=== PATIENT | female | born 1935 | race Caucasian/White ===

== ENCOUNTER → 2017-07-28 | Day surgery (SDC) | payer OTHER, MEDICARE ==
[2017-07-20 11:21] VITALS: Ht 154.9 cm; Wt 85.9 kg
[~2017-07-28] VITALS: Ht 154.9 cm; Wt 85.9 kg
[~2017-07-28] MED LIST: AMIO200T4 PO; ATOR-22 PO; CHOL20009 PO; CYAN1SUB13 SC; ENOX100I SC; FURO-85 PO; LEVO112T4 PO; LIDOCAINE HCL 2% 2 ML VIAL (20MG/ML) ONE; LISI-789 PO; PRLSR20 PO; PROPOFOL IV EMULSION 10 MG/ML 20 ML VIAL IV ONE; TAMO20TA9 PO; WARF1TAB PO
[2017-07-28 08:07] VITALS: TEMP 36.6
--- NOTE | 2017-07-28 08:52 | Endo History and Physical ---
History & Physical Date of Service: Jul 28, 2017. Chief Complaint: varices, barretts esophagus Referring Physician: Dr. Floyd Nuno History of Present Illness varices Past Surgical History Hx Cardiac Surgery: No Hx Internal Defibrillator: No Hx Pacemaker: No Hx Abdominal Surgery: Yes (TUBAL LIGATION, APPY) Hx of Implantable Prosthesis: No Hx Post-Op Nausea and Vomiting: No Hx Cancer Surgery: Yes (THROIDECTOMY) Hx Thoracic Surgery: No Hx Orthopedic: Yes (ORIF RT ANKLE) Hx Urinary Tract Surgery: No Family History Colon CA Social History Smoking Status: Never Smoker Hx Substance Use: No Hx Alcohol Use: No Allergies Coded Allergies: Penicillins (Verified Allergy, Severe, ANAPHYAXIS, 07/20/17) Magnesium (Verified Adverse Reaction, Unknown, DIARRHEA, 07/20/17) Current Medications Reported Home Medications Medications Dose Route/Sig Max Daily Dose Days Date Category Dose Instructions B-12 (Cyanocobalamin) 1,000 Mcg Sub 1 Dose SC MONTHLY 07/20/17 Reported Vitamin D (Cholecalciferol) 2,000 Unit Tab 1 Tab PO QAM 07/20/17 Reported Coumadin (Warfarin Sodium) 1 Mg Tab 1 Mg PO DAILY 07/20/17 Reported Lasix (Furosemide) 20 Mg Tab 20 Mg PO BID 07/20/17 Reported Prilosec (Omeprazole) 20 Mg Capcr 20 Mg PO QAM 07/20/17 Reported Nolvadex (Tamoxifen Citrate) 20 Mg Tab 20 Mg PO QAM 07/20/17 Reported Lipitor (Atorvastatin Calcium) 20 Mg Tab 20 Mg PO QAM 07/20/17 Reported Lovenox (Enoxaparin) 100 Mg/Ml Inj 1 Dose SC DIRECTED 07/20/17 Reported RECEIVED INSTR. TO USE WITH BRIDGING OFF COUMADIN FROM [facility]. Levothyroxine Sodium 112 Mcg Tab 1 Tab PO QAM 07/20/17 Reported Cordarone (Amiodarone Hcl) 200 Mg Tab 100 Mg PO QAM 07/20/17 Reported Zestril (Lisinopril) 2.5 Mg Tab 1 Tab PO QAM 07/20/17 Reported Vital Signs Weight (Kilograms): 85.91 Height (Feet): 5 Height (Inches): 1 Date Time Temp Pulse Resp B/P (MAP) Pulse Ox O2 Delivery O2 Flow Rate FiO2 07/28/17 08:07 36.6 92 20 138/86 (103) 94 Room Air Physical Exam General Appearance: no apparent distress Respiratory/Chest: Respiratory effort: no dyspnea Cardiovascular: Heart Auscultation: RRR Abdomen: Inspection & Palpation: soft Assessment and Plan EGD
--- NOTE | 2017-07-28 09:45 | GI REPORT ---
Procedure Date: 07/28/2017 8:53 AM Procedure: Upper GI endoscopy Indications: Follow-up of Ortiz's esophagus, Cirrhosis rule out esophageal varices Medicines: See the Anesthesia note for documentation of the administered medications Complications: No immediate complications. Estimated Blood Loss: Estimated blood loss: none. Procedure: Pre-Anesthesia Assessment: - ASA Grade Assessment: III - A patient with severe systemic disease. After obtaining informed consent, the endoscope was passed under direct vision. Throughout the procedure, the patient's blood pressure, pulse, and oxygen saturations were monitored continuously. The scope was introduced through the mouth, and advanced to the second part of duodenum. The upper GI endoscopy was accomplished without difficulty. The patient tolerated the procedure well. Findings: There was a small inlet patch in the proximal esophagus. The esophagus and gastroesophageal junction were examined with white light from a forward view and retroflexed position. There were esophageal mucosal changes classified as Ortiz's stage C1-M2 per [place] criteria. These changes involved the mucosa at the upper extent of the gastric folds (36 cm from the incisors) extending to the Z-line (34 cm from the incisors). [place]-colored mucosa was present. The maximum longitudinal extent of these esophageal mucosal changes was 2 cm in length. Mucosa was extensively biopsied in four quadrants with a cold forceps for histology. One specimen bottle was sent to pathology. There was a moderate sized hiatal hernia. There were no esophageal varices. The esophagus was otherwise normal. There were no gastric varices. There was no evidence of portal HTN gastropathy. The antrum was markedly deformed, likely from prior PUD. There was a nodule in the antrum that was biopsied. There was some deformity and narrowing of the apex of the bulb. Impression: - Esophageal mucosal changes classified as Ortiz's stage C1-M2 per [place] criteria. Biopsied. - Deformity of antrum and ring at the apex of the bulb. Recommendation: - Discharge patient to home. Given age, would consider d/c endoscopic surveillance of Ortiz's. Harshad Davenport M.D. Harshad Davenport MD 07/28/2017 9:44:58 AM This report has been signed electronically. Note Initiated On: 07/28/2017 8:53 AM I attest to the content of the Intraoperative Record and orders documented therein, exceptions below
--- NOTE | 2017-07-28 09:46 | Discharge Instructions ---
Endoscopy Patient Instructions Date / Procedure(s) Performed Jul 28, 2017. EGD Allergy Information Coded Allergies: Penicillins (Verified Allergy, Severe, ANAPHYAXIS, 07/20/17) Magnesium (Verified Adverse Reaction, Unknown, DIARRHEA, 07/20/17) Discharge Date / Findings Jul 28, 2017. Short segment Ortiz's, biopsied. No varices or portal gastropathy Deformity of antrum, likely from prior PUD Medication Instructions Stopped Medication(s): Coumadin was told to be held. Patient didnt take anything this am yet. Restart Stopped Medication(s): Resume coumadin today Provider Instructions Activity Restrictions - No exercising or heavy lifting for 24 hours. - Do not drink alcohol the day of the procedure. - Do not drive a car or operate machinery until the day after the procedure. - Do not make any important decisions or sign important papers in 24 hours after the procedure. Following Day: - Return to full activity which may include returning to work/school. Diet Start your diet with liquids and light foods (jello, soup, juice, toast). Then eat your usual diet if not nauseated. Treatment For Common After Affects For mild abdominal pain, bloating, or excessive gas: - Rest - Eat lightly - Lie on right side Follow-Up Information Follow-up with Dr. Floyd Nuno as scheduled Anesthesia Information What You Should Know You have had a procedure that required some medicine to reduce anxiety and discomfort. This treatment is called moderate sedation. After receiving the treatment, you may be sleepy, but you will be able to breathe on your own. The effects of the treatment may last for several hours. Follow these instructions along with Activity/Diet recommendations noted above: * Do NOT do anything where dizziness or clumsiness would be dangerous. * Rest quietly at home today, then you can be up and about tomorrow. * Have a responsible person stay with you the rest of today. * You may have had an I.V. today. If so, you may take the dressing off later today. Recommendations Call your doctor if: * Trouble breathing * Continuous vomiting for more than 24 hours * Temperature above 101 degrees * Severe abdominal pain or bloating * Pain not relieved by pain medicine ordered * There is increased drainage or redness from any incision * A large amount of rectal bleeding greater than 2-3 tablespoons. (If you had a polyp/s removed or have hemorrhoids, a small amount of blood - from the rectum is to be expected.) * You have any unanswered questions or concerns. IN THE EVENT OF A SERIOUS EMERGENCY, GO TO THE NEAREST EMERGENCY ROOM Your discharge instructions were prepared by provider Harshad Mcintosh. Patient Instructions Signature Page Gisselle Britt Patient (or Guardian) Signature/Date: I have read and understand the instructions given to me by my caregivers. Caregiver/RN/Doctor Signature/Date: The above-named patient and/or guardian has received patient instructions on this date. + Original Patient Signature Page (only) stays with chart. Please make copy for patient.
[2017-07-28 09:53] VITALS: BP 108/63; PULSE 74; O2SAT 100
--- NOTE | 2017-07-28 09:54 | Anesthesiology Progress Note ---
Anesthesia Post Op Note Date & Time Jul 28, 2017 at 09:53 Vital Signs Pain Intensity: 0 Vital Signs Past 12 Hours Date Time Temp Pulse Resp B/P (MAP) Pulse Ox O2 Delivery O2 Flow Rate FiO2 07/28/17 09:38 86 20 111/67 (82) 97 Room Air 07/28/17 09:23 80 20 125/64 (84) 100 Room Air 07/28/17 08:07 36.6 92 20 138/86 (103) 94 Room Air Notes Mental Status: alert / awake / arousable, participated in evaluation Pt Amnestic to Procedure: Yes Nausea / Vomiting: adequately controlled Pain: adequately controlled Airway Patency, RR, SpO2: stable & adequate BP & HR: stable & adequate Hydration State: stable & adequate Anesthetic Complications: no major complications apparent
== END | disposition home or self-care (01) ==
LOC: C.GI 07:41
PROVIDERS: ATTEND Internal Medicine Gastroenterology
DX: K22.70 Barrett's esophagus without dysplasia (principal); K20.9 Esophagitis, unspecified; K29.50 Unspecified chronic gastritis without bleeding; Z80.0 Family history of malignant neoplasm of digestive organs; Z79.899 Other long term (current) drug therapy

== ENCOUNTER 2020-02-16 11:14 | Inpatient (IN) ==
[2020-02-16] MEDS ORDERED: DAPTOmycin 250 MG in SYRINGE 0 ML IV ONE (11:49)
[2020-02-16] MEDS ORDERED: cefTRIAXone SODIUM 2,000 MG/70 ML BAG IV STA (11:49)
[2020-02-16 12:12] LABS: Basophils # (auto) 0.04 K/uL (0-0.2); Basophils % (auto) 0.7 %; Eosinophils # (auto) 0.17 K/uL (0-0.5); Eosinophils % (auto) 2.8 %; Hematocrit (blood only) 33.8 % (37-47); Hemoglobin 11.2 g/dL (12.0-16.0); Immature Granulocytes # (auto) 0.01 K/uL (0.00-0.02); Immature Granulocytes % (auto) 0.2 %; Lymphocytes # (auto) 0.97 K/uL (1.2-3.4); Lymphocytes % (auto) 16.1 %; Mean Corpuscular Hemoglobin 35.3 pg (25-34); Mean Corpuscular Hgb Conc 33.1 g/dL (32-36); Mean Corpuscular Volume 106.6 fL (80-100); Mean Platelet Volume 10.7 fL (7.4-10.4); Monocytes # (auto) 0.74 K/uL (0.11-0.59); Monocytes % (auto) 12.3 %; Neutrophils # (auto) 4.09 K/uL (1.4-6.5); Neutrophils % (auto) 67.9 %; Platelet Count 172 K/uL (130-400); RDW Coefficient of Variation 14.7 % (11.5-14.5); RDW Standard Deviation 57.9 fL (36.4-46.3); Red Blood Count 3.17 M/uL (4.2-5.4); White Blood Count 6.02 K/uL (4.8-10.8)
[2020-02-16 12:36] LABS: BUN Creatinine Ratio 9.6 (10-20); C Reactive Protein 0.58 mg/dl (0-0.29); Calcium 9.3 mg/dl (8.5-10.1); Creatinine Clr Calc Pharmacy 36.9 ml/min; Est GFR (African American) 50.2; Est GFR (Non-African American) 43.4; Potassium 4.8 mmol/L (3.5-5.1)
--- NOTE | 2020-02-16 13:00 | Emergency Department Note ---
Impression & Plan Cellulitis of foot, right, Cellulitis of right leg ED Provider Note NAME: ROBBY STANLEY AGE: 84 SEX: F ARRIVES VIA: Walk-In INFORMANT: [Patient] ED PROVIDER(S): Floyd Newsome MD CHIEF COMPLAINT: Right foot infection PLAN: Disposition: admitted. 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 On physical examination she has a significant cellulitis extending into the lower leg with skin breakdown on the foot. Blood work was performed. Culture obtained. The patient was treated with daptomycin and Rocephin. She had unremarkable CBC and chemistry panel. Given the extent of the infection and the patient's difficulty ambulating further management in the hospital is necessary. I discussed this with the patient. She was in agreement. Consultation was made with the hospitalist service. The patient was evaluated in the ER and admitted for further management. Triage Nursing notes reviewed and agree them. Vital Signs: reviewed and remarkable for [no significant abnormalities] Differential diagnosis: Etiologies such as cellulitis, abscess, MRSA infection, dermatitis, drug eruption, necrotizing fasciitis, DVT as well as others were entertained. ER treatment provided: IV gentamicin IV Rocephin Patient declined analgesia Diagnostics interpreted by me: Laboratory studies: [See below] Unremarkable CBC and chemistry panel except for mild anemia. Imaging studies: X-ray imaging of the right foot is negative for any osteomyelitis or subcutaneous air. Soft tissue edema noted. Consultation(s): [facility] service, HPI: The patient is an 84 year old female who presents to the Emergency Room with complaints of a right foot infection. This started 4 days ago and is worsening. The patient also notes the following associated symptoms, right foot pain, swelling and redness. The patient has taken no medication for relieving factors. Current pain is rated as 4/10. Patient has neuropathy and can't feel her feet well. Saw podiatry and they were concerned about infection and referred to the ER for treatment. Pt denies LOC, headache, fevers, chills, diaphoresis, visual changes, neck pain, chest pain, breathing difficulties, nausea, vomiting, abdominal pain, back pain, melena, hematochezia, urinary symptoms, weakness, lymphadenopathy, rash, or other complaints. ROS: See above HPI for pertinent positives & negatives. A total of [10] systems reviewed and were otherwise negative. PAST MEDICAL HISTORY:[See Below] Neuropathy PAST SURGICAL HISTORY:[See Below] FAMILY HISTORY:[See Below] SOCIAL HISTORY:[See Below]Lives alone HOME MEDICATIONS:[See Below] ALLERGIES:[See Below] VITALS:[See Below] PHYSICAL EXAMINATION: GENERAL: Awake, alert, well-appearing, in no distress HENT: Normocephalic, atraumatic. Oropharynx unremarkable. EYES: Normal conjunctiva. Sclera non-icteric. NECK: Inspection normal. Non-tender. Supple. No nuchal rigidity. FROM. No masses. RESPIRATORY: Clear to auscultation. No wheezes. No rales. Normal respiratory effort. CARDIAC: Normal rate. Normal rhythm. No murmurs. No rubs. Extremities warm and well perfused. Pulses equal. No JVD. GI: Soft, non-distended. No tenderness to palpation. No rebound or guarding. No masses. RECTAL: Deferred. MUSCULOSKELETAL: Atraumatic. Chest examination reveals no tenderness. The back is symmetrical on inspection without obvious abnormality. There is no CVA tenderness to palpation. No joint edema. LOWER EXTREMITIES: Calves are equal size bilaterally and non-tender. Thickened appearance of skin with chronic venous changes bilaterally. 1+ left edema. 2+ right edema. Desquamation, erythema, warmth, and TTP of the right LE, ankle and foot concerning for cellulitis. NEURO: Normal sensorium. No sensory or motor deficits noted. SKIN: See above. No other rash or jaundice noted. ED COURSE: [Critical Care:] [None] Floyd Newsome MD Past Med/Surg History Social History Preferred Language: Divehi Communication Ability: Effective Literature Professor Required: No Beliefs That Will Affect Care: None Current Living Situation: Alone Feels Safe at Home: Yes Safety Concerns: Feels Safe At This Time Smoking Status: Never smoker Hx Alcohol Use: No Hx Substance Use: No Allergies Allergies Allergy/AdvReac Type Severity Reaction Status Date / Time Penicillins Allergy Severe ANAPHYAXIS Verified 02/16/20 13:06 magnesium AdvReac Unknown DIARRHEA Verified 02/16/20 13:06 Home Meds Home Medications Medication Instructions Recorded Confirmed acetaminophen [Tylenol Extra 500 mg PO Q6H PRN 12/06/18 02/16/20 Strength] amiodarone 100 mg PO QAM 12/06/18 02/16/20 atorvastatin 20 mg PO QAM 12/06/18 02/16/20 cholecalciferol (vitamin D3) 2,000 unit PO QAM 12/06/18 02/16/20 [Vitamin D3] cyanocobalamin (vitamin B-12) 1,000 mcg IM Q3M 12/06/18 02/16/20 furosemide 40 mg PO DAILY PRN 12/06/18 02/16/20 levothyroxine 112 mcg PO QAM 12/06/18 02/16/20 omeprazole 20 mg PO QAM 12/06/18 02/16/20 tamoxifen 20 mg PO QAM 12/06/18 02/16/20 warfarin 1 mg PO SUMOWETHFR 12/06/18 02/16/20 warfarin 2 mg PO TUSA 12/06/18 02/16/20 amlodipine 5 mg PO QAM 02/16/20 02/16/20 diclofenac sodium 4 g TOPICAL QID PRN 02/16/20 02/16/20 Results & Data (ED) Vital Signs Vital Signs - 24 hr 02/16/20 11:19 02/16/20 12:20 02/16/20 12:25 Temperature 36.4 C L Temperature Source Oral Pulse Rate 105 H 82 77 Pulse Rate [Finger] Pulse Rate from SpO2 Sensor 82 77 Pulse Rhythm Regular Pulse Strength Normal Respiratory Rate 20 22 22 Respiratory Effort / Characteristics Non-Labored Spontaneous Respiratory Depth Normal Respiratory Pattern Regular Blood Pressure 144/78 H 145/78 H Blood Pressure [Left Arm] Blood Pressure Mean 100 104 Blood Pressure Mean [Left Arm] Blood Pressure Position Sitting Pulse Oximetry 94 97 96 Oxygen Delivery Method Room Air Sepsis Recent Fever Within 48 Hours No Sepsis New/Unexplained Change in Mental Status No Sepsis Action Taken by Nursing No Action Required 02/16/20 12:30 02/16/20 13:00 02/16/20 13:30 Temperature Temperature Source Pulse Rate 83 78 76 Pulse Rate [Finger] 75 Pulse Rate from SpO2 Sensor 80 78 Pulse Rhythm Pulse Strength Respiratory Rate 22 23 22 Respiratory Effort / Characteristics Respiratory Depth Respiratory Pattern Blood Pressure 135/64 135/70 138/74 Blood Pressure [Left Arm] 138/74 Blood Pressure Mean 80 81 87 Blood Pressure Mean [Left Arm] 95 Blood Pressure Position Pulse Oximetry 95 94 Oxygen Delivery Method Room Air Sepsis Recent Fever Within 48 Hours Sepsis New/Unexplained Change in Mental Status Sepsis Action Taken by Nursing 02/16/20 14:00 02/16/20 14:30 02/16/20 15:00 Temperature Temperature Source Pulse Rate 75 76 77 Pulse Rate [Finger] Pulse Rate from SpO2 Sensor 74 77 Pulse Rhythm Pulse Strength Respiratory Rate 33 H 21 16 Respiratory Effort / Characteristics Respiratory Depth Respiratory Pattern Blood Pressure 142/77 H 138/71 Blood Pressure [Left Arm] Blood Pressure Mean 88 105 Blood Pressure Mean [Left Arm] Blood Pressure Position Pulse Oximetry 95 93 Oxygen Delivery Method Sepsis Recent Fever Within 48 Hours Sepsis New/Unexplained Change in Mental Status Sepsis Action Taken by Nursing 02/16/20 15:30 02/16/20 16:00 Temperature Temperature Source Pulse Rate 80 Pulse Rate [Finger] Pulse Rate from SpO2 Sensor Pulse Rhythm Pulse Strength Respiratory Rate 22 23 Respiratory Effort / Characteristics Respiratory Depth Respiratory Pattern Blood Pressure 145/75 H 110/63 Blood Pressure [Left Arm] Blood Pressure Mean 107 77 Blood Pressure Mean [Left Arm] Blood Pressure Position Pulse Oximetry Oxygen Delivery Method Sepsis Recent Fever Within 48 Hours Sepsis New/Unexplained Change in Mental Status Sepsis Action Taken by Nursing Laboratory Data Result diagrams: 02/16/20 11:58 02/16/20 11:58 Lab Results 02/16/20 02/16/20 02/16/20 Range/Units 11:58 11:58 11:58 WBC 6.02 (4.8-10.8) K/uL RBC 3.17 L (4.2-5.4) M/uL Hgb 11.2 L (12.0-16.0) g/dL Hct 33.8 L (37-47) % MCV 106.6 H (80-100) fL MCH 35.3 H (25-34) pg MCHC 33.1 (32-36) g/dL RDW Std Deviation 57.9 H (36.4-46.3) fL RDW Coeff of Frieda 14.7 H (11.5-14.5) % Plt Count 172 (130-400) K/uL MPV 10.7 H (7.4-10.4) fL Immature Gran % (Auto) 0.2 % Neut % (Auto) 67.9 % Lymph % (Auto) 16.1 % [place] % (Auto) 12.3 % Eos % (Auto) 2.8 % Baso % (Auto) 0.7 % Immature Gran # (Auto) 0.01 (0.00-0.02) K/uL Neut # (Auto) 4.09 (1.4-6.5) K/uL Lymph # (Auto) 0.97 L (1.2-3.4) K/uL [place] # (Auto) 0.74 H (0.11-0.59) K/uL Eos # (Auto) 0.17 (0-0.5) K/uL Baso # (Auto) 0.04 (0-0.2) K/uL ESR 31 H (0-21) mm/hr PT (9.0-12.0) Seconds INR (0.9-1.1) Sodium 133 L (136-145) mmol/L Potassium 4.8 (3.5-5.1) mmol/L Chloride 100 (98-107) mmol/L Carbon Dioxide 24 (21-32) mmol/L Anion Gap 9.0 (3-11) BUN 11 (7-18) mg/dl Creatinine 1.15 (0.6-1.2) mg/dl Est Cr Clr Drug Dosing 36.9 ml/min Est GFR ( Amer) 50.2 Est GFR (Non-Af Amer) 43.4 BUN/Creatinine Ratio 9.6 L (10-20) Glucose 87 (70-99) mg/dl Lactate (0.4-2.0) mmol/L Calcium 9.3 (8.5-10.1) mg/dl C-Reactive Protein 0.58 H (0-0.29) mg/dl Procalcitonin (0-0.5) ng/ml 02/16/20 02/16/20 02/16/20 Range/Units 11:58 11:58 11:58 WBC (4.8-10.8) K/uL RBC (4.2-5.4) M/uL Hgb (12.0-16.0) g/dL Hct (37-47) % MCV (80-100) fL MCH (25-34) pg MCHC (32-36) g/dL RDW Std Deviation (36.4-46.3) fL RDW Coeff of Frieda (11.5-14.5) % Plt Count (130-400) K/uL MPV (7.4-10.4) fL Immature Gran % (Auto) % Neut % (Auto) % Lymph % (Auto) % [place] % (Auto) % Eos % (Auto) % Baso % (Auto) % Immature Gran # (Auto) (0.00-0.02) K/uL Neut # (Auto) (1.4-6.5) K/uL Lymph # (Auto) (1.2-3.4) K/uL [place] # (Auto) (0.11-0.59) K/uL Eos # (Auto) (0-0.5) K/uL Baso # (Auto) (0-0.2) K/uL ESR (0-21) mm/hr PT 23.5 H (9.0-12.0) Seconds INR 2.3 H (0.9-1.1) Sodium (136-145) mmol/L Potassium (3.5-5.1) mmol/L Chloride (98-107) mmol/L Carbon Dioxide (21-32) mmol/L Anion Gap (3-11) BUN (7-18) mg/dl Creatinine (0.6-1.2) mg/dl Est Cr Clr Drug Dosing ml/min Est GFR ( Amer) Est GFR (Non-Af Amer) BUN/Creatinine Ratio (10-20) Glucose (70-99) mg/dl Lactate 2.0 (0.4-2.0) mmol/L Calcium (8.5-10.1) mg/dl C-Reactive Protein (0-0.29) mg/dl Procalcitonin < 0.05 (0-0.5) ng/ml Administered Medications Discontinued Medications Ceftriaxone Sodium (Rocephin) 2,000 mg in 70 mls @ 140 mls/hr IV NOW STA Stop: 02/16/20 12:18 Last Infusion: 02/16/20 12:58 Dose: 0 mls/hr Documented by: [id number] Admin: 02/16/20 12:09 Dose: 140 mls/hr Documented by: [id number] Daptomycin 250 mg/ Syringe 5 mls @ 2.5 mls/min IV NOW ONE; Protocol Stop: 02/16/20 11:50 Last Admin: 02/16/20 12:08 Dose: 2.5 mls/min Documented by: [id number] Discharge Plan Visit Data *Final* Discharge Date/Time: 02/16/20 16:47 Chief Complaint: Infection, Wound Stated Complaint: RIGHT FOOT INFECTION, WOUND ON RIGHT LEG ED Provider: Floyd Newsome Discharge Problem: Cellulitis of foot, right, Cellulitis of right leg Patient Disposition: Admitted As Inpatient Discharge Instructions Interventions: ED Discharge Assessment Last Done: 02/16/20 16:47
--- NOTE | 2020-02-16 13:29 | XRay Report ---
XR foot RT min 3V routine CLINICAL HISTORY: cellulitis, pain COMPARISON: None. DISCUSSION: Generalized degenerative change and osteoporosis. Pars planus deformity. Postoperative ch anges including open reduction internal fixation of the right ankle. Bunion deformity distal first metatarsal with hallux valgus configuration. No evidence for bony destructive process. Soft tissue vascular calcifications. IMPRESSION: 1. Generalized degenerative and postoperative change.. 2. No acute bony abnormality. 3. Moderate soft tissue edematous change ACT 112: Negative or not required by law. The above report was generated using voice recognition software. It may contain grammatical, syntax or spelling errors. Electronically signed by: Jeff Almanza M.D. 02/16/2020 1:27 PM
--- NOTE | 2020-02-16 15:03 | History & Physical Report ---
Date of Service February 16, 2020 Assessment & Plan (1) Cellulitis of foot, right: Right Leg Cellulitis R Foot X ray:Generalized degenerative and postoperative change.. No acute bony abnormality. Moderate soft tissue edematous change No H/O trauma Normal lactate, procalcitonin levels Blood cultures, wound cultures obtained Started on daptomycin, Azactam Venous Dopplers pending Continue Lasix as needed for edema Wound care consulted Paroxysmal atrial fibrillation Paroxysmal SVT Continue amiodarone Continue Coumadin for anticoagulation INR therapeutic: 2.3 Monitor INR Breast cancer Continue tamoxifen Pernicious anemia Iron deficiency anemia Hb at baseline Ortiz's esophagus Continue PPI Hypothyroidism Continue levothyroxine TIA Dyslipidemia Continue Lipitor, Coumadin CKD IV Cr at baseline Monitor renal function DVT prophylaxis on Coumadin CODE STATUS Full code As per my discussion with patient Disposition PT/OT prior to discharge History of Present Illness Chief Complaint: Right foot pain Primary Care Provider: Floyd Nuno MD Patient is an 84-year-old female with history of paroxysmal atrial fibrillation on chronic anticoagulation with Coumadin, breast cancer, pernicious anemia, Ortiz's esophagus, obesity, paroxysmal SVT, left bundle branch block, iron deficiency anemia, hypothyroidism, TIA, dyslipidemia, CKD 4 and other medical problems presents with history of worsening right foot pain, swelling, erythema since 2 weeks duration. Patient was evaluated by her liability claims manager today who sent the patient to ED for further evaluation and management. Patient had difficulty ambulating secondary to foot pain. Patient has neuropathy and admits to having poor sensation to her feet at baseline. She denies any trauma. Uses wheelchair for ambulation. She noticed having " skin peeling off" especially since last 4 days. She denies being started on any new medications. Denies any history of chest pain, SOB, dizziness, cough, fever, chills, fall, head trauma, weakness, nausea, vomiting, abdominal pain, diarrhea, dysuria, hematuria. Allergies Allergy/AdvReac Type Severity Reaction Status Date / Time Penicillins Allergy Severe ANAPHYAXIS Verified 02/16/20 13:06 magnesium AdvReac Unknown DIARRHEA Verified 02/16/20 13:06 Home Medications Home Medications Medication Instructions Recorded Confirmed Type acetaminophen [Tylenol Extra 500 mg PO Q6H PRN 12/06/18 02/16/20 History Strength] amiodarone 100 mg PO QAM 12/06/18 02/16/20 History atorvastatin 20 mg PO QAM 12/06/18 02/16/20 History cholecalciferol (vitamin D3) 2,000 unit PO QAM 12/06/18 02/16/20 History [Vitamin D3] cyanocobalamin (vitamin B-12) 1,000 mcg IM Q3M 12/06/18 02/16/20 History furosemide 40 mg PO DAILY PRN 12/06/18 02/16/20 History levothyroxine 112 mcg PO QAM 12/06/18 02/16/20 History omeprazole 20 mg PO QAM 12/06/18 02/16/20 History tamoxifen 20 mg PO QAM 12/06/18 02/16/20 History warfarin 1 mg PO SUMOWETHFR 12/06/18 02/16/20 History warfarin 2 mg PO TUSA 12/06/18 02/16/20 History amlodipine 5 mg PO QAM 02/16/20 02/16/20 History diclofenac sodium 4 g TOPICAL QID PRN 02/16/20 02/16/20 History Past Med/Surg History Medical History Hypothyroid Neuropathy Osteoporosis Surgical History History of ankle surgery History of thyroid surgery S/P tonsillectomy Family History Daughter Breast cancer Social History Preferred Language: [place] Communication Ability: Effective Chief Nurse Executive Required: No Beliefs That Will Affect Care: None Current Living Situation: Alone Feels Safe at Home: Yes Safety Concerns: Feels Safe At This Time Smoking Status: Never smoker Hx Alcohol Use: No Hx Substance Use: No Review of Systems Review of Systems: All systems reviewed & are unremarkable except as noted in HPI & below Physical Exam Physical Exam: Physical Exam: Vitals signs as noted above General Appearance:Moderately built and nourished, no apparent distress Head: normocephalic, Atraumatic, hearing impairment Eyes: normal inspection, EOMI, PERRL Neck: supple, Trachea midline Respiratory/Chest: Normal breath sounds, CTA, No accessory muscle use Cardiovascular: S1, S2, + murmur Abdomen/GI:Soft, Non tender, Bowel sounds present Extremities/Musculoskelatal:normal inspection, B/L LE edema, chronic venous stasis changes, R foot:erythema, desquamation, warmth, swelling Neurologic/Psych:AAOX3, grossly no focal neurological deficits Skin: normal color, warm Results & Data Results & Data ([facility]) Vital Signs (Past 12 Hours) Vital Signs Temp Pulse Pulse Resp BP BP Pulse Ox 02/16/20 14:30 76 21 93 02/16/20 14:00 75 33 H 142/77 H 95 02/16/20 13:30 76 75 22 138/74 138/74 94 02/16/20 13:00 78 23 135/70 02/16/20 12:30 83 22 135/64 95 02/16/20 12:25 77 22 96 02/16/20 12:20 82 22 145/78 H 97 02/16/20 11:19 36.4 C L 105 H 20 144/78 H 94 Laboratory Results Short CBC 02/16/20 Range/Units 11:58 WBC 6.02 (4.8-10.8) K/uL Hgb 11.2 L (12.0-16.0) g/dL Hct 33.8 L (37-47) % Plt Count 172 (130-400) K/uL BMP 02/16/20 11:58 Sodium 133 L Potassium 4.8 Chloride 100 Carbon Dioxide 24 BUN 11 Creatinine 1.15 Glucose 87 Calcium 9.3 Diagnostic Findings Right Foot X ray: 1. Generalized degenerative and postoperative change.. 2. No acute bony abnormality. 3. Moderate soft tissue edematous change
[2020-02-16] MEDS ORDERED: POLYETHYLENE (MIRALAX) 17 GM PACK PO PRN (17:17)
[2020-02-16] MEDS ORDERED: FUROSEMIDE 40 MG TAB PO PRN (17:17)
[2020-02-16] MEDS ORDERED: ACETAMINOPHEN 500 MG TAB PO PRN (17:17)
[2020-02-16 17:35] LABS: INR 2.3 (0.9-1.1); Prothrombin Time 23.5 Seconds (9.0-12.0)
[2020-02-16] MEDS ORDERED: DAPTOMYCIN CONSULT ACTIVE PRN (19:07)
[2020-02-16] MEDS ORDERED: [UNRECOGNIZED DRUG - OTHER] PRN (19:08)
[2020-02-16] MEDS: WARFARIN SOD 1 MG TAB PO SCH (20:25)
--- NOTE | 2020-02-16 22:36 | Ultrasound Report ---
ULTRASOUND BILATERAL LOWER EXTREMITY VENOUS CLINICAL HISTORY: Lower extremity edema. COMPARISON STUDY: Bilateral lower extremity venous ultrasound dated 09/09/2009 TECHNIQUE: Real-time, grayscale, and color Doppler sonography of the deep veins of the right and left lower extremity was performed from the inguinal crease to the calf. Compression and augmentation wer e utilized. FINDINGS: There is no sonographic evidence of deep venous thrombosis identified in the right or left lower extremity. The common femoral, superficial femoral, and popliteal veins are patent and normally compressible bilaterally. The greater saphenous vein and the profunda femoris vein at the junction w ith the common femoral vein are clear in both legs. The visualized calf veins are patent bilaterally. Soft tissue edema is noted in the calves. IMPRESSION: There is no sonographic evidence of deep venous thrombosis identified in the right or lef t lower extremity. ACT 112: Negative or not required by law. Electronically signed by: Herve Kramer M.D. 02/16/2020 10:35 PM
[2020-02-16] MEDS: AZTREONAM 1,000 MG in DEXTROSE 5% 100 ML IV SCH (23:52)
[2020-02-17 06:40] LABS: Basophils # (auto) 0.04 K/uL (0-0.2); Basophils % (auto) 0.8 %; Eosinophils # (auto) 0.18 K/uL (0-0.5); Eosinophils % (auto) 3.5 %; Hemoglobin 10.4 g/dL (12.0-16.0); Immature Granulocytes # (auto) 0.01 K/uL (0.00-0.02); Immature Granulocytes % (auto) 0.2 %; Lymphocytes # (auto) 0.94 K/uL (1.2-3.4); Mean Corpuscular Hemoglobin 35.7 pg (25-34); Mean Corpuscular Hgb Conc 33.5 g/dL (32-36); Mean Corpuscular Volume 106.5 fL (80-100); Mean Platelet Volume 11.6 fL (7.4-10.4); Monocytes # (auto) 0.73 K/uL (0.11-0.59); Neutrophils # (auto) 3.31 K/uL (1.4-6.5); Neutrophils % (auto) 63.5 %; Platelet Count 132 K/uL (130-400); RDW Standard Deviation 58.6 fL (36.4-46.3); Red Blood Count 2.91 M/uL (4.2-5.4); White Blood Count 5.21 K/uL (4.8-10.8)
[2020-02-17] MEDS: LEVOTHYROXINE SODIUM 112 MCG TABLET PO SCH (06:40)
[2020-02-17 06:48] LABS: INR 2.1 (0.9-1.1); Prothrombin Time 21.4 Seconds (9.0-12.0)
[2020-02-17] MEDS: AZTREONAM 1,000 MG in DEXTROSE 5% 100 ML IV SCH ×3 (06:48→22:39)
[2020-02-17 07:20] LABS: BUN Creatinine Ratio 11.3 (10-20); Calcium 8.6 mg/dl (8.5-10.1); Creatinine Clr Calc Pharmacy 34.2 ml/min; Est GFR (African American) 45.9; Est GFR (Non-African American) 39.6
[2020-02-17 07:51] LABS: Potassium 4.8 mmol/L (3.5-5.1)
[2020-02-17 07:52] LABS: Magnesium 1.6 mg/dl (1.8-2.4)
[2020-02-17] MEDS: ATORVASTATIN 20 MG TAB PO SCH (09:29)
[2020-02-17] MEDS: PANTOprazole 40 MG TAB PO SCH (09:29)
[2020-02-17] MEDS: AMLODIPINE BESYLATE 5 MG TAB PO SCH (09:29)
[2020-02-17] MEDS: AMIODARONE 200 MG TAB PO SCH (09:30)
[2020-02-17] MEDS: TAMOXIFEN CITRATE 10 MG TABLET PO SCH (09:30)
[2020-02-17] MEDS: DAPTOmycin 250 MG in SYRINGE 0 ML IV SCH (13:33)
--- NOTE | 2020-02-17 15:33 | Hospitalist Progress Note ---
Date of Service February 17, 2020 Assessment & Plan (1) Cellulitis of right leg: Pt feels there has been improvement in her leg overnight. Cont Dapto/Aztreonam for approx 48 hours pending culture results and continued clinical improvement. Consider transition to PO Wednesday. (2) Hypothyroid: Cont Synthroid per home regimen. (3) HTN (hypertension): At goal. Cont amlodipine per home regimen. (4) H/O malignant neoplasm of breast: cont tamoxifen per home regimen. (5) PAF (paroxysmal atrial fibrillation): Valvular atrial fibrillation. cont amio per home regimen. She is anticoagulated on warfarin and INR is at goal 2-3. (6) Aortic stenosis: (7) DVT prophylaxis: warfarin Full Code Dispo-to home after the weekend with increased home care. Appreciate [employer] Controls Specialist working with her on available local resources that may help her at home. She lives independently despite being wheelchair bound. Son in the area, but is currently out of town. She notes that she has been very isolated from neighbors who can help her because of the COVID-19 pandemic and this has made it hard on her. Madeleine Onofre DO [facility] Hospitalist Admission and Anticipated Discharge Date Admission Date: February 16, 2020 Subjective Feeling well denies having pain in her legs this whole time increased redness started two weeks ago clear chronic woody changes to legs and lymphatics destruction related to swelling no clear wounds right foot has Charcot appearance to it-she denies hearing that in the past gets around in a wheelchair and independently transfers, lives independently, home health nurse comes in once weekly son lives locally but currently is out of town. denies other symptoms including no fevers, chills, SOB, CP Review of Systems Review of Systems: All systems reviewed & are unremarkable except as noted in Subjective Physical Exam Physical Exam: CONSTITUTIONAL: obese, vitals as above, generally well- appearing EYES: normal conjunctivae, no scleral icterus ENT: external ear and nose normal, MMM NECK: trachea midline RESPIRATORY: clear to auscultation bilaterally, no crackles, rales or wheezes, normal respiratory effort CARDIOVASCULAR: regular rate and rhythm, 3/6 BILL throughout precordium, no gallops or rubs, no JVD, no peripheral edema GASTROINTESTINAL: soft, obese, nontender, nondistended MUSCULOSKELETAL: strength 5/5 throughout, head is normocephalic and atraumatic SKIN: warm and dry, chronic woofy appearance to skin, trish right?left lower leg. +erythroderma bilaterally with superficial erythema spreading throughout RLE>LLE. Distal right foot is red with scaly skin and has a Charcot appearance in general different from left foot. No TTP. NEUROLOGIC: No facial palsy, no dysarthria. CN 2-12 grossly intact, +decreased sensation equally in bilateral extremities (feet and ankles) normal cognition, normal speech, no gross focal deficit. PSYCHIATRIC: alert cooperative and oriented to person, place and time. Results & Data Results & Data ([facility]) Vital Signs (Past 12 Hours) Vital Signs Temp Pulse Resp BP Pulse Ox 02/17/20 07:30 36.7 C 72 18 110/65 95 Laboratory Results Short CBC 02/17/20 Range/Units 06:19 WBC 5.21 (4.8-10.8) K/uL Hgb 10.4 L (12.0-16.0) g/dL Hct 31.0 L (37-47) % Plt Count 132 (130-400) K/uL BMP 02/17/20 02/17/20 06:19 07:24 Sodium 133 L Potassium 4.8 Chloride 103 Carbon Dioxide 24 BUN 14 Creatinine 1.24 H Glucose 82 Calcium 8.6 Medications Administered Current Inpatient Medications Acetaminophen (Tylenol) 500 mg PO Q6H PRN PRN Reason: Pain Stop: 03/17/20 17:16 Amiodarone HCl (Cordarone) 100 mg PO [facility] Stop: 03/18/20 08:59 Last Admin: 02/17/20 09:30 Dose: 100 mg Documented by: Amlodipine Besylate (Norvasc) 5 mg PO [facility] Stop: 03/18/20 08:59 Last Admin: 02/17/20 09:29 Dose: 5 mg Documented by: Atorvastatin Calcium (Lipitor) 20 mg PO [facility] Stop: 03/18/20 08:59 Last Admin: 02/17/20 09:29 Dose: 20 mg Documented by: Furosemide (Lasix) 40 mg PO DAILY PRN PRN Reason: Edema Stop: 03/17/20 17:16 Daptomycin 250 mg/ Syringe 5 mls @ 2.5 mls/min IV Q24H [facility]; Protocol Stop: 02/23/20 11:59 Last Admin: 02/17/20 13:33 Dose: 2.5 mls/min Documented by: Aztreonam 1,000 mg/ Dextrose 110 mls @ 110 mls/hr IV Q8H [facility]; Protocol Stop: 02/23/20 21:59 Last Infusion: 02/17/20 14:42 Dose: Infused Documented by: Levothyroxine Sodium (Synthroid) 112 mcg PO DAILYBB [facility] Stop: 03/18/20 06:29 Last Admin: 02/17/20 06:40 Dose: 112 mcg Documented by: Miscellaneous Information (Pharmacy Consult) 1 ea N/A UD PRN PRN Reason: Consult Stop: 03/17/20 19:07 Miscellaneous Information (Consult) 1 ea N/A UD PRN PRN Reason: Consult Stop: 03/17/20 19:06 Pantoprazole [facility] ([facility]ix) [facility] [place] Stop: 03/18/20 08:59 Last Admin: 02/17/20 09:29 Dose: 40 mg Documented by: Polyethylene Glycol (Miralax Powder Packet) 17 gm PO DAILY PRN PRN Reason: Constipation Stop: 03/17/20 17:16 Tamoxifen Citrate (Nolvadex) [facility] [facility] [place] Stop: 03/18/20 08:59 Last Admin: 02/17/20 09:30 Dose: 20 mg Documented by: Warfarin Sodium (Coumadin) 2 mg PO TuSa@1600 [facility] Stop: 03/18/20 15:59 Warfarin Sodium (Coumadin) 1 mg PO SuMoWeThFr@1600 [facility] Stop: 03/17/20 19:29 Last Admin: 02/16/20 20:25 Dose: Not Given Documented by:
[2020-02-17] MEDS ORDERED: WARFARIN SOD 2 MG TAB PO SCH (16:00)
[2020-02-17] MEDS ORDERED: AZTREONAM 1,000 MG in DEXTROSE 5% 100 ML IV SCH (22:00)
[2020-02-18] MEDS: LEVOTHYROXINE SODIUM 112 MCG TABLET PO SCH (05:43)
[2020-02-18] MEDS: AZTREONAM 1,000 MG in DEXTROSE 5% 100 ML IV SCH ×2 (05:44→13:51)
[2020-02-18 06:23] LABS: Hematocrit (blood only) 31.3 % (37-47); Hemoglobin 10.2 g/dL (12.0-16.0); Mean Corpuscular Hemoglobin 35.5 pg (25-34); Mean Corpuscular Hgb Conc 32.6 g/dL (32-36); Mean Corpuscular Volume 109.1 fL (80-100); Mean Platelet Volume 10.6 fL (7.4-10.4); Platelet Count 138 K/uL (130-400); RDW Coefficient of Variation 14.9 % (11.5-14.5); RDW Standard Deviation 59.4 fL (36.4-46.3); Red Blood Count 2.87 M/uL (4.2-5.4); White Blood Count 5.21 K/uL (4.8-10.8)
[2020-02-18 06:29] LABS: Prothrombin Time 20.6 Seconds (9.0-12.0)
[2020-02-18 06:53] LABS: BUN Creatinine Ratio 11.5 (10-20); Calcium 8.5 mg/dl (8.5-10.1); Creatinine Clr Calc Pharmacy 33.2 ml/min; Est GFR (African American) 44.1; Est GFR (Non-African American) 38.1; Potassium 4.3 mmol/L (3.5-5.1)
--- NOTE | 2020-02-18 09:06 | Hospitalist Progress Note ---
Date of Service February 18, 2020 Assessment & Plan (1) Cellulitis of right leg: Erythema continues to improve. Noted Type I allergy to PCN. Will transition dapto/aztrenoam to doxycycline 100 BID. Cultures negative to date. (2) CKD (chronic kidney disease), stage III: around her baseline of 1.1-1.3, GFR around 40 per records. Cont to encourage oral hydration. Avoid IVF in setting of aortic stenosis unless necessary. (3) Hypothyroid: Cont Synthroid per home regimen. (4) HTN (hypertension): At goal. Cont amlodipine per home regimen. (5) H/O malignant neoplasm of breast: cont tamoxifen per home regimen. (6) PAF (paroxysmal atrial fibrillation): Valvular atrial fibrillation. cont amio per home regimen. She is anticoagulated on warfarin and INR is at goal 2-3. (7) Aortic stenosis: (8) DVT prophylaxis: warfarin Full Code Dispo-to home at discharge. Madeleine Onofre DO [facility] Hospitalist Admission and Anticipated Discharge Date Admission Date: February 16, 2020 Subjective doing well no fevers or chills denies pain Review of Systems Review of Systems: All systems reviewed & are unremarkable except as noted in Subjective Physical Exam Physical Exam: CONSTITUTIONAL: obese, vitals as above, generally well- appearing EYES: normal conjunctivae, no scleral icterus ENT: external ear and nose normal, MMM NECK: trachea midline RESPIRATORY: clear to auscultation bilaterally, no crackles, rales or wheezes, normal respiratory effort CARDIOVASCULAR: regular rate and rhythm, 3/6 BILL throughout precordium, no gallops or rubs, no JVD, no peripheral edema GASTROINTESTINAL: soft, obese, nontender, nondistended MUSCULOSKELETAL: strength 5/5 throughout, head is normocephalic and atraumatic SKIN: warm and dry, chronic woody appearance to skin, trish right?left lower leg. +erythroderma bilaterally. Distal right foot is red with scaly skin and has a Charcot appearance in general different from left foot. No TTP. NEUROLOGIC: No facial palsy, no dysarthria. CN 2-12 grossly intact, +decreased sensation equally in bilateral extremities (feet and ankles) normal cognition, normal speech, no gross focal deficit. PSYCHIATRIC: alert cooperative and oriented to person, place and time. Results & Data Results & Data ([facility]) Vital Signs (Past 12 Hours) Vital Signs Temp Pulse Resp BP Pulse Ox 02/18/20 07:35 36.3 C L 80 16 118/76 95 02/17/20 23:54 36.7 C 81 16 123/74 92 Laboratory Results Short CBC 02/16/20 02/17/20 02/18/20 Range/Units 11:58 06:19 06:03 WBC 5.21 (4.8-10.8) K/uL Hgb 10.2 L (12.0-16.0) g/dL Hct 31.3 L (37-47) % Plt Count 138 (130-400) K/uL Est Cr Clr Drug Dosing 36.9 34.2 ml/min 02/18/20 Range/Units 06:03 WBC (4.8-10.8) K/uL Hgb (12.0-16.0) g/dL Hct (37-47) % Plt Count (130-400) K/uL Est Cr Clr Drug Dosing 33.2 ml/min BMP 02/18/20 06:03 Sodium 135 L Potassium 4.3 Chloride 104 Carbon Dioxide 26 BUN 15 Creatinine 1.28 H Glucose 85 Calcium 8.5 Medications Administered Current Inpatient Medications Acetaminophen (Tylenol) 500 mg PO Q6H PRN PRN Reason: Pain Stop: 03/17/20 17:16 Amiodarone HCl (Cordarone) 100 mg PO [facility] Stop: 03/18/20 08:59 Last Admin: 02/17/20 09:30 Dose: 100 mg Documented by: Amlodipine Besylate (Norvasc) 5 mg PO [facility] Stop: 03/18/20 08:59 Last Admin: 02/17/20 09:29 Dose: 5 mg Documented by: Atorvastatin Calcium (Lipitor) 20 mg PO [facility] Stop: 03/18/20 08:59 Last Admin: 02/17/20 09:29 Dose: 20 mg Documented by: Furosemide (Lasix) 40 mg PO DAILY PRN PRN Reason: Edema Stop: 03/17/20 17:16 Daptomycin 250 mg/ Syringe 5 mls @ 2.5 mls/min IV Q24H [facility]; Protocol Stop: 02/23/20 11:59 Last Admin: 02/17/20 13:33 Dose: 2.5 mls/min Documented by: Aztreonam 1,000 mg/ Dextrose 110 mls @ 110 mls/hr IV Q8H [facility]; Protocol Stop: 02/23/20 21:59 Last Infusion: 02/18/20 07:06 Dose: Infused Documented by: Levothyroxine Sodium (Synthroid) 112 mcg PO DAILYBB [facility] Stop: 03/18/20 06:29 Last Admin: 02/18/20 05:43 Dose: 112 mcg Documented by: Miscellaneous Information (Pharmacy Consult) 1 ea N/A UD PRN PRN Reason: Consult Stop: 03/17/20 19:07 Miscellaneous Information (Consult) 1 ea N/A UD PRN PRN Reason: Consult Stop: 03/17/20 19:06 Pantoprazole Sodium (Protonix) 40 mg PO [facility] Stop: 03/18/20 08:59 Last Admin: 02/17/20 09:29 Dose: 40 mg Documented by: Polyethylene Glycol (Miralax Powder Packet) 17 gm PO DAILY PRN PRN Reason: Constipation Stop: 03/17/20 17:16 Tamoxifen Citrate (Nolvadex) 20 mg PO [facility] Stop: 03/18/20 08:59 Last Admin: 02/17/20 09:30 Dose: 20 mg Documented by: Warfarin Sodium (Coumadin) 2 mg PO TuSa@1600 [facility] Stop: 03/18/20 15:59 Last Admin: 02/17/20 15:36 Dose: 2 mg Documented by: Warfarin Sodium (Coumadin) 1 mg PO SuMoWeThFr@1600 [facility] Stop: 03/17/20 19:29 Last Admin: 02/16/20 20:25 Dose: Not Given Documented by:
[2020-02-18] MEDS: AMIODARONE 200 MG TAB PO SCH (09:31)
[2020-02-18] MEDS: TAMOXIFEN CITRATE 10 MG TABLET PO SCH (09:31)
[2020-02-18] MEDS: ATORVASTATIN 20 MG TAB PO SCH (09:32)
[2020-02-18] MEDS: AMLODIPINE BESYLATE 5 MG TAB PO SCH (09:32)
[2020-02-18] MEDS: PANTOprazole 40 MG TAB PO SCH (09:32)
[2020-02-18] MEDS: DAPTOmycin 250 MG in SYRINGE 0 ML IV SCH (13:51)
[2020-02-18] MEDS: WARFARIN SOD 1 MG TAB PO SCH (16:08)
[2020-02-18] MEDS: DOXYCYCLINE HYCLATE 100 MG CAP PO SCH (20:22)
[2020-02-19] MEDS: LEVOTHYROXINE SODIUM 112 MCG TABLET PO SCH (06:19)
[2020-02-19 07:07] LABS: INR 1.9 (0.9-1.1); Prothrombin Time 19.6 Seconds (9.0-12.0)
[2020-02-19] MEDS: PANTOprazole 40 MG TAB PO SCH (07:45)
[2020-02-19] MEDS: TAMOXIFEN CITRATE 10 MG TABLET PO SCH (07:45)
[2020-02-19] MEDS: AMIODARONE 200 MG TAB PO SCH (07:45)
[2020-02-19] MEDS: AMLODIPINE BESYLATE 5 MG TAB PO SCH (07:46)
[2020-02-19] MEDS: DOXYCYCLINE HYCLATE 100 MG CAP PO SCH (07:46)
--- NOTE | 2020-02-19 14:17 | Discharge Summary ---
Date of Service February 19, 2020 Admission HPI Per Admitting Provider Patient is an 84-year-old female with history of paroxysmal atrial fibrillation on chronic anticoagulation with Coumadin, breast cancer, pernicious anemia, Ortiz's esophagus, obesity, paroxysmal SVT, left bundle branch block, iron deficiency anemia, hypothyroidism, TIA, dyslipidemia, CKD 4 and other medical problems presents with history of worsening right foot pain, swelling, erythema since 2 weeks duration. Patient was evaluated by her communications advisor today who sent the patient to ED for further evaluation and management. Patient had difficulty ambulating secondary to foot pain. Patient has neuropathy and admits to having poor sensation to her feet at baseline. She denies any trauma. Uses wheelchair for ambulation. She noticed having " skin peeling off" especially since last 4 days. She denies being started on any new medications. Denies any history of chest pain, SOB, dizziness, cough, fever, chills, fall, head trauma, weakness, nausea, vomiting, abdominal pain, diarrhea, dysuria, hematuria. Admission Exam Per Admitting Provider Physical Exam: Vitals signs as noted above General Appearance:Moderately built and nourished, no apparent distress Head: normocephalic, Atraumatic, hearing impairment Eyes: normal inspection, EOMI, PERRL Neck: supple, Trachea midline Respiratory/Chest: Normal breath sounds, CTA, No accessory muscle use Cardiovascular: S1, S2, + murmur Abdomen/GI:Soft, Non tender, Bowel sounds present Extremities/Musculoskelatal:normal inspection, B/L LE edema, chronic venous stasis changes, R foot:erythema, desquamation, warmth, swelling Neurologic/Psych:AAOX3, grossly no focal neurological deficits Skin: normal color, warm Principal Diagnosis RLE cellulitis Discharge Exam CONSTITUTIONAL: obese, vitals as above, generally well-appearing EYES: normal conjunctivae, no scleral icterus ENT: external ear and nose normal, MMM NECK: trachea midline RESPIRATORY: clear to auscultation bilaterally, no crackles, rales or wheezes, normal respiratory effort CARDIOVASCULAR: regular rate and rhythm, 3/6 BILL throughout precordium, no gallops or rubs, no JVD, no peripheral edema GASTROINTESTINAL: soft, obese, nontender, nondistended MUSCULOSKELETAL: strength 5/5 throughout, head is normocephalic and atraumatic SKIN: warm and dry, chronic woody appearance to skin, erythema has resolved to baseline. Skin recently treated by wound care provider and excess dry skin has been removed. Distal right foot is red with scaly skin and has a Charcot appearance in general different from left foot. No TTP. No drainage NEUROLOGIC: No facial palsy, no dysarthria. CN 2-12 grossly intact, +decreased sensation equally in bilateral extremities (feet and ankles) normal cognition, normal speech, no gross focal deficit. PSYCHIATRIC: alert cooperative and oriented to person, place and time. Discharge Data Allergies Allergy/AdvReac Type Severity Reaction Status Date / Time Penicillins Allergy Severe ANAPHYAXIS Verified 02/16/20 13:06 magnesium AdvReac Unknown DIARRHEA Verified 02/16/20 13:06 Consultations 02/16/20 15:15 ED Decision to Admit Stat 02/16/20 17:17 Consult Case Management - Discharge Planning Routine Ordered Studies 02/16/20 17:17 US venous doppler LE Routine Hospital Course (1) Cellulitis of right le-year-old female presented from the wound care clinic with evidence of r ight leg cellulitis. She was admitted to the hospitalist service and started on aztreonam and daptomycin. Lower extremity venous Dopplers were performed and negative for DVT. Wound care was consulted. She remains on intravenous antibiotics through weekend and was transitioned to doxycycline 100 mg p.o. twice daily. Prior to discharge she was seen by the wound care provider who removed a significant amount of excess of skin. Prior to departure her erythema had completely resolved in her right lower extremity outside of some baseline redness that is present. Regular foot care is strongly recommended and regular follow-up with podiatry is important. She also worked with case management while admitted regarding having additional help in the home. She currently works with [employer] and movement was made to contact them and assist her with additional needs. At time of discharge she was hemodynamically stable and afebrile and tolerating p.o. She was made mentating and ambulating at baseline and was sent home in stable condition with close primary care follow-up recommended. Total Time Total Time Spent Total Time Spent (In Minutes): 60 Total Time Includes: Examination of the Patient, Discharge Planning, Medication Reconciliation and Communication With Other Providers Discharge Plan Discharge Items Patient Disposition: Home - Self-Care Reason For Visit: LEG CELLULITIS Discharge Diagnosis: RLE cellulitis Condition on Discharge: Good Activity: Resume your previous activity Non-emergency contact: Primary Care Provider Call non-emergency contact if: you have any medication questions, your symptoms worsen, your pain is not controlled, your pain is worsening, your pain is unusual for you, your pain is concerning for you and you have a fever Follow-up/Referrals: Floyd Nuno MD [Primary Care Provider] - 02/22/20 2:00 pm (02/22/2020 2:00 PM Provider Floyd Nuno III, MD Department [facility] ) Diet: Heart Healthy Addtl Attending Provider Instructions: Please take all medications as instructed on discharge list below. You are being given two antibiotic pills to take tonight and tomorrow morning. Please metal pickling equipment operator your prescription in the morning and start the next dose tomorrow evening. If you have any question about what to take and when, either check with your pharmacist or please call me here at the hospital via the pulp refiner operator at the number below. Please follow-up with your primary care provider within one week at the appointment above. This visit will be to ensure your leg is looking better with the antibiotics, that you are still tolerating the antibiotics without issue, and to ensure you don't need a longer course of antibiotics given to you. Keep your feet clean and dry, and moisturize regularly. When you are walking, remember to always wear shoes to protect your skin. Please continue to follow-up with your communications advisor for regular foot care. Per case management, they have spoken with a sales representatives with [employer] about your desire to have more help in the home. Please follow-up with them in the next week. Additionally, please consider connecting with an outpatient manager of case through Dr. Nuno's office who can assist you with these types of things moving forward. It was a pleasure taking care of you! Please call if you have any questions or problems. You can reach a [facility] hospitalist on duty at [facility] 24 hours a day by calling [phone]. Take care of yourself. Madeleine Onofre, DO [facility] Hospitalist Pending Studies at Discharge: No Stand-Alone Forms: My [facility] Porphyrio, Smoking Cessation Medications and DC Order Prescriptions: New doxycycline hyclate 100 mg Capsule 100 mg PO BID Qty: 12 RF: 0 Continued amlodipine 5 mg tablet 5 mg PO QAM RF: 0 diclofenac sodium 1 % gel 4 g TOPICAL QID PRN (Reason: Pain) RF: 0 atorvastatin 20 mg tablet 20 mg PO QAM RF: 0 amiodarone 200 mg tablet 100 mg PO QAM RF: 0 acetaminophen [Tylenol Extra Strength] 500 mg Tablet 500 mg PO Q6H PRN (Reason: Pain) RF: 0 omeprazole 20 mg capsule,delayed release(DR/EC) 20 mg PO QAM RF: 0 furosemide 20 mg tablet 40 mg PO DAILY PRN (Reason: Edema) RF: 0 warfarin 1 mg tablet 2 mg PO TUSA RF: 0 warfarin 1 mg tablet 1 mg PO SUMOWETHFR RF: 0 tamoxifen 20 mg tablet 20 mg PO QAM RF: 0 levothyroxine 112 mcg tablet 112 mcg PO QAM RF: 0 cholecalciferol (vitamin D3) [Vitamin D3] 2,000 unit Tablet 2,000 unit PO QAM RF: 0 cyanocobalamin (vitamin B-12) 1,000 mcg/mL Kit 1,000 mcg IM Q3M RF: 0 Discharge Orders: Discharge Order (Routine); Ordered 02/19/20 Ordered By: Madeleine Onofre Admission Data Admit Date/Time: 02/16/20 16:01 Attending Provider: Madeleine Onofre Admit Provider: Denilson Gonzalez Primary Care Provider: Floyd Nuno Other Providers: Denilson Gonzalez
[2020-02-19] MEDS ORDERED: DOXYCYCLINE HYCLATE 100 MG CAP PO SCH (21:00)
== END 2020-02-19 16:39 | disposition home or self-care (01) | DRG 603 ==
LOC: ED 11:14 → 2N 16:01 → SUATTDRO 16:01 → 2N 16:47 → 3W 23:54

== ENCOUNTER 2020-07-21 12:58 | Inpatient (IN) ==
[2020-07-21 14:04] LABS: Basophils # (auto) 0.05 K/uL (0-0.2); Basophils % (auto) 0.9 %; Eosinophils # (auto) 0.08 K/uL (0-0.5); Eosinophils % (auto) 1.4 %; Hemoglobin 11.8 g/dL (12.0-16.0); Immature Granulocytes # (auto) 0.01 K/uL (0.00-0.02); Immature Granulocytes % (auto) 0.2 %; Lymphocytes # (auto) 0.94 K/uL (1.2-3.4); Lymphocytes % (auto) 16.7 %; Mean Corpuscular Hemoglobin 35.9 pg (25-34); Mean Corpuscular Hgb Conc 33.7 g/dL (32-36); Mean Corpuscular Volume 106.4 fL (80-100); Mean Platelet Volume 10.9 fL (7.4-10.4); Monocytes # (auto) 0.59 K/uL (0.11-0.59); Monocytes % (auto) 10.5 %; Neutrophils # (auto) 3.96 K/uL (1.4-6.5); Neutrophils % (auto) 70.3 %; Platelet Count 196 K/uL (130-400); RDW Coefficient of Variation 13.1 % (11.5-14.5); RDW Standard Deviation 51.5 fL (36.4-46.3); Red Blood Count 3.29 M/uL (4.2-5.4); White Blood Count 5.63 K/uL (4.8-10.8)
[2020-07-21 14:12] LABS: INR 1.4 (0.9-1.1); Prothrombin Time 14.9 Seconds (9.0-12.0)
[2020-07-21 14:23] LABS: Alanine Aminotransferase 29 U/L (12-78); Albumin Level 3.3 gm/dl (3.4-5.0); Aspartate Aminotransferase 64 U/L (15-37); BUN Creatinine Ratio 12.3 (10-20); Blood Urea Nitrogen 23 mg/dl (7-18); Calcium 9.2 mg/dl (8.5-10.1); Carbon Dioxide 24 mmol/L (21-32); Chloride 97 mmol/L (98-107); Creatinine Clr Calc Pharmacy 22.7 ml/min; Est GFR (African American) 28.1; Est GFR (Non-African American) 24.2; Glucose 85 mg/dl (70-99); Magnesium 1.8 mg/dl (1.8-2.4); Potassium 5.1 mmol/L (3.5-5.1); Sodium 129 mmol/L (136-145)
[2020-07-21 14:34] LABS: Albumin Globulin Ratio 0.7 (0.9-2); Alkaline Phosphatase 111 U/L (45-117); Bilirubin,Total 1.2 mg/dl (0.2-1); Globulin 4.9 gm/dl (2.5-4.0); Total Protein 8.2 gm/dl (6.4-8.2); Troponin I < 0.015 ng/ml (0-0.045)
[2020-07-21] MEDS ORDERED: SODIUM CHLORIDE 0.9% 500 ML IV ONE (14:39)
[2020-07-21 14:47] LABS: T4 Free Thyroxine 1.01 ng/dl (0.8-1.6)
--- NOTE | 2020-07-21 15:11 | XRay Report ---
XR chest 1V not portable CLINICAL HISTORY: weakness COMPARISON STUDY: 09/03/2011 FINDINGS: The study is underpenetrated. The heart is enlarged. Mild pulmonary venous hypertension is suspected. There is no lobar consolidation. There is blunting of the lateral costophrenic angle sugge sting small effusions. Right basilar opacities are likely atelectatic[ IMPRESSION: 1. Cardiomegaly and suspected pulmonary venous hypertension 2. Suspected small pleural effusions 3. Right basilar opacities, statistically atelectatic ACT 112: Negative or not required by law. Electronically signed by: Bairon Lacey M.D. 07/21/2020 3:10 PM
--- NOTE | 2020-07-21 15:15 | XRay Report ---
XR lumbar spine 2-3V CLINICAL HISTORY: Lumbar spine pain status post trauma COMPARISON STUDY: CT scan performed August 2011 FINDINGS: The bones are osteopenic. There is a grade 1 spondylolisthesis of L4 and L5. There is an ol d severe L1 compression fracture. There is an old T12 compression fracture. Since the prior study, th e patient has developed a superior endplate L3 compression fracture. This demonstrates a sclerotic dan perior margin suggesting this is subacute. There is also a severe T9 compression fracture which was n ot present on the prior study IMPRESSION: 1. Interval development of a severe T9 compression fracture 2. Old severe L1 compression fracture 3. Interval development of a superior endplate L3 compression fracture which appears subacute. 4. Osteopenia ACT 112: Negative or not required by law. Electronically signed by: Bairon Lacey M.D. 07/21/2020 3:14 PM
[2020-07-21 16:28] LABS: Appearance Urine Cloudy (Clear); Bacteria Urine Automated 3+ (Negative); Bilirubin Urine Negative (Negative); Blood Urine 2+ (Negative); Cast Urine Automated 0 /lpf (0-5); Color Urine Dark Yellow; Epithelial Cell Urine Auto >30 /lpf (0-5); Glucose Urine UA Negative (Negative); Ketones Urine Trace (Negative); Leukocyte Esterase Urine 3+ (Negative); Nitrite Urine Positive (Negative); RBC Urine Automated 0-4 /hpf (0-4); Urobilinogen Urine Negative (Negative); WBC Urine Automated >30 /hpf (0-5); pH Urine 7.5 (4.5-7.5)
[2020-07-21 16:49] LABS: Protein Urine Negative (Negative); Sulfosalicylic Acid Urine Negative (Negative)
--- NOTE | 2020-07-21 17:04 | Emergency Department Note ---
Impression & Plan Neuropathy, Fall, Acute UTI, Hyponatremia, Compression fracture ED Provider Note Provider: Kayode Floyd MD DATE OF SERVICE:07/21/2020 CHIEF COMPLAINT: Fall, worsening leg numbness HISTORY OF PRESENT ILLNESS: Patient is a 85-year-old female with a history of aortic stenosis, paroxysmal atrial fibrillation on Coumadin, breast cancer, CKD, upper thyroidism, and neuropathy presenting today via ambulance from her home. Patient states she fell to the ground today after trying to transfer from her wheelchair to her bed. Patient states he does not really walk at home. Patient states she lives by her self and her last week has had some worsening numbness of her bilateral legs. Has known neuropathy in all 4 extremities. Patient states this morning she fell landing on a soft pillow but had difficulty getting up and so called the ambulance. Patient planes of a little bit of mild back pain. Denies striking her head. Patient is compliant with home medications. Patient states she again lives very self and has minimal help only on Fridays for a few hours but otherwise is independent. She is been isolating at home. Denies chest pain shortness of breath or dizziness today. REVIEW OF SYSTEMS: A total of 10 review of systems was obtained and negative except as stated above in the HPI. PAST MEDICAL HISTORY: As noted above MEDICATIONS: Reviewed home medications including Coumadin SOCIAL HISTORY: Lives at home by herself, non-smoker PHYSICAL EXAM: GENERAL: alert and oriented in no acute distress on stretcher Head: normocephalic and atraumatic EYES: No injection, discharge or icterus. NECK: Trachea midline. LUNGS: Airway patent. No retractions. Breath sounds clear HEART: Irregular rate and rhythm. No chest wall tenderness ABDOMEN: Soft and non-tender, without guarding or rebound. SKIN: Acyanotic, warm, dry, without rashes EXTREMITIES: With 1-2+ edema of the lower extremities with some chronic stasis change. Some mild bilateral erythema but no paris discharge or crepitus appreciated lower extremities. No significant point tenderness of the joints or long bones of the lower legs appreciated. NEUROLOGICAL: No aphasia. No facial droop or slurred speech. Patient with some mild to moderate neuropathy to the bilateral knees but does feel gross touch of the feet. Patient is able to move her feet fairly well with some slight weakness due to little bit of discomfort in the right lower leg. Patient has good use of the upper extremities with some mild peripheral neuropathy in the hands. EK bpm atrial fibrillation with left bundle branch block. No PVC noted. No acute ST segment elevation p noted. Compared to previous from April 182011 now in atrial fibrillation. CONTINUOUS CARDIAC MONITORING: was ordered and showed a heart rate of 80s bpm in rate controlled atrial fibrillation Patient's laboratory studies and imaging reviewed. Differential includes Infection, dehydration, metabolic abnormality, hypo/hyperglycemia, electrolyte disturbance, anemia, hypoxia, cardiac sources, intracerebral event, toxicologic, neurologic traumatic as well as other pathologies. IMPRESSION/MEDICAL DECISION MAKING: Patient presents after some worsening numbness and now a fall while transferring today at her home where she lives by herself. Is more or less wheelchair-bound according to her. Does have life alert but minimal caregiver support only on Fridays during the week. Patient denies significant fevers, chest pain, palpitations, shortness of breath. Patient is noted to be in atrial fibrillation and actually somewhat subtherapeutic on her INR here today but states compliance with her home Coumadin. Very in fact did not strike her head did not proceed with CT imaging here as I doubt acute intracranial bleed or cervical injury. Benign abdomen I doubt acute rib fracture intra-abdominal bleeding. Given she did fall onto her buttocks, although she states it was soft, did complete a lumbar x-ray which did question a new acute compression fracture although she has minimal symptoms and states she could not have obtained a new compression fracture today as it was a minimal fall. Given the slow onset and worsening of neuropathy over the past week does not lead me to believe that any new spinal fracture would be causing her symptoms currently. Patient does complain over the past week with some worsening numbness in both her legs (1st the left than the right from mid leg to now both knees) but no falls in several months. Has known peripheral neuropathy. Lower suspicion at this time for an acute cauda equina or spinal infection. Patient does have a history of breast cancer currently on tamoxifen but unsure if this is the true etiology of her worsening neuropathy. Patient with some mild anemia but no leukocytosis and I doubt sepsis or large systemic infection. Some mild PATRICK and hyponatremia is noted. Hyponatremia somewhat worse than baseline and as well as the renal function given some IV fluid bolus here. TSH is abnormal but free T4 is normal. Urinalysis appears somewhat contaminated but nitrate positive and given this discussed with the hospitalist who will order a dose of ceftriaxone which pharmacy states she received a dose in January without issue. Troponin is negative and does not appear to be in rapid ventricular response with her A. fib. Given the fact she lives alone with the falls and worsening fall risk as well as concerns with possible UTI discussed with the hospitalist for further observa tion here. The patient was in agreement. DIAGNOSIS: Weakness fall, neuropathy, acute UTI, hyponatremia, compression fracture DISPOSITION: Hospitalist will evaluate Patient was agreeable with this plan. Past Med/Surg History Medical History (Updated 07/21/20 @ 17:45 by Kayode Floyd M.D.) H/O malignant neoplasm of breast HTN (hypertension) Hypothyroid Neuropathy Osteoporosis Surgical History History of ankle surgery History of thyroid surgery S/P tonsillectomy Family History Daughter Breast cancer Social History Smoking Status: Never smoker Hx Alcohol Use: Yes Alcohol type: wine Hx Substance Use: No Preferred Language: [place] Communication Ability: Effective School Transportation Supervisor Required: No Beliefs That Will Affect Care: None marital status: / Current Living Situation: Alone Current Living Situation Comment: HAS [employer] COME TO HOME Other Information That Helps Us Care for You: No Feels Safe at Home: Yes Safety Concerns: Feels Safe At This Time Assistive Devices: Denture - Upper, Denture - Lower, Glasses, Hearing Aid - Bilateral and Wheelchair Allergies Allergies Allergy/AdvReac Type Severity Reaction Status Date / Time Penicillins Allergy Severe ANAPHYAXIS Verified 07/21/20 14:22 magnesium AdvReac Unknown DIARRHEA Verified 07/21/20 14:22 Home Meds Home Medications Medication Instructions Recorded Confirmed acetaminophen [Tylenol Extra 500 mg PO Q6H PRN 12/06/18 07/21/20 Strength] amiodarone 100 mg PO QAM 12/06/18 07/21/20 atorvastatin 20 mg PO QAM 12/06/18 07/21/20 cholecalciferol (vitamin D3) 2,000 unit PO QAM 12/06/18 07/21/20 [Vitamin D3] cyanocobalamin (vitamin B-12) 1,000 mcg IM Q3M 12/06/18 07/21/20 furosemide 40 mg PO QAM PRN 12/06/18 07/21/20 levothyroxine 112 mcg PO QAM 12/06/18 07/21/20 omeprazole 20 mg PO QAM 12/06/18 07/21/20 tamoxifen 20 mg PO QAM 12/06/18 07/21/20 warfarin 1 mg PO QAM 12/06/18 07/21/20 amlodipine 5 mg PO QAM 02/16/20 07/21/20 diclofenac sodium 4 g TOPICAL QID PRN 02/16/20 07/21/20 Results & Data (ED) Vital Signs Vital Signs - 24 hr 07/21/20 13:04 07/21/20 16:19 Pulse Rate 82 Pulse Rate [Right Finger] 97 H Pulse Rhythm Regular Pulse Strength Normal Respiratory Rate 20 20 Respiratory Effort / Characteristics Non-Labored Spontaneous Non-Labored Spontaneous Respiratory Depth Normal Normal Respiratory Pattern Regular Blood Pressure 125/83 Blood Pressure [Right Arm] 124/75 Blood Pressure Mean 97 Blood Pressure Mean [Right Arm] 91 Pulse Oximetry 95 97 Oxygen Delivery Method Room Air Room Air Sepsis Recent Fever Within 48 Hours No Sepsis New/Unexplained Change in Mental Status N/A Sepsis Action Taken by Nursing No Action Required Laboratory Data Result diagrams: 07/21/20 13:52 07/21/20 13:52 Lab Results 07/21/20 07/21/20 07/21/20 Range/Units 13:52 13:52 13:52 WBC 5.63 (4.8-10.8) K/uL RBC 3.29 L (4.2-5.4) M/uL Hgb 11.8 L (12.0-16.0) g/dL Hct 35.0 L (37-47) % MCV 106.4 H (80-100) fL MCH 35.9 H (25-34) pg MCHC 33.7 (32-36) g/dL RDW Std Deviation 51.5 H (36.4-46.3) fL RDW Coeff of Freida 13.1 (11.5-14.5) % Plt Count 196 (130-400) K/uL MPV 10.9 H (7.4-10.4) fL Immature Gran % (Auto) 0.2 % Neut % (Auto) 70.3 % Lymph % (Auto) 16.7 % [place] % (Auto) 10.5 % Eos % (Auto) 1.4 % Baso % (Auto) 0.9 % Neut # (Auto) 3.96 (1.4-6.5) K/uL Lymph # (Auto) 0.94 L (1.2-3.4) K/uL [place] # (Auto) 0.59 (0.11-0.59) K/uL Eos # (Auto) 0.08 (0-0.5) K/uL Baso # (Auto) 0.05 (0-0.2) K/uL Immature Gran # (Auto) 0.01 (0.00-0.02) K/uL PT 14.9 H (9.0-12.0) Seconds INR 1.4 H (0.9-1.1) Sodium 129 L (136-145) mmol/L Potassium 5.1 (3.5-5.1) mmol/L Chloride 97 L (98-107) mmol/L Carbon Dioxide 24 (21-32) mmol/L Anion Gap 8.0 (3-11) BUN 23 H (7-18) mg/dl Creatinine 1.85 H (0.6-1.2) mg/dl Est Cr Clr Drug Dosing 22.7 ml/min Est GFR ( Amer) 28.1 Est GFR (Non-Af Amer) 24.2 BUN/Creatinine Ratio 12.3 (10-20) Glucose 85 (70-99) mg/dl Calcium 9.2 (8.5-10.1) mg/dl Magnesium 1.8 (1.8-2.4) mg/dl Total Bilirubin 1.2 H (0.2-1) mg/dl AST 64 H (15-37) U/L ALT 29 (12-78) U/L Alkaline Phosphatase 111 (45-117) U/L Troponin I < 0.015 (0-0.045) ng/ml Total Protein 8.2 (6.4-8.2) gm/dl Albumin 3.3 L (3.4-5.0) gm/dl Globulin 4.9 H (2.5-4.0) gm/dl Albumin/Globulin Ratio 0.7 L (0.9-2) TSH 17.400 H (0.300-4.500) uIu/ml Free T4 1.01 (0.8-1.6) ng/dl Urine Color Urine Appearance (Clear) Urine pH (4.5-7.5) Ur Specific [place] (1.000-1.030) Urine Protein (Negative) Urine Glucose (UA) (Negative) Urine Ketones (Negative) Urine Blood (Negative) Urine Nitrite (Negative) Urine Bilirubin (Negative) Urine Urobilinogen (Negative) Ur Leukocyte Esterase (Negative) Urine WBC (Auto) (0-5) /hpf Urine RBC (Auto) (0-4) /hpf U Hyaline Cast (Auto) (0-5) /lpf U Epithel Cells (Auto) (0-5) /lpf Urine Bacteria (Auto) (Negative) SARS-CoV-2 Ag (Rapid) (Negative) 07/21/20 07/21/20 Range/Units 16:15 16:49 WBC (4.8-10.8) K/uL RBC (4.2-5.4) M/uL Hgb (12.0-16.0) g/dL Hct (37-47) % MCV (80-100) fL MCH (25-34) pg MCHC (32-36) g/dL RDW Std Deviation (36.4-46.3) fL RDW Coeff of Frieda (11.5-14.5) % Plt Count (130-400) K/uL MPV (7.4-10.4) fL Immature Gran % (Auto) % Neut % (Auto) % Lymph % (Auto) % [place] % (Auto) % Eos % (Auto) % Baso % (Auto) % Neut # (Auto) (1.4-6.5) K/uL Lymph # (Auto) (1.2-3.4) K/uL [place] # (Auto) (0.11-0.59) K/uL Eos # (Auto) (0-0.5) K/uL Baso # (Auto) (0-0.2) K/uL Immature Gran # (Auto) (0.00-0.02) K/uL PT (9.0-12.0) Seconds INR (0.9-1.1) Sodium (136-145) mmol/L Potassium (3.5-5.1) mmol/L Chloride (98-107) mmol/L Carbon Dioxide (21-32) mmol/L Anion Gap (3-11) BUN (7-18) mg/dl Creatinine (0.6-1.2) mg/dl Est Cr Clr Drug Dosing ml/min Est GFR ( Amer) Est GFR (Non-Af Amer) BUN/Creatinine Ratio (10-20) Glucose (70-99) mg/dl Calcium (8.5-10.1) mg/dl Magnesium (1.8-2.4) mg/dl Total Bilirubin (0.2-1) mg/dl AST (15-37) U/L ALT (12-78) U/L Alkaline Phosphatase (45-117) U/L Troponin I (0-0.045) ng/ml Total Protein (6.4-8.2) gm/dl Albumin (3.4-5.0) gm/dl Globulin (2.5-4.0) gm/dl Albumin/Globulin Ratio (0.9-2) TSH (0.300-4.500) uIu/ml Free T4 (0.8-1.6) ng/dl Urine Color Dark Yellow Urine Appearance Cloudy A (Clear) Urine pH 7.5 (4.5-7.5) Ur Specific [place] 1.020 (1.000-1.030) Urine Protein Negative (Negative) Urine Glucose (UA) Negative (Negative) Urine Ketones Trace H (Negative) Urine Blood 2+ H (Negative) Urine Nitrite Positive A (Negative) Urine Bilirubin Negative (Negative) Urine Urobilinogen Negative (Negative) Ur Leukocyte Esterase 3+ H (Negative) Urine WBC (Auto) >30 H (0-5) /hpf Urine RBC (Auto) 0-4 (0-4) /hpf U Hyaline Cast (Auto) 0 (0-5) /lpf U Epithel Cells (Auto) >30 H (0-5) /lpf Urine Bacteria (Auto) 3+ H (Negative) SARS-CoV-2 Ag (Rapid) Negative (Negative) Administered Medications Ceftriaxone Sodium 1,000 mg/ (Dextrose) 50 mls @ 100 mls/hr IV Q24H [facility]; Protocol Stop: 07/31/20 17:44 Last Admin: 07/21/20 17:46 Dose: 100 mls/hr Documented by: [id number] Discontinued Medications Ceftriaxone Sodium (Ceftriaxone Sodium 1000mg/50ml D5w) Confirm Administered Dose 1,000 mg IV .STK-MED ONE Stop: 07/21/20 17:45 Last Admin: 07/21/20 17:47 Dose: Not Given Documented by: [id number] Sodium Chloride (Nss) 500 mls @ 999 mls/hr IV .Q31M ONE Stop: 07/21/20 15:09 Last Infusion: 07/21/20 17:47 Dose: 0 mls/hr Documented by: [id number] Admin: 07/21/20 15:29 Dose: 999 mls/hr Documented by: [id number] Discharge Plan Visit Data Chief Complaint: Leg Weakness, Bilateral ED Provider: Kayode Floyd Discharge Problem: Neuropathy, Fall, Acute UTI, Hyponatremia, Compression fracture Forms Stand Alone Forms: [facility] Prescriptions Prescriptions: No Action amlodipine 5 mg tablet 5 mg PO QAM RF: 0 diclofenac sodium 1 % gel 4 g TOPICAL QID PRN (Reason: Pain) RF: 0 atorvastatin 20 mg tablet 20 mg PO QAM RF: 0 amiodarone 200 mg tablet 100 mg PO QAM RF: 0 acetaminophen [Tylenol Extra Strength] 500 mg Tablet 500 mg PO Q6H PRN (Reason: Pain) RF: 0 omeprazole 20 mg capsule,delayed release(DR/EC) 20 mg PO QAM RF: 0 furosemide 20 mg tablet 40 mg PO QAM PRN (Reason: Edema) RF: 0 warfarin 1 mg tablet 1 mg PO QAM RF: 0 tamoxifen 20 mg tablet 20 mg PO QAM RF: 0 levothyroxine 112 mcg tablet 112 mcg PO QAM RF: 0 cholecalciferol (vitamin D3) [Vitamin D3] 2,000 unit Tablet 2,000 unit PO QAM RF: 0 cyanocobalamin (vitamin B-12) 1,000 mcg/mL Kit 1,000 mcg IM Q3M RF: 0 Discharge Problem: Fall Qualifiers: Encounter type: initial encounter Qualified Code(s): W19.XXXA - Unspecified fall, initial encounter
[2020-07-21] MEDS ORDERED: cefTRIAXone SODIUM 1000MG/50ML D5W IV ONE (17:44)
[2020-07-21] MEDS ORDERED: cefTRIAXone SODIUM 1,000 MG in DEXTROSE 5% 50 ML IV SCH (17:45)
--- NOTE | 2020-07-21 18:19 | History & Physical Report ---
Date of Service July 21, 2020 Assessment & Plan (1) Fall: (2) Compression fracture: 85 years old female with past medical history of A. fib on chronic Coumadin, severe aortic stenosis, hypertension, grade 2 diastolic dysfunction, stage III CKD, dyslipidemia, hypothyroidism, bilateral neuropathy of lower extremity, history of breast cancer, wheelchair-bound presented to the ER after a fall Lumbar Xray showed interval development of a severe T9 compression fracture. Old severe L1 compression fracture. Interval development of a superior endplate L3 compression fracture which appears subacute. Denies any injury to her head Denies any back pain or shoulder pain If develop any headache or tenderness in her head, will get a CT head Continue pain management with tylenol PT/OT eval Fall precaution Hyponatremia Possible related to poor intake Denies any diarrhea and vomiting Pt said that she only took the lasix once last week Na on admission 129 received IVF in the ER Continue gentle hydration due to severe aortic stenosis Will monitor BMP UTI Urine on admission positive for nitrite, leukocytes and bacteria Complaint of urinary frequency Will start on Rocephin IV ( Penicillin allergies, but confirmed with pharmacy that pt received Rocephin last January with no reaction) Follow up urine cx Hypothyroidism TSH 17.4 Will increase Levothyroxine to 125mg Check TSH in 4 to 6 weeks Atrial fibrillation Rate control with amiodarone Continue Coumadin for anticoagulation INR therapeutic 1.4 today Continue Monitor INR Severe Aortic stenosis Declining surgical intervention for her aortic stenosis as per recent cardiology note on 05/2020 Will monitor closely while on IVF Breast cancer Continue tamoxifen Pernicious anemia Iron deficiency anemia Hbg at baseline Ortiz's esophagus Continue PPI TIA Dyslipidemia Continue Lipitor, Coumadin Acute on CKD 3 Creatinine on admission 1.8 Continue gentle IVF hydration Will avoid nephrotoxic agents Continue monitor BMP DVT prophylaxis on Coumadin but INR 1.4 Will add heparin subq q12h until INR therapeutic CODE STATUS Full code as per my discussion with the siddhartha History of Present Illness Chief Complaint: S/P fall Primary Care Provider: Floyd Nuno MD 85 years old female with past medical history of A. fib on chronic Coumadin, severe aortic stenosis, hypertension, grade 2 diastolic dysfunction, stage III CKD, dyslipidemia, hypothyroidism, bilateral neuropathy of lower extremity, history of breast cancer, wheelchair-bound presented to the ER after a fall today. Patient said for the past week she has been having pain in her lower extremities due to her neuropathy. She said today while trying to transfer herself from the wheelchair to the sofa, she felt between the sofa and the coffee table. She said she fell on her bottom and did not have any injury since she had pillows that were already on the floor. Patient denies any trauma or injury to the head or loss any consciousness. Patient states she lives alone and she used a wheelchair to move around. She said she has a aide that come to her house. She said that in the past she fell the similar way when she tried to transfer herself to the sofa. Patient said she is on diuresis but she does not like to take it. She said on the day she takes the Lasix she has to urinate every 3 hours. She said she took the Lasix 1 last week. She has been having urinary frequency. Currently she denies any pain in her back or shoulder. She said the only pain that she has is her usual pain in her knees. Denies any chest pain, palpitation, dizziness, nausea, diarrhea, dysuria, fever, chills or SOB. She denies any recent exposure to anyone tested positive with Covid 19. Allergies Allergy/AdvReac Type Severity Reaction Status Date / Time Penicillins Allergy Severe ANAPHYAXIS Verified 07/21/20 14:22 magnesium AdvReac Unknown DIARRHEA Verified 07/21/20 14:22 Home Medications Medication Instructions Recorded Confirmed Type acetaminophen [Tylenol Extra 500 mg PO Q6H PRN 12/06/18 07/21/20 History Strength] amiodarone 100 mg PO QAM 12/06/18 07/21/20 History atorvastatin 20 mg PO QAM 12/06/18 07/21/20 History cholecalciferol (vitamin D3) 2,000 unit PO QAM 12/06/18 07/21/20 History [Vitamin D3] cyanocobalamin (vitamin B-12) 1,000 mcg IM Q3M 12/06/18 07/21/20 History furosemide 40 mg PO QAM PRN 12/06/18 07/21/20 History levothyroxine 112 mcg PO QAM 12/06/18 07/21/20 History omeprazole 20 mg PO QAM 12/06/18 07/21/20 History tamoxifen 20 mg PO QAM 12/06/18 07/21/20 History warfarin 1 mg PO QAM 12/06/18 07/21/20 History amlodipine 5 mg PO QAM 02/16/20 07/21/20 History diclofenac sodium 4 g TOPICAL QID PRN 02/16/20 07/21/20 History Past Med/Surg History Medical History (Updated 07/21/20 @ 17:45 by Kayode Floyd M.D.) H/O malignant neoplasm of breast HTN (hypertension) Hypothyroid Neuropathy Osteoporosis Surgical History History of ankle surgery History of thyroid surgery S/P tonsillectomy Family History Daughter Breast cancer Social History Smoking Status: Never smoker Hx Alcohol Use: Yes Alcohol type: wine Hx Substance Use: No Preferred Language: [place] Islander Communication Ability: Effective Germination Testing Manager Required: No Beliefs That Will Affect Care: None marital status: / Current Living Situation: Alone Current Living Situation Comment: HAS COMFORT KEEPERS COME TO HOME Other Information That Helps Us Care for You: No Feels Safe at Home: Yes Safety Concerns: Feels Safe At This Time Assistive Devices: Denture - Upper, Denture - Lower, Glasses, Hearing Aid - Bilateral and Wheelchair Review of Systems Review of Systems: All systems reviewed & are unremarkable except as noted in HPI & below Physical Exam Physical Exam: General- No acute distress Head- atraumatic Eyes- PERRL, EOMI, ENT- decrease hearing function Neck- supple, no JVD Lungs- clear to auscultation Heart- irregular rhythm; +Systolic murmur Abdomen- normal bowel sounds, soft, nontender Extremities- +knees pain, +2 edema Neuro- alert, oriented x 3; PERRL, EOMI; no facial palsy; no dysarthria Skin- warm & dry Results & Data Results & Data ([facility]) Vital Signs (Past 12 Hours) Vital Signs Pulse Pulse Resp BP BP Pulse Ox 07/21/20 16:19 97 H 20 124/75 97 07/21/20 13:04 82 20 125/83 95 Diagnostic Findings XR lumbar spine 2-3V CLINICAL HISTORY: Lumbar spine pain status post trauma COMPARISON STUDY: CT scan performed August 2011 FINDINGS: The bones are osteopenic. There is a grade 1 spondylolisthesis of L4 and L5. There is an old severe L1 compression fracture. There is an old T12 compression fracture. Since the prior study, the patient has developed a superior endplate L3 compression fracture. This demonstrates a sclerotic superior margin suggesting this is subacute. There is also a severe T9 compression fracture which was not present on the prior study IMPRESSION: 1. Interval development of a severe T9 compression fracture 2. Old severe L1 compression fracture 3. Interval development of a superior endplate L3 compression fracture which appears subacute. 4. Osteopenia ACT 112: Negative or not required by law. Electronically signed by: Bairon Lacey M.D. 07/21/2020 3:14 PM Dictated: 07/21/201510Transcribed: 07/21/201510 XR chest 1V not portable CLINICAL HISTORY: weakness COMPARISON STUDY: 09/03/2011 FINDINGS: The study is underpenetrated. The heart is enlarged. Mild pulmonary venous hypertension is suspected. There is no lobar consolidation. There is blunting of the lateral costophrenic angle suggesting small effusions. Right basilar opacities are likely atelectatic[ IMPRESSION: 1. Cardiomegaly and suspected pulmonary venous hypertension 2. Suspected small pleural effusions 3. Right basilar opacities, statistically atelectatic ACT 112: Negative or not required by law. Electronically signed by: Bairon Lacey M.D. 07/21/2020 3:10 PM Code Status & VTE Plan VTE Prophylaxis Plan VTE Prophylaxis will be ordered: Yes (1) Fall Encounter type: initial encounter Qualified Code(s): W19.XXXA - Unspecified fall, initial encounter
[2020-07-21] MEDS ORDERED: WARFARIN SOD 2 MG TAB PO ONE (19:18)
[2020-07-21] MEDS ORDERED: SODIUM CHLORIDE 0.9% 1000ML 1,000 ML IV SCH (19:18)
[2020-07-21] MEDS: HEPARIN SOD 5,000 UNIT/0.5 ML VIAL SQ SCH (20:16)
[2020-07-21] MEDS: ACETAMINOPHEN 500 MG TAB PO PRN (22:10)
--- NOTE | 2020-07-21 22:36 | Electrocardiogram Report ---
Test Reason : Blood Pressure : / mmHG Vent. Rate : 081 BPM Atrial Rate : 040 BPM P-R Int : 000 ms QRS Dur : 168 ms QT Int : 454 ms P-R-T Axes : 000 048 170 degrees QTc Int : 527 ms Atrial fibrillation Left bundle branch block Abnormal ECG When compared with ECG of 18-APR-2012 10:33, Atrial fibrillation has replaced Sinus rhythm Left bundle branch block is now Present Confirmed by Jovanni Ayala ([id number]) on 07/21/2020 10:35:44 PM Referred By: REFERRED SELF Confirmed By:Jovanni Ayala
[2020-07-22] MEDS: cefTRIAXone SODIUM 2,000 MG in DEXTROSE 5% 50 ML IV SCH (06:14)
[2020-07-22 06:26] LABS: INR 1.5 (0.9-1.1); Prothrombin Time 15.5 Seconds (9.0-12.0)
[2020-07-22] MEDS ORDERED: LEVOTHYROXINE SODIUM 112 MCG TABLET PO SCH (06:30)
[2020-07-22] MEDS: CHOLECALCIFEROL 1,000 UNITS 25 MCG TAB PO SCH (07:43)
[2020-07-22] MEDS: AMIODARONE 200 MG TAB PO SCH (07:43)
[2020-07-22] MEDS: ATORVASTATIN 20 MG TAB PO SCH (07:43)
[2020-07-22] MEDS: amLODIPine BESYLATE 5 MG TAB PO SCH (07:43)
[2020-07-22] MEDS: PANTOprazole 40 MG TAB PO SCH (07:44)
[2020-07-22] MEDS: HEPARIN SOD 5,000 UNIT/0.5 ML VIAL SQ SCH ×2 (07:44→20:57)
[2020-07-22] MEDS: TAMOXIFEN CITRATE 10 MG TABLET PO SCH (07:44)
[2020-07-22 08:36] LABS: Hematocrit (blood only) 27.5 % (37-47); Hemoglobin 9.2 g/dL (12.0-16.0); Mean Corpuscular Hemoglobin 35.5 pg (25-34); Mean Corpuscular Hgb Conc 33.5 g/dL (32-36); Mean Corpuscular Volume 106.2 fL (80-100); Platelet Count 153 K/uL (130-400); RDW Coefficient of Variation 13.3 % (11.5-14.5); RDW Standard Deviation 51.2 fL (36.4-46.3); Red Blood Count 2.59 M/uL (4.2-5.4); White Blood Count 5.07 K/uL (4.8-10.8)
[2020-07-22 08:41] LABS: BUN Creatinine Ratio 14.5 (10-20); Calcium 8.4 mg/dl (8.5-10.1); Creatinine Clr Calc Pharmacy 24.7 ml/min; Est GFR (African American) 31.1; Est GFR (Non-African American) 26.8; Potassium 5.4 mmol/L (3.5-5.1)
[2020-07-22] MEDS: WARFARIN SOD 2 MG TAB PO SCH (15:32)
[2020-07-22] MEDS ORDERED: WARFARIN SOD 1 MG TAB PO SCH (16:00)
--- NOTE | 2020-07-22 16:59 | Hospitalist Progress Note ---
Date of Service July 22, 2020 Assessment & Plan (1) Fall: (2) Compression fracture: 85 years old female with past medical history of A. fib on chronic Coumadin, severe aortic stenosis, hypertension, grade 2 diastolic dysfunction, stage III CKD, dyslipidemia, hypothyroidism, bilateral neuropathy of lower extremity, history of breast cancer, wheelchair-bound presented to the ER after a fall Lumbar Xray showed interval development of a severe T9 compression fracture. Old severe L1 compression fracture. Interval development of a superior endplate L3 compression fracture which appears subacute. Denies any injury to her head Denies any back pain or shoulder pain If develop any headache or tenderness in her head, will get a CT head Continue pain management with tylenol Continue PT/OT eval Fall precaution Hyponatremia Possible related to poor intake Denies any diarrhea and vomiting Pt said that she only took the lasix once last week Na on admission 129 received IVF, Na improved to 133 today Will monitor BMP UTI Urine on admission positive for nitrite, leukocytes and bacteria Complaint of urinary frequency Urine cx positive for gram negative bacilli Continue Rocephin IV martinez now Will follow urine sensitivity Hypothyroidism TSH 17.4 Levothyroxine increased to 125mg daily Check TSH in 4 to 6 weeks Atrial fibrillation Rate control with amiodarone Continue Coumadin for anticoagulation INR 1.5 today Continue Monitor INR Severe Aortic stenosis Declining surgical intervention for her aortic stenosis as per recent cardiology note on 05/2020 Continue monitor closely Breast cancer Continue tamoxifen Pernicious anemia Iron deficiency anemia Hgb dropped from 11 to 9.2 today Continue monitor cbc Ortiz's esophagus Continue PPI TIA Dyslipidemia Continue Lipitor, Coumadin Acute on CKD 3 Creatinine on admission 1.8 received IVF, Creatinine 1.7 today Will avoid nephrotoxic agents Continue monitor BMP DVT prophylaxis on Coumadin but INR 1.5 On heparin subq q12h until INR therapeutic CODE STATUS Full code Admission and Anticipated Discharge Date Admission Date: July 21, 2020 Subjective Pt was seen and examined Lying in bed with no distress Pt said that she feels ok She said that she had therapy done today Denies any chest pain, palpitation, dizziness and SOB Physical Exam Physical Exam: General- No acute distress Head- atraumatic Eyes- PERRL, EOMI, ENT- decrease hearing function Neck- supple, no JVD Lungs- clear to auscultation Heart- irregular rhythm; +Systolic murmur Abdomen- normal bowel sounds, soft, nontender Extremities- +knees pain, +2 edema Neuro- alert, oriented x 3; PERRL, EOMI; no facial palsy; no dysarthria Skin- warm & dry Results & Data Results & [facility] ([facility]) Vital Signs (Past 12 Hours) Vital Signs Temp Pulse Pulse Resp BP Pulse Ox 07/22/20 16:00 110 H 07/22/20 15:57 36.9 C 95 H 16 102/64 91 07/22/20 11:35 37.2 C 91 H 16 107/66 95 07/22/20 08:00 88 07/22/20 06:58 36.8 C 90 20 111/70 92 (1) Fall Encounter type: initial encounter Qualified Code(s): W19.XXXA - Unspecified fall, initial encounter
[2020-07-22 19:32] LABS: BUN Creatinine Ratio 13.9 (10-20); Calcium 8.3 mg/dl (8.5-10.1); Creatinine Clr Calc Pharmacy 24.5 ml/min; Est GFR (African American) 30.9; Est GFR (Non-African American) 26.6; Potassium 4.6 mmol/L (3.5-5.1)
[2020-07-22] MEDS: ACETAMINOPHEN 500 MG TAB PO PRN (20:49)
[2020-07-23] MEDS: LEVOTHYROXINE SODIUM 125 MCG TABLET PO SCH (06:09)
[2020-07-23] MEDS: cefTRIAXone SODIUM 2,000 MG in DEXTROSE 5% 50 ML IV SCH (06:09)
[2020-07-23 06:14] LABS: INR 1.4 (0.9-1.1); Prothrombin Time 14.9 Seconds (9.0-12.0)
[2020-07-23 06:34] LABS: BUN Creatinine Ratio 14.3 (10-20); Calcium 8.4 mg/dl (8.5-10.1); Creatinine Clr Calc Pharmacy 16.5 ml/min; Est GFR (African American) 34.5; Est GFR (Non-African American) 29.8; Potassium 4.5 mmol/L (3.5-5.1)
[2020-07-23] MEDS: AMIODARONE 200 MG TAB PO SCH (09:07)
[2020-07-23] MEDS: HEPARIN SOD 5,000 UNIT/0.5 ML VIAL SQ SCH (09:09)
[2020-07-23] MEDS: TAMOXIFEN CITRATE 10 MG TABLET PO SCH (09:10)
[2020-07-23] MEDS: CHOLECALCIFEROL 1,000 UNITS 25 MCG TAB PO SCH (09:10)
[2020-07-23] MEDS: PANTOprazole 40 MG TAB PO SCH (09:10)
[2020-07-23] MEDS: amLODIPine BESYLATE 5 MG TAB PO SCH (09:10)
[2020-07-23] MEDS: ATORVASTATIN 20 MG TAB PO SCH (09:10)
[2020-07-23] MEDS ORDERED: MICONAZOLE NITRATE POWDER 43 GM EXT PRN (15:10)
[2020-07-23] MEDS: WARFARIN SOD 2 MG TAB PO SCH (16:39)
--- NOTE | 2020-07-23 19:40 | Hospitalist Progress Note ---
Date of Service July 23, 2020 Assessment & Plan (1) Fall: (2) Compression fracture: 85 years old female with past medical history of A. fib on chronic Coumadin, severe aortic stenosis, hypertension, grade 2 diastolic dysfunction, stage III CKD, dyslipidemia, hypothyroidism, bilateral neuropathy of lower extremity, history of breast cancer, wheelchair-bound presented to the ER after a fall Lumbar Xray showed interval development of a severe T9 compression fracture. Old severe L1 compression fracture. Interval development of a superior endplate L3 compression fracture which appears subacute. Denies any injury to her head Denies any back pain or shoulder pain If develop any headache or tenderness in her head, will get a CT head Continue pain management with tylenol Continue PT/OT eval Fall precaution Will discharge to [facility] tomorrow Hyponatremia Possible related to poor intake Denies any diarrhea and vomiting Pt said that she only took the lasix once last week Na on admission 129 received IVF, Na improved to 133 today Will monitor BMP UTI Urine on admission positive for nitrite, leukocytes and bacteria Complaint of urinary frequency Urine cx positive for gram negative bacilli Continue Rocephin IV martinez now Will transition to PO Keflex on discharge Hypothyroidism TSH 17.4 Levothyroxine increased to 125mg daily Check TSH in 4 to 6 weeks Chronic Atrial fibrillation Rate control with amiodarone Continue Coumadin for anticoagulation INR 1.4 today Continue Monitor INR Follow up with [facility] Severe Aortic stenosis Declining surgical intervention for her aortic stenosis as per recent cardiology note on 05/2020 Continue monitor closely Breast cancer Continue tamoxifen Pernicious anemia Iron deficiency anemia Hgb dropped from 11 to 9.2 Continue monitor cbc Ortiz's esophagus Continue PPI TIA Dyslipidemia Continue Lipitor, Coumadin PATRICK on CKD 3 Creatinine on admission 1.8 received IVF, Creatinine 1.5 today Will avoid nephrotoxic agents Continue monitor BMP Stable DVT prophylaxis on Coumadin but INR 1.5 On heparin subq q12h, will d/c due to episode of epistaxis CODE STATUS Full code Disposition Possible discharge to rehab tomorrow Admission and Anticipated Discharge Date Admission Date: July 21, 2020 Subjective Pt was seen and examined Lying in bed with no distress Pt said that she feels much better She had an episode of nose bleeding today Pt said that she does not feels comfortable to discharge today She would like to discharge tomorrow Denies any chest pain, palpitation, dizziness and SOB Physical Exam Physical Exam: General- No acute distress Head- atraumatic Eyes- PERRL, EOMI, ENT- decrease hearing function Neck- supple, no JVD Lungs- clear to auscultation Heart- irregular rhythm; +Systolic murmur Abdomen- normal bowel sounds, soft, nontender Extremities- +knees pain, +2 edema Neuro- alert, oriented x 3; PERRL, EOMI; no facial palsy; no dysarthria Skin- warm & dry Results & Data Results & Data ([facility]) Vital Signs (Past 12 Hours) Vital Signs Temp Pulse Pulse Resp BP Pulse Ox 07/23/20 16:00 92 H 07/23/20 15:50 36.6 C 91 H 20 106/62 95 07/23/20 11:34 36.4 C L 68 20 156/60 H 100 07/23/20 07:38 36.5 C 82 18 121/73 92 (1) Fall Encounter type: initial encounter Qualified Code(s): W19.XXXA - Unspecified fall, initial encounter
[2020-07-23] MEDS: ACETAMINOPHEN 500 MG TAB PO PRN (22:31)
[2020-07-24] MEDS: cefTRIAXone SODIUM 2,000 MG in DEXTROSE 5% 50 ML IV SCH (05:36)
[2020-07-24] MEDS: ACETAMINOPHEN 500 MG TAB PO PRN (06:05)
[2020-07-24] MEDS: LEVOTHYROXINE SODIUM 125 MCG TABLET PO SCH (06:05)
[2020-07-24 07:12] LABS: Hematocrit (blood only) 29.5 % (37-47); Hemoglobin 9.8 g/dL (12.0-16.0); Mean Corpuscular Hemoglobin 35.8 pg (25-34); Mean Corpuscular Hgb Conc 33.2 g/dL (32-36); Mean Corpuscular Volume 107.7 fL (80-100); Mean Platelet Volume 10.7 fL (7.4-10.4); Platelet Count 152 K/uL (130-400); RDW Coefficient of Variation 13.5 % (11.5-14.5); RDW Standard Deviation 52.8 fL (36.4-46.3); Red Blood Count 2.74 M/uL (4.2-5.4); White Blood Count 4.57 K/uL (4.8-10.8)
[2020-07-24 07:22] LABS: INR 1.4 (0.9-1.1); Prothrombin Time 14.2 Seconds (9.0-12.0)
[2020-07-24 07:42] LABS: Calcium 8.6 mg/dl (8.5-10.1); Creatinine Clr Calc Pharmacy 31.7 ml/min; Est GFR (African American) 42.6; Est GFR (Non-African American) 36.8; Potassium 4.1 mmol/L (3.5-5.1)
[2020-07-24] MEDS: AMIODARONE 200 MG TAB PO SCH (09:21)
[2020-07-24] MEDS: amLODIPine BESYLATE 5 MG TAB PO SCH (09:22)
[2020-07-24] MEDS: CHOLECALCIFEROL 1,000 UNITS 25 MCG TAB PO SCH (09:22)
[2020-07-24] MEDS: PANTOprazole 40 MG TAB PO SCH (09:22)
[2020-07-24] MEDS: ATORVASTATIN 20 MG TAB PO SCH (09:22)
[2020-07-24] MEDS: TAMOXIFEN CITRATE 10 MG TABLET PO SCH (10:29)
[2020-07-24] MEDS ORDERED: WARFARIN SOD 5 MG TAB PO ONE (10:30)
--- NOTE | 2020-07-24 13:55 | Discharge Summary ---
Date of Service July 24, 2020 Admission HPI Per Admitting Provider 85 years old female with past medical history of AMallory hernandes on chronic Coumadin, severe aortic stenosis, hypertension, grade 2 diastolic dysfunction, stage III CKD, dyslipidemia, hypothyroidism, bilateral neuropathy of lower extremity, history of breast cancer, wheelchair-bound presented to the ER after a fall today. Patient said for the past week she has been having pain in her lower extremities due to her neuropathy. She said today while trying to transfer herself from the wheelchair to the sofa, she felt between the sofa and the coffee table. She said she fell on her bottom and did not have any injury since she had pillows that were already on the floor. Patient denies any trauma or injury to the head or loss any consciousness. Patient states she lives alone and she used a wheelchair to move around. She said she has a aide that come to her house. She said that in the past she fell the similar way when she tried to transfer herself to the sofa. Patient said she is on diuresis but she does not like to take it. She said on the day she takes the Lasix she has to urinate every 3 hours. She said she took the Lasix 1 last week. She has been having urinary frequency. Currently she denies any pain in her back or shoulder. She said the only pain that she has is her usual pain in her knees. Denies any chest pain, palpitation, dizziness, nausea, diarrhea, dysuria, fever, chills or SOB. She denies any recent exposure to anyone tested positive with Covid 19. Principal Diagnosis Fall /Ambulatory Dysfunction T9 compression Fracture L3 compression fracture UTI CKD stage 3 Hypothyroidism Hyponatremia Aortic Stenosis Afib on Coumadin Discharge Exam Gen : no apparent distress, comfortable HEENT : ani icteric sclera , Lungs : clear to auscultate Heart : regular S1/s2 abdomen : soft , non tender ext : back pain with activity /movement pain well controlled with current pain meds regimen Neuro: no focal deficit Physch : AAO x3 Discharge Data Allergies Allergy/AdvReac Type Severity Reaction Status Date / Time Penicillins Allergy Severe ANAPHYAXIS Verified 07/21/20 14:22 magnesium AdvReac Unknown DIARRHEA Verified 07/21/20 14:22 Consultations 07/21/20 16:17 ED Decision to Admit Stat Hospital Course (1) Fall: (2) Compression fracture: 85 years old female with past medical history of AMallory fib on chronic Coumadin, severe aortic stenosis, hypertension, grade 2 diastolic dysfunction, stage III CKD, dyslipidemia, hypothyroidism, bilateral neuropathy of lower extremity, history of breast cancer, wheelchair-bound presented to the ER after a fall Lumbar Xray showed interval development of a severe T9 compression fracture. Old severe L1 compression fracture. Interval development of a superior endplate L3 compression fracture which appears subacute. Denies any injury to her head Denies any back pain or shoulder pain Continue pain management with tylenol Continue PT/OT eval Fall precaution discharge to [facility] today Hyponatremia corrected Possible related to poor intake Denies any diarrhea and vomiting Lasix dose reduced to 20 mg PO PRn for edema UTI Urine cx positive for gram negative bacilli/proteus treated with IV Rocephin -completed tx Hypothyroidism TSH 17.4 Levothyroxine increased to 125mg daily Check TSH in 4 to 6 weeks Chronic Atrial fibrillation Rate control with amiodarone Continue Coumadin for anticoagulation INR 1.4 given extra dose of 5 mg Couamdin today increased Coumadin dose to 2 mg daily repeat PT/INR in 2 days Severe Aortic stenosis Declining surgical intervention for her aortic stenosis as per recent cardiology note on 05/2020 stable Breast cancer Continue tamoxifen Pernicious anemia Iron deficiency anemia Ortiz's esophagus Continue PPI TIA Dyslipidemia Continue Lipitor, Coumadin PATRICK on CKD 3 resolved cr at baseline CODE STATUS Full code Disposition discharge to rehab/[facility] today Total Time Total Time Spent Total Time Spent (In Minutes): 30 mins Total Time Includes: Discharge Planning and Medication Reconciliation Discharge Plan Discharge Items Patient Disposition: Transfer Inpatient Rehab Fac Reason For Visit: S/P FALL Discharge Diagnosis: Fall /Ambulatory Dysfunction T9 compression Fracture L3 compression fracture UTI CKD stage 3 Hypothyroidism Hyponatremia Aortic Stenosis Afib on Coumadin Activity: As commented below Lifting: No more than 10 pounds Lifting Comment: for next 3 months Non-emergency contact: Primary Care Provider Call non-emergency contact if: you have any medication questions Follow-up/Referrals: Floyd Nuno MD [Primary Care Provider] - Diet: Heart Healthy Addtl Attending Provider Instructions: your Coumadin dose increased to 2 mg daily lab PT/INR on Wednesday07/26/20 Levothyroxine dose increased to 125 mcg daily repeat TSH in 6 weeks Follow up with family Physician after discharge from rehab Pending Studies at Discharge: Yes Studies:: Repeat TSH in 6 weeks Basic Metabolic Panel in 1 week PT/INR on Wednesday07/26/20 Stand-Alone Forms: My [facility] Skilled Items Patient informed of condition?: Yes DNR: No Discharge Level of Care: Acute rehab Communicable Disease: No Discharge Prognosis: Stable Lines: None Urinary Catheter: No Medications and DC Order Prescriptions: Continued amlodipine 5 mg tablet 5 mg PO QAM RF: 0 diclofenac sodium 1 % gel 4 g TOPICAL QID PRN (Reason: Pain) RF: 0 atorvastatin 20 mg tablet 20 mg PO QAM RF: 0 amiodarone 200 mg tablet 100 mg PO QAM RF: 0 acetaminophen [Tylenol Extra Strength] 500 mg Tablet 500 mg PO Q6H PRN (Reason: Pain) RF: 0 omeprazole 20 mg capsule,delayed release(DR/EC) 20 mg PO QAM RF: 0 tamoxifen 20 mg tablet 20 mg PO QAM RF: 0 cholecalciferol (vitamin D3) [Vitamin D3] 2,000 unit Tablet 2,000 unit PO QAM RF: 0 cyanocobalamin (vitamin B-12) 1,000 mcg/mL Kit 1,000 mcg IM Q3M RF: 0 Changed levothyroxine 112 mcg tablet 125 mcg PO QAM Qty: 0 RF: 0 warfarin 1 mg tablet 2 mg PO QAM Qty: 0 RF: 0 furosemide 20 mg tablet 20 mg PO QAM PRN (Reason: Edema) Qty: 0 RF: 0 Discharge Orders: Discharge Order (Routine); Ordered 07/24/20 Ordered By: Ila Sexton Admission Data Admit Date/Time: 07/21/20 17:45 Attending Provider: Ila Sexton Admit Provider: Piter Merino Primary Care Provider: Floyd Nuno Other Providers: Denilson Gonzalez ; [facility] ; Piter Merino Other Interventions: Discharge Summary Assessment (RN) Last Done: 07/24/20 13:00
[2020-07-24] MEDS ORDERED: DICLOFENAC SOD 1% GEL 100 GM TUBE EXT SCH (14:00)
== END 2020-07-24 13:55 | DRG 543 ==
LOC: ED 12:58 → SUATTDRO 17:45 → 2N 17:45

== ENCOUNTER 2020-08-06 07:30 | Inpatient (IN) ==
[2020-08-06] MEDS ORDERED: ALBUTEROL HFA 8 GM INHALER INH ONE (07:57)
[2020-08-06] MEDS ORDERED: ACETAMINOPHEN 1,000 MG/100 ML VIAL IV STA (07:57)
[2020-08-06] MEDS ORDERED: DEXAMETHASONE SOD INJ 4 MG/ML VIAL IV STA (07:57)
[2020-08-06 08:26] LABS: Appearance Urine Cloudy (Clear); Bacteria Urine Automated Negative (Negative); Bilirubin Urine Negative (Negative); Blood Urine Negative (Negative); Color Urine Dark Yellow; Epithelial Cell Urine Auto >30 /lpf (0-5); Glucose Urine UA Negative (Negative); Ketones Urine Negative (Negative); Leukocyte Esterase Urine Negative (Negative); Nitrite Urine Negative (Negative); Protein Urine 1+ (Negative); RBC Urine Automated 0-4 /hpf (0-4); Specific Gravity Urine 1.015 (1.000-1.030); Urobilinogen Urine Negative (Negative)
[2020-08-06 09:09] LABS: Basophils # (auto) 0.01 K/uL (0-0.2); Basophils % (auto) 0.2 %; Hematocrit (blood only) 28.9 % (37-47); Hemoglobin 9.2 g/dL (12.0-16.0); Immature Granulocytes # (auto) 0.01 K/uL (0.00-0.02); Immature Granulocytes % (auto) 0.2 %; Lymphocytes # (auto) 0.64 K/uL (1.2-3.4); Lymphocytes % (auto) 10.5 %; Mean Corpuscular Hemoglobin 34.8 pg (25-34); Mean Corpuscular Hgb Conc 31.8 g/dL (32-36); Mean Corpuscular Volume 109.5 fL (80-100); Mean Platelet Volume 10.1 fL (7.4-10.4); Monocytes # (auto) 0.83 K/uL (0.11-0.59); Monocytes % (auto) 13.7 %; Neutrophils # (auto) 4.58 K/uL (1.4-6.5); Neutrophils % (auto) 75.4 %; Platelet Count 168 K/uL (130-400); RDW Coefficient of Variation 13.9 % (11.5-14.5); Red Blood Count 2.64 M/uL (4.2-5.4); White Blood Count 6.07 K/uL (4.8-10.8)
[2020-08-06 09:11] LABS: Mucus Urine Present (None Prsent)
[2020-08-06 09:20] LABS: INR 2.2 (0.9-1.1); Partial Thromboplastin Ratio 1.4; Partial Thromboplastin Time 38.3 Seconds (21.0-31.0); Prothrombin Time 22.3 Seconds (9.0-12.0)
[2020-08-06 09:27] LABS: Albumin Level 2.8 gm/dl (3.4-5.0); BUN Creatinine Ratio 11.5 (10-20); C Reactive Protein 3.94 mg/dl (0-0.29); Calcium 8.9 mg/dl (8.5-10.1); Creatinine Clr Calc Pharmacy 32.3 ml/min; Est GFR (African American) 41.1; Est GFR (Non-African American) 35.5; Magnesium 1.6 mg/dl (1.8-2.4); Potassium 4.4 mmol/L (3.5-5.1)
[2020-08-06 09:50] LABS: Albumin Globulin Ratio 0.7 (0.9-2); Bilirubin,Total 1.1 mg/dl (0.2-1); Ferritin 217.4 ng/ml (8-388); Globulin 4.3 gm/dl (2.5-4.0); Total Protein 7.1 gm/dl (6.4-8.2); Troponin I 0.069 ng/ml (0-0.045)
--- NOTE | 2020-08-06 09:57 | XRay Report ---
XR chest 1V portable CLINICAL HISTORY: SEPSIS COMPARISON STUDY: Chest radiograph July 21, 2020. FINDINGS: There is no pneumothorax. There has been interval development of bilateral pleural effusion s with associated bibasilar opacities. Interstitial thickening has developed. Cardiomediastinal is no arabella. Patient is rotated. IMPRESSION: Interval development of pulmonary edema, bilateral pleural effusions and associated biba silar opacities. ACT 112: Negative or not required by law. Electronically signed by: Champ Baig M.D. 08/06/2020 9:56 AM
--- NOTE | 2020-08-06 11:06 | History & Physical Report ---
Date of Service August 06, 2020 Assessment & Plan (1) Acute metabolic encephalopathy: (2) COVID-19: (3) Hypoxia: (4) Elevated troponin: This is an 85-year-old female who has significant past medical history of PAF anticoagulated on warfarin, HTN, HLD, severe aortic stenosis, grade 2 diastolic dysfunction, CKD stage III, LBBB, hypothyroidism, history of breast cancer, pernicious and iron deficient anemia who presents to ED from [facility] secondary to hypoxia and confusion x2 days. Pt does not meet SIRS/SEPSIS criteria per current CMS guidelines, afebrile, wbc wnl. She did have transient drop in BP but currently 101/61 w/o fluid support. Also transient tachypnea and tachycardia which have resolved. Given altered mental status Sepsis not ruled out. admit to PCU IV remdesivir 200mg x 1 then 100mg daily x 4 days Dexamethasone 6mg IV daily continue O2 support incentive spirometry, albuterol ABG pending IV aztreonam, MRSA swab pending - continue until infectious ruled out cycle troponin, likely elevated in setting of demand ischemia/CHF (5) Acute CHF: pt with signs of acute volume overload elevated pro bnp, CXR concerning for pulm edema received lasix 20mg oral @ 0600 order Lasix 20mg IV x 1 now, given cautiously given lower BP monitor response strict I and O, daily weights repeat echo (6) Hypomagnesemia: mag 1.6 replete with 1 g, monitor (7) Aortic stenosis: severe per cardiology note pt declined further work up follows [facility] cardiology (8) PAF (paroxysmal atrial fibrillation): continue amiodarone INR therapeutic, 2.2 continue warfarin 2mg daily (9) HTN (hypertension): Pt hypotensive in ED hold amlodipine and monitor (10) CKD (chronic kidney disease), stage III: baseline cr 1.0-1.3 monitor renal fxn, avoid nephrotoxic agents Cr Clr 32.3 (11) Anemia: H&H 9.2 and 28.9 On B12 injections every 3 months Monitor, no signs of blood loss (12) HLD (hyperlipidemia): continue statin monitor LFTS (13) Neuropathy: continue gabapentin at HS, hold for sedation (14) Compression fracture: s/p Fall 07/21 admitted 07/21-10/01 to acute compression fx, UTI Was at [facility] for rehab when more medically stable consult PT/OT continue lidocaine patch, APAP (15) H/O malignant neoplasm of breast: continue tamoxifen (16) Hypothyroid: continue levothyroxine recently increased during recent admission to 125mcg and increased further at [facility] to 137mcg recommend repeat TSH in 4-6 weeks (17) DVT prophylaxis: continue warfarin, 2mg daily monitor PT/INR Disposition: admit to PCU Follow up: PCP Dr. Nuno upon discharge Pt was collaborated with Dr. Merino, please see addendum for further details regarding plan Admission and Anticipated Discharge Date Admission Date: August 06, 2020 History of Present Illness Chief Complaint: Hypoxic and confusion x 2 days. Primary Care Provider: Floyd Nuno MD This is an 85-year-old female who has significant past medical history of PAF anticoagulated on warfarin, HTN, HLD, severe aortic stenosis, grade 2 diastolic dysfunction, CKD stage III, LBBB, hypothyroidism, history of breast cancer, pernicious and iron deficient anemia who presents to ED from [facility] secondary to hypoxia and confusion x2 days. Unable to obtain history from patient secondary to mental status. History obtained from [facility]. Of significance patient recently hospitalized 07/21-07/23 secondary to fall with acute compression fracture of T9 and L3. She was also treated for UTI and had elevated TSH therefore her levothyroxine was increased to 125 mcg. She was discharged to [facility] for acute rehab. She had been doing well there and to 2 days ago when she started to become hypoxic. She required 4 L of O2 supplementation. She was started on albuterol inhaler. She was not Covid tested. Symptoms progressed to worsening confusion and at approximately 6 AM this morning she was found by nursing staff with oxygen off, lethargic, hypoxic and cyanotic. She would respond to verbal stimuli and when O2 was replaced at 5 L her O2 saturations improved. Given continued worsened status she was sent to ED for further evaluation. In ER she did test positive for COVID-19. Chest x- ray consistent with bibasilar opacities as well as concerning for pulmonary edema. Initial troponin elevated 0.069, CRP 3.94, ESR 22, INR 2.2, creatinine 1.35, AST 68. She received 6 mg IV dexamethasone, Ofirmev and 2 inh of albuterol. She remains on 4L of O2 adn blood pressures soft in 80s-90s systolic. Allergies Allergy/AdvReac Type Severity Reaction Status Date / Time Penicillins Allergy Severe ANAPHYAXIS Verified 08/06/20 07:51 magnesium AdvReac Unknown DIARRHEA Verified 08/06/20 07:51 Home Medications Medication Instructions Recorded Confirmed Type acetaminophen [Tylenol Extra 500 mg PO Q6H PRN 12/06/18 08/06/20 History Strength] amiodarone 100 mg PO QAM 12/06/18 08/06/20 History atorvastatin 20 mg PO QAM 12/06/18 08/06/20 History cholecalciferol (vitamin D3) 2,000 unit PO QAM 12/06/18 08/06/20 History [Vitamin D3] cyanocobalamin (vitamin B-12) 1,000 mcg IM Q3M 12/06/18 08/06/20 History tamoxifen 20 mg PO QAM 12/06/18 08/06/20 History amlodipine 5 mg PO QAM 02/16/20 08/06/20 History diclofenac sodium 4 g TOPICAL QID PRN 02/16/20 08/06/20 History furosemide 20 mg PO QAM PRN #0 tab 07/24/20 08/06/20 Rx albuterol sulfate [Ventolin HFA] 2 puff INHALATION QID PRN 08/06/20 08/06/20 History ascorbic acid (vitamin C) 500 mg PO BIDM 08/06/20 08/06/20 History bisacodyl 10 mg MS DAILY PRN 08/06/20 08/06/20 History docusate sodium 100 mg PO BID 08/06/20 08/06/20 History famotidine [Pepcid] 20 mg PO DAILY 08/06/20 08/06/20 History gabapentin 100 mg PO HS 08/06/20 08/06/20 History guaifenesin [Mucinex] 600 mg PO BID 08/06/20 08/06/20 History levothyroxine 137 mcg PO QAM 08/06/20 08/06/20 History lidocaine [Lidoderm] 1 patch TOPICAL QAM 08/06/20 08/06/20 History magnesium hydroxide [Milk of 30 ml PO DAILY PRN 08/06/20 08/06/20 History Magnesia] melatonin 3 mg PO HS PRN 08/06/20 08/06/20 History nystatin 1 applic TOPICAL BID 08/06/20 08/06/20 History pantoprazole 40 mg PO DAILYBB 08/06/20 08/06/20 History polyethylene glycol 3350 [Miralax] 17 g PO DAILYBL 08/06/20 08/06/20 History sennosides-docusate sodium 1 tab PO DAILYBL PRN 08/06/20 08/06/20 History [Senna-S] sodium phosphates [Fleet Enema] 118 ml MS DAILY PRN 08/06/20 08/06/20 History warfarin 0 mg PO QAM 08/06/20 08/06/20 History zinc sulfate 220 mg PO QAM 08/06/20 08/06/20 History Past Med/Surg History Medical History (Updated 08/06/20 @ 13:14 by Ailyn Cho PA-C) Aortic stenosis CKD (chronic kidney disease), stage III H/O malignant neoplasm of breast History of thyroid cancer 1970s s/p thyroidectomy HLD (hyperlipidemia) HTN (hypertension) Hypothyroid Neuropathy Osteoporosis PAF (paroxysmal atrial fibrillation) Surgical History History of ankle surgery History of appendectomy History of thyroid surgery History of thyroidectomy History of tubal ligation S/P tonsillectomy Family History Daughter Breast cancer Brother Cancer stomach and liver Father Myocardial infarction, Onset Age: 53 Social History (Updated 08/06/20 @ 11:05 by Ailyn Cho PA-C) Smoking Status: Never smoker Hx Alcohol Use: No Hx Substance Use: No Preferred Language: Irish Communication Ability: Effective Train Operator Required: No Beliefs That Will Affect Care: None marital status: / Current Living Situation: Rehab Current Living Situation Comment: [facility] Other Information That Helps Us Care for You: No Feels Safe at Home: Yes Safety Concerns: Feels Safe At This Time Assistive Devices: Hearing Aid - Bilateral, Oxygen - Continuous and Wheelchair Review of Systems Review of Systems: Unobtainable due to cognitive status Physical Exam Physical Exam: please refer to Dr. Merino addendum for assessment and plan Results & Data Results & Data ([facility]) Vital Signs (Past 12 Hours) Vital Signs Temp Pulse Pulse Resp BP BP Pulse Ox 08/06/20 10:34 88 26 H 88/53 L 96 08/06/20 10:30 77 23 96 08/06/20 10:00 84 16 86/56 L 97 08/06/20 09:30 87 17 96/57 L 99 08/06/20 09:00 109 H 29 H 114/73 98 08/06/20 08:55 103 H 31 H 101/73 97 08/06/20 08:09 95 08/06/20 08:00 105 H 20 117/83 98 08/06/20 07:40 37.3 C 110 H 26 H 105/69 77 L Laboratory Results Short CBC 08/06/20 Range/Units 08:50 WBC 6.07 (4.8-10.8) K/uL Hgb 9.2 L (12.0-16.0) g/dL Hct 28.9 L (37-47) % Plt Count 168 (130-400) K/uL BMP 08/06/20 08:50 Sodium 134 L Potassium 4.4 Chloride 98 Carbon Dioxide 30 BUN 16 Creatinine 1.35 H Glucose 101 H Calcium 8.9 Cardiac Enzymes 08/06/20 Range/Units 08:50 Troponin I 0.069 H* (0-0.045) ng/ml Liver Function 08/06/20 Range/Units 08:50 Total Bilirubin 1.1 H (0.2-1) mg/dl AST 68 H (15-37) U/L ALT 33 (12-78) U/L Alkaline Phosphatase 110 (45-117) U/L Albumin 2.8 L (3.4-5.0) gm/dl Urine 08/06/20 Range/Units 08:00 Urine Color Dark Yellow Urine Appearance Cloudy A (Clear) Urine pH 5.0 (4.5-7.5) Ur Specific [place] 1.015 (1.000-1.030) Urine Protein 1+ H (Negative) Urine Glucose (UA) Negative (Negative) Diagnostic Findings CXR: IMPRESSION: Interval development of pulmonary edema, bilateral pleural effusions and associated bibasilar opacities. Medications Administered Discontinued Medications Albuterol (Albuterol Hfa 8 Gm Inhaler) 2 puffs INH NOW ONE Stop: 08/06/20 07:58 Last Admin: 08/06/20 09:11 Dose: 2 puffs Documented by: [id number] Dexamethasone (Dexamethasone Sod Inj 4 Mg/Ml Vial) 6 mg IV NOW STA Stop: 08/06/20 07:58 Last Admin: 08/06/20 09:11 Dose: 6 mg Documented by: [id number] Acetaminophen (Ofirmev) 1,000 mg in 100 mls @ 400 mls/hr IV NOW STA Stop: 08/06/20 08:11 Last Infusion: 08/06/20 09:29 Dose: 0 mls/hr Documented by: [id number] Admin: 08/06/20 09:12 Dose: 400 mls/hr Documented by: [id number] ECG Rate (beats per minute): 112 Findings: + prolonged QT Additional Comments: poor quality EKG getting repeat Code Status & VTE Plan Code Status Full Code VTE Prophylaxis Plan VTE Prophylaxis will be ordered: No Supervising Physician Co-Signing Physician Notes Pt was seen and examined. Agreed with Ailyn BLEDSOE assessment and plan. 85-year-old female with past medical history of PAF anticoagulated on warfarin, HTN, HLD, severe aortic stenosis, grade 2 diastolic dysfunction, CKD stage III, LBBB, hypothyroidism, history of breast cancer, pernicious and iron deficient anemia was sent from [facility] rehab for acute respiratory failure with hypoxia and confusion. History obtained from family member, [facility] and ER chart due to patient changed in mental status. Pt was doing well until over the weekend that she became hypoxia and was placed on 4L NC oxygen. This morning she was found by nursing staff with her oxygen off, lethargy, cyanotic and hypoxia. She was placed on 5L NC and brought to the ER by EMS. Spoke to son and that said that is not her baseline. In the ER, COVID 19 was tested positive. CXR showed Interval development of pulmonary edema, bilateral pleural effusions and associated bibasilar opacities. Elevated CRP, LDH, ESR and proBNP on admission Exam General- confused Head- atraumatic Eyes- PERRL, EOMI, ENT- oropharynx clear Neck- supple, no JVD Lungs- diminished breath sound Heart- +systolic murmur Abdomen- normal bowel sounds, nontender Neuro- moves extremities, confused, unable to follow command Skin- warm & dry A/P Acute Hypoxia hypercapnic respiratory falilure COVID 19 pneumonia CXR showed Interval development of pulmonary edema, bilateral pleural effusions and associated bibasilar opacities. Procalcitonin elevated Stat ABG showed respiratory acidosis with pH 7.2 and PCO2 62 Received dexamethasone 6mg IV in the ER Spoke to family about Remdesivir and discussed about the potential side effects such as liver failure Family agreed to administer Remdesivir Also discussed about Plasma convalescent, but unable to give it since developed acute CHF and volume overload Informed family will try to diuresis, but blood pressure in the lower end, but if she tolerated diuresis and continue to decompensed, we will reassess again about the plasma convalescent Spoke to pharmacy about the renal function for the remdesivir, and was ok with the pharmacy to give since GFR above 30. Will monitor liver enzymes while on Remdesivir Case discussed with Pulmonology Dr. Westbrook about to start on BIPAP, and agreed with BIpap 08/06 Pulmonology consult placed Will monitor inflammatory marker Continue Dexamethasone 6 mg daily Will add Azactam for possible aspiration pneumonia Will repeat CXR in am Acute CHF exarcebation Pulmonary edema CXR showed Interval development of pulmonary edema, bilateral pleural effusions and associated bibasilar opacities. Will give Lasix 20mg IV x1 for now since BP in the 90's systolic, will assess for additional dose lasix later if BP improved Will not administer plasma convalenscent since pt is volume overload Will consider to get an ECHO Elevated troponin Mostly due to demand ischemia due to acute hypoxia respiratory failure and CHF exacerbation EKG showed no acute ischemic changes Continue monitor troponin Continue statin and coumadin Will monitor in tele Afib Rate control with Amiodarone Continue coumadin with therapeutic INR Continue monitor Hypotension Will hold home BP med Lasix 20mg x 1 given once BP improves in the high 90's Continue monitor closely and if BP continues to drop, will consider to start on pressor DVT px on Coumadin with INR 2.2 Code Status Full code as per discussion with son Disposition Continue monitor closely in telemetry Please call son or sister for updates
[2020-08-06] MEDS ORDERED: FUROSEMIDE 20 MG in SYRINGE 0 ML IV STA (12:58)
[2020-08-06 12:59] LABS: Base Excess ABG 1.4 mEq/L (-9-1.8); HCO3 ABG 29 mmol/L (19-24); Oxygen Saturation ABG 94.3 % (90-95); PCO2 ABG 62 mmHg (35-46); PO2 ABG 80 mmHg (80-95); pH ABG 7.29 (7.35-7.45)
[2020-08-06] MEDS ORDERED: FUROSEMIDE 40 MG/4 ML VIAL IV STA (13:01)
[2020-08-06 13:13] LABS: Allen Test Pos (Pos)
[2020-08-06] MEDS ORDERED: ACETAMINOPHEN 325 MG TAB PO PRN (13:13)
[2020-08-06] MEDS ORDERED: POLYETHYLENE (MIRALAX) 17 GM PACK PO PRN (13:13)
[2020-08-06] MEDS ORDERED: MAGNESIUM HYDROXIDE SUSP 30 ML UDC PO PRN (13:13)
[2020-08-06] MEDS ORDERED: ALUMINUM/MAGNESIUM SUSP 30 ML UDC PO PRN (13:13)
[2020-08-06] MEDS ORDERED: REMDESIVIR 200 MG in SODIUM CHLORIDE 0.9% 210 ML IV ONE (13:45)
[2020-08-06] MEDS: NYSTATIN POWDER 15GM BTL EXT SCH (13:46)
--- NOTE | 2020-08-06 15:00 | Electrocardiogram Report ---
Test Reason : Blood Pressure : / mmHG Vent. Rate : 112 BPM Atrial Rate : 115 BPM P-R Int : 000 ms QRS Dur : 160 ms QT Int : 408 ms P-R-T Axes : 000 018 134 degrees QTc Int : 556 ms Atrial fibrillation with rapid ventricular response Left bundle branch block Abnormal ECG When compared with ECG of 21-JUL-2020 13:33, No significant change Confirmed by Ranjeet Viramontes ([id number]) on 08/06/2020 2:59:47 PM Referred By: REFERRED SELF Confirmed By:Ranjeet Viramontes
[2020-08-06] MEDS ORDERED: MAGNESIUM SULFATE / D5W 1 GM/100 ML BAG IV ONE (16:00)
[2020-08-06] MEDS: WARFARIN SOD 2 MG TAB PO SCH (16:13)
[2020-08-06] MEDS: ALBUTEROL HFA 8 GM INHALER INH SCH ×2 (16:14→19:14)
[2020-08-06] MEDS: SODIUM CHLORIDE 0.9% 10ML FLUSH IV SCH (17:33)
[2020-08-06] MEDS: ASCORBIC ACID 500 MG TAB PO SCH (17:46)
[2020-08-06] MEDS: DOCUSATE SODIUM 100 MG CAP PO SCH (19:09)
[2020-08-06] MEDS: AZTREONAM 1,000 MG in DEXTROSE 5% 100 ML IV SCH (19:14)
[2020-08-06] MEDS: GABAPENTIN 100 MG CAP PO SCH (19:15)
[2020-08-07] MEDS: AZTREONAM 1,000 MG in DEXTROSE 5% 100 ML IV SCH ×4 (00:10→23:16)
[2020-08-07 06:14] LABS: Allen Test Pos (Pos); Base Excess ABG 2.8 mEq/L (-9-1.8); HCO3 ABG 29 mmol/L (19-24); Oxygen Saturation ABG 96.1 % (90-95); PCO2 ABG 55 mmHg (35-46); PO2 ABG 87 mmHg (80-95); pH ABG 7.35 (7.35-7.45)
[2020-08-07 06:18] LABS: Hematocrit (blood only) 28.8 % (37-47); Hemoglobin 9.2 g/dL (12.0-16.0); Immature Granulocytes # (auto) 0.01 K/uL (0.00-0.02); Immature Granulocytes % (auto) 0.2 %; Lymphocytes # (auto) 0.39 K/uL (1.2-3.4); Lymphocytes % (auto) 9.6 %; Mean Corpuscular Hemoglobin 35.2 pg (25-34); Mean Corpuscular Hgb Conc 31.9 g/dL (32-36); Mean Corpuscular Volume 110.3 fL (80-100); Mean Platelet Volume 10.4 fL (7.4-10.4); Monocytes # (auto) 0.54 K/uL (0.11-0.59); Monocytes % (auto) 13.3 %; Neutrophils # (auto) 3.12 K/uL (1.4-6.5); Neutrophils % (auto) 76.9 %; Platelet Count 144 K/uL (130-400); RDW Coefficient of Variation 13.7 % (11.5-14.5); RDW Standard Deviation 54.6 fL (36.4-46.3); Red Blood Count 2.61 M/uL (4.2-5.4); White Blood Count 4.06 K/uL (4.8-10.8)
[2020-08-07] MEDS: PANTOprazole 40 MG TAB PO SCH (06:21)
[2020-08-07] MEDS: LEVOTHYROXINE SODIUM 137 MCG TABLET PO SCH (06:21)
[2020-08-07 06:27] LABS: INR 2.3 (0.9-1.1); Prothrombin Time 23.2 Seconds (9.0-12.0)
[2020-08-07 06:40] LABS: Macrocytosis Present
[2020-08-07 06:55] LABS: Albumin Globulin Ratio 0.6 (0.9-2); Albumin Level 2.4 gm/dl (3.4-5.0); BUN Creatinine Ratio 15.2 (10-20); Bilirubin,Total 0.8 mg/dl (0.2-1); Calcium 8.2 mg/dl (8.5-10.1); Creatinine Clr Calc Pharmacy 35.9 ml/min; Est GFR (African American) 46.9; Est GFR (Non-African American) 40.5; Globulin 4.1 gm/dl (2.5-4.0); Magnesium 2.1 mg/dl (1.8-2.4); Potassium 4.4 mmol/L (3.5-5.1); Total Protein 6.5 gm/dl (6.4-8.2)
[2020-08-07 06:56] LABS: C Reactive Protein 4.85 mg/dl (0-0.29)
[2020-08-07] MEDS: CHOLECALCIFEROL 1,000 UNITS 25 MCG TAB PO SCH (08:01)
[2020-08-07] MEDS: AMIODARONE 200 MG TAB PO SCH (08:02)
[2020-08-07] MEDS: ZINC SULFATE 220 MG CAPSULE PO SCH (08:02)
[2020-08-07] MEDS: ASCORBIC ACID 500 MG TAB PO SCH ×2 (08:02→17:30)
[2020-08-07] MEDS: DOCUSATE SODIUM 100 MG CAP PO SCH ×2 (08:02→20:36)
[2020-08-07] MEDS: TAMOXIFEN CITRATE 10 MG TABLET PO SCH (08:02)
[2020-08-07] MEDS: ATORVASTATIN 20 MG TAB PO SCH (08:02)
[2020-08-07] MEDS: NYSTATIN POWDER 15GM BTL EXT SCH ×2 (08:03→20:36)
[2020-08-07] MEDS: FAMOTIDINE 20 MG TAB PO SCH (08:03)
[2020-08-07] MEDS: LIDOCAINE 5% 1 PATCH TD SCH (08:04)
[2020-08-07] MEDS: dexAMETHasone 6 MG in SYRINGE 0 ML IV SCH (08:05)
--- NOTE | 2020-08-07 09:20 | XRay Report ---
XR chest 1V portable HISTORY: 85 years-old Female follow up lung infiltrates follow-up study in a patient with pulmonary opacities COMPARISON: Chest radiograph 08/06/2020 TECHNIQUE: Portable AP view of the chest FINDINGS: Cardiac silhouette is enlarged. Mildly worsened pulmonary edema. Unchanged pleural effusions with sta ble to mildly progressed bibasilar consolidation. No pneumothorax. Degenerative changes of the should ers and spine. IMPRESSION: 1. Cardiomegaly with mildly worsened pulmonary edema. 2. pleural effusions and bibasilar consolidation ACT 112: Negative or not required by law. The above report was generated using voice recognition software. It may contain grammatical, syntax o r spelling errors. Electronically signed by: Jeff Villa M.D. 08/07/2020 9:18 AM
[2020-08-07] MEDS: ALBUTEROL HFA 8 GM INHALER INH SCH ×3 (16:56→19:44)
[2020-08-07] MEDS: WARFARIN SOD 2 MG TAB PO SCH (16:57)
--- NOTE | 2020-08-07 17:44 | Hospitalist Progress Note ---
Date of Service August 07, 2020 Assessment & Plan (1) Acute metabolic encephalopathy: - as per admission history and physical on 08/06/2020 " This is an 85-year-old female who has significant past medical history of PAF anticoagulated on warfarin, HTN, HLD, severe aortic stenosis, grade 2 diastolic dysfunction, CKD stage III, LBBB, hypothyroidism, history of breast cancer, pernicious and iron deficient anemia who presents to ED from [facility] secondary to hypoxia and confusion x2 days. Unable to obtain history from patient secondary to mental status. History obtained from [facility]. Of significance patient recently hospitalized 07/21-07/23 secondary to fall with acute compression fracture of T9 and L3. She was also treated for UTI and had elevated TSH therefore her levothyroxine was increased to 125 mcg. She was discharged to [facility] for acute rehab. She had been doing well there and to 2 days ago when she started to become hypoxic. She required 4 L of O2 supplementation. She was started on albuterol inhaler. She was not Covid tested. Symptoms progressed to worsening confusion and at approximately 6 AM this morning she was found by nursing staff with oxygen off, lethargic, hypoxic and cyanotic. She would respond to verbal stimuli and when O2 was replaced at 5 L her O2 saturations improved. Given continued worsened status she was sent to ED for further evaluation. In ER she did test positive for COVID-19. Chest x- ray consistent with bibasilar opacities as well as concerning for pulmonary edema. Initial troponin elevated 0.069, CRP 3.94, ESR 22, INR 2.2, creatinine 1.35, AST 68. She received 6 mg IV dexamethasone, Ofirmev and 2 inh of albuterol. She remains on 4L of O2 adn blood pressures soft in 80s-90s systolic" -admission CXR: There is no pneumothorax. There has been interval development of bilateral pleural effusions with associated bibasilar opacities. Interstitial thickening has developed. Cardiomediastinal is noted. Patient was started on Dexamethasone 6mg IV daily, and remdesivir daily, empiric IV aztreonam, and IV lasix -as of the 08/07/2020, the patient requires less supplementary oxygen and appears to be mentating better than what was initially reported (2) COVID-19: possible COVID-19 pneumonia -positive COVID-19 test on admission on 08/06/2020 -patient initially started on admission Dexamethasone 6mg IV daily, and remdesivir daily (3) Acute CHF: -elevated BNP and admission CXR does concern for pulmonary edema -initially given IV Lasix -continue IV Lasix as 20 mg IV q12 hours for now and monitor the blood pressures -cohen as needed for monitoring the urine out out for now -an echocardiogram can be performed in near future versus outpatient basis (4) Hypoxia: Acute Respiratory Failure with hypoxia -multifactorial - contribution of acute congestive heart failure and COVID-19 pneumonia -management of COVID as above -unclear whether any bacterial pneumonia or other sources of infection on admission and patient was started on empiric IV aztreonam on admission, procalcitonin on admission was normal, follow the 08/06/2020 blood cultures and can continue antibiotics for now (5) Elevated troponin: -admission troponins on 08/06/2020 ranged 0.069, 0.124, 0.114 -an echocardiogram can be performed in near future versus outpatient basis (6) Aortic stenosis: -history of severe aortic stenosis -per past [facility] cardiology notes that patient declined further work up (7) PAF (paroxysmal atrial fibrillation): Chronic anticoagulation -continue amiodarone -continue warfarin 2mg daily (8) Hypomagnesemia: -received magnesium supplements on admission when serum magnesium 1.6 -monitor electrolytes while on diuretics (9) CKD (chronic kidney disease), stage III: -follow the renal function while on diuretics (10) HTN (hypertension): -holding home dose amlodipine for now as blood pressures are not high (11) HLD (hyperlipidemia): -continue home dose statin (12) Anemia: chronic anemia -patient receives B12 injections every 3 months (13) Hypothyroid: -her levothyroxine was recently increased from last hospital admission to 125mcg and then increased further at [facility] to 137mcg -continue current outpatient dosing (14) H/O malignant neoplasm of breast: -continue tamoxifen (15) Compression fracture: -s/p Fall 07/21/2020 and admitted on 07/21/20 to 07/23/2020, she was at [facility] for rehab -continue lidocaine patch, prn acetaminophen -PT/OT evaluations (16) Neuropathy: -continue gabapentin at (17) DVT prophylaxis: -continue warfarin, 2mg daily -monitor INR Admission and Anticipated Discharge Date Admission Date: August 06, 2020 Subjective Patient seen and examined today while sitting up on the chair while on supplementary nasal cannula oxygen. Patient denies other symptoms. She does not have acute distress. No chest pain. No abdomen pain. No dizziness. No headache. No nausea. no vomiting. legs with some edema. she is cooperative on exam and verbal Review of Systems Review of Systems: All systems reviewed & are unremarkable except as noted in Subjective Physical Exam Constitutional: cooperative and comfortable Eyes: PERRL, conjunctivae normal, anicteric sclerae EOM intact bilaterally ENMT: external ear and nose normal, oropharynx normal Neck: normal visual inspection Respiratory: normal respiratory effort (on nasal cannula oxygen) Cardiovascular: Rate/Rhythm: regular rate Gastrointestinal (Abdomen): normal bowel sounds, soft, nontender, no hepatosplenomegaly Musculoskeletal: Head/Neck/Chest: normocephalic and head atraumatic legs with some edema Neurologic: PERRL, EOMI, accommodation nl, no face palsy, no dysarthria moves all extremities Psychiatric: Orientation: alert and cooperative Genitourinary: cohen Results & Data Results & Data ([facility]) Vital Signs (Past 12 Hours) Vital Signs Temp Pulse Pulse Resp BP Pulse Ox 08/07/20 15:46 36.5 C 79 18 104/61 93 08/07/20 15:25 82 08/07/20 11:43 36.3 C L 79 18 101/59 L 94 08/07/20 07:37 36.4 C L 69 18 92/49 L 97
--- NOTE | 2020-08-07 18:00 | Pulmonary Consultation ---
Date of Consultation August 07, 2020 Assessment & Plan (1) COVID-19: This is an 85-year-old female that was recently admitted for compression fracture secondary to fall. She was transferred to [facility] for acute rehab. She experienced shortness of breath and hypoxia and was placed on supplemental oxygen. On the day of admission she had worsening hypoxia without supplemental oxygen and was found to be lethargic, wandering, cyanotic. Chest x-ray shows some bibasilar opacities as well as bilateral pleural effusions and pulmonary edema. Patient was started on remdesivir and dexamethasone and is currently being diuresed. Recommendations: 1. COVID-19: * Patient started on remdesivir 08/06/2020. Continue for total of 5 doses. If patient is discharged prior to the 5 doses, discontinue on discharge * Patient received first dose of dexamethasone 08/07/2020. Continue 6 mg IV while inpatient. At discharge can convert to 6 mg p.o. for total of 10 days of treatment * Patient is not a candidate for convalescent plasma * Patient is currently titrated down to 2 L/min via nasal cannula. Continue to titrate supplemental oxygen to maintain SaO2 greater than 90% * If patient is discharged, encourage isolation for total of 14 days from onset of symptoms * Follow-up chest x-ray tomorrow * Continue anticoagulation with warfarin. Follow INR 2. Hypoxia: No prior history of supplemental oxygen use per patient. Continue to titrate as tolerated 3. Pleural effusions: There is most likely secondary to congestive heart failure. Continue to diurese. No indication for thoracentesis at this time 4. Breast cancer: Patient currently on tamoxifen 5. Atrial fibrillation: Patient currently anticoagulated with warfarin. INR is currently therapeutic at 2.3 6. Aortic stenosis: Continue with diuresis. Would not consider convalescent plasma for this patient. Follow strict I's and O's 7. CODE STATUS: I did discuss resuscitation with the patient and she is agreea ble to a level V DNR/DNI. I discussed this with son Miguel Britt and he agrees with DNR/DNI. Thank you for including us in the care of this patient. We will follow along with you tomorrow. Please refer to Dr. Westbrook's addendum for further recommendations. (2) Acute CHF: (3) Hypoxia: (4) PAF (paroxysmal atrial fibrillation): (5) CKD (chronic kidney disease), stage III: (6) Aortic stenosis: (7) Compression fracture: (8) Hypothyroid: (9) DVT prophylaxis: (10) Breast cancer: (11) Bilateral pleural effusion: History of Present Illness Attending Physician: Josue Sharma MD History of Present Illness Attending: Dr. Jl Westbrook This is an 85-year-old female with a past medical history of PAF anticoagulated on warfarin, HTN, HLD, severe aortic stenosis, grade 2 diastolic dysfunction, CKD stage III, LBBB, hypothyroidism, breast cancer, pernicious and iron deficient anemia. She was recently admitted from 07 21-07 23 secondary to fall with acute compression fracture of T9 and L3. This was treated conservatively and the patient was transferred to [facility] for rehab. She was doing well there until 2 days ago when she began to experience some hypoxia. She required 4 L of oxygen supplementation at that time. She continued to have some changes and developed confusion. On the day of admission she was found at around 6 AM wandering with her oxygen off and found to be lethargic hypoxic and cyanotic. She was transferred to the emergency room for further evaluation and found to be COVID-19 positive. Chest x-ray at that time showed opacification bilaterally as well as pulmonary edema. She was started on remdesivir and dexamethasone and is slowly improving. She still requires supplemental oxygen to maintain adequate SaO2. She denies any cough or sputum production. She currently has been weaned down to nasal cannula 2 L/min and has no acute distress. Allergies Allergy/AdvReac Type Severity Reaction Status Date / Time Penicillins Allergy Severe ANAPHYAXIS Verified 08/06/20 07:51 magnesium AdvReac Unknown DIARRHEA Verified 08/06/20 07:51 Home Medications Medication Instructions Recorded Confirmed Type acetaminophen [Tylenol Extra 500 mg PO Q6H PRN 12/06/18 08/06/20 History Strength] amiodarone 100 mg PO QAM 12/06/18 08/06/20 History atorvastatin 20 mg PO QAM 12/06/18 08/06/20 History cholecalciferol (vitamin D3) 2,000 unit PO QAM 12/06/18 08/06/20 History [Vitamin D3] cyanocobalamin (vitamin B-12) 1,000 mcg IM Q3M 12/06/18 08/06/20 History tamoxifen 20 mg PO QAM 12/06/18 08/06/20 History amlodipine 5 mg PO QAM 02/16/20 08/06/20 History diclofenac sodium 4 g TOPICAL QID PRN 02/16/20 08/06/20 History furosemide 20 mg PO QAM PRN #0 tab 07/24/20 08/06/20 Rx albuterol sulfate [Ventolin HFA] 2 puff INHALATION QID PRN 08/06/20 08/06/20 History ascorbic acid (vitamin C) 500 mg PO BIDM 08/06/20 08/06/20 History bisacodyl 10 mg MA DAILY PRN 08/06/20 08/06/20 History docusate sodium 100 mg PO BID 08/06/20 08/06/20 History famotidine [Pepcid] 20 mg PO DAILY 08/06/20 08/06/20 History gabapentin 100 mg PO HS 08/06/20 08/06/20 History guaifenesin [Mucinex] 600 mg PO BID 08/06/20 08/06/20 History levothyroxine 137 mcg PO QAM 08/06/20 08/06/20 History lidocaine [Lidoderm] 1 patch TOPICAL QAM 08/06/20 08/06/20 History magnesium hydroxide [Milk of 30 ml PO DAILY PRN 08/06/20 08/06/20 History Magnesia] melatonin 3 mg PO HS PRN 08/06/20 08/06/20 History nystatin 1 applic TOPICAL BID 08/06/20 08/06/20 History pantoprazole 40 mg PO DAILYBB 08/06/20 08/06/20 History polyethylene glycol 3350 [Miralax] 17 g PO DAILYBL 08/06/20 08/06/20 History sennosides-docusate sodium 1 tab PO DAILYBL PRN 08/06/20 08/06/20 History [Senna-S] sodium phosphates [Fleet Enema] 118 ml MA DAILY PRN 08/06/20 08/06/20 History warfarin 0 mg PO QAM 08/06/20 08/06/20 History zinc sulfate 220 mg PO QAM 08/06/20 08/06/20 History Patient History Medical History Aortic stenosis CKD (chronic kidney disease), stage III H/O malignant neoplasm of breast History of thyroid cancer 1970s s/p thyroidectomy HLD (hyperlipidemia) HTN (hypertension) Hypothyroid Neuropathy Osteoporosis PAF (paroxysmal atrial fibrillation) Surgical History History of ankle surgery History of appendectomy History of thyroid surgery History of thyroidectomy History of tubal ligation S/P tonsillectomy Family History Daughter Breast cancer Brother Cancer stomach and liver Father Myocardial infarction, Onset Age: 53 Social History Smoking Status: Never smoker Hx Alcohol Use: No Hx Substance Use: No Preferred Language: Bhutanese Communication Ability: Effective Java Front End Web Developer Required: No Beliefs That Will Affect Care: None marital status: / Current Living Situation: Rehab Current Living Situation Comment: [facility] Other Information That Helps Us Care for You: No Feels Safe at Home: Yes Safety Concerns: Feels Safe At This Time Assistive Devices: Oxygen - Continuous Review of Systems Review of Systems: All systems reviewed & are unremarkable except as noted in HPI & below Physical Exam Physical Exam: GENERAL : No acute distress EYES: No icterus, gaze conjugate NOSE: No evidence of epistaxis MOUTH: No lesions or candidiasis NECK: Supple LUNGS: Bibasilar Rales with decreased breath sounds at the bilateral bases. Upper louise are clear to auscultation. No appreciation of bronchospasm HEART: Regular, rate controlled. Aortic murmur appreciated ABDOMEN: Soft, NT, ND, BS Present EXTREMITIES: No LE edema, pedal pulses intact NEURO: A&OX3. Very hard of hearing Results & Data Results & Data ([facility]) Vital Signs (Past 12 Hours) Vital Signs Temp Pulse Pulse Resp BP Pulse Ox 08/07/20 15:46 36.5 C 79 18 104/61 93 08/07/20 15:25 82 08/07/20 11:43 36.3 C L 79 18 101/59 L 94 08/07/20 07:37 36.4 C L 69 18 92/49 L 97 Laboratory Results 08/07/20 05:59 08/07/20 05:59 Diagnostic Findings XR chest 1V portable HISTORY: 85 years-old Female follow up lung infiltrates follow-up study in a patient with pulmonary opacities COMPARISON: Chest radiograph 08/06/2020 TECHNIQUE: Portable AP view of the chest FINDINGS: Cardiac silhouette is enlarged. Mildly worsened pulmonary edema. Unchanged pleural effusions with stable to mildly progressed bibasilar consolidation. No pneumothorax. Degenerative changes of the shoulders and spine. IMPRESSION: 1. Cardiomegaly with mildly worsened pulmonary edema. 2. pleural effusions and bibasilar consolidation Electronically signed by: Jeff Villa M.D. 08/07/2020 9:18 AM PG Care Time/CCT Total # of Minutes Spent Total Time Spent with Patient: Total time spent is greater than 50% in coordination of care (as documented) at patient's floor/unit and/or counseling patient: I spent a total of 65 minutes with this patient today which included discussion with the primary team as well as 2 phone calls to the family for updates. Coding Level of Care Code 74197 Initial Inpt Care Lvl 3 Diagnoses COVID-19 U07.1 Acute CHF I50.9 Hypoxia R09.02 PAF (paroxysmal atrial fibrillation) I48.0 CKD (chronic kidney disease), stage III N18.3 Aortic stenosis I35.0 Compression fracture Hypothyroid E03.9 DVT prophylaxis Z29.9 Breast cancer C50.919 Bilateral pleural effusion J90 Time Spent (min) 65
[2020-08-07] MEDS: FUROSEMIDE 20 MG in SYRINGE 0 ML IV SCH (19:44)
[2020-08-07] MEDS: GABAPENTIN 100 MG CAP PO SCH (20:36)
[2020-08-07] MEDS: REMDESIVIR 100 MG in SODIUM CHLORIDE 0.9% 230 ML IV SCH (20:36)
[2020-08-07] MEDS: SODIUM CHLORIDE 0.9% 10ML FLUSH IV SCH (21:56)
[2020-08-08] MEDS: PANTOprazole 40 MG TAB PO SCH (05:14)
[2020-08-08] MEDS: LEVOTHYROXINE SODIUM 137 MCG TABLET PO SCH (05:14)
[2020-08-08] MEDS: ALBUTEROL HFA 8 GM INHALER INH SCH ×4 (05:15→18:54)
[2020-08-08 06:42] LABS: Hematocrit (blood only) 29.5 % (37-47); Hemoglobin 9.5 g/dL (12.0-16.0); Lymphocytes # (auto) 0.38 K/uL (1.2-3.4); Lymphocytes % (auto) 7.6 %; Mean Corpuscular Hemoglobin 35.1 pg (25-34); Mean Corpuscular Hgb Conc 32.2 g/dL (32-36); Mean Corpuscular Volume 108.9 fL (80-100); Mean Platelet Volume 10.5 fL (7.4-10.4); Monocytes # (auto) 0.76 K/uL (0.11-0.59); Monocytes % (auto) 15.3 %; Neutrophils # (auto) 3.83 K/uL (1.4-6.5); Neutrophils % (auto) 77.1 %; Platelet Count 164 K/uL (130-400); RDW Coefficient of Variation 13.8 % (11.5-14.5); RDW Standard Deviation 54.9 fL (36.4-46.3); Red Blood Count 2.71 M/uL (4.2-5.4); White Blood Count 4.97 K/uL (4.8-10.8)
[2020-08-08 06:49] LABS: INR 2.5 (0.9-1.1); Prothrombin Time 25.4 Seconds (9.0-12.0)
[2020-08-08 07:15] LABS: Albumin Level 2.6 gm/dl (3.4-5.0); BUN Creatinine Ratio 16.7 (10-20); Calcium 9.1 mg/dl (8.5-10.1); Creatinine Clr Calc Pharmacy 37.7 ml/min; Est GFR (African American) 48.9; Est GFR (Non-African American) 42.2; Potassium 4.3 mmol/L (3.5-5.1)
[2020-08-08 07:18] LABS: Albumin Globulin Ratio 0.6 (0.9-2); Bilirubin,Total 0.9 mg/dl (0.2-1); Globulin 4.2 gm/dl (2.5-4.0); Total Protein 6.8 gm/dl (6.4-8.2)
--- NOTE | 2020-08-08 09:14 | Emergency Department Note ---
History of Present Illness General Chief complaint: Shortness of Breath/Dyspnea Stated complaint: Breathing difficulty Time Seen by Provider: 08/06/20 07:32 Source: patient, EMS, RN notes reviewed and old records reviewed Mode of arrival: EMS Limitations: no limitations History of Present Illness Provider complaint: Shortness of breath Onset (ago): day(s) 1 Location: chest Radiation: non-radiation Severity: mild Pain Consistency: + intermittent Maximum Pain Intensity: 0 Current Pain Intensity: 0 Relieved By: + immobilization and + rest Exacerbated By: + movement Associated symptoms: + fever/chills, + loss of appetite, + nausea/vomiting, + shortness of breath and + weakness Treatments prior to arrival: other (Oxygen) This is an 85-year-old female who presents emergency department over concerns of the patient is short of breath. The patient reports she was sent to [facility] for rehab. 1 day ago she started requiring oxygen and noted congestion. Her oxygen consumption has generally increased over the past day. She began running fevers last evening for which nothing was given. She reports rest makes the shortness of breath better however exertion makes it worse. She denies any chest pain or abdominal pain. Home Medications Medication Instructions Recorded Confirmed Type acetaminophen [Tylenol Extra 500 mg PO Q6H PRN 12/06/18 08/06/20 History Strength] amiodarone 100 mg PO QAM 12/06/18 08/06/20 History atorvastatin 20 mg PO QAM 12/06/18 08/06/20 History cholecalciferol (vitamin D3) 2,000 unit PO QAM 12/06/18 08/06/20 History [Vitamin D3] cyanocobalamin (vitamin B-12) 1,000 mcg IM Q3M 12/06/18 08/06/20 History tamoxifen 20 mg PO QAM 12/06/18 08/06/20 History amlodipine 5 mg PO QAM 02/16/20 08/06/20 History diclofenac sodium 4 g TOPICAL QID PRN 02/16/20 08/06/20 History furosemide 20 mg PO QAM PRN #0 tab 07/24/20 08/06/20 Rx albuterol sulfate [Ventolin HFA] 2 puff INHALATION QID PRN 08/06/20 08/06/20 Hi story ascorbic acid (vitamin C) 500 mg PO BIDM 08/06/20 08/06/20 History bisacodyl 10 mg NV DAILY PRN 08/06/20 08/06/20 History docusate sodium 100 mg PO BID 08/06/20 08/06/20 History famotidine [Pepcid] 20 mg PO DAILY 08/06/20 08/06/20 History gabapentin 100 mg PO HS 08/06/20 08/06/20 History guaifenesin [Mucinex] 600 mg PO BID 08/06/20 08/06/20 History levothyroxine 137 mcg PO QAM 08/06/20 08/06/20 History lidocaine [Lidoderm] 1 patch TOPICAL QAM 08/06/20 08/06/20 History magnesium hydroxide [Milk of 30 ml PO DAILY PRN 08/06/20 08/06/20 History Magnesia] melatonin 3 mg PO HS PRN 08/06/20 08/06/20 History nystatin 1 applic TOPICAL BID 08/06/20 08/06/20 History pantoprazole 40 mg PO DAILYBB 08/06/20 08/06/20 History polyethylene glycol 3350 [Miralax] 17 g PO DAILYBL 08/06/20 08/06/20 History sennosides-docusate sodium 1 tab PO DAILYBL PRN 08/06/20 08/06/20 History [Senna-S] sodium phosphates [Fleet Enema] 118 ml NV DAILY PRN 08/06/20 08/06/20 History warfarin 0 mg PO QAM 08/06/20 08/06/20 History zinc sulfate 220 mg PO QAM 08/06/20 08/06/20 History Allergies Allergy/AdvReac Type Severity Reaction Status Date / Time Penicillins Allergy Severe ANAPHYAXIS Verified 08/06/20 07:51 magnesium AdvReac Unknown DIARRHEA Verified 08/06/20 07:51 Past Med/Surg History Medical History Aortic stenosis Breast cancer CKD (chronic kidney disease), stage III H/O malignant neoplasm of breast History of thyroid cancer 1970s s/p thyroidectomy HLD (hyperlipidemia) HTN (hypertension) Hypothyroid Neuropathy Osteoporosis PAF (paroxysmal atrial fibrillation) Surgical History History of ankle surgery History of appendectomy History of thyroid surgery History of thyroidectomy History of tubal ligation S/P tonsillectomy Family History Daughter Breast cancer Brother Cancer stomach and liver Father Myocardial infarction, Onset Age: 53 Social History Smoking Status: Never smoker Hx Alcohol Use: No Hx Substance Use: No Preferred Language: Vietnamese Communication Ability: 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 GENERAL - 85-year-old female appearing stated age who is in no acute distress. Communicates well with provider and answers questions appropriately. SKIN - Without rashes. HEAD - NC/AT. EYES - PERRL with EOMI bilaterally. Sclera anicteric. Palpebral conjunctiva pink and moist with no injection noted. EARS - No deformities of external structures noted on gross examination bilaterally. No pain elicited with palpation of the tragus bilaterally. External auditory canals without discharge or otorrhea. Tympanic membranes pearly gonzalez without retraction or bulging. No fluid or purulent material visualized behind the TM. Handle of malleus, umbo, cone of light, pars tensa/flaccid all easily visualized. NOSE - Midline and without cyanosis. No epistaxis or purulent drainage noted. Septum midline without deviation or septal hematoma noted. MOUTH/OROPHARYNX - Without perioral cyanosis. Buccal mucosa pink and moist and without leukoplakia. Tongue midline with equal elevation of palate bilaterally. No tonsillar hypertrophy, erythema, or exudates noted. dentition noted. NECK - Neck with FROM. Supple to palpation. lymphadenopathy noted. No nuchal rigidity. LUNGS - Chest wall symmetric without accessory muscle use, intercostals retractions, or central cyanosis. Normal vesicular breath sounds CTA B/L. No wheezes, rales, or rhonchi appreciated. CARDIAC - RRR with S1/S2. No murmur, rubs, or gallops appreciated. ABDOMEN - Abdominal contour without pulsations or visible masses. BS n ormoactive all four quadrants. No tenderness, palpable masses, hepatosplenomegaly, or ascites noted. EXTREMITIES - No clubbing or peripheral cyanosis. No pretibial edema present. +3/5 radial, posterior tibial, and dorsalis pedis pulses palpated throughout. +5/5 strength noted in UE/LE bilaterally. NEUROLOGIC - Cranial nerves II through XII grossly intact. Sensory intact to light touch throughout. Patellar reflexes +2/4. PSYCH - A&Ox3 and cooperates fully with examiner. Pt is very pleasant and interacts well with examiner. Course Administered Medications Albuterol (Albuterol Hfa 8 Gm Inhaler) 2 puffs INH [id number] [facility] Stop: 09/05/20 14:59 Last Admin: 08/08/20 05:15 Dose: 2 puffs Documented by: [id number] Admin: 08/07/20 19:44 Dose: 2 puffs Documented by: [id number] Admin: 08/07/20 16:56 Dose: 2 puffs Documented by: [id number] Admin: 08/07/20 16:56 Dose: Not Given Documented by: [id number] Admin: 08/07/20 16:56 Dose: Not Given Documented by: [id number] Admin: 08/06/20 19:14 Dose: 2 puffs Documented by: [id number] Admin: 08/06/20 16:14 Dose: 2 puffs Documented by: [id number] Amiodarone HCl (Amiodarone 200 Mg Tab) [facility] [place] Stop: 09/06/20 08:59 Last Admin: 08/07/20 08:02 Dose: Not Given Documented by: [id number] Ascorbic Acid (Ascorbic Acid 500 Mg Tab) 500 mg PO BIDM [facility] Stop: 09/05/20 16:59 Last Admin: 08/07/20 17:30 Dose: 500 mg Documented by: [id number] Admin: 08/07/20 08:02 Dose: 500 mg Documented by: [id number] Admin: 08/06/20 17:46 Dose: 500 mg Documented by: [id number] Atorvastatin Calcium (Atorvastatin 20 Mg Tab) 20 mg PO QAM [facility] Stop: 09/06/20 08:59 Last Admin: 08/07/20 08:02 Dose: 20 mg Documented by: [id number] Docusate Sodium (Docusate Sodium 100 Mg Cap) 100 mg PO BID [facility] Stop: 09/05/20 20:59 Last Admin: 08/07/20 20:36 Dose: Not Given Documented by: [id number] Admin: 08/07/20 08:02 Dose: 100 mg Documented by: [id number] Admin: 08/06/20 19:09 Dose: Not Given Documented by: [id number] Famotidine (Famotidine 20 Mg Tab) 20 mg PO DAILY [facility] Stop: 09/06/20 08:59 Last Admin: 08/07/20 08:03 Dose: 20 mg Documented by: [id number] Gabapentin (Gabapentin 100 Mg Cap) 100 mg PO HS [facility] Stop: 09/05/20 20:59 Last Admin: 08/07/20 20:36 Dose: 100 mg Documented by: [id number] Admin: 08/06/20 19:15 Dose: 100 mg Documented by: [id number] Dexamethasone 6 mg/ Syringe 1.5 mls @ 1 mls/min IV DAILY [facility] Stop: 08/17/20 08:59 Last Admin: 08/07/20 08:05 Dose: 1 mls/min Documented by: [id number] Remdesivir 100 mg/ Sodium (Chloride) 250 mls @ 250 mls/hr IV Q24H [facility]; Protocol Stop: 08/10/20 20:59 Last Infusion: 08/07/20 21:56 Dose: 0 mls/hr Documented by: [id number] Admin: 08/07/20 20:36 Dose: 250 mls/hr Documented by: [id number] Aztreonam 1,000 mg/ Dextrose 110 mls @ 100 mls/hr IV Q8H [facility]; Protocol Stop: 08/13/20 15:59 Last Infusion: 08/08/20 00:22 Dose: 0 mls/hr Documented by: [id number] Admin: 08/07/20 23:16 Dose: 100 mls/hr Documented by: [id number] Infusion: 08/07/20 18:11 Dose: 0 mls/hr Documented by: [id number] Admin: 08/07/20 16:56 Dose: 100 mls/hr Documented by: [id number] Infusion: 08/07/20 09:58 Dose: 0 mls/hr Documented by: [id number] Admin: 08/07/20 08:09 Dose: 100 mls/hr Documented by: [id number] Infusion: 08/07/20 04:33 Dose: 0 mls/hr Documented by: [id number] Admin: 08/07/20 00:10 Dose: 100 mls/hr Documented by: [id number] Infusion: 08/06/20 21:12 Dose: 0 mls/hr Documented by: [id number] Infusion: 08/06/20 20:05 Dose: 100 mls/hr Documented by: [id number] Infusion: 08/06/20 19:16 Dose: 0 mls/hr Documented by: [id number] Admin: 08/06/20 19:14 Dose: 100 mls/hr Documented by: [id number] Furosemide 20 mg/ Syringe 2 mls @ 4 mls/min IV Q12 [facility] Stop: 09/06/20 17:59 Last Admin: 08/07/20 19:44 Dose: 4 mls/min Documented by: [id number] Levothyroxine Sodium (Levothyroxine Sodium 137 Mcg Tablet) 137 mcg PO DAILYBB [facility] Stop: 09/06/20 06:29 Last Admin: 08/08/20 05:14 Dose: 137 mcg Documented by: [id number] Admin: 08/07/20 06:21 Dose: 137 mcg Documented by: [id number] Lidocaine (Lidocaine 5% 1 Patch) 1 patch TD QAM [facility] Stop: 09/06/20 08:59 Last Admin: 08/07/20 08:04 Dose: Not Given Documented by: [id number] Miscellaneous (Remove Lidoderm Patch) 1 ea N/A DAILY@2100 [facility] Stop: 09/05/20 20:59 Last Admin: 08/07/20 20:37 Dose: Not Given Documented by: [id number] Admin: 08/06/20 19:09 Dose: Not Given Documented by: [id number] Nystatin (Nystatin Powder 15gm Btl) 1 appln EXT BID [facility] Stop: 09/05/20 20:59 Last Admin: 08/07/20 20:36 Dose: 1 appln Documented by: [id number] Admin: 08/07/20 08:03 Dose: 1 appln Documented by: [id number] Admin: 08/06/20 13:46 Dose: 1 appln Documented by: [id number] Pantoprazole Sodium (Pantoprazole 40 Mg Tab) 40 mg PO DAILYBB [facility] Stop: 09/06/20 06:29 Last Admin: 08/08/20 05:14 Dose: 40 mg Documented by: [id number] Admin: 08/07/20 06:21 Dose: 40 mg Documented by: [id number] Sodium Chloride (Sodium Chloride 0.9% 10ml Flush) 30 ml IV Q24H [facility] Stop: 08/10/20 20:01 Last Admin: 08/07/20 21:56 Dose: 30 ml Documented by: [id number] Admin: 08/06/20 17:33 Dose: 30 ml Documented by: [id number] Tamoxifen Citrate (Tamoxifen Citrate 10 Mg Tablet) 20 mg PO [facility] Stop: 09/06/20 08:59 Last Admin: 08/07/20 08:02 Dose: 20 mg Documented by: [id number] Cosigned by: [id number] Vitamin D (Cholecalciferol 1,000 Units 25 Mcg Tab) 2,000 units PO [facility] Stop: 09/06/20 08:59 Last Admin: 08/07/20 08:01 Dose: 2,000 units Documented by: [id number] Warfarin Sodium (Warfarin Sod 2 Mg Tab) 2 mg PO DAILY@1600 [facility] Stop: 09/05/20 15:59 Last Admin: 08/07/20 16:57 Dose: 2 mg Documented by: [id number] Admin: 08/06/20 16:13 Dose: 2 mg Documented by: [id number] Zinc Sulfate (Zinc Sulfate 220 Mg Capsule) 220 mg PO [facility] Stop: 09/06/20 08:59 Last Admin: 08/07/20 08:02 Dose: 220 mg Documented by: [id number] Discontinued Medications Albuterol (Albuterol Hfa 8 Gm Inhaler) 2 puffs INH NOW ONE Stop: 08/06/20 07:58 Last Admin: 08/06/20 09:11 Dose: 2 puffs Documented by: [id number] Dexamethasone (Dexamethasone Sod Inj 4 Mg/Ml Vial) 6 mg IV NOW STA Stop: 08/06/20 07:58 Last Admin: 08/06/20 09:11 Dose: 6 mg Documented by: [id number] Furosemide (Furosemide 40 Mg/4 Ml Vial) 20 mg IV ONE STA Stop: 08/06/20 13:02 Last Admin: 08/06/20 13:46 Dose: 20 mg Documented by: [id number] Acetaminophen (Ofirmev) 1,000 mg in 100 mls @ 400 mls/hr IV NOW STA Stop: 08/06/20 08:11 Last Infusion: 08/06/20 09:29 Dose: 0 mls/hr Documented by: [id number] Admin: 08/06/20 09:12 Dose: 400 mls/hr Documented by: [id number] Magnesium Sulfate/Dextrose (Magnesium Sulfate / D5w) 1 gm in 100 mls @ 50 mls/hr IV ONE ONE Stop: 08/06/20 17:59 Last Infusion: 08/06/20 20:13 Dose: 0 mls/hr Documented by: [id number] Admin: 08/06/20 17:45 Dose: 50 mls/hr Documented by: [id number] Remdesivir 200 mg/ Sodium (Chloride) 250 mls @ 125 mls/hr IV ONE ONE; Protocol Stop: 08/06/20 15:44 Last Infusion: 08/06/20 17:31 Dose: 0 mls/hr Documented by: [id number] Admin: 08/06/20 13:51 Dose: 125 mls/hr Documented by: [id number] Critical Care Time I have personally spent greater than 30 minutes of critical care time in the dir ect management of this patient. This includes bedside care, interpretation of diagnostic studies, and testing, discussion with consultants, patient, and family members, and other required patient management activities. This 30 minutes is in excess of all separately billable procedures. Medical Decision Making Differential Diagnosis Reactive airway disease, pneumonia, pneumothorax, COPD, CHF, infections, cardiac ischemia, pulmonary embolism, musculoskeletal, gastrointestinal, as well as other pathologies. Medical Records Attestation: I reviewed the patient's medical records. Home Medications Current Medication List: was personally reviewed by me Laboratory Data Attestation: I reviewed the patient's lab results. Result diagrams: 08/08/20 05:44 08/08/20 05:44 Lab Results 08/06/20 08/06/20 08/06/20 Range/Units 07:40 07:40 08:00 WBC (4.8-10.8) K/uL RBC (4.2-5.4) M/uL Hgb (12.0-16.0) g/dL Hct (37-47) % MCV (80-100) fL MCH (25-34) pg MCHC (32-36) g/dL RDW Std Deviation (36.4-46.3) fL RDW Coeff of Frieda (11.5-14.5) % Plt Count (130-400) K/uL MPV (7.4-10.4) fL Immature Gran % (Auto) % Neut % (Auto) % Lymph % (Auto) % Cook % (Auto) % Eos % (Auto) % Baso % (Auto) % Neut # (Auto) (1.4-6.5) K/uL Lymph # (Auto) (1.2-3.4) K/uL Cook # (Auto) (0.11-0.59) K/uL Eos # (Auto) (0-0.5) K/uL Baso # (Auto) (0-0.2) K/uL Immature Gran # (Auto) (0.00-0.02) K/uL ESR (0-21) mm/hr PT (9.0-12.0) Seconds INR (0.9-1.1) APTT (21.0-31.0) Seconds PTT Ratio Sodium (136-145) mmol/L Potassium (3.5-5.1) mmol/L Chloride (98-107) mmol/L Carbon Dioxide (21-32) mmol/L Anion Gap (3-11) BUN (7-18) mg/dl Creatinine (0.6-1.2) mg/dl Est Cr Clr Drug Dosing ml/min Est GFR ( Amer) Est GFR (Non-Af Amer) BUN/Creatinine Ratio (10-20) Glucose (70-99) mg/dl Lactate (0.4-2.0) mmol/L Calcium (8.5-10.1) mg/dl Magnesium (1.8-2.4) mg/dl Ferritin (8-388) ng/ml Total Bilirubin (0.2-1) mg/dl AST (15-37) U/L ALT (12-78) U/L Alkaline Phosphatase (45-117) U/L Lactate Dehydrogenase (84-246) U/L Troponin I (0-0.045) ng/ml C-Reactive Protein (0-0.29) mg/dl Total Protein (6.4-8.2) gm/dl Albumin (3.4-5.0) gm/dl Globulin (2.5-4.0) gm/dl Albumin/Globulin Ratio (0.9-2) Procalcitonin (0-0.5) ng/ml Urine Color Dark Yellow Urine Appearance Cloudy A (Clear) Urine pH 5.0 (4.5-7.5) Ur Specific [place] 1.015 (1.000-1.030) Urine Protein 1+ H (Negative) Urine Glucose (UA) Negative (Negative) Urine Ketones Negative (Negative) Urine Blood Negative (Negative) Urine Nitrite Negative (Negative) Urine Bilirubin Negative (Negative) Urine Urobilinogen Negative (Negative) Ur Leukocyte Esterase Negative (Negative) Urine WBC (Auto) 1-5 (0-5) /hpf Urine RBC (Auto) 0-4 (0-4) /hpf U Hyaline Cast (Auto) 10-30 H (0-5) /lpf U Epithel Cells (Auto) >30 H (0-5) /lpf Urine Bacteria (Auto) Negative (Negative) Urine Mucus Present A (None Prsent) COVID-19 Eval Order Covid19 IDNow [facility] SARS-CoV-2, RNA, NAAT POSITIVE A* (NEGATIVE) Blood Type Antibody Screen 08/06/20 08/06/20 08/06/20 Range/Units 08:50 08:50 08:50 WBC 6.07 (4.8-10.8) K/uL RBC 2.64 L (4.2-5.4) M/uL Hgb 9.2 L (12.0-16.0) g/dL Hct 28.9 L (37-47) % MCV 109.5 H (80-100) fL MCH 34.8 H (25-34) pg MCHC 31.8 L (32-36) g/dL RDW Std Deviation 55.0 H (36.4-46.3) fL RDW Coeff of Frieda 13.9 (11.5-14.5) % Plt Count 168 (130-400) K/uL MPV 10.1 (7.4-10.4) fL Immature Gran % (Auto) 0.2 % Neut % (Auto) 75.4 % Lymph % (Auto) 10.5 % Cook % (Auto) 13.7 % Eos % (Auto) 0.0 % Baso % (Auto) 0.2 % Neut # (Auto) 4.58 (1.4-6.5) K/uL Lymph # (Auto) 0.64 L (1.2-3.4) K/uL Cook # (Auto) 0.83 H (0.11-0.59) K/uL Eos # (Auto) 0.00 (0-0.5) K/uL Baso # (Auto) 0.01 (0-0.2) K/uL Immature Gran # (Auto) 0.01 (0.00-0.02) K/uL ESR 22 H (0-21) mm/hr PT (9.0-12.0) Seconds INR (0.9-1.1) APTT (21.0-31.0) Seconds PTT Ratio Sodium (136-145) mmol/L Potassium (3.5-5.1) mmol/L Chloride (98-107) mmol/L Carbon Dioxide (21-32) mmol/L Anion Gap (3-11) BUN (7-18) mg/dl Creatinine (0.6-1.2) mg/dl Est Cr Clr Drug Dosing ml/min Est GFR ( Amer) Est GFR (Non-Af Amer) BUN/Creatinine Ratio (10-20) Glucose (70-99) mg/dl Lactate (0.4-2.0) mmol/L Calcium (8.5-10.1) mg/dl Magnesium (1.8-2.4) mg/dl Ferritin (8-388) ng/ml Total Bilirubin (0.2-1) mg/dl AST (15-37) U/L ALT (12-78) U/L Alkaline Phosphatase (45-117) U/L Lactate Dehydrogenase (84-246) U/L Troponin I (0-0.045) ng/ml C-Reactive Protein (0-0.29) mg/dl Total Protein (6.4-8.2) gm/dl Albumin (3.4-5.0) gm/dl Globulin (2.5-4.0) gm/dl Albumin/Globulin Ratio (0.9-2) Procalcitonin (0-0.5) ng/ml Urine Color Urine Appearance (Clear) Urine pH (4.5-7.5) Ur Specific [place] (1.000-1.030) Urine Protein (Negative) Urine Glucose (UA) (Negative) Urine Ketones (Negative) Urine Blood (Negative) Urine Nitrite (Negative) Urine Bilirubin (Negative) Urine Urobilinogen (Negative) Ur Leukocyte Esterase (Negative) Urine WBC (Auto) (0-5) /hpf Urine RBC (Auto) (0-4) /hpf U Hyaline Cast (Auto) (0-5) /lpf U Epithel Cells (Auto) (0-5) /lpf Urine Bacteria (Auto) (Negative) Urine Mucus (None Prsent) COVID-19 Eval Order SARS-CoV-2, RNA, NAAT (NEGATIVE) Blood Type A Positive Antibody Screen NEGATIVE 08/06/20 08/06/20 08/06/20 Range/Units 08:50 08:50 08:50 WBC (4.8-10.8) K/uL RBC (4.2-5.4) M/uL Hgb (12.0-16.0) g/dL Hct (37-47) % MCV (80-100) fL MCH (25-34) pg MCHC (32-36) g/dL RDW Std Deviation (36.4-46.3) fL RDW Coeff of Frieda (11.5-14.5) % Plt Count (130-400) K/uL MPV (7.4-10.4) fL Immature Gran % (Auto) % Neut % (Auto) % Lymph % (Auto) % Cook % (Auto) % Eos % (Auto) % Baso % (Auto) % Neut # (Auto) (1.4-6.5) K/uL Lymph # (Auto) (1.2-3.4) K/uL Cook # (Auto) (0.11-0.59) K/uL Eos # (Auto) (0-0.5) K/uL Baso # (Auto) (0-0.2) K/uL Immature Gran # (Auto) (0.00-0.02) K/uL ESR (0-21) mm/hr PT 22.3 H (9.0-12.0) Seconds INR 2.2 H (0.9-1.1) APTT 38.3 H (21.0-31.0) Seconds PTT Ratio 1.4 Sodium 134 L (136-145) mmol/L Potassium 4.4 (3.5-5.1) mmol/L Chloride 98 (98-107) mmol/L Carbon Dioxide 30 (21-32) mmol/L Anion Gap 6.0 (3-11) BUN 16 (7-18) mg/dl Creatinine 1.35 H (0.6-1.2) mg/dl Est Cr Clr Drug Dosing 32.3 ml/min Est GFR ( Amer) 41.1 Est GFR (Non-Af Amer) 35.5 BUN/Creatinine Ratio 11.5 (10-20) Glucose 101 H (70-99) mg/dl Lactate 1.7 (0.4-2.0) mmol/L Calcium 8.9 (8.5-10.1) mg/dl Magnesium 1.6 L (1.8-2.4) mg/dl Ferritin 217.4 (8-388) ng/ml Total Bilirubin 1.1 H (0.2-1) mg/dl AST 68 H (15-37) U/L ALT 33 (12-78) U/L Alkaline Phosphatase 110 (45-117) U/L Lactate Dehydrogenase (84-246) U/L Troponin I 0.069 H* (0-0.045) ng/ml C-Reactive Protein 3.94 H (0-0.29) mg/dl Total Protein 7.1 (6.4-8.2) gm/dl Albumin 2.8 L (3.4-5.0) gm/dl Globulin 4.3 H (2.5-4.0) gm/dl Albumin/Globulin Ratio 0.7 L (0.9-2) Procalcitonin (0-0.5) ng/ml Urine Color Urine Appearance (Clear) Urine pH (4.5-7.5) Ur Specific [place] (1.000-1.030) Urine Protein (Negative) Urine Glucose (UA) (Negative) Urine Ketones (Negative) Urine Blood (Negative) Urine Nitrite (Negative) Urine Bilirubin (Negative) Urine Urobilinogen (Negative) Ur Leukocyte Esterase (Negative) Urine WBC (Auto) (0-5) /hpf Urine RBC (Auto) (0-4) /hpf U Hyaline Cast (Auto) (0-5) /lpf U Epithel Cells (Auto) (0-5) /lpf Urine Bacteria (Auto) (Negative) Urine Mucus (None Prsent) COVID-19 Eval Order SARS-CoV-2, RNA, NAAT (NEGATIVE) Blood Type Antibody Screen 08/06/20 08/06/20 Range/Units 08:50 08:50 WBC (4.8-10.8) K/uL RBC (4.2-5.4) M/uL Hgb (12.0-16.0) g/dL Hct (37-47) % MCV (80-100) fL MCH (25-34) pg MCHC (32-36) g/dL RDW Std Deviation (36.4-46.3) fL RDW Coeff of Frieda (11.5-14.5) % Plt Count (130-400) K/uL MPV (7.4-10.4) fL Immature Gran % (Auto) % Neut % (Auto) % Lymph % (Auto) % Cook % (Auto) % Eos % (Auto) % Baso % (Auto) % Neut # (Auto) (1.4-6.5) K/uL Lymph # (Auto) (1.2-3.4) K/uL Cook # (Auto) (0.11-0.59) K/uL Eos # (Auto) (0-0.5) K/uL Baso # (Auto) (0-0.2) K/uL Immature Gran # (Auto) (0.00-0.02) K/uL ESR (0-21) mm/hr PT (9.0-12.0) Seconds INR (0.9-1.1) APTT (21.0-31.0) Seconds PTT Ratio Sodium (136-145) mmol/L Potassium (3.5-5.1) mmol/L Chloride (98-107) mmol/L Carbon Dioxide (21-32) mmol/L Anion Gap (3-11) BUN (7-18) mg/dl Creatinine (0.6-1.2) mg/dl Est Cr Clr Drug Dosing ml/min Est GFR ( Amer) Est GFR (Non-Af Amer) BUN/Creatinine Ratio (10-20) Glucose (70-99) mg/dl Lactate (0.4-2.0) mmol/L Calcium (8.5-10.1) mg/dl Magnesium (1.8-2.4) mg/dl Ferritin (8-388) ng/ml Total Bilirubin (0.2-1) mg/dl AST (15-37) U/L ALT (12-78) U/L Alkaline Phosphatase (45-117) U/L Lactate Dehydrogenase 312 H (84-246) U/L Troponin I (0-0.045) ng/ml C-Reactive Protein (0-0.29) mg/dl Total Protein (6.4-8.2) gm/dl Albumin (3.4-5.0) gm/dl Globulin (2.5-4.0) gm/dl Albumin/Globulin Ratio (0.9-2) Procalcitonin 0.06 (0-0.5) ng/ml Urine Color Urine Appearance (Clear) Urine pH (4.5-7.5) Ur Specific [place] (1.000-1.030) Urine Protein (Negative) Urine Glucose (UA) (Negative) Urine Ketones (Negative) Urine Blood (Negative) Urine Nitrite (Negative) Urine Bilirubin (Negative) Urine Urobilinogen (Negative) Ur Leukocyte Esterase (Negative) Urine WBC (Auto) (0-5) /hpf Urine RBC (Auto) (0-4) /hpf U Hyaline Cast (Auto) (0-5) /lpf U Epithel Cells (Auto) (0-5) /lpf Urine Bacteria (Auto) (Negative) Urine Mucus (None Prsent) COVID-19 Eval Order SARS-CoV-2, RNA, NAAT (NEGATIVE) Blood Type Antibody Screen Imaging Data Radiologist's Impression: [place] [phone] XRay Report Patient: ROBBY STANLEYAdmit Date: 08/06/20#: [id number]: [id number] [facility] ID:[id number]: [facility] Zip[facility] [place], [place] [address]Okv: [id number]: EDSex: FRoom/Bed:Att Phy:Diagnosis: Breathing difficultyPri Phy: Floyd Nuno III, MDService Date: 08/06/20Fam Phy:Interpreting Phy: Champ Baig MDAdmit Phy: Ordering Phy: Ronni Shaver MD cc: ~ XR chest 1V portable CLINICAL HISTORY: SEPSIS COMPARISON STUDY: Chest radiograph July 21, 2020. FINDINGS: There is no pneumothorax. There has been interval development of bilateral pleural effusions with associated bibasilar opacities. Interstitial thickening has developed. Cardiomediastinal is noted. Patient is rotated. IMPRESSION: Interval development of pulmonary edema, bilateral pleural effusions and associated bibasilar opacities. ACT 112: Negative or not required by law. Electronically signed by: Champ Baig M.D. 08/06/2020 9:56 AM Dictated: 08/06/20 0953Transcribed: 08/06/20 0954 ECG Data Attestation: I personally reviewed and interpreted this ECG as follows: Indication: + SOB/dyspnea Rate (beats per minute): 112 Rhythm: + atrial fibrillation (with RVR) ECG Intervals/blocks: + Normal QT-c (556) ECG Harvey: + Normal ECG ST segments: no ST depression and no ST elevation Comparison ECG Date: from (07/21/2020) Change: no significant change MDM Narrative Patient was seen and evaluated as above in room A9. Review was performed of nursing notes and vital signs. I did review pertinent previous visits and patient history. After obtaining a thorough history and physical examination the above work up was performed. This is an 85-year-old female who presents emergency department complaining of shortness of breath. Patient is positive for Covid and appears to have Covid pneumonia on chest x-ray. Based on this she was given Decadron as well as an albuterol inhaler and magnesium. She was found to have an elevation in her troponin. She was also given Tylenol. Patient was pancultured and discussed with the hospitalist service. She was typed and screened. An order was placed for continuous cardiac monitoring. The monitor shows a rate of 74 with Afib rhythm. The patient was evaluated during a period of high volume and high acuity while the hospital was at overcapacity during the global COVID-19 pandemic, and that diagnosis was suspected/considered upon their initial presentation. Their evaluation, treatment and testing was consistent with current guidelines for patients who present with complaints or symptoms that may be related to COVID- 19. Impression & Plan COVID-19, Elevated troponin, Hypoxia, Anemia Discharge Plan Visit Data Chief Complaint: Shortness of Breath/Dyspnea Stated Complaint: Breathing difficulty ED Provider: Ronni Shaver ED Midlevel Provider: Albino Laguerre Discharge Problem: COVID-19, Elevated troponin, Hypoxia, Anemia Patient Disposition: Admitted As Inpatient Discharge Instructions Interventions: ED Discharge Assessment Last Done: 08/06/20 14:11 Discharge Problem: Anemia Qualifiers: Anemia type: unspecified type Qualified Code(s): D64.9 - Anemia, unspecified
--- NOTE | 2020-08-08 09:33 | Pulmonology Progress Note ---
Date of Service August 08, 2020 Assessment & Plan (1) COVID-19: This is an 85-year-old female that was recently admitted for compression fracture secondary to fall. She was transferred to [facility] for acute rehab. She experienced shortness of breath and hypoxia and was placed on supplemental oxygen. On the day of admission she had worsening hypoxia without supplemental oxygen and was found to be lethargic, wandering, cyanotic. Chest x-ray shows some bibasilar opacities as well as bilateral pleural effusions and pulmonary edema. Patient was started on remdesivir and dexamethasone and is currently being diuresed. Case was reviewed and discussed extensively with the critical care/pulmonary GLADYS. Agree with his documentation as noted previously Recommendations: 1. COVID-19: * Patient started on remdesivir 08/06/2020. Continue for total of 5 doses. If patient is discharged prior to the 5 doses, discontinue on discharge * Patient received first dose of dexamethasone 08/07/2020. Continue 6 mg IV while inpatient. If patient is clinically improved, the dexamethasone can be discontinued when she leaves the hospital. * Patient is not a candidate for convalescent plasma * Patient is currently titrated down to 2 L/min via nasal cannula. Continue to titrate supplemental oxygen to maintain SaO2 greater than 90% * If patient is discharged, encourage isolation for total of 14 days from onset of symptoms * Continue anticoagulation with warfarin. Follow INR 2. Hypoxia: No prior history of supplemental oxygen use per patient. Continue to titrate as tolerated May need oxygen at discharge. 3. Pleural effusions: There is most likely secondary to congestive heart failure. Continue to diurese. No indication for thoracentesis at this time 4. Hypercarbia: Unclear etiology. The patient does not appear to have had airflow obstruction on presentation. It may have been due to respiratory muscle fatigue associated with hypoxemic respiratory failure and Covid. Could consider additional outpatient evaluation including polysomnography and/or pulmonary function testing based on the patient's clinical response. Given the fact that the patient has declined work-up for her severe in the past, I do not think she would be amenable to additional work-up for hypercarbia. Supportive care directed at symptom management may be more appropriate. 5. Patient now DNR per discussion with critical care GLADYS and family members. 6. Her white count is normal and she has not been febrile. I do not believe she requires broad-spectrum antibiotics for pneumonia and recommend discontinuation of aztreonam. Pulmonary will sign off at this point time. Feel free to contact us if we can be of additional assistance (2) Acute CHF: (3) Hypoxia: (4) PAF (paroxysmal atrial fibrillation): (5) CKD (chronic kidney disease), stage III: (6) Aortic stenosis: (7) Compression fracture: (8) Hypothyroid: (9) DVT prophylaxis: (10) Breast cancer: (11) Bilateral pleural effusion: Admission and Anticipated Discharge Date Admission Date: August 06, 2020 Subjective Patient seen and examined. She is doing well clinically. She is down to nasal cannula. She did not require BiPAP last night. She is not coughing or expectorating phlegm. She is tolerating a diet. She is down to 2 L nasal cannula. Review of Systems Review of Systems: All systems reviewed & are unremarkable except as noted in HPI & below Physical Exam Constitutional: WD/WN, vitals as above Neck: trachea midline, no thyromegaly Respiratory: normal respiratory effort Auscultation: + rales Cardiovascular: RRR, no murmur, no edema Gastrointestinal (Abdomen): normal bowel sounds, soft, nontender, no hepatosplenomegaly Musculoskeletal: Extremities: extremities normal to inspection Skin: no rashes, warm and dry Neurologic: Nonfocal exam Lymphatic: no cervical lymphadenopathy Results & Data Results & Data ([facility]) Vital Signs (Past 12 Hours) Vital Signs Temp Pulse Resp BP Pulse Ox 08/08/20 08:04 36.5 C 74 19 110/59 L 93 08/08/20 03:54 36.4 C L 68 16 104/66 96 08/08/20 00:17 36.4 C L 67 23 111/55 L 96 Laboratory Results 08/08/20 05:44 08/08/20 05:44 Diagnostic Findings No new imaging PG Care Time/CCT Total # of Minutes Spent Total Time Spent with Patient: Total time spent is greater than 50% in coordination of care (as documented) at patient's floor/unit and/or counseling patient: Coding Level of Care Code 98904 Subseq Hosp Care Lvl 3 Diagnoses COVID-19 U07.1 Acute CHF I50.9 Hypoxia R09.02 PAF (paroxysmal atrial fibrillation) I48.0 CKD (chronic kidney disease), stage III N18.3 Aortic stenosis I35.0 Compression fracture Hypothyroid E03.9 DVT prophylaxis Z29.9 Breast cancer C50.919 Bilateral pleural effusion J90
[2020-08-08] MEDS: DOCUSATE SODIUM 100 MG CAP PO SCH ×2 (10:19→20:39)
[2020-08-08] MEDS: ASCORBIC ACID 500 MG TAB PO SCH ×2 (10:19→16:52)
[2020-08-08] MEDS: dexAMETHasone 6 MG in SYRINGE 0 ML IV SCH (10:20)
[2020-08-08] MEDS: AMIODARONE 200 MG TAB PO SCH (10:20)
[2020-08-08] MEDS: FUROSEMIDE 20 MG in SYRINGE 0 ML IV SCH ×2 (10:21→20:39)
[2020-08-08] MEDS: LIDOCAINE 5% 1 PATCH TD SCH (10:22)
[2020-08-08] MEDS: NYSTATIN POWDER 15GM BTL EXT SCH ×2 (10:23→20:39)
[2020-08-08] MEDS: TAMOXIFEN CITRATE 10 MG TABLET PO SCH (10:23)
[2020-08-08] MEDS: ATORVASTATIN 20 MG TAB PO SCH (10:23)
[2020-08-08] MEDS: FAMOTIDINE 20 MG TAB PO SCH (10:24)
[2020-08-08] MEDS: CHOLECALCIFEROL 1,000 UNITS 25 MCG TAB PO SCH (10:24)
[2020-08-08] MEDS: ZINC SULFATE 220 MG CAPSULE PO SCH (10:25)
--- NOTE | 2020-08-08 12:40 | Hospitalist Progress Note ---
Date of Service August 08, 2020 Assessment & Plan (1) Acute metabolic encephalopathy: - as per admission history and physical on 08/06/2020 " This is an 85-year-old female who has significant past medical history of PAF anticoagulated on warfarin, HTN, HLD, severe aortic stenosis, grade 2 diastolic dysfunction, CKD stage III, LBBB, hypothyroidism, history of breast cancer, pernicious and iron deficient anemia who presents to ED from [facility] secondary to hypoxia and confusion x2 days. Unable to obtain history from patient secondary to mental status. History obtained from [facility]. Of significance patient recently hospitalized 07/21-07/23 secondary to fall with acute compression fracture of T9 and L3. She was also treated for UTI and had elevated TSH therefore her levothyroxine was increased to 125 mcg. She was discharged to [facility] for acute rehab. She had been doing well there and to 2 days ago when she started to become hypoxic. She required 4 L of O2 supplementation. She was started on albuterol inhaler. She was not Covid tested. Symptoms progressed to worsening confusion and at approximately 6 AM this morning she was found by nursing staff with oxygen off, lethargic, hypoxic and cyanotic. She would respond to verbal stimuli and when O2 was replaced at 5 L her O2 saturations improved. Given continued worsened status she was sent to ED for further evaluation. In ER she did test positive for COVID-19. Chest x- ray consistent with bibasilar opacities as well as concerning for pulmonary edema. Initial troponin elevated 0.069, CRP 3.94, ESR 22, INR 2.2, creatinine 1.35, AST 68. She received 6 mg IV dexamethasone, Ofirmev and 2 inh of albuterol. She remains on 4L of O2 adn blood pressures soft in 80s-90s systolic" -admission CXR: There is no pneumothorax. There has been interval development of bilateral pleural effusions with associated bibasilar opacities. Interstitial thickening has developed. Cardiomediastinal is noted. Patient was started on Dexamethasone 6mg IV daily, and remdesivir daily, empiric IV aztreonam, and IV lasix -as of 08/07/2020, the patient requires less supplementary oxygen and appears to be mentating better than what was initially reported (2) COVID-19: possible COVID-19 pneumonia -positive COVID-19 test on admission on 08/06/2020 -patient initially started on admission Dexamethasone 6mg IV daily, and remdesivir daily (3) Acute CHF: -elevated BNP and admission CXR does concern for pulmonary edema -initially given IV Lasix -continue IV Lasix as 20 mg IV q12 hours for now and monitor the blood pressures -cohen as needed for monitoring the urine out out for now -an echocardiogram can be performed in near future versus outpatient basis -as of 08/08/2020 the oxygen requirements at rest around 2 liters/min, continue the Lasix (4) Hypoxia: Acute Respiratory Failure with hypoxia -multifactorial - contribution of acute congestive heart failure and COVID-19 pneumonia -management of COVID as above -unclear whether any bacterial pneumonia or other sources of infection on admission and patient was started on empiric IV aztreonam on admission, procalcitonin on admission was normal, no growth on admission blood cultures. The aztreonam discontinued on 08/08/2020 and transition to trial of oral Doxycycline 100 mg BID for any atypical bacterial coverage for lungs but her results to date do not suggest bacterial pneumonia (5) Elevated troponin: -admission troponins on 08/06/2020 ranged 0.069, 0.124, 0.114 -an echocardiogram can be performed in near future versus outpatient basis (6) Aortic stenosis: -history of severe aortic stenosis -per past [facility] cardiology notes that patient declined further work up (7) PAF (paroxysmal atrial fibrillation): on Chronic anticoagulation with coumadin -continue amiodarone -continue warfarin 2mg daily (8) Hypomagnesemia: -received magnesium supplements on admission when serum magnesium 1.6 -monitor electrolytes while on diuretics (9) CKD (chronic kidney disease), stage III: -follow the renal function while on diuretics (10) HTN (hypertension): -holding home dose amlodipine for now as blood pressures are not high (11) HLD (hyperlipidemia): -continue home dose statin (12) Anemia: chronic anemia -patient receives B12 injections every 3 months (13) Hypothyroid: -her levothyroxine was recently increased from last hospital admission to 125mcg and then increased further [facility] to 137mcg -continue current outpatient dosing (14) H/O malignant neoplasm of breast: -continue tamoxifen (15) Compression fracture: -s/p Fall 07/21/2020 and admitted on 07/21/20 to 07/23/2020, she was at [facility] for rehab -continue lidocaine patch, prn acetaminophen -PT/OT evaluations (16) Neuropathy: -continue gabapentin at (17) DVT prophylaxis: -continue warfarin, 2mg daily -monitor INR Admission and Anticipated Discharge Date Admission Date: August 06, 2020 Subjective Patient seen and examined sitting up comfortably in chair. On 2 liter/min nasal cannula. patient does not complain of subjective shortness of breath. Her leg edema still present. Patient denies acute pain. no distress. no other symptoms on review of systems Review of Systems Review of Systems: All systems reviewed & are unremarkable except as noted in Subjective Physical Exam Constitutional: cooperative and comfortable Eyes: PERRL, conjunctivae normal, anicteric sclerae EOM intact bilaterally ENMT: external ear and nose normal, oropharynx normal Neck: normal visual inspection Respiratory: normal respiratory effort (on nasal cannula oxygen) Cardiovascular: Rate/Rhythm: regular rate Gastrointestinal (Abdomen): normal bowel sounds, soft, nontender, no hepatosplenomegaly Musculoskeletal: Head/Neck/Chest: normocephalic and head atraumatic Extremities: + lower leg abnormality (bilateral lower extremity edema) Neurologic: PERRL, EOMI, accommodation nl, no face palsy, no dysarthria moves all extremities Psychiatric: Orientation: alert and cooperative Results & Data Results & Data ([facility]) Vital Signs (Past 12 Hours) Vital Signs Temp Pulse Resp BP Pulse Ox 08/08/20 10:58 36.4 C L 88 18 110/67 94 08/08/20 08:04 36.5 C 74 19 110/59 L 93 08/08/20 03:54 36.4 C L 68 16 104/66 96 (1) Anemia Anemia type: unspecified type Qualified Code(s): D64.9 - Anemia, unspecified
[2020-08-08] MEDS: DOXYCYCLINE HYCLATE 100 MG CAP PO SCH ×2 (14:45→20:39)
[2020-08-08] MEDS: WARFARIN SOD 2 MG TAB PO SCH (16:51)
[2020-08-08] MEDS: GABAPENTIN 100 MG CAP PO SCH (20:39)
[2020-08-08] MEDS: SODIUM CHLORIDE 0.9% 10ML FLUSH IV SCH (20:40)
[2020-08-08] MEDS: REMDESIVIR 100 MG in SODIUM CHLORIDE 0.9% 230 ML IV SCH (20:41)
[2020-08-09] MEDS: LEVOTHYROXINE SODIUM 137 MCG TABLET PO SCH (05:54)
[2020-08-09] MEDS: PANTOprazole 40 MG TAB PO SCH (05:54)
--- NOTE | 2020-08-09 06:34 | Emergency Department Note ---
ED Visit Note I saw this patient on 08/07/20 and discussed my findings w/ Dr. Shaver who has examined the patient independently. Please see his documentation for assessment and plan. . : Anemia Qualifiers: Anemia type: unspecified type Qualified Code(s): D64.9 - Anemia, unspecified
[2020-08-09] MEDS: AZTREONAM 1,000 MG in DEXTROSE 5% 100 ML IV SCH (07:16)
[2020-08-09 07:39] LABS: INR 2.6 (0.9-1.1); Prothrombin Time 26.3 Seconds (9.0-12.0)
[2020-08-09 07:54] LABS: Albumin Level 2.5 gm/dl (3.4-5.0); BUN Creatinine Ratio 20.6 (10-20); Calcium 8.2 mg/dl (8.5-10.1); Creatinine Clr Calc Pharmacy 37.7 ml/min; Est GFR (African American) 48.9; Est GFR (Non-African American) 42.2
[2020-08-09 07:56] LABS: Albumin Globulin Ratio 0.6 (0.9-2); Bilirubin,Total 0.8 mg/dl (0.2-1); Globulin 4.3 gm/dl (2.5-4.0); Total Protein 6.8 gm/dl (6.4-8.2)
[2020-08-09] MEDS: DOXYCYCLINE HYCLATE 100 MG CAP PO SCH ×2 (08:57→20:41)
[2020-08-09] MEDS: dexAMETHasone 6 MG in SYRINGE 0 ML IV SCH (08:57)
[2020-08-09] MEDS: CHOLECALCIFEROL 1,000 UNITS 25 MCG TAB PO SCH (08:57)
[2020-08-09] MEDS: NYSTATIN POWDER 15GM BTL EXT SCH ×2 (08:57→20:42)
[2020-08-09] MEDS: AMIODARONE 200 MG TAB PO SCH (08:57)
[2020-08-09] MEDS: ATORVASTATIN 20 MG TAB PO SCH (08:57)
[2020-08-09] MEDS: TAMOXIFEN CITRATE 10 MG TABLET PO SCH (08:58)
[2020-08-09] MEDS: ASCORBIC ACID 500 MG TAB PO SCH ×2 (08:58→17:27)
[2020-08-09] MEDS: FAMOTIDINE 20 MG TAB PO SCH (08:58)
[2020-08-09] MEDS: FUROSEMIDE 20 MG in SYRINGE 0 ML IV SCH (08:59)
[2020-08-09] MEDS: LIDOCAINE 5% 1 PATCH TD SCH (08:59)
[2020-08-09] MEDS: DOCUSATE SODIUM 100 MG CAP PO SCH ×2 (09:00→20:42)
[2020-08-09] MEDS: ALBUTEROL HFA 8 GM INHALER INH SCH ×4 (09:42→19:47)
[2020-08-09] MEDS: ZINC SULFATE 220 MG CAPSULE PO SCH (12:40)
--- NOTE | 2020-08-09 13:27 | Hospitalist Progress Note ---
Date of Service August 09, 2020 Assessment & Plan (1) Acute metabolic encephalopathy: - as per admission history and physical on 08/06/2020 " This is an 85-year-old female who has significant past medical history of PAF anticoagulated on warfarin, HTN, HLD, severe aortic stenosis, grade 2 diastolic dysfunction, CKD stage III, LBBB, hypothyroidism, history of breast cancer, pernicious and iron deficient anemia who presents to ED from [facility] secondary to hypoxia and confusion x2 days. Unable to obtain history from patient secondary to mental status. History obtained from [facility]. Of significance patient recently hospitalized 07/21-07/23 secondary to fall with acute compression fracture of T9 and L3. She was also treated for UTI and had elevated TSH therefore her levothyroxine was increased to 125 mcg. She was discharged to [facility] for acute rehab. She had been doing well there and to 2 days ago when she started to become hypoxic. She required 4 L of O2 supplementation. She was started on albuterol inhaler. She was not Covid tested. Symptoms progressed to worsening confusion and at approximately 6 AM this morning she was found by nursing staff with oxygen off, lethargic, hypoxic and cyanotic. She would respond to verbal stimuli and when O2 was replaced at 5 L her O2 saturations improved. Given continued worsened status she was sent to ED for further evaluation. In ER she did test positive for COVID-19. Chest x- ray consistent with bibasilar opacities as well as concerning for pulmonary edema. Initial troponin elevated 0.069, CRP 3.94, ESR 22, INR 2.2, creatinine 1.35, AST 68. She received 6 mg IV dexamethasone, Ofirmev and 2 inh of albuterol. She remains on 4L of O2 adn blood pressures soft in 80s-90s systolic" -admission CXR: There is no pneumothorax. There has been interval development of bilateral pleural effusions with associated bibasilar opacities. Interstitial thickening has developed. Cardiomediastinal is noted. Patient was started on Dexamethasone 6mg IV daily, and remdesivir daily, empiric IV aztreonam, and IV lasix -as of 08/07/2020, the patient requires less supplementary oxygen and appears to be mentating better than what was initially reported (2) COVID-19: possible COVID-19 pneumonia -positive COVID-19 test on admission on 08/06/2020 -patient initially started on admission Dexamethasone 6mg IV daily, and remdesivir daily (3) Acute CHF: -elevated BNP and admission CXR does concern for pulmonary edema -initially given IV Lasix -continue IV Lasix as 20 mg IV q12 hours for now and monitor the blood pressures -cohen as needed for monitoring the urine out out for now -an echocardiogram can be performed in near future versus outpatient basis -as of 08/08/2020 the oxygen requirements at rest around 2 liters/min -as of 08/09/2020 the oxygen requirements at rest still around 2 liters/min, will plan to titrate up the Lasix 20 mg from q12 hours to 40 mg q12 hours (4) Hypoxia: Acute Respiratory Failure with hypoxia -multifactorial - contribution of acute congestive heart failure and COVID-19 pneumonia -management of COVID as above -unclear whether any bacterial pneumonia or other sources of infection on admission and patient was started on empiric IV aztreonam on admission, procalcitonin on admission was normal, no growth on admission blood cultures. The aztreonam discontinued on 08/08/2020 and transition to trial of oral Doxycycline 100 mg BID for any atypical bacterial coverage for lungs but her results to date do not suggest bacterial pneumonia (5) Elevated troponin: -admission troponins on 08/06/2020 ranged 0.069, 0.124, 0.114 -an echocardiogram can be performed in near future versus outpatient basis (6) Aortic stenosis: -history of severe aortic stenosis -per past [facility] cardiology notes that patient declined further work up (7) PAF (paroxysmal atrial fibrillation): on Chronic anticoagulation with coumadin -continue amiodarone -continue warfarin 2mg daily (8) Hypomagnesemia: -received magnesium supplements on admission when serum magnesium 1.6 -monitor electrolytes while on diuretics (9) CKD (chronic kidney disease), stage III: -follow the renal function while on diuretics (10) HTN (hypertension): -holding home dose amlodipine for now as blood pressures are not high (11) HLD (hyperlipidemia): -continue home dose statin (12) Anemia: chronic anemia -patient receives B12 injections every 3 months (13) Hypothyroid: -her levothyroxine was recently increased from last hospital admission to 125mcg and then increased further [facility] to 137mcg -continue current outpatient dosing (14) H/O malignant neoplasm of breast: -continue tamoxifen (15) Compression fracture: -s/p Fall 07/21/2020 and admitted on 07/21/20 to 07/23/2020, she was at [facility] for rehab -continue lidocaine patch, prn acetaminophen -PT/OT evaluations (16) Neuropathy: -continue gabapentin at HS (17) DVT prophylaxis: -continue warfarin, 2mg daily -monitor INR Admission and Anticipated Discharge Date Admission Date: August 06, 2020 Subjective -as of 08/09/2020 the oxygen requirements at rest still around 2 liters/min, will plan to titrate up the Lasix 20 mg from q12 hours to 40 mg q12 hours patient seen and examined at rest on the bed. she denies new symptoms on review of systems. no acute shortness off breath while on supplemetary oxygen. no acute pain. she was cooperative on exam and was inquiring about hospital course. hospitalist answered her questions. Review of Systems Review of Systems: All systems reviewed & are unremarkable except as noted in Subjective Physical Exam Constitutional: cooperative and comfortable Eyes: PERRL, conjunctivae normal, anicteric sclerae EOM intact bilaterally ENMT: external ear and nose normal, oropharynx normal Neck: normal visual inspection Respiratory: normal respiratory effort (on nasal cannula oxygen) Cardiovascular: Rate/Rhythm: regular rate Gastrointestinal (Abdomen): normal bowel sounds, soft, nontender, no hepatosplenomegaly Musculoskeletal: Head/Neck/Chest: normocephalic and head atraumatic Extremities: + lower leg abnormality (bilateral lower extremity edema) Neurologic: PERRL, EOMI, accommodation nl, no face palsy, no dysarthria moves all extremities Psychiatric: Orientation: alert and cooperative Results & Data Results & Data ([facility]) Vital Signs (Past 12 Hours) Vital Signs Temp Pulse Resp BP Pulse Ox 08/09/20 11:37 37.2 C 90 20 113/51 L 92 08/09/20 10:49 91 H 22 92 08/09/20 08:12 37.2 C 67 20 124/70 96 08/09/20 04:33 36.9 C 78 20 110/63 92 (1) Anemia Anemia type: unspecified type Qualified Code(s): D64.9 - Anemia, unspecified
[2020-08-09] MEDS: WARFARIN SOD 2 MG TAB PO SCH (17:26)
[2020-08-09] MEDS ORDERED: FUROSEMIDE 40 MG/4 ML VIAL IV ONE (17:38)
[2020-08-09] MEDS: FUROSEMIDE 40 MG in SYRINGE 0 ML IV SCH (17:50)
[2020-08-09] MEDS: GABAPENTIN 100 MG CAP PO SCH (20:41)
[2020-08-09] MEDS: SODIUM CHLORIDE 0.9% 10ML FLUSH IV SCH (20:41)
[2020-08-09] MEDS: REMDESIVIR 100 MG in SODIUM CHLORIDE 0.9% 230 ML IV SCH (21:22)
[2020-08-10] MEDS: FUROSEMIDE 40 MG in SYRINGE 0 ML IV SCH ×2 (05:12→17:15)
[2020-08-10] MEDS: LEVOTHYROXINE SODIUM 137 MCG TABLET PO SCH (05:12)
[2020-08-10] MEDS: PANTOprazole 40 MG TAB PO SCH (05:12)
[2020-08-10 07:16] LABS: Albumin Level 2.4 gm/dl (3.4-5.0); BUN Creatinine Ratio 23.3 (10-20); Calcium 8.3 mg/dl (8.5-10.1); Creatinine Clr Calc Pharmacy 38.5 ml/min; Est GFR (African American) 50.4; Est GFR (Non-African American) 43.5; Magnesium 1.7 mg/dl (1.8-2.4); Potassium 3.6 mmol/L (3.5-5.1)
[2020-08-10 07:19] LABS: Albumin Globulin Ratio 0.6 (0.9-2); Bilirubin,Total 0.9 mg/dl (0.2-1); Globulin 4.3 gm/dl (2.5-4.0); Total Protein 6.7 gm/dl (6.4-8.2)
[2020-08-10] MEDS: ALBUTEROL HFA 8 GM INHALER INH SCH ×4 (07:19→19:17)
[2020-08-10] MEDS: dexAMETHasone 6 MG in SYRINGE 0 ML IV SCH (09:28)
[2020-08-10] MEDS: AMIODARONE 200 MG TAB PO SCH (09:29)
[2020-08-10] MEDS: ASCORBIC ACID 500 MG TAB PO SCH ×2 (09:29→17:15)
[2020-08-10] MEDS: FAMOTIDINE 20 MG TAB PO SCH (09:29)
[2020-08-10] MEDS: LIDOCAINE 5% 1 PATCH TD SCH (09:30)
[2020-08-10] MEDS: DOXYCYCLINE HYCLATE 100 MG CAP PO SCH ×2 (09:30→20:37)
[2020-08-10] MEDS: CHOLECALCIFEROL 1,000 UNITS 25 MCG TAB PO SCH (09:30)
[2020-08-10] MEDS: ATORVASTATIN 20 MG TAB PO SCH (09:30)
[2020-08-10] MEDS: DOCUSATE SODIUM 100 MG CAP PO SCH ×2 (09:31→20:37)
[2020-08-10] MEDS: NYSTATIN POWDER 15GM BTL EXT SCH ×2 (09:31→20:37)
[2020-08-10] MEDS: TAMOXIFEN CITRATE 10 MG TABLET PO SCH (09:47)
[2020-08-10] MEDS: ZINC SULFATE 220 MG CAPSULE PO SCH (11:32)
[2020-08-10] MEDS ORDERED: MAGNESIUM SULFATE / D5W 1 GM/100 ML BAG IV ONE (12:30)
[2020-08-10] MEDS: MAGNESIUM OXIDE 400 MG TAB PO SCH (13:29)
--- NOTE | 2020-08-10 13:48 | Hospitalist Progress Note ---
Date of Service August 10, 2020 Assessment & Plan (1) Acute metabolic encephalopathy: - as per admission history and physical on 08/06/2020 " This is an 85-year-old female who has significant past medical history of PAF anticoagulated on warfarin, HTN, HLD, severe aortic stenosis, grade 2 diastolic dysfunction, CKD stage III, LBBB, hypothyroidism, history of breast cancer, pernicious and iron deficient anemia who presents to ED from [facility] secondary to hypoxia and confusion x2 days. Unable to obtain history from patient secondary to mental status. History obtained from [facility]. Of significance patient recently hospitalized 07/21-07/23 secondary to fall with acute compression fracture of T9 and L3. She was also treated for UTI and had elevated TSH therefore her levothyroxine was increased to 125 mcg. She was discharged to [facility] for acute rehab. She had been doing well there and to 2 days ago when she started to become hypoxic. She required 4 L of O2 supplementation. She was started on albuterol inhaler. She was not Covid tested. Symptoms progressed to worsening confusion and at approximately 6 AM this morning she was found by nursing staff with oxygen off, lethargic, hypoxic and cyanotic. She would respond to verbal stimuli and when O2 was replaced at 5 L her O2 saturations improved. Given continued worsened status she was sent to ED for further evaluation. In ER she did test positive for COVID-19. Chest x- ray consistent with bibasilar opacities as well as concerning for pulmonary edema. Initial troponin elevated 0.069, CRP 3.94, ESR 22, INR 2.2, creatinine 1.35, AST 68. She received 6 mg IV dexamethasone, Ofirmev and 2 inh of albuterol. She remains on 4L of O2 adn blood pressures soft in 80s-90s systolic" -admission CXR: There is no pneumothorax. There has been interval development of bilateral pleural effusions with associated bibasilar opacities. Interstitial thickening has developed. Cardiomediastinal is noted. Patient was started on Dexamethasone 6mg IV daily, and remdesivir daily, empiric IV aztreonam, and IV lasix -as of 08/07/2020, the patient requires less supplementary oxygen and appears to be mentating better than what was initially reported (2) COVID-19: possible COVID-19 pneumonia -positive COVID-19 test on admission on 08/06/2020 -patient initially started on admission Dexamethasone 6mg IV daily, and remdesivir daily -last dose of remdesivir should be completed by 08/10/2020 (3) Acute CHF: -elevated BNP and admission CXR does concern for pulmonary edema -initially given IV Lasix -continue IV Lasix as 20 mg IV q12 hours for now and monitor the blood pressures -cohen as needed for monitoring the urine out out for now -an echocardiogram can be performed in near future versus outpatient basis -as of 08/08/2020 the oxygen requirements at rest around 2 liters/min -as of 08/09/2020 the oxygen requirements at rest still around 2 liters/min, will plan to titrate up the Lasix 20 mg from q12 hours IV to 40 mg q12 hours IV -08/10/2020 patient continues to be oxygen requirements at rest of 2 liters/min, continue current Lasix of 40 mg q12 hours IV, additional magnesium given because serum magnesium 1.7. patient has been stable on telemetry to date and can be transferred off telemetry (4) Hypoxia: Acute Respiratory Failure with hypoxia -multifactorial - contribution of acute congestive heart failure and COVID-19 pneumonia -management of COVID as above -unclear whether any bacterial pneumonia or other sources of infection on admission and patient was started on empiric IV aztreonam on admission, procalcitonin on admission was normal, no growth on admission blood cultures. The aztreonam discontinued on 08/08/2020 and transition to trial of oral Doxycycline 100 mg BID for any atypical bacterial coverage for lungs but her results to date do not suggest bacterial pneumonia (5) Elevated troponin: -admission troponins on 08/06/2020 ranged 0.069, 0.124, 0.114 -echocardiogram will be updated in near future (6) Aortic stenosis: -history of severe aortic stenosis -per past [facility] cardiology notes that patient declined further work up (7) PAF (paroxysmal atrial fibrillation): on Chronic anticoagulation with coumadin -continue amiodarone -continue warfarin 2mg daily (8) Hypomagnesemia: -received magnesium supplements on admission when serum magnesium 1.6 -monitor electrolytes while on diuretics. serum magnesium 1.7 on 08/10/2020 and patient given additional magnesium supplements (9) CKD (chronic kidney disease), stage III: -follow the renal function while on diuretics (10) HTN (hypertension): -holding home dose amlodipine for now as blood pressures are not high (11) HLD (hyperlipidemia): -continue home dose statin (12) Anemia: chronic anemia -patient receives B12 injections every 3 months (13) Hypothyroid: -her levothyroxine was recently increased from last hospital admission to 125mcg and then increased further at [facility] to 137mcg -continue current outpatient dosing (14) H/O malignant neoplasm of breast: -continue tamoxifen (15) Compression fracture: -s/p Fall 07/21/2020 and admitted on 07/21/20 to 07/23/2020, she was at [facility] for rehab -continue lidocaine patch, prn acetaminophen -PT/OT evaluations (16) Neuropathy: -continue gabapentin at (17) DVT prophylaxis: -continue warfarin, 2mg daily -monitor INR Admission and Anticipated Discharge Date Admission Date: August 06, 2020 Subjective -08/10/2020 patient continues to be oxygen requirements at rest of 2 liters/min, continue current Lasix of 40 mg q12 hours IV, additional magnesium given because serum magnesium 1.7. patient has been stable on telemetry to date and can be transferred off telemetry. patient remains stable but she is not able to be on room air at rest based on nursing report and oxygen titrations. on exam patient denies acute complaints - no acute shortness of breath, no acute pain of chest or abdomen, no other new symptoms on review of systems. Review of Systems Review of Systems: All systems reviewed & are unremarkable except as noted in Subjective Physical Exam Constitutional: cooperative and comfortable Eyes: PERRL, conjunctivae normal, anicteric sclerae EOM intact bilaterally ENMT: external ear and nose normal, oropharynx normal Neck: normal visual inspection Respiratory: normal respiratory effort (on nasal cannula oxygen) Cardiovascular: Rate/Rhythm: regular rate Gastrointestinal (Abdomen): normal bowel sounds, soft, nontender, no hepatosplenomegaly Musculoskeletal: Head/Neck/Chest: normocephalic and head atraumatic Extremities: + lower leg abnormality (bilateral lower extremity edema) Neurologic: PERRL, EOMI, accommodation nl, no face palsy, no dysarthria moves all extremities Psychiatric: Orientation: alert and cooperative Results & Data Results & Data ([facility]) Vital Signs (Past 12 Hours) Vital Signs Temp Pulse Pulse Resp BP Pulse Ox 08/10/20 11:39 85 18 93 08/10/20 11:18 36.9 C 88 22 110/58 L 94 08/10/20 08:00 36.6 C 74 86 18 120/60 91 08/10/20 07:47 74 08/10/20 07:20 79 18 93 08/10/20 04:11 36.8 C 73 18 114/61 94 (1) Anemia Anemia type: unspecified type Qualified Code(s): D64.9 - Anemia, unspecified
[2020-08-10] MEDS: WARFARIN SOD 2 MG TAB PO SCH (17:15)
[2020-08-10] MEDS: GABAPENTIN 100 MG CAP PO SCH (20:37)
[2020-08-10] MEDS: REMDESIVIR 100 MG in SODIUM CHLORIDE 0.9% 230 ML IV SCH (20:37)
[2020-08-10] MEDS: SODIUM CHLORIDE 0.9% 10ML FLUSH IV SCH (20:38)
[2020-08-11] MEDS: PANTOprazole 40 MG TAB PO SCH (05:36)
[2020-08-11] MEDS: LEVOTHYROXINE SODIUM 137 MCG TABLET PO SCH (05:36)
[2020-08-11] MEDS: FUROSEMIDE 40 MG in SYRINGE 0 ML IV SCH (05:36)
[2020-08-11] MEDS: TAMOXIFEN CITRATE 10 MG TABLET PO SCH (08:08)
[2020-08-11] MEDS: dexAMETHasone 6 MG in SYRINGE 0 ML IV SCH (08:08)
[2020-08-11] MEDS: ALBUTEROL HFA 8 GM INHALER INH SCH ×4 (08:08→19:43)
[2020-08-11] MEDS: NYSTATIN POWDER 15GM BTL EXT SCH ×2 (08:09→22:21)
[2020-08-11] MEDS: ATORVASTATIN 20 MG TAB PO SCH (08:09)
[2020-08-11] MEDS: AMIODARONE 200 MG TAB PO SCH (08:09)
[2020-08-11] MEDS: FAMOTIDINE 20 MG TAB PO SCH (08:09)
[2020-08-11] MEDS: MAGNESIUM OXIDE 400 MG TAB PO SCH ×2 (08:11→22:16)
[2020-08-11] MEDS: ASCORBIC ACID 500 MG TAB PO SCH ×2 (08:11→17:39)
[2020-08-11] MEDS: DOCUSATE SODIUM 100 MG CAP PO SCH ×2 (08:11→22:21)
[2020-08-11] MEDS: DOXYCYCLINE HYCLATE 100 MG CAP PO SCH ×2 (08:11→22:19)
[2020-08-11] MEDS: CHOLECALCIFEROL 1,000 UNITS 25 MCG TAB PO SCH (08:11)
--- NOTE | 2020-08-11 08:23 | XRay Report ---
XR chest 1V portable HISTORY: Shortness of breath. follow up lung infiltrates COMPARISON: Chest 08/07/2020. FINDINGS: The cardiac silhouette remains moderately enlarged. There are is no pneumothorax. Perihilar interstitial and vascular thickening persists consistent with moderate pulmonary edema. There are sm all to moderate bilateral pleural effusions, unchanged. Bibasilar and midlung zone densities are also unchanged. IMPRESSION: 1. No change in the cardiomegaly, pulmonary edema, bilateral pleural effusions. 2. Bilateral mid to lower lung zone airspace opacities persist. ACT 112: Negative or not required by law. Electronically signed by: Sammy Karimi M.D. 08/11/2020 8:21 AM
[2020-08-11 09:18] LABS: Hematocrit (blood only) 31.6 % (37-47); Hemoglobin 10.1 g/dL (12.0-16.0); Immature Granulocytes # (auto) 0.01 K/uL (0.00-0.02); Immature Granulocytes % (auto) 0.2 %; Lymphocytes # (auto) 0.69 K/uL (1.2-3.4); Lymphocytes % (auto) 12.8 %; Mean Corpuscular Hemoglobin 34.5 pg (25-34); Mean Corpuscular Volume 107.8 fL (80-100); Mean Platelet Volume 10.8 fL (7.4-10.4); Monocytes % (auto) 16.7 %; Neutrophils # (auto) 3.79 K/uL (1.4-6.5); Neutrophils % (auto) 70.3 %; Platelet Count 157 K/uL (130-400); RDW Coefficient of Variation 13.7 % (11.5-14.5); RDW Standard Deviation 53.5 fL (36.4-46.3); Red Blood Count 2.93 M/uL (4.2-5.4); White Blood Count 5.39 K/uL (4.8-10.8)
[2020-08-11 09:39] LABS: INR 3.6 (0.9-1.1)
[2020-08-11 09:46] LABS: Albumin Globulin Ratio 0.6 (0.9-2); Albumin Level 2.6 gm/dl (3.4-5.0); BUN Creatinine Ratio 23.5 (10-20); Bilirubin,Total 1.1 mg/dl (0.2-1); Calcium 8.6 mg/dl (8.5-10.1); Creatinine Clr Calc Pharmacy 36.9 ml/min; Est GFR (African American) 47.9; Est GFR (Non-African American) 41.3; Globulin 4.4 gm/dl (2.5-4.0); Magnesium 1.7 mg/dl (1.8-2.4); Phosphorus 2.3 mg/dl (2.5-4.9); Potassium 3.2 mmol/L (3.5-5.1)
[2020-08-11] MEDS ORDERED: ACETAMINOPHEN 325 MG TAB PO PRN (09:54)
[2020-08-11] MEDS ORDERED: MAGNESIUM SULFATE / D5W 1 GM/100 ML BAG IV ONE (09:55)
[2020-08-11] MEDS ORDERED: POTASSIUM CHLORIDE CRTAB 20 MEQ TABCR PO STA (09:55)
[2020-08-11] MEDS: ZINC SULFATE 220 MG CAPSULE PO SCH (10:35)
--- NOTE | 2020-08-11 12:24 | Hospitalist Progress Note ---
Date of Service August 11, 2020 Assessment & Plan (1) Acute metabolic encephalopathy: - as per admission history and physical on 08/06/2020 " This is an 85-year-old female who has significant past medical history of PAF anticoagulated on warfarin, HTN, HLD, severe aortic stenosis, grade 2 diastolic dysfunction, CKD stage III, LBBB, hypothyroidism, history of breast cancer, pernicious and iron deficient anemia who presents to ED from [facility] secondary to hypoxia and confusion x2 days. Unable to obtain history from patient secondary to mental status. History obtained from [facility]. Of significance patient recently hospitalized 07/21-07/23 secondary to fall with acute compression fracture of T9 and L3. She was also treated for UTI and had elevated TSH therefore her levothyroxine was increased to 125 mcg. She was discharged to [facility] for acute rehab. She had been doing well there and to 2 days ago when she started to become hypoxic. She required 4 L of O2 supplementation. She was started on albuterol inhaler. She was not Covid tested. Symptoms progressed to worsening confusion and at approximately 6 AM this morning she was found by nursing staff with oxygen off, lethargic, hypoxic and cyanotic. She would respond to verbal stimuli and when O2 was replaced at 5 L her O2 saturations improved. Given continued worsened status she was sent to ED for further evaluation. In ER she did test positive for COVID-19. Chest x- ray consistent with bibasilar opacities as well as concerning for pulmonary edema. Initial troponin elevated 0.069, CRP 3.94, ESR 22, INR 2.2, creatinine 1.35, AST 68. She received 6 mg IV dexamethasone, Ofirmev and 2 inh of albuterol. She remains on 4L of O2 adn blood pressures soft in 80s-90s systolic" -admission CXR: There is no pneumothorax. There has been interval development of bilateral pleural effusions with associated bibasilar opacities. Interstitial thickening has developed. Cardiomediastinal is noted. Patient was started on Dexamethasone 6mg IV daily, and remdesivir daily, empiric IV aztreonam, and IV lasix -as of 08/07/2020, the patient requires less supplementary oxygen and appears to be mentating better than what was initially reported (2) COVID-19: possible COVID-19 pneumonia -positive COVID-19 test on admission on 08/06/2020 -patient initially started on admission Dexamethasone 6mg IV daily, and remdesivir daily -last dose of remdesivir should be completed by 08/10/2020, the 10 day total course of dexamethasone IV will finish by 08/17/2020 but steroid dosing and duration can change depending on hospital course (3) Acute CHF: -elevated BNP and admission CXR does concern for pulmonary edema -initially given IV Lasix -continue IV Lasix as 20 mg IV q12 hours for now and monitor the blood pressures -cohen as needed for monitoring the urine out out for now -an echocardiogram can be performed in near future versus outpatient basis -as of 08/08/2020 the oxygen requirements at rest around 2 liters/min -as of 08/09/2020 the oxygen requirements at rest still around 2 liters/min, will plan to titrate up the Lasix 20 mg from q12 hours IV to 40 mg q12 hours IV -08/10/2020 patient continues to be oxygen requirements at rest of 2 liters/min, continue current Lasix of 40 mg q12 hours IV, additional magnesium given because serum magnesium 1.7. patient has been stable on telemetry to date and can be transferred off telemetry -on 08/11/2020, the bilateral lower extremity edema on initial presentation has had improved significantly, but patient remains to be around 2 to 3 liters/min oxygen. received the lasxi 40 mg IV x 1 in AM. The repeat CXR on 08/11/2020 that there is still pulmonary edema, bilateral pleural effusions and that bilateral mid to lower lung zone airspace opacities persist. because of mildly elevated serum bicarbonate of 42 with hypokalemia of 3.2 and hypomagnesemia of 1.7 will replete the electrolytes and hold the night time dose of Lasix. Reassess by 08/12/2020 labs (4) Hypoxia: Acute Respiratory Failure with hypoxia -multifactorial - contribution of acute congestive heart failure and COVID-19 pneumonia -management of COVID as above -unclear whether any bacterial pneumonia or other sources of infection on admission and patient was started on empiric IV aztreonam on admission, procalcitonin on admission was normal, no growth on admission blood cultures. The aztreonam discontinued on 08/08/2020 and transition to trial of oral Doxycycline 100 mg BID for any atypical bacterial coverage for lungs but her res ults to date do not suggest bacterial pneumonia (5) Elevated troponin: -admission troponins on 08/06/2020 ranged 0.069, 0.124, 0.114 -echocardiogram will be updated in near future (6) Aortic stenosis: -history of severe aortic stenosis -per past [facility] cardiology notes that patient declined further work up (7) PAF (paroxysmal atrial fibrillation): on Chronic anticoagulation with coumadin -continue amiodarone -had been on warfarin 2mg daily; INR 3.6 on 08/11/2020, hold the coumadin (8) Hypomagnesemia: -received magnesium supplements on admission when serum magnesium 1.6 -monitor electrolytes while on diuretics. serum magnesium 1.7 on 08/10/2020 and patient given additional magnesium supplements (9) CKD (chronic kidney disease), stage III: -follow the renal function while on diuretics (10) HTN (hypertension): -holding home dose amlodipine for now as blood pressures are not high (11) HLD (hyperlipidemia): -continue home dose statin (12) Anemia: chronic anemia -patient receives B12 injections every 3 months (13) Hypothyroid: -her levothyroxine was recently increased from last hospital admission to 125mcg and then increased further at [facility] to 137mcg -continue current outpatient dosing (14) H/O malignant neoplasm of breast: -continue tamoxifen (15) Compression fracture: -s/p Fall 07/21/2020 and admitted on 07/21/20 to 07/23/2020, she was at [facility] for rehab -continue lidocaine patch, prn acetaminophen -PT/OT evaluations (16) Neuropathy: -continue gabapentin at (17) DVT prophylaxis: INR 3.6 on 08/11/2020, hold the coumadin Admission and Anticipated Discharge Date Admission Date: August 06, 2020 Subjective -on 08/11/2020, the bilateral lower extremity edema on initial presentation has had improved significantly, but patient remains to be around 2 to 3 liters/min oxygen. received the lasxi 40 mg IV x 1 in AM. The repeat CXR on 08/11/2020 that there is still pulmonary edema, bilateral pleural effusions and that bilateral mid to lower lung zone airspace opacities persist. because of mildly elevated serum bicarbonate of 42 with hypokalemia of 3.2 and hypomagnesemia of 1 .7 will replete the electrolytes and hold the night time dose of Lasix. Reassess by 08/12/2020 labs Patient otherwise remains stable. She denies acute distress. Continues to be speaking well in full sentences. she denies other symptoms on review of systems Review of Systems Review of Systems: All systems reviewed & are unremarkable except as noted in Subjective Physical Exam Constitutional: cooperative and comfortable Eyes: PERRL, conjunctivae normal, anicteric sclerae EOM intact bilaterally ENMT: external ear and nose normal, oropharynx normal Neck: normal visual inspection Respiratory: normal respiratory effort (on nasal cannula oxygen) Cardiovascular: Rate/Rhythm: regular rate Gastrointestinal (Abdomen): normal bowel sounds, soft, nontender, no hepatosplenomegaly Musculoskeletal: Head/Neck/Chest: normocephalic and head atraumatic Neurologic: PERRL, EOMI, accommodation nl, no face palsy, no dysarthria moves all extremities Psychiatric: Orientation: alert and cooperative Results & Data Results & Data ([facility]) Vital Signs (Past 12 Hours) Vital Signs Temp Pulse Resp BP Pulse Ox 08/11/20 08:25 78 22 93 08/11/20 07:47 36.4 C L 66 20 113/70 96 08/11/20 06:30 36.5 C 80 18 130/74 94 08/11/20 04:41 36.9 C 70 20 157/88 H 08/11/20 04:00 98 (1) Anemia Anemia type: unspecified type Qualified Code(s): D64.9 - Anemia, unspecified
[2020-08-11] MEDS: GABAPENTIN 100 MG CAP PO SCH (22:18)
[2020-08-12] MEDS: LEVOTHYROXINE SODIUM 137 MCG TABLET PO SCH (06:00)
[2020-08-12] MEDS: PANTOprazole 40 MG TAB PO SCH (06:00)
[2020-08-12] MEDS: ALBUTEROL HFA 8 GM INHALER INH SCH ×4 (07:23→19:32)
[2020-08-12 07:51] LABS: INR 3.4 (0.9-1.1); Prothrombin Time 33.5 Seconds (9.0-12.0)
[2020-08-12 08:09] LABS: Albumin Globulin Ratio 0.6 (0.9-2); Albumin Level 2.4 gm/dl (3.4-5.0); BUN Creatinine Ratio 26.5 (10-20); Bilirubin,Total 1.1 mg/dl (0.2-1); Calcium 8.9 mg/dl (8.5-10.1); Creatinine Clr Calc Pharmacy 37.5 ml/min; Est GFR (African American) 49.9; Globulin 4.3 gm/dl (2.5-4.0); Potassium 4.1 mmol/L (3.5-5.1); Total Protein 6.7 gm/dl (6.4-8.2)
[2020-08-12] MEDS: AMIODARONE 200 MG TAB PO SCH (08:32)
[2020-08-12] MEDS: DOXYCYCLINE HYCLATE 100 MG CAP PO SCH ×2 (08:33→19:43)
[2020-08-12] MEDS: CHOLECALCIFEROL 1,000 UNITS 25 MCG TAB PO SCH (08:33)
[2020-08-12] MEDS: dexAMETHasone 6 MG in SYRINGE 0 ML IV SCH (08:34)
[2020-08-12] MEDS: TAMOXIFEN CITRATE 10 MG TABLET PO SCH (08:34)
[2020-08-12] MEDS: ASCORBIC ACID 500 MG TAB PO SCH ×2 (08:34→17:44)
[2020-08-12] MEDS: ATORVASTATIN 20 MG TAB PO SCH (08:35)
[2020-08-12] MEDS: MAGNESIUM OXIDE 400 MG TAB PO SCH ×2 (08:35→19:42)
[2020-08-12] MEDS: NYSTATIN POWDER 15GM BTL EXT SCH ×2 (08:36→19:43)
[2020-08-12] MEDS: DOCUSATE SODIUM 100 MG CAP PO SCH ×2 (08:38→19:46)
[2020-08-12] MEDS: FUROSEMIDE 40 MG in SYRINGE 0 ML IV SCH ×2 (08:47→19:41)
[2020-08-12] MEDS: FAMOTIDINE 20 MG TAB PO SCH (08:47)
[2020-08-12] MEDS: ZINC SULFATE 220 MG CAPSULE PO SCH (11:58)
--- NOTE | 2020-08-12 13:23 | Hospitalist Progress Note ---
Date of Service August 12, 2020 Assessment & Plan (1) Acute metabolic encephalopathy: - as per admission history and physical on 08/06/2020 " This is an 85-year-old female who has significant past medical history of PAF anticoagulated on warfarin, HTN, HLD, severe aortic stenosis, grade 2 diastolic dysfunction, CKD stage III, LBBB, hypothyroidism, history of breast cancer, pernicious and iron deficient anemia who presents to ED from secondary to hypoxia and confusion x2 days. Unable to obtain history from patient secondary to mental status. History obtained from . Of significance patient recently hospitalized 07/21-07/23 secondary to fall with acute compression fracture of T9 and L3. She was also treated for UTI and had elevated TSH therefore her levothyroxine was increased to 125 mcg. She was discharged to for acute rehab. She had been doing well there and to 2 days ago when she started to become hypoxic. She required 4 L of O2 supplementation. She was started on albuterol inhaler. She was not Covid tested. Symptoms progressed to worsening confusion and at approximately 6 AM this morning she was found by nursing staff with oxygen off, lethargic, hypoxic and cyanotic. She would respond to verbal stimuli and when O2 was replaced at 5 L her O2 saturations improved. Given continued worsened status she was sent to ED for further evaluation. In ER she did test positive for COVID-19. Chest x- ray consistent with bibasilar opacities as well as concerning for pulmonary edema. Initial troponin elevated 0.069, CRP 3.94, ESR 22, INR 2.2, creatinine 1.35, AST 68. She received 6 mg IV dexamethasone, Ofirmev and 2 inh of albuterol. She remains on 4L of O2 adn blood pressures soft in 80s-90s systolic" -admission CXR: There is no pneumothorax. There has been interval development of bilateral pleural effusions with associated bibasilar opacities. Interstitial thickening has developed. Cardiomediastinal is noted. Patient was started on Dexamethasone 6mg IV daily, and remdesivir daily, empiric IV aztreonam, and IV lasix -as of 08/07/2020, the patient requires less supplementary oxygen and appears to be mentating better than what was initially reported (2) COVID-19: possible COVID-19 pneumonia -positive COVID-19 test on admission on 08/06/2020 -patient initially started on admission Dexamethasone 6mg IV daily, and remdesivir daily -last dose of remdesivir should be completed by 08/10/2020, the 10 day total course of dexamethasone IV will finish by 08/17/2020 but steroid dosing and duration can change depending on hospital course (3) Acute CHF: -elevated BNP and admission CXR does concern for pulmonary edema -initially given IV Lasix -continue IV Lasix as 20 mg IV q12 hours for now and monitor the blood pressures -cohen as needed for monitoring the urine out out for now -an echocardiogram can be performed in near future versus outpatient basis -as of 08/08/2020 the oxygen requirements at rest around 2 liters/min -as of 08/09/2020 the oxygen requirements at rest still around 2 liters/min, will plan to titrate up the Lasix 20 mg from q12 hours IV to 40 mg q12 hours IV -08/10/2020 patient continues to be oxygen requirements at rest of 2 liters/min, continue current Lasix of 40 mg q12 hours IV, additional magnesium given because serum magnesium 1.7. patient has been stable on telemetry to date and can be transferred off telemetry -on 08/11/2020, the bilateral lower extremity edema on initial presentation has had improved significantly, but patient remains to be around 2 to 3 liters/min oxygen. received the lasxi 40 mg IV x 1 in AM. The repeat CXR on 08/11/2020 that there is still pulmonary edema, bilateral pleural effusions and that bilateral mid to lower lung zone airspace opacities persist. because of mildly elevated serum bicarbonate of 42 with hypokalemia of 3.2 and hypomagnesemia of 1.7 will replete the electrolytes and hold the night time dose of Lasix. -Reassessed by 08/12/2020 labs that serum potassium and serum magnesium labs are repleted, patient's legs are quite clear of any edema, but still on supplementary oxygen of 2 liters/min at rest. will plan on repeat CXR on 08/13/2020 and updated her son. Patient denies any new symptoms on review of systems and no acute distress (4) Hypoxia: Acute Respiratory Failure with hypoxia -multifactorial - contribution of acute congestive heart failure and COVID-19 pneumonia -management of COVID as above -unclear whether any bacterial pneumonia or other sources of infection on admission and patient was started on empiric IV aztreonam on admission, procalcitonin on admission was normal, no growth on admission blood cultures. The aztreonam discontinued on 08/08/2020 and transition to trial of oral Doxycycline 100 mg BID for any atypical bacterial coverage for lungs but her results to date do not suggest bacterial pneumonia (5) Elevated troponin: -admission troponins on 08/06/2020 ranged 0.069, 0.124, 0.114 -echocardiogram will be updated in near future (6) Aortic stenosis: -history of severe aortic stenosis -per past [facility] cardiology notes that patient declined further work up (7) PAF (paroxysmal atrial fibrillation): on Chronic anticoagulation with coumadin -continue amiodarone -had been on warfarin 2mg daily; -INR 3.6 on 08/11/2020 and hold the coumadin, INR 3.4 on 08/12/2020 and hold the coumadin (8) Hypomagnesemia: -received magnesium supplements on admission when serum magnesium 1.6 -monitor electrolytes while on diuretics. serum magnesium 1.7 on 08/10/2020 and patient given additional magnesium supplements -electrolytes normalized as of 08/12/2020 (9) CKD (chronic kidney disease), stage III: -stable renal function while on diuretics (10) HTN (hypertension): -holding home dose amlodipine for now as blood pressures are not high (11) HLD (hyperlipidemia): -continue home dose statin (12) Anemia: chronic anemia -patient receives B12 injections every 3 months (13) Hypothyroid: -her levothyroxine was recently increased from last hospital admission to 125mcg and then increased further at [facility] to 137mcg -continue current outpatient dosing (14) H/O malignant neoplasm of breast: -continue tamoxifen (15) Compression fracture: -s/p Fall 07/21/2020 and admitted on 07/21/20 to 07/23/2020, she was at for rehab -prn acetaminophen -PT/OT evaluations (16) Neuropathy: -continue gabapentin at (17) DVT prophylaxis: -INR 3.6 on 08/11/2020, hold the coumadin -INR 3.4 on 08/12/2020, hold the coumadin Admission and Anticipated Discharge Date Admission Date: August 06, 2020 Subjective -Reassessed by 08/12/2020 labs that serum potassium and serum magnesium labs are repleted, patient's legs are quite clear of any edema, but still on supplementary oxygen of 2 liters/min at rest. will plan on repeat CXR on 08/13/2020 and updated her son. Patient denies any new symptoms on review of systems and no acute distress Review of Systems Review of Systems: All systems reviewed & are unremarkable except as noted in Subjective Physical Exam Constitutional: cooperative and comfortable Eyes: PERRL, conjunctivae normal, anicteric sclerae EOM intact bilaterally ENMT: external ear and nose normal, oropharynx normal Neck: normal visual inspection Respiratory: normal respiratory effort (on nasal cannula oxygen) Cardiovascular: Rate/Rhythm: regular rate Gastrointestinal (Abdomen): normal bowel sounds, soft, nontender, no hepatosplenomegaly Musculoskeletal: Head/Neck/Chest: normocephalic and head atraumatic Neurologic: PERRL, EOMI, accommodation nl, no face palsy, no dysarthria moves all extremities Psychiatric: Orientation: alert and cooperative Results & Data Results & [facility] ([facility]) Vital Signs (Past 12 Hours) Vital Signs Temp Pulse Resp BP Pulse Ox Pulse Ox 08/12/20 11:15 82 20 94 08/12/20 08:00 92 08/12/20 07:31 36.5 C 79 16 127/72 96 08/12/20 07:24 76 19 94 (1) Anemia Anemia type: unspecified type Qualified Code(s): D64.9 - Anemia, unspecified
[2020-08-12] MEDS: GABAPENTIN 100 MG CAP PO SCH (19:43)
[2020-08-13] MEDS: LEVOTHYROXINE SODIUM 137 MCG TABLET PO SCH (06:16)
[2020-08-13] MEDS: PANTOprazole 40 MG TAB PO SCH (06:16)
[2020-08-13 07:51] LABS: INR 3.2 (0.9-1.1); Prothrombin Time 31.3 Seconds (9.0-12.0)
[2020-08-13] MEDS: FUROSEMIDE 40 MG in SYRINGE 0 ML IV SCH (08:01)
[2020-08-13] MEDS: dexAMETHasone 6 MG in SYRINGE 0 ML IV SCH (08:01)
[2020-08-13] MEDS: ATORVASTATIN 20 MG TAB PO SCH (08:02)
[2020-08-13] MEDS: AMIODARONE 200 MG TAB PO SCH (08:02)
[2020-08-13] MEDS: NYSTATIN POWDER 15GM BTL EXT SCH ×2 (08:02→21:01)
[2020-08-13] MEDS: MAGNESIUM OXIDE 400 MG TAB PO SCH ×2 (08:03→21:18)
[2020-08-13] MEDS: TAMOXIFEN CITRATE 10 MG TABLET PO SCH (08:03)
[2020-08-13] MEDS: CHOLECALCIFEROL 1,000 UNITS 25 MCG TAB PO SCH (08:04)
[2020-08-13] MEDS: DOXYCYCLINE HYCLATE 100 MG CAP PO SCH ×2 (08:04→21:19)
[2020-08-13] MEDS: ASCORBIC ACID 500 MG TAB PO SCH ×2 (08:05→17:45)
[2020-08-13] MEDS: FAMOTIDINE 20 MG TAB PO SCH (08:07)
[2020-08-13] MEDS: DOCUSATE SODIUM 100 MG CAP PO SCH ×2 (08:07→21:19)
[2020-08-13] MEDS: ALBUTEROL HFA 8 GM INHALER INH SCH ×2 (08:12→11:18)
[2020-08-13 08:15] LABS: BUN Creatinine Ratio 29.8 (10-20); Creatinine Clr Calc Pharmacy 36.2 ml/min; Est GFR (African American) 47.9; Est GFR (Non-African American) 41.3; Potassium 3.6 mmol/L (3.5-5.1)
--- NOTE | 2020-08-13 11:05 | XRay Report ---
XR chest 1V portable HISTORY: Shortness of breath. follow lung infiltrates COMPARISON: Chest 08/11/2020. FINDINGS: The correct silhouette remains moderately enlarged. Interval improvement in the pulmonary e carey as well as improved aeration within the bilateral mid to lower lung zone airspace opacities. Sma ll to moderate bilateral pleural effusions persist. No pneumothorax. IMPRESSION: 1. Improved aeration within the lungs which could represent resolving pulmonary edema or pneumonia. 2. Bilateral pleural effusions persist. ACT 112: Negative or not required by law. Electronically signed by: Sammy Karimi M.D. 08/13/2020 11:03 AM
[2020-08-13] MEDS: ZINC SULFATE 220 MG CAPSULE PO SCH (13:07)
--- NOTE | 2020-08-13 13:13 | Hospitalist Progress Note ---
Date of Service August 13, 2020 Assessment & Plan (1) Acute metabolic encephalopathy: - as per admission history and physical on 08/06/2020 " This is an 85-year-old female who has significant past medical history of PAF anticoagulated on warfarin, HTN, HLD, severe aortic stenosis, grade 2 diastolic dysfunction, CKD stage III, LBBB, hypothyroidism, history of breast cancer, pernicious and iron deficient anemia who presents to ED from [facility] secondary to hypoxia and confusion x2 days. Unable to obtain history from patient secondary to mental status. History obtained from [facility]. Of significance patient recently hospitalized 07/21-07/23 secondary to fall with acute compression fracture of T9 and L3. She was also treated for UTI and had elevated TSH therefore her levothyroxine was increased to 125 mcg. She was discharged to [facility] for acute rehab. She had been doing well there and to 2 days ago when she started to become hypoxic. She required 4 L of O2 supplementation. She was started on albuterol inhaler. She was not Covid tested. Symptoms progressed to worsening confusion and at approximately 6 AM this morning she was found by nursing staff with oxygen off, lethargic, hypoxic and cyanotic. She would respond to verbal stimuli and when O2 was replaced at 5 L her O2 saturations improved. Given continued worsened status she was sent to ED for further evaluation. In ER she did test positive for COVID-19. Chest x- ray consistent with bibasilar opacities as well as concerning for pulmonary edema. Initial troponin elevated 0.069, CRP 3.94, ESR 22, INR 2.2, creatinine 1.35, AST 68. She received 6 mg IV dexamethasone, Ofirmev and 2 inh of albuterol. She remains on 4L of O2 adn blood pressures soft in 80s-90s systolic" -admission CXR: There is no pneumothorax. There has been interval development of bilateral pleural effusions with associated bibasilar opacities. Interstitial thickening has developed. Cardiomediastinal is noted. Patient was started on Dexamethasone 6mg IV daily, and remdesivir daily, empiric IV aztreonam, and IV lasix -as of 08/07/2020, the patient requires less supplementary oxygen and appears to be mentating better than what was initially reported (2) COVID-19: possible COVID-19 pneumonia -positive COVID-19 test on admission on 08/06/2020 -patient initially started on admission Dexamethasone 6mg IV daily, and remdesivir daily -last dose of remdesivir should be completed by 08/10/2020, the 10 day total course of dexamethasone IV will finish by 08/17/2020 but steroid dosing and duration can change depending on hospital course As per case management, the discharge plan will be return to [facility] for physical therapy but patient needs to be in hospital for 10 days for 1st positive COVID test on 08/06/2020 so the earliest that patient can return is 08/16/2020 (3) Acute CHF: -elevated BNP and admission CXR does concern for pulmonary edema -during hospital stay patient was on trial of IV Lasix 20 mg q12 hours that reduced the initial requirements to 2 liter/min by 08/08/2020 subsequently then patient was diuresed with strategy of IV Lasix 40 mg IV BID which has resolved the bilateral lower extremity edema but oxygen requirements remain around 2 liters/min CXR on 08/13/2020 "Improved aeration within the lungs which could represent resolving pulmonary edema or pneumonia. Bilateral pleural effusions persist." because of mild alkalosis from IV Lasix, further IV lasix will be stopped as of 08/13/2020 AM hospitalist team to follow serum bicarbonate before resuming patient on oral Lasix (4) Hypoxia: Acute Respiratory Failure with hypoxia -multifactorial - contribution of acute congestive heart failure and COVID-19 pneumonia -management of COVID as above -unclear whether any bacterial pneumonia or other sources of infection on admission and patient was started on empiric IV aztreonam on admission, procalcitonin on admission was normal, no growth on admission blood cultures. The aztreonam discontinued on 08/08/2020 and transition to trial of oral Doxycycline 100 mg BID for any atypical bacterial coverage for lungs but her results to date do not suggest bacterial pneumonia (5) Elevated troponin: -admission troponins on 08/06/2020 ranged 0.069, 0.124, 0.114 -echocardiogram ordered for 08/13/2020 (6) Aortic stenosis: -history of severe aortic stenosis -per past [facility] cardiology notes that patient declined further work up (7) PAF (paroxysmal atrial fibrillation): on Chronic anticoagulation with coumadin -continue amiodarone -had been on warfarin 2mg daily as outpatient -because INR above 3 on days of 08/11/20 to 08/13/20, the coumadin is held for now -follow the INR (8) Hypomagnesemia: -partly from diuretic use -corrected with supplements (9) CKD (chronic kidney disease), stage III: -stable renal function while on diuretics (10) HTN (hypertension): -her home dose amlodipine have been held to date because patient has not been hypertensive while on previous IV Lasix therapy (11) HLD (hyperlipidemia): -continue home dose statin (12) Anemia: chronic anemia -patient receives B12 injections every 3 months (13) Hypothyroid: -her levothyroxine was recently increased from last hospital admission to 125mcg and then increased further at [facility] to 137mcg -continue current outpatient dosing (14) H/O malignant neoplasm of breast: -continue tamoxifen (15) Compression fracture: -s/p Fall 07/21/2020 and admitted on 07/21/20 to 07/23/2020, she was at [facility] for rehab -prn acetaminophen -PT/OT evaluations (16) Neuropathy: -continue gabapentin at (17) DVT prophylaxis: -INR 3.2 on 08/13/2020, hold the coumadin Admission and Anticipated Discharge Date Admission Date: August 06, 2020 Subjective Patient breathing on 2 liters/min. no acute distress. her CXR reviewed. Patient denies acute pain anywhere of the body. no dizziness. no nausea. no vomiting. denies other symptoms on review of systems Review of Systems Review of Systems: All systems reviewed & are unremarkable except as noted in Subjective Physical Exam Constitutional: cooperative and comfortable Eyes: PERRL, conjunctivae normal, anicteric sclerae EOM intact bilaterally ENMT: external ear and nose normal, oropharynx normal Neck: normal visual inspection Respiratory: normal respiratory effort (on 2 liters/min nasal cannula) Cardiovascular: Rate/Rhythm: regular rate Gastrointestinal (Abdomen): normal bowel sounds, soft, nontender, no hepatosplenomegaly Musculoskeletal: Head/Neck/Chest: normocephalic and head atraumatic Neurologic: PERRL, EOMI, accommodation nl, no face palsy, no dysarthria moves all extremities Psychiatric: Orientation: alert and cooperative Results & Data Results & Data ([facility]) Vital Signs (Past 12 Hours) Vital Signs Temp Pulse Resp BP Pulse Ox 08/13/20 11:20 79 18 92 08/13/20 08:12 80 18 95 08/13/20 07:58 36.5 C 81 16 122/71 94 (1) Anemia Anemia type: unspecified type Qualified Code(s): D64.9 - Anemia, unspecified
[2020-08-13] MEDS ORDERED: ALBUTEROL HFA 8 GM INHALER INH PRN (13:14)
[2020-08-13] MEDS: GABAPENTIN 100 MG CAP PO SCH (21:19)
[2020-08-14] MEDS: PANTOprazole 40 MG TAB PO SCH (06:12)
[2020-08-14] MEDS: LEVOTHYROXINE SODIUM 137 MCG TABLET PO SCH (06:12)
[2020-08-14 08:18] LABS: Eosinophils # (auto) 0.04 K/uL (0-0.5); Eosinophils % (auto) 0.7 %; Hematocrit (blood only) 31.2 % (37-47); Hemoglobin 10.2 g/dL (12.0-16.0); Immature Granulocytes # (auto) 0.01 K/uL (0.00-0.02); Immature Granulocytes % (auto) 0.2 %; Lymphocytes % (auto) 15.1 %; Mean Corpuscular Hemoglobin 34.8 pg (25-34); Mean Corpuscular Hgb Conc 32.7 g/dL (32-36); Mean Corpuscular Volume 106.5 fL (80-100); Mean Platelet Volume 11.1 fL (7.4-10.4); Monocytes # (auto) 1.01 K/uL (0.11-0.59); Monocytes % (auto) 16.9 %; Neutrophils # (auto) 4.01 K/uL (1.4-6.5); Neutrophils % (auto) 67.1 %; Platelet Count 150 K/uL (130-400); RDW Coefficient of Variation 13.4 % (11.5-14.5); Red Blood Count 2.93 M/uL (4.2-5.4); White Blood Count 5.97 K/uL (4.8-10.8)
[2020-08-14 08:30] LABS: INR 2.8 (0.9-1.1)
[2020-08-14] MEDS: ASCORBIC ACID 500 MG TAB PO SCH ×2 (09:00→16:53)
[2020-08-14 09:30] LABS: Albumin Globulin Ratio 0.6 (0.9-2); Albumin Level 2.3 gm/dl (3.4-5.0); BUN Creatinine Ratio 30.8 (10-20); Bilirubin,Total 1.1 mg/dl (0.2-1); Calcium 9.3 mg/dl (8.5-10.1); Creatinine Clr Calc Pharmacy 36.5 ml/min; Est GFR (African American) 48.4; Est GFR (Non-African American) 41.7; Potassium 3.9 mmol/L (3.5-5.1); Total Protein 6.3 gm/dl (6.4-8.2)
[2020-08-14] MEDS: TAMOXIFEN CITRATE 10 MG TABLET PO SCH (09:47)
[2020-08-14] MEDS: dexAMETHasone 6 MG in SYRINGE 0 ML IV SCH (09:47)
[2020-08-14] MEDS: MAGNESIUM OXIDE 400 MG TAB PO SCH ×2 (09:47→20:19)
[2020-08-14] MEDS: CHOLECALCIFEROL 1,000 UNITS 25 MCG TAB PO SCH (09:47)
[2020-08-14] MEDS: AMIODARONE 200 MG TAB PO SCH (09:48)
[2020-08-14] MEDS: NYSTATIN POWDER 15GM BTL EXT SCH ×2 (09:49→20:19)
[2020-08-14] MEDS: DOCUSATE SODIUM 100 MG CAP PO SCH ×2 (09:50→20:19)
[2020-08-14] MEDS: DOXYCYCLINE HYCLATE 100 MG CAP PO SCH ×2 (09:50→20:18)
[2020-08-14] MEDS: FAMOTIDINE 20 MG TAB PO SCH (09:52)
[2020-08-14] MEDS: ATORVASTATIN 20 MG TAB PO SCH (09:55)
[2020-08-14] MEDS: ZINC SULFATE 220 MG CAPSULE PO SCH (12:36)
[2020-08-14] MEDS: GABAPENTIN 100 MG CAP PO SCH (20:19)
--- NOTE | 2020-08-14 22:14 | Hospitalist Progress Note ---
Date of Service August 14, 2020 Assessment & Plan (1) Acute metabolic encephalopathy: per Dr. Josue Sharma's notes: -admission CXR: There is no pneumothorax. There has been interval development of bilateral pleural effusions with associated bibasilar opacities. Interstitial thickening has developed. Cardiomediastinal is noted. Patient was started on Dexamethasone 6mg IV daily, and remdesivir daily, empiric IV aztreonam, and IV lasix -mental status much better (2) COVID-19: COVID-[address] Josue Sharma's notes: -positive COVID-19 test on admission on 08/06/2020 -patient initially started on admission Dexamethasone 6mg IV daily, and remdesivir daily -last dose of remdesivir should be completed by 08/10/2020, the 10 day total course of dexamethasone IV will finish by 08/17/2020 As per case management, the discharge plan will be return to [facility] for physical therapy but patient needs to be in hospital for 10 days for 1st positive COVID test on 08/06/2020 so the earliest that patient can return is 08/16/2020 - -mental status much better minimal O2 requirement now,continue to wean On Dexamethasone on Doxycycline for possible Bacterial component (3) Acute CHF: per Dr. Josue Sharma's notes: -elevated BNP and admission CXR does concern for pulmonary edema -during hospital stay patient was on trial of IV Lasix 20 mg q12 hours that reduced the initial requirements to 2 liter/min by 08/08/2020 subsequently then patient was diuresed with strategy of IV Lasix 40 mg IV BID which has resolved the bilateral lower extremity edema but oxygen requirements remain around 2 liters/min CXR on 08/13/2020 "Improved aeration within the lungs which could represent resolving pulmonary edema or pneumonia. Bilateral pleural effusions persist." because of mild alkalosis from IV Lasix, further IV lasix will be stopped as of 08/13/2020 AM 08/14 denies dyspnea, minimal O2 requirement HCO3 still at 43 hold off on Lasix follow daily (4) Hypoxia: Acute Respiratory Failure with hypoxia -multifactorial - contribution of acute congestive heart failure and COVID-19 pneumonia -management per above (5) Elevated troponin: -admission troponins on 08/06/2020 ranged 0.069, 0.124, 0.114 -echocardiogram ordered for 08/13/2020 EF 50-55% moderate aortic stenosis (6) Aortic stenosis: -history of severe aortic stenosis -per past [facility] cardiology notes that patient declined further work up (7) PAF (paroxysmal atrial fibrillation): on Chronic anticoagulation with coumadin -continue amiodarone -had been on warfarin 2mg daily as outpatient -INR 2.8 continue coumadin (8) Hypomagnesemia: -partly from diuretic use -corrected with supplements (9) CKD (chronic kidney disease), stage III: -stable renal function while on diuretics (10) HTN (hypertension): Amlodipine held as patient is normotensive (11) HLD (hyperlipidemia): -continue home dose statin (12) Anemia: chronic anemia -patient receives B12 injections every 3 months (13) Hypothyroid: -her levothyroxine was recently increased from last hospital admission to 125mcg and then increased further at [facility] to 137mcg -continue current outpatient dosing (14) H/O malignant neoplasm of breast: -continue tamoxifen (15) Compression fracture: -s/p Fall 07/21/2020 and admitted on 07/21/20 to 07/23/2020, she was at [facility] for rehab -prn acetaminophen -PT/OT evaluations (16) Neuropathy: -continue gabapentin at (17) DVT prophylaxis: on coumadin Admission and Anticipated Discharge Date Admission Date: August 06, 2020 Subjective ff up for COVID 19 PNA, etc seen sitting up in chair, in good spirits oriented x 3 states she is feeling improved minimal cough, no dyspnea/chest pain no other symptoms Review of Systems Review of Systems: All systems reviewed & are unremarkable except as noted in Subjective Physical Exam Physical Exam: General- oriented x 3, not in distress, speaks in sentences with no effort or accessory muscle use Eyes- anicteric Neck- no JVD Lungs- (+) mild rales at the bases, no wheezing Heart- normal rate, regular rhythm; no murmurs Abdomen- normal bowel sounds, nondistended, soft, nontender Extremities- no pretibial edema, no calf tenderness Neuro- alert, oriented x 3; no gross focal neurologic deficits Skin- warm & dry Results & Data Results & Data ([facility]) Vital Signs (Past 12 Hours) Vital Signs Temp Pulse Resp BP Pulse Ox 08/14/20 15:38 36.8 C 85 17 109/69 91 (1) Anemia Anemia type: unspecified type Qualified Code(s): D64.9 - Anemia, unspecified
[2020-08-15] MEDS: ASCORBIC ACID 500 MG TAB PO SCH ×2 (05:19→15:43)
[2020-08-15] MEDS: PANTOprazole 40 MG TAB PO SCH (05:19)
[2020-08-15] MEDS: LEVOTHYROXINE SODIUM 137 MCG TABLET PO SCH (05:19)
[2020-08-15] MEDS: AMIODARONE 200 MG TAB PO SCH (09:27)
[2020-08-15] MEDS: dexAMETHasone 6 MG in SYRINGE 0 ML IV SCH (09:28)
[2020-08-15] MEDS: DOXYCYCLINE HYCLATE 100 MG CAP PO SCH (09:28)
[2020-08-15] MEDS: MAGNESIUM OXIDE 400 MG TAB PO SCH ×2 (09:28→21:59)
[2020-08-15] MEDS: ATORVASTATIN 20 MG TAB PO SCH (09:28)
[2020-08-15] MEDS: CHOLECALCIFEROL 1,000 UNITS 25 MCG TAB PO SCH (09:29)
[2020-08-15] MEDS: TAMOXIFEN CITRATE 10 MG TABLET PO SCH (09:29)
[2020-08-15] MEDS: NYSTATIN POWDER 15GM BTL EXT SCH ×2 (09:30→21:52)
[2020-08-15] MEDS: DOCUSATE SODIUM 100 MG CAP PO SCH ×2 (09:33→22:03)
[2020-08-15] MEDS: FAMOTIDINE 20 MG TAB PO SCH (09:33)
[2020-08-15 11:34] LABS: INR 2.4 (0.9-1.1); Prothrombin Time 24.4 Seconds (9.0-12.0)
[2020-08-15 11:38] LABS: BUN Creatinine Ratio 27.3 (10-20); Calcium 9.2 mg/dl (8.5-10.1); Creatinine Clr Calc Pharmacy 37.5 ml/min; Est GFR (African American) 49.9; Potassium 3.6 mmol/L (3.5-5.1)
[2020-08-15] MEDS: ZINC SULFATE 220 MG CAPSULE PO SCH (13:20)
--- NOTE | 2020-08-15 19:42 | Hospitalist Progress Note ---
Date of Service August 15, 2020 Assessment & Plan (1) Acute metabolic encephalopathy: per Dr. Josue Sharma's notes: -admission CXR: There is no pneumothorax. There has been interval development of bilateral pleural effusions with associated bibasilar opacities. Interstitial thickening has developed. Cardiomediastinal is noted. Patient was started on Dexamethasone 6mg IV daily, and remdesivir daily, empiric IV aztreonam, and IV lasix -mental status much better (2) COVID-19: COVID-[address] Josue Sharma's notes: -positive COVID-19 test on admission on 08/06/2020 -patient initially started on admission Dexamethasone 6mg IV daily, and remdesivir daily -last dose of remdesivir should be completed by 08/10/2020, the 10 day total course of dexamethasone IV will finish by 08/17/2020 As per case management, the discharge plan will be return to [facility] for physical therapy but patient needs to be in hospital for 10 days for 1st positive COVID test on 08/06/2020 so the earliest that patient can return is 08/16/2020 - mental status much better minimal O2 requirement now,continue to wean On Dexamethasone, last day tomorrow on Doxycycline for possible Bacterial component -Patient denies any shortness of breath (3) Acute CHF: per Dr. Josue Sharma's notes: -elevated BNP and admission CXR does concern for pulmonary edema -during hospital stay patient was on trial of IV Lasix 20 mg q12 hours that reduced the initial requirements to 2 liter/min by 08/08/2020 subsequently then patient was diuresed with strategy of IV Lasix 40 mg IV BID which has resolved the bilateral lower extremity edema but oxygen requirements remain around 2 liters/min CXR on 08/13/2020 "Improved aeration within the lungs which could represent resolving pulmonary edema or pneumonia. Bilateral pleural effusions persist." because of mild alkalosis from IV Lasix, further IV lasix will be stopped as of 08/13/2020 AM 08/15 denies dyspnea, minimal O2 requirement HCO3 now at 40 Discussed with nephrology, will resume Lasix p.o. tomorrow Plan to discharge on Lasix 20 mg p.o. daily, alternating with 40 mg p.o. daily Then monitoring of BMP every 2 to 3 days Also repeat chest x-ray in 3 to 5 days to monitor bilateral pleural effusion (4) Hypoxia: Acute Respiratory Failure with hypoxia -multifactorial - contribution of acute congestive heart failure and COVID-19 pneumonia -management per above (5) Elevated troponin: -admission troponins on 08/06/2020 ranged 0.069, 0.124, 0.114 -echocardiogram ordered for 08/13/2020 EF 50-55% moderate aortic stenosis (6) Aortic stenosis: -history of severe aortic stenosis -per past [facility] cardiology notes that patient declined further work up (7) PAF (paroxysmal atrial fibrillation): on Chronic anticoagulation with coumadin -continue amiodarone -had been on warfarin 2mg daily as outpatient -INR 2.4 continue coumadin (8) Hypomagnesemia: -partly from diuretic use -corrected with supplements (9) CKD (chronic kidney disease), stage III: -stable renal function while on diuretics (10) HTN (hypertension): Amlodipine held as patient is normotensive (11) HLD (hyperlipidemia): -continue home dose statin (12) Anemia: chronic anemia -patient receives B12 injections every 3 months (13) Hypothyroid: -her levothyroxine was recently increased from last hospital admission to 125mcg and then increased further at [facility] to 137mcg -continue current outpatient dosing (14) H/O malignant neoplasm of breast: -continue tamoxifen (15) Compression fracture: -s/p Fall 07/21/2020 and admitted on 07/21/20 to 07/23/2020, she was at [facility] for rehab -prn acetaminophen -PT/OT evaluations (16) Neuropathy: -continue gabapentin at (17) DVT prophylaxis: on coumadin Admission and Anticipated Discharge Date Admission Date: August 06, 2020 Subjective Follow-up for COVID-19 infection, CHF exacerbation, etc. Seen resting in bed, comfortable, not in distress, watching TV, in good spirits States she continues to feel improved No dyspnea, no chest pain, no palpitations, no dizziness Denies any other new symptoms Review of Systems Review of Systems: All systems reviewed & are unremarkable except as noted in Subjective Physical Exam Physical Exam: General- oriented x 3, not in distress, speaks in sentences with no effort or accessory muscle use Eyes- anicteric Neck- no JVD Lungs-positive mild rales at the bases, no wheezing, good air entry bilaterally Heart- normal rate, regular rhythm; no murmurs Abdomen- normal bowel sounds, nondistended, soft, nontender Extremities- no pretibial edema, no calf tenderness Neuro- alert, oriented x 3; no gross focal neurologic deficits Skin- warm & dry Results & Data Results & Data ([facility]) Vital Signs (Past 12 Hours) Vital Signs Temp Pulse Resp BP Pulse Ox 08/15/20 15:31 36.7 C 87 16 107/69 94 Laboratory Results Laboratory Results - last 24 hr 08/14/20 08/15/20 08/15/20 23:12 10:58 10:58 PT 24.4 H INR 2.4 H Sodium 133 L Potassium 3.6 Chloride 88 L Carbon Dioxide 40 H Anion Gap 5.0 BUN 31 H Creatinine 1.15 Est Cr Clr Drug Dosing 37.5 Est GFR ( Amer) 49.9 Est GFR (Non-Af Amer) 43.0 BUN/Creatinine Ratio 27.3 H Glucose 92 POC Glucose 122 H Calcium 9.2 (1) Anemia Anemia type: unspecified type Qualified Code(s): D64.9 - Anemia, unspecified
[2020-08-15] MEDS: GABAPENTIN 100 MG CAP PO SCH (21:52)
[2020-08-16] MEDS: PANTOprazole 40 MG TAB PO SCH (05:33)
[2020-08-16] MEDS: LEVOTHYROXINE SODIUM 137 MCG TABLET PO SCH (05:34)
[2020-08-16 06:34] LABS: INR 2.3 (0.9-1.1); Prothrombin Time 23.5 Seconds (9.0-12.0)
[2020-08-16 07:01] LABS: BUN Creatinine Ratio 30.6 (10-20); Calcium 8.6 mg/dl (8.5-10.1); Creatinine Clr Calc Pharmacy 41.9 ml/min; Est GFR (Non-African American) 49.2; Potassium 3.7 mmol/L (3.5-5.1)
[2020-08-16] MEDS: AMIODARONE 200 MG TAB PO SCH (10:14)
[2020-08-16] MEDS: ASCORBIC ACID 500 MG TAB PO SCH ×2 (10:23→16:48)
[2020-08-16] MEDS: CHOLECALCIFEROL 1,000 UNITS 25 MCG TAB PO SCH (10:23)
[2020-08-16] MEDS: ATORVASTATIN 20 MG TAB PO SCH (10:24)
[2020-08-16] MEDS: NYSTATIN POWDER 15GM BTL EXT SCH (10:24)
[2020-08-16] MEDS: MAGNESIUM OXIDE 400 MG TAB PO SCH (10:24)
[2020-08-16] MEDS: TAMOXIFEN CITRATE 10 MG TABLET PO SCH (10:25)
[2020-08-16] MEDS: dexAMETHasone 6 MG in SYRINGE 0 ML IV SCH (10:34)
[2020-08-16] MEDS: DOCUSATE SODIUM 100 MG CAP PO SCH (10:34)
[2020-08-16] MEDS: FAMOTIDINE 20 MG TAB PO SCH (10:34)
[2020-08-16] MEDS ORDERED: FUROSEMIDE 20 MG TAB PO SCH (11:45)
[2020-08-16] MEDS: ZINC SULFATE 220 MG CAPSULE PO SCH (12:31)
[2020-08-16] MEDS ORDERED: ACETAMINOPHEN 500 MG TAB PO ONE ×2 (14:48→15:37)
[2020-08-16] MEDS: WARFARIN SOD 2 MG TAB PO SCH (16:48)
--- NOTE | 2020-08-16 17:43 | Hospitalist Progress Note ---
Date of Service August 16, 2020 Assessment & Plan (1) Acute metabolic encephalopathy: secondary to COVID pneumonia management per below -mental status much better (2) COVID-19: COVID-[address] Josue Sharma's notes: -positive COVID-19 test on admission on 08/06/2020 -admission CXR: There is no pneumothorax. There has been interval development of bilateral pleural effusions with associated bibasilar opacities. Interstitial thickening has developed. Cardiomediastinal is noted. Patient was started on Dexamethasone 6mg IV daily, and remdesivir daily, empiric IV aztreonam, and IV lasix -patient initially started on admission Dexamethasone 6mg IV daily, and remdesivir daily -last dose of remdesivir completed by 08/10/2020, received dexamethasone IV x 9 days Doxycycline x 7 days - mental status much better no dyspnea, cough resolved minimal O2 requirement now 1L via nasal cannula ,continue to wean (3) Acute CHF: per Dr. Josue Sharma's notes: -elevated BNP and admission CXR does concern for pulmonary edema -during hospital stay patient was on trial of IV Lasix 20 mg q12 hours that reduced the initial requirements to 2 liter/min by 08/08/2020 subsequently then patient was diuresed with strategy of IV Lasix 40 mg IV BID which has resolved the bilateral lower extremity edema but oxygen requirements remain around 2 liters/min CXR on 08/13/2020 "Improved aeration within the lungs which could represent resolving pulmonary edema or pneumonia. Bilateral pleural effusions persist." because of mild alkalosis from IV Lasix, further IV lasix will be stopped as of 08/13/2020 AM currently denies dyspnea, minimal O2 requirement HCO3 increased with IV lasix, now at 42 Discussed with nephrology Plan to discharge on Lasix 20 mg p.o. daily Then monitoring of BMP every 2 to 3 days Also repeat chest x-ray in 3 days to monitor bilateral pleural effusion monitor volume status closely (4) Hypoxia: Acute Respiratory Failure with hypoxia -multifactorial - contribution of acute congestive heart failure and COVID-19 pneumonia -management per above (5) Elevated troponin: -admission troponins on 08/06/2020 ranged 0.069, 0.124, 0.114 -echocardiogram ordered for 08/13/2020 moderate concentric LVH moderate septal hypokinesis EF 50-55% moderate aortic stenosis (6) Aortic stenosis: -history of severe aortic stenosis -per past [facility] cardiology notes that patient declined further work up (7) PAF (paroxysmal atrial fibrillation): on Chronic anticoagulation with coumadin -continue amiodarone -had been on warfarin 2mg daily as outpatient -INR 2.3 continue coumadin 2mg po daily - monitor INR (8) Hypomagnesemia: -partly from diuretic use -corrected with supplements - monitor (9) CKD (chronic kidney disease), stage III: -stable renal function while on diuretics - monitor as outpatient (10) HTN (hypertension): Amlodipine held as patient is normotensive monitor BP (11) HLD (hyperlipidemia): -continue home dose statin (12) Anemia: chronic anemia -patient receives B12 injections every 3 months (13) Hypothyroid: -her levothyroxine was recently increased from last hospital admission to 125mcg and then increased further at [facility] to 137mcg -continue current outpatient dosing (14) H/O malignant neoplasm of breast: -continue tamoxifen (15) Compression fracture: -s/p Fall 07/21/2020 and admitted on 07/21/20 to 07/23/2020, she was at [facility] for rehab -prn acetaminophen -PT/OT evaluations (16) Neuropathy: -continue gabapentin at (17) DVT prophylaxis: on coumadin Disposition d/c to [facility] ff up with PCP in 1 week upon d/c from [facility] Admission and Anticipated Discharge Date Admission Date: August 06, 2020 Subjective ff up for COVID 19 pneumonia, CHF , etc seen resting in bed, comfortable states she feels fine overall no chest pain, cough, dyspnea, palpitations, dizziness, fever/chills appetite is good has some generalized pain, stiffness no other symptoms states she is ready and is agreeable for discharge today Review of Systems Review of Systems: All systems reviewed & are unremarkable except as noted in Subjective Physical Exam Physical Exam: General- oriented x 3, not in distress, speaks in sentences with no effort or accessory muscle use Eyes- anicteric Neck- no JVD Lungs- mild decreased breath sounds at the bases no crackles/wheezing Heart- normal rate, regular rhythm; no murmurs Abdomen- normal bowel sounds, nondistended, soft, nontender Extremities- no pretibial edema, no calf tenderness Neuro- alert, oriented x 3; no gross focal neurologic deficits Skin- warm & dry Results & Data Results & Data ([facility]) Vital Signs (Past 12 Hours) Vital Signs Temp Pulse Pulse Resp BP Pulse Ox 08/16/20 15:05 36.4 C L 87 65 16 112/69 94 08/16/20 08:19 36.4 C L 65 16 112/69 94 (1) Anemia Anemia type: unspecified type Qualified Code(s): D64.9 - Anemia, unspecified
--- NOTE | 2020-08-16 17:50 | Discharge Summary ---
Date of Service August 16, 2020 Admission HPI Per Admitting Provider This is an 85-year-old female who has significant past medical history of PAF anticoagulated on warfarin, HTN, HLD, severe aortic stenosis, grade 2 diastolic dysfunction, CKD stage III, LBBB, hypothyroidism, history of breast cancer, pernicious and iron deficient anemia who presents to ED from [facility] secondary to hypoxia and confusion x2 days. Unable to obtain history from patient secondary to mental status. History obtained from [facility]. Of significance patient recently hospitalized 07/21-07/23 secondary to fall with acute compression fracture of T9 and L3. She was also treated for UTI and had elevated TSH therefore her levothyroxine was increased to 125 mcg. She was discharged to [facility] for acute rehab. She had been doing well there and to 2 days ago when she started to become hypoxic. She required 4 L of O2 supplementation. She was started on albuterol inhaler. She was not Covid tested. Symptoms progressed to worsening confusion and at approximately 6 AM this morning she was found by nursing staff with oxygen off, lethargic, hypoxic and cyanotic. She would respond to verbal stimuli and when O2 was replaced at 5 L her O2 saturations improved. Given continued worsened status she was sent to ED for further evaluation. In ER she did test positive for COVID-19. Chest x- ray consistent with bibasilar opacities as well as concerning for pulmonary edema. Initial troponin elevated 0.069, CRP 3.94, ESR 22, INR 2.2, creatinine 1.35, AST 68. She received 6 mg IV dexamethasone, Ofirmev and 2 inh of albuterol. She remains on 4L of O2 adn blood pressures soft in 80s-90s systolic. Admission Exam Per Admitting Provider General- confused Head- atraumatic Eyes- PERRL, EOMI, ENT- oropharynx clear Neck- supple, no JVD Lungs- diminished breath sound Heart- +systolic murmur Abdomen- normal bowel sounds, nontender Neuro- moves extremities, confused, unable to follow command Skin- warm & dry Principal Diagnosis Acute hypoxic respiratory failure, COVID 19 Pneumonia, acute CHF exacerbation Discharge Exam General- oriented x 3, not in distress, speaks in sentences with no effort or accessory muscle use Eyes- anicteric Neck- no JVD Lungs- mild decreased breath sounds at the bases no crackles/wheezing Heart- normal rate, regular rhythm; no murmurs Abdomen- normal bowel sounds, nondistended, soft, nontender Extremities- no pretibial edema, no calf tenderness Neuro- alert, oriented x 3; no gross focal neurologic deficits Skin- warm & dry Discharge Data Allergies Allergy/AdvReac Type Severity Reaction Status Date / Time Penicillins Allergy Severe ANAPHYAXIS Verified 08/06/20 07:51 magnesium AdvReac Unknown DIARRHEA Verified 08/06/20 07:51 Consultations 08/06/20 09:56 ED Decision to Admit Stat 08/06/20 13:13 Consult Case Management - Discharge Planning Routine 08/06/20 14:46 Consult Pulmonology Routine Hospital Course (1) Acute metabolic encephalopathy: secondary to COVID pneumonia management per below -mental status much better (2) COVID-19: COVID-[address] Josue Sharma's notes: -positive COVID-19 test on admission on 08/06/2020 -admission CXR: There is no pneumothorax. There has been interval development of bilateral pleural effusions with associated bibasilar opacities. Interstitial thickening has developed. Cardiomediastinal is noted. Patient was started on Dexamethasone 6mg IV daily, and remdesivir daily, empiric IV aztreonam, and IV lasix -patient initially started on admission Dexamethasone 6mg IV daily, and remdesivir daily -last dose of remdesivir completed by 08/10/2020, received dexamethasone IV x 9 days Doxycycline x 7 days - mental status much better no dyspnea, cough resolved minimal O2 requirement now 1L via nasal cannula ,continue to wean - continue Incentive Spirometer (3) Acute CHF: per Dr. Josue Sharma's notes: -elevated BNP and admission CXR does concern for pulmonary edema -during hospital stay patient was on trial of IV Lasix 20 mg q12 hours that reduced the initial requirements to 2 liter/min by 08/08/2020 subsequently then patient was diuresed with strategy of IV Lasix 40 mg IV BID which has resolved the bilateral lower extremity edema but oxygen requirements remain around 2 liters/min CXR on 08/13/2020 "Improved aeration within the lungs which could represent resolving pulmonary edema or pneumonia. Bilateral pleural effusions persist." because of mild alkalosis from IV Lasix, further IV lasix will be stopped as of 08/13/2020 AM currently denies dyspnea, minimal O2 requirement HCO3 increased with IV lasix, now at 42 Discussed with nephrology Plan to discharge on Lasix 20 mg p.o. daily Then monitoring of BMP every 2 to 3 days Also repeat chest x-ray in 3 days to monitor bilateral pleural effusion monitor volume status closely (4) Hypoxia: Acute Respiratory Failure with hypoxia -multifactorial - contribution of acute congestive heart failure and COVID-19 pneumonia -management per above (5) Elevated troponin: -admission troponins on 08/06/2020 ranged 0.069, 0.124, 0.114 -echocardiogram ordered for 08/13/2020 moderate concentric LVH moderate septal hypokinesis EF 50-55% moderate aortic stenosis (6) Aortic stenosis: -history of severe aortic stenosis -per past [facility] cardiology notes that patient declined further work up (7) PAF (paroxysmal atrial fibrillation): on Chronic anticoagulation with coumadin -continue amiodarone -had been on warfarin 2mg daily as outpatient -INR 2.3 continue coumadin 2mg po daily - monitor INR (8) Hypomagnesemia: -partly from diuretic use -corrected with supplements - monitor (9) CKD (chronic kidney disease), stage III: -stable renal function while on diuretics - monitor as outpatient (10) HTN (hypertension): Amlodipine held as patient is normotensive monitor BP (11) HLD (hyperlipidemia): -continue home dose statin (12) Anemia: chronic anemia -patient receives B12 injections every 3 months (13) Hypothyroid: -her levothyroxine was recently increased from last hospital admission to 125mcg [facility] -continue current outpatient dosing (14) H/O malignant neoplasm of breast: -continue tamoxifen (15) Compression fracture: -s/p Fall 07/21/2020 and admitted on 07/21/20 to 07/23/2020, she was at [facility] for rehab -prn acetaminophen -PT/OT evaluations (16) Neuropathy: -continue gabapentin at (17) DVT prophylaxis: on coumadin Disposition d/c to [facility] ff up with PCP in 1 week upon d/c from [facility] Total Time Total Time Spent Total Time Spent (In Minutes): 55 minutes Discharge Plan Discharge Items Patient Disposition: Transfer Inpatient Rehab Fac Reason For Visit: COVID PNEUMONIA Discharge Diagnosis: Acute metabolic encephalopathy on admission Acute Respiratory Failure with hypoxia COVID-19 infection with possible COVID-19 pneumonia Acute Congestive Heart Failure Aortic stenosis (history of severe aortic stenosis) other diagnosis of: PAF (paroxysmal atrial fibrillation) on Chronic anticoagulation with coumadin CKD (chronic kidney disease), stage III Hypothyroidism H/O malignant neoplasm of breast Compression fracture: Neuropathy Activity: Resume your previous activity Activity Comment: gradually as tolerated Non-emergency contact: Primary Care Provider Call non-emergency contact if: you have any medication questions, your symptoms worsen and you have a fever Follow-up/Referrals: Floyd Nuno MD [Primary Care Provider] - Diet: Heart Healthy and Low Sodium (2gm) Fluids: 1800ml (7 cups) Addtl Attending Provider Instructions: Please refer to accompanying hospital discharge summary for further details. Pending Studies at Discharge: Yes Studies:: repeat INR tomorrow, then regularly (on coumadin) repeat BMP in 2 days, then monitor regularly repeat Chest xray in 3 days to ff up pleural effusion Stand-Alone Forms: My [facility] Skilled Items Patient informed of condition?: Yes DNR: Yes Discharge Level of Care: Acute rehab Communicable Disease: Yes Discharge Prognosis: Improving Lines: None Urinary Catheter: No Medications and DC Order Prescriptions: New warfarin 2 mg Tablet 2 mg PO DAILY@1600 Qty: 14 RF: 1 furosemide 20 mg Tablet 20 mg PO QAM Qty: 10 RF: 0 Continued diclofenac sodium 1 % gel 4 g TOPICAL QID PRN (Reason: Pain) RF: 0 atorvastatin 20 mg tablet 20 mg PO QAM RF: 0 amiodarone 200 mg tablet 100 mg PO QAM RF: 0 acetaminophen [Tylenol Extra Strength] 500 mg Tablet 500 mg PO Q6H PRN (Reason: Pain) RF: 0 tamoxifen 20 mg tablet 20 mg PO QAM RF: 0 cholecalciferol (vitamin D3) [Vitamin D3] 2,000 unit Tablet 2,000 unit PO QAM RF: 0 cyanocobalamin (vitamin B-12) 1,000 mcg/mL Kit 1,000 mcg IM Q3M RF: 0 levothyroxine 137 mcg Tablet 137 mcg PO QAM RF: 0 polyethylene glycol 3350 [Miralax] 17 gram Powder In Packet 17 g PO DAILYBL RF: 0 sennosides-docusate sodium [Senna-S] 8.6-50 mg Tablet 1 tab PO DAILYBL PRN (Reason: Constipation) RF: 0 melatonin 3 mg Tablet 3 mg PO HS PRN (Reason: Sleep) RF: 0 zinc sulfate 220 mg Tablet 220 mg PO QAM RF: 0 famotidine [Pepcid] 20 mg Tablet 20 mg PO DAILY RF: 0 magnesium hydroxide [Milk of Magnesia] 400 mg/5 mL Suspension 30 ml PO DAILY PRN (Reason: Constipation) RF: 0 ascorbic acid (vitamin C) 500 mg Tablet 500 mg PO BIDM RF: 0 bisacodyl 10 mg Suppository 10 mg TN DAILY PRN (Reason: Constipation) RF: 0 pantoprazole 40 mg Tablet,Delayed Release (Dr/Ec) 40 mg PO DAILYBB RF: 0 lidocaine [Lidoderm] 5 % Adhesive Patch,Medicated 1 patch TOPICAL QAM RF: 0 Fleet Enema 19-7 gram/118 mL Enema 118 ml TN DAILY PRN (Reason: Constipation) RF: 0 docusate sodium 100 mg Capsule 100 mg PO BID RF: 0 gabapentin 100 mg Capsule 100 mg PO HS RF: 0 nystatin 100,000 unit/gram Powder 1 applic TOPICAL BID RF: 0 albuterol sulfate [Ventolin HFA] 90 mcg/actuation Hfa Aerosol Inhaler 2 puff INHALATION QID PRN (Reason: Shortness Of Breath) RF: 0 Discontinued amlodipine 5 mg tablet 5 mg PO QAM RF: 0 furosemide 20 mg tablet 20 mg PO QAM PRN (Reason: Edema) Qty: 0 RF: 0 guaifenesin [Mucinex] 600 mg Tablet Extended Release 12hr 600 mg PO BID RF: 0 warfarin 1 mg tablet 0 mg PO QAM RF: 0 Discharge Orders: Discharge Order (Routine); Ordered 08/16/20 Ordered By: Marco Dhaliwal Admission Data Admit Date/Time: 08/06/20 10:07 Attending Provider: Marco Dhaliwal Admit Provider: Piter Merino Primary Care Provider: Floyd Nuno Other Providers: [facility] ; Piter Merino ; Jl Westbrook ; Josue Sharma
== END 2020-08-16 19:00 | DRG 177 ==
LOC: ED 07:30 → SUATTDRO 10:07 → EDINP 10:07 → 2E 10:07 → 3E 08-11 06:23

== ENCOUNTER 2020-11-14 06:38 | Inpatient (IN) ==
[2020-11-14 07:40] LABS: BUN Creatinine Ratio 11.7 (10-20); Creatinine Clr Calc Pharmacy 20.9 ml/min; Est GFR (African American) 26.7; Potassium 4.4 mmol/L (3.5-5.1)
[2020-11-14 07:44] LABS: Basophils # (auto) 0.04 K/uL (0-0.2); Basophils % (auto) 0.6 %; Eosinophils # (auto) 0.17 K/uL (0-0.5); Eosinophils % (auto) 2.6 %; Hematocrit (blood only) 22.6 % (37-47); Hemoglobin 7.3 g/dL (12.0-16.0); Immature Granulocytes # (auto) 0.01 K/uL (0.00-0.02); Immature Granulocytes % (auto) 0.2 %; Lymphocytes # (auto) 1.22 K/uL (1.2-3.4); Lymphocytes % (auto) 18.7 %; Mean Corpuscular Hemoglobin 32.9 pg (25-34); Mean Corpuscular Hgb Conc 32.3 g/dL (32-36); Mean Corpuscular Volume 101.8 fL (80-100); Mean Platelet Volume 10.1 fL (7.4-10.4); Monocytes # (auto) 1.18 K/uL (0.11-0.59); Monocytes % (auto) 18.1 %; Neutrophils # (auto) 3.89 K/uL (1.4-6.5); Neutrophils % (auto) 59.8 %; Platelet Count 205 K/uL (130-400); RDW Coefficient of Variation 14.4 % (11.5-14.5); RDW Standard Deviation 53.8 fL (36.4-46.3); Red Blood Count 2.22 M/uL (4.2-5.4); White Blood Count 6.51 K/uL (4.8-10.8)
[2020-11-14 07:49] LABS: INR 4.9 (0.9-1.1); Partial Thromboplastin Ratio 1.5; Partial Thromboplastin Time 38.3 Seconds (21.0-31.0); Prothrombin Time 43.5 Seconds (9.0-12.0)
--- NOTE | 2020-11-14 07:53 | Emergency Department Note ---
History of Present Illness General Chief complaint: Flank Pain Stated complaint: FALL/FLANK PAIN Time Seen by Provider: 11/14/20 06:55 History of Present Illness Provider complaint: Fall Onset (ago): day(s) 1 Location: chest, abdomen and left Radiation: non-radiation Severity: moderate Pain Consistency: + constant Maximum Pain Intensity: 4 Quality: + aching Relieved By: + immobilization Exacerbated By: + movement Associated symptoms: + chest pain; no nausea/vomiting, no shortness of breath and no weakness 85-year-old female presents emergency department status post fall. Patient is on Coumadin. Patient reports that she was trying to get off of her commode and then she felt her legs go weak and then she tripped and landed on her left side. Patient is reporting pain over her left chest and abdomen. She states the pain is better when she stays still and worse when she moves. She denies hitting her head. Home Medications Medication Instructions Recorded Confirmed Type acetaminophen [Tylenol Extra 500 mg PO Q6H PRN MDD 3 GRAMS/24 12/06/18 11/14/20 History Strength] HOURS amiodarone 100 mg PO QAM 12/06/18 11/14/20 History atorvastatin 20 mg PO QAM 12/06/18 11/14/20 History cholecalciferol (vitamin D3) 2,000 unit PO QAM 12/06/18 11/14/20 History [Vitamin D3] tamoxifen 20 mg PO QAM 12/06/18 11/14/20 History diclofenac sodium 4 g TOPICAL QID PRN 02/16/20 11/14/20 History albuterol sulfate [Ventolin HFA] 2 puff INHALATION QID PRN 08/06/20 11/14/20 History docusate sodium 100 mg PO BID 08/06/20 11/14/20 History famotidine [Pepcid] 20 mg PO QAM 08/06/20 11/14/20 History gabapentin 100 mg PO HS 08/06/20 11/14/20 History levothyroxine 137 mcg PO QAM 08/06/20 11/14/20 History melatonin 3 mg PO HS 08/06/20 11/14/20 History nystatin 1 applic TOPICAL BID 08/06/20 11/14/20 History pantoprazole 40 mg PO DAILYBB 08/06/20 11/14/20 History furosemide 20 mg PO QAM #10 tab 08/16/20 11/14/20 Rx polyethylene glycol 3350 [Miralax] 17 g PO DAILY PRN 11/14/20 11/14/20 History warfarin 1.5 mg PO QPM 11/14/20 11/14/20 History Allergies Allergy/AdvReac Type Severity Reaction Status Date / Time Penicillins Allergy Severe ANAPHYAXIS Verified 11/14/20 12:45 magnesium AdvReac Unknown DIARRHEA Verified 11/14/20 06:43 Past Med/Surg History Medical History Aortic stenosis CKD (chronic kidney disease), stage III H/O malignant neoplasm of breast History of thyroid cancer 1970s s/p thyroidectomy HLD (hyperlipidemia) HTN (hypertension) Hypothyroid Neuropathy Osteoporosis PAF (paroxysmal atrial fibrillation) Surgical History History of ankle surgery History of appendectomy History of thyroid surgery History of thyroidectomy History of tubal ligation S/P tonsillectomy Family History Daughter Breast cancer Brother Cancer stomach and liver Father Myocardial infarction, Onset Age: 53 Social History Smoking Status: Never smoker Hx Alcohol Use: No Hx Substance Use: No Preferred Language: Palestinian Communication Ability: Effective Assistant Unit Forester Required: No Beliefs That Will Affect Care: None marital status: / Current Living Situation: Rehab Current Living Situation Comment: [facility] health Feels Safe at Home: Yes Assistive Devices: None Review of Systems A total of 10 systems reviewed and were otherwise negative Physical Exam Vital Signs Vital Signs - 24 hr 11/14/20 06:51 11/14/20 07:06 11/14/20 07:18 Temperature 36.6 C Temperature Source Oral Pulse Rate 90 0 L Pulse Rate from SpO2 Sensor 87 Respiratory Rate 22 22 Respiratory Effort / Characteristics Non-Labored Spontaneous Respiratory Depth Normal Blood Pressure 105/56 L 104/48 L Blood Pressure Mean 72 66 Pulse Oximetry 94 87 L 92 Oxygen Delivery Method Room Air Room Air Room Air Oxygen Flow Rate Sepsis New/Unexplained Change in Mental Status N/A Sepsis Action Taken by Nursing No Action Required 11/14/20 07:20 11/14/20 08:17 11/14/20 08:30 Temperature Temperature Source Pulse Rate 81 84 Pulse Rate from SpO2 Sensor 84 87 Respiratory Rate 24 16 Respiratory Effort / Characteristics Respiratory Depth Blood Pressure 102/59 L 104/65 Blood Pressure Mean 73 78 Pulse Oximetry 96 99 100 Oxygen Delivery Method Nasal Cannula Nasal Cannula Nasal Cannula Oxygen Flow Rate 2 2 2 Sepsis New/Unexplained Change in Mental Status Sepsis Action Taken by Nursing 11/14/20 09:00 11/14/20 09:30 11/14/20 10:00 Temperature Temperature Source Pulse Rate 79 84 84 Pulse Rate from SpO2 Sensor 78 86 85 Respiratory Rate 20 20 16 Respiratory Effort / Characteristics Respiratory Depth Blood Pressure 99/50 L 99/58 L 100/61 Blood Pressure Mean 66 71 74 Pulse Oximetry 100 99 100 Oxygen Delivery Method Nasal Cannula Nasal Cannula Nasal Cannula Oxygen Flow Rate 2 2 2 Sepsis New/Unexplained Change in Mental Status Sepsis Action Taken by Nursing 11/14/20 10:30 11/14/20 11:10 Temperature 36.5 C Temperature Source Oral Pulse Rate 84 82 Pulse Rate from SpO2 Sensor 82 Respiratory Rate 18 22 Respiratory Effort / Characteristics Respiratory Depth Blood Pressure 95/52 L 107/53 L Blood Pressure Mean 66 71 Pulse Oximetry 100 95 Oxygen Delivery Method Nasal Cannula Oxygen Flow Rate 2 2 Sepsis New/Unexplained Change in Mental Status Sepsis Action Taken by Nursing Physical Exam GENERAL: She is oriented to person, place, and time. She appears well-developed and well-nourished. She does not appear distressed. HENT: Exam performed. -Head: Normocephalic and atraumatic. -Right Ear: External ear normal. No mastoid tenderness. -Left Ear: External ear normal. No mastoid tenderness. -Mouth/Throat: The oropharynx is clear and moist. No trismus in the jaw. No dental abscesses or uvula swelling. No oropharyngeal exudate or tonsillar abscesses. EYES: Conjunctivae and EOM are normal. Pupils are equal, round, and reactive to light. Right eye exhibits no discharge. Left eye exhibits no discharge. No scleral icterus. NECK: Normal range of motion. Neck supple. No JVD present. No spinous process tenderness present. No carotid bruit present. No rigidity. No tracheal deviation and normal range of motion present. No Brudzinski's sign and no Kernig's sign noted. CV: Normal rate, regular rhythm, systolic murmur. There is no peripheral edema. Palpable radial pulses bue. PULM/CHEST: Effort normal and breath sounds normal. No respiratory distress. No stridor. She has no wheezes. She has no rales. -Chest Wall: Pain on palpation of the left lateral inferior ribs reproducing the chief complaint. No crepitus bilaterally. ABD: The abdomen is soft. Bowel sounds are normal. She has no distension. No mass is present. There is no tenderness. There is no rebound, no guarding, no Nicole's sign and no tenderness at McBurney's point. Rovsig negative MUSC/SKEL: Normal range of motion. There is no peripheral edema, tenderness or deformity. LYMPH: No cervical adenopathy. NEURO: She is alert and oriented to person, place, and time. She has normal strength. No cranial nerve deficit or sensory deficit. Coordination and gait n ormal. GCS eye subscore is 4. GCS verbal subscore is 5. GCS motor subscore is 6. Cerebellar tests wnl. SKIN: Ecchymosis over the left flank. There is also scattered ecchymosis over her bilateral upper extremities. PSYCH: She has a normal mood and affect. Behavior is normal. Judgment and thought content normal. Course Course 654: The patient was evaluated in room A2. A complete history and physical exam was performed Cardiac monitoring: An order was placed for continuous cardiac monitoring. The monitor shows a rate of 90 with atiral fibrilation rhythm EMR reviewed. Patient was discharged from the hospital in July 2020 after becoming hypoxic and due to Covid. Patient has a history of severe aortic stenosis and CKD. EMR states that the patient is DNR/DNI as of July 2020. 1015: Vital signs stable. Labs show baseline creatinine of 1.9. Hemoglobin is 7.3. Imaging does show hematoma but no acute intra-abdominal traumatic injury. Other trauma scans are negative. Rectal exam was performed with Marifer SANDERSON female actuarial intern at bedside which was positive. Patient is on Protonix drip and will plan on admitting to the [facility] service. 1049: [facility] Dr. Sexton is ordered the patient be transferred 1 unit of packed red blood cells and wants the patient receive vitamin K IV. [facility] team would like me to contact general surgery as they are afraid about the patient's subcutaneous hematoma. I explained to them that there is no traumatic intra-abdominal injury and there is most likely nothing that needs to be from a surgical standpoint about the hematoma. I also explained to her that the most likely reason for the patient's anemia is the patient's Hemoccult positive stools. [facility] hospitalist is still adamant that they would like me to contact general surgery and if general surgery feels comfortable keeping the patient here they will be admitting the patient. They state if general surgery does not want to keep the patient here they would like the patient transferred for trauma evaluation. I spoke with Linda Pires PA-C who works with Dr. Ceballos general renetta and both she and I agree that there is no acute surgical intervention that needs to be done for a hematoma. She states she will evaluate the patient and then contact Dr. Sexton Administered Medications Discontinued Medications Pantoprazole Sodium 80 mg/ (Dextrose) 120 mls @ 400 mls/hr IV NOW ONE Stop: 11/14/20 09:57 Last Infusion: 11/14/20 10:45 Dose: 0 mls/hr Documented by: [id number] Admin: 11/14/20 10:25 Dose: 400 mls/hr Documented by: [id number] Pantoprazole Sodium 40 mg/ (Dextrose) 100 mls @ 20 mls/hr IV Q5H ADRIEN Stop: 12/14/20 09:44 Last Infusion: 11/14/20 11:31 Dose: 0 mg/hr, 0 mls/hr Documented by: [id number] Infusion: 11/14/20 11:27 Dose: 0 mg/hr, 0 mls/hr Documented by: [id number] Admin: 11/14/20 10:26 Dose: 8 mg/hr, 20 mls/hr Documented by: [id number] Phytonadione 10 mg/ Sodium (Chloride) 51 mls @ 102 mls/hr IV ONE ONE Stop: 11/14/20 10:59 Last Infusion: 11/14/20 11:05 Dose: 0 mls/hr Documented by: [id number] Admin: 11/14/20 10:35 Dose: 102 mls/hr Documented by: [id number] Sodium Chloride (Nss) 500 mls @ 999 mls/hr IV .Q31M ONE Stop: 11/14/20 10:54 Last Infusion: 11/14/20 11:07 Dose: 0 mls/hr Documented by: [id number] Admin: 11/14/20 10:36 Dose: 999 mls/hr Documented by: [id number] Morphine Sulfate (Morphine Sulfate 2 Mg/Ml Carp) 1 mg IV NOW STA Stop: 11/14/20 11:13 Last Admin: 11/14/20 11:19 Dose: 1 mg Documented by: [id number] Medical Decision Making Laboratory Data Result diagrams: 11/14/20 07:15 11/14/20 12:34 Lab Results 11/14/20 11/14/20 11/14/20 Range/Units 07:15 07:15 07:15 WBC 6.51 (4.8-10.8) K/uL RBC 2.22 L (4.2-5.4) M/uL Hgb 7.3 L (12.0-16.0) g/dL Hct 22.6 L (37-47) % MCV 101.8 H (80-100) fL MCH 32.9 (25-34) pg MCHC 32.3 (32-36) g/dL RDW Std Deviation 53.8 H (36.4-46.3) fL RDW Coeff of Frieda 14.4 (11.5-14.5) % Plt Count 205 (130-400) K/uL MPV 10.1 (7.4-10.4) fL Immature Gran % (Auto) 0.2 % Neut % (Auto) 59.8 % Lymph % (Auto) 18.7 % Buchanan % (Auto) 18.1 % Eos % (Auto) 2.6 % Baso % (Auto) 0.6 % Neut # (Auto) 3.89 (1.4-6.5) K/uL Lymph # (Auto) 1.22 (1.2-3.4) K/uL Buchanan # (Auto) 1.18 H (0.11-0.59) K/uL Eos # (Auto) 0.17 (0-0.5) K/uL Baso # (Auto) 0.04 (0-0.2) K/uL Immature Gran # (Auto) 0.01 (0.00-0.02) K/uL RBC Morphology Unremarkable PT 43.5 H (9.0-12.0) Seconds INR 4.9 H (0.9-1.1) APTT 38.3 H (21.0-31.0) Seconds PTT Ratio 1.5 Sodium 137 (136-145) mmol/L Potassium 4.4 (3.5-5.1) mmol/L Chloride 102 (98-107) mmol/L Carbon Dioxide 32 (21-32) mmol/L Anion Gap 3.0 (3-11) BUN 23 H (7-18) mg/dl Creatinine 1.93 H (0.6-1.2) mg/dl Est Cr Clr Drug Dosing 20.9 ml/min Est GFR ( Amer) 26.7 Est GFR (Non-Af Amer) 23.0 BUN/Creatinine Ratio 11.7 (10-20) Glucose 87 (70-99) mg/dl Calcium 9.0 (8.5-10.1) mg/dl Total Creatine Kinase 175 (26-192) U/L Troponin I (0-0.045) ng/ml Urine Color Urine Appearance (Clear) Urine pH (4.5-7.5) Ur Specific [place] (1.000-1.030) Urine Protein (Negative) Urine Glucose (UA) (Negative) Urine Ketones (Negative) Urine Blood (Negative) Urine Nitrite (Negative) Urine Bilirubin (Negative) Urine Urobilinogen (Negative) Ur Leukocyte Esterase (Negative) Urine WBC (Auto) (0-5) /hpf Urine RBC (Auto) (0-4) /hpf U Hyaline Cast (Auto) (0-5) /lpf U Epithel Cells (Auto) (0-5) /lpf Urine Bacteria (Auto) (Negative) Urine Yeast COVID-19 Eval Order SARS-CoV-2, RNA, NAAT (NEGATIVE) Blood Type Antibody Screen Crossmatch 11/14/20 11/14/20 11/14/20 Range/Units 07:15 08:26 09:50 WBC (4.8-10.8) K/uL RBC (4.2-5.4) M/uL Hgb (12.0-16.0) g/dL Hct (37-47) % MCV (80-100) fL MCH (25-34) pg MCHC (32-36) g/dL RDW Std Deviation (36.4-46.3) fL RDW Coeff of Frieda (11.5-14.5) % Plt Count (130-400) K/uL MPV (7.4-10.4) fL Immature Gran % (Auto) % Neut % (Auto) % Lymph % (Auto) % Buchanan % (Auto) % Eos % (Auto) % Baso % (Auto) % Neut # (Auto) (1.4-6.5) K/uL Lymph # (Auto) (1.2-3.4) K/uL Buchanan # (Auto) (0.11-0.59) K/uL Eos # (Auto) (0-0.5) K/uL Baso # (Auto) (0-0.2) K/uL Immature Gran # (Auto) (0.00-0.02) K/uL RBC Morphology PT (9.0-12.0) Seconds INR (0.9-1.1) APTT (21.0-31.0) Seconds PTT Ratio Sodium (136-145) mmol/L Potassium (3.5-5.1) mmol/L Chloride (98-107) mmol/L Carbon Dioxide (21-32) mmol/L Anion Gap (3-11) BUN (7-18) mg/dl Creatinine (0.6-1.2) mg/dl Est Cr Clr Drug Dosing ml/min Est GFR ( Amer) Est GFR (Non-Af Amer) BUN/Creatinine Ratio (10-20) Glucose (70-99) mg/dl Calcium (8.5-10.1) mg/dl Total Creatine Kinase (26-192) U/L Troponin I < 0.015 (0-0.045) ng/ml Urine Color Dark Yellow Urine Appearance Cloudy A (Clear) Urine pH 5.5 (4.5-7.5) Ur Specific [place] 1.018 (1.000-1.030) Urine Protein 1+ H (Negative) Urine Glucose (UA) Negative (Negative) Urine Ketones Negative (Negative) Urine Blood 2+ H (Negative) Urine Nitrite Negative (Negative) Urine Bilirubin Negative (Negative) Urine Urobilinogen Negative (Negative) Ur Leukocyte Esterase 2+ H (Negative) Urine WBC (Auto) >30 H (0-5) /hpf Urine RBC (Auto) 0-4 (0-4) /hpf U Hyaline Cast (Auto) 1-5 (0-5) /lpf U Epithel Cells (Auto) 0-5 (0-5) /lpf Urine Bacteria (Auto) 4+ H (Negative) Urine Yeast Not Reportable COVID-19 Eval Order SARS-CoV-2, RNA, NAAT (NEGATIVE) Blood Type A Positive Antibody Screen NEGATIVE Crossmatch See Detail 11/14/20 11/14/20 Range/Units 10:40 10:40 WBC (4.8-10.8) K/uL RBC (4.2-5.4) M/uL Hgb (12.0-16.0) g/dL Hct (37-47) % MCV (80-100) fL MCH (25-34) pg MCHC (32-36) g/dL RDW Std Deviation (36.4-46.3) fL RDW Coeff of Frieda (11.5-14.5) % Plt Count (130-400) K/uL MPV (7.4-10.4) fL Immature Gran % (Auto) % Neut % (Auto) % Lymph % (Auto) % Buchanan % (Auto) % Eos % (Auto) % Baso % (Auto) % Neut # (Auto) (1.4-6.5) K/uL Lymph # (Auto) (1.2-3.4) K/uL Buchanan # (Auto) (0.11-0.59) K/uL Eos # (Auto) (0-0.5) K/uL Baso # (Auto) (0-0.2) K/uL Immature Gran # (Auto) (0.00-0.02) K/uL RBC Morphology PT (9.0-12.0) Seconds INR (0.9-1.1) APTT (21.0-31.0) Seconds PTT Ratio Sodium (136-145) mmol/L Potassium (3.5-5.1) mmol/L Chloride (98-107) mmol/L Carbon Dioxide (21-32) mmol/L Anion Gap (3-11) BUN (7-18) mg/dl Creatinine (0.6-1.2) mg/dl Est Cr Clr Drug Dosing ml/min Est GFR ( Amer) Est GFR (Non-Af Amer) BUN/Creatinine Ratio (10-20) Glucose (70-99) mg/dl Calcium (8.5-10.1) mg/dl Total Creatine Kinase (26-192) U/L Troponin I (0-0.045) ng/ml Urine Color Urine Appearance (Clear) Urine pH (4.5-7.5) Ur Specific [place] (1.000-1.030) Urine Protein (Negative) Urine Glucose (UA) (Negative) Urine Ketones (Negative) Urine Blood (Negative) Urine Nitrite (Negative) Urine Bilirubin (Negative) Urine Urobilinogen (Negative) Ur Leukocyte Esterase (Negative) Urine WBC (Auto) (0-5) /hpf Urine RBC (Auto) (0-4) /hpf U Hyaline Cast (Auto) (0-5) /lpf U Epithel Cells (Auto) (0-5) /lpf Urine Bacteria (Auto) (Negative) Urine Yeast COVID-19 Eval Order Covid19 [facility]Now [facility] SARS-CoV-2, RNA, NAAT NEGATIVE (NEGATIVE) Blood Type Antibody Screen Crossmatch Imaging Data Radiologist's Impression: CT chest diagnostic wo con CLINICAL HISTORY: Chest pain status post trauma COMPARISON STUDY: No previous studies for comparison. CT DOSE: 3401.69 mGy.cm TECHNIQUE: CT of the thorax was performed from the thoracic inlet to the lung bases. Images are reviewed in the axial, sagittal, and coronal planes. IV contrast was not administered for this examination. A dose lowering technique was utilized adhering to the principles of ALARA. FINDINGS: Thyroid: The thyroid appears atrophic Thoracic aorta: The thoracic aorta is normal in course and caliber, noting standard 3 vessel arch anatomy. Heart: The heart is enlarged with coronary calcifications. There is a small pericardial effusion Lungs and pleural spaces: There are [id number] bilateral pleural effusions. There is basilar atelectasis. There is no pneumothorax. There is a 3 mm right upper lobe pulmonary nodule. Mediastinum: There is no evidence of pathologic mediastinal lymphadenopathy. Alisia: There is no evidence of pathologic hilar adenopathy given the limitations of a noncontrast study. Axilla: There is no evidence of pathologic axillary lymphadenopathy. Upper abdomen: The liver has a cirrhotic morphology. There is a partially visualized large hematoma within the subcutaneous soft tissues of the left flank. Skeletal structures: There is an L1 compression fracture which appears chronic. There is a T9 compression fracture which appears acute/subacute. IMPRESSION: 1. No evidence of acute intrathoracic injury given the limitations of a noncontrast study 2. Cardiomegaly, coronary artery calcifications, and small pericardial effusion 3. [id number] bilateral pleural effusions with bilateral compressive atelectatic change 4. Cirrhotic liver morphology 5. Partially visualized large subcutaneous left flank hematoma ACT 112: Negative or not required by law. Electronically signed by: Bairon Lacey M.D. 11/14/2020 8:27 AM Dictated: 11/14/20 0820Transcribed: 11/14/[address] OF THE ABDOMEN AND PELVIS WITHOUT CONTRAST CLINICAL HISTORY: Fall. On Coumadin. COMPARISON STUDY: CT of the abdomen and pelvis September 04, 2011. TECHNIQUE: Axial images of the abdomen and pelvis were obtained without IV contrast. Images were reviewed in the axial, sagittal, and coronal planes. Automated exposure control was utilized for the study. A dose lowering technique was utilized adhering to the principles of ALARA. FINDINGS: Please note that the chest CT will be reported separately. Bilateral pleural effusions, cardiomegaly and a pericardial effusion are better depicted on that exam. No pneumatosis, free air or portal venous gas is present. Note is made of multiple locules of gas adjacent to the right aspect of the bladder. Minimal infiltration adjacent to the bladder is noted. There may be trace intraluminal gas. Trace gas within the bladder wall cannot be excluded. This several locules of gas may be intravascular location. Solid abdominal viscera are suboptimally assessed on this unenhanced exam but there is no evidence for traumatic injury to the liver, spleen, adrenal glands, kidneys or pancreas. The liver is cirrhotic. Sensitivity for detection of hepatic lesions is diminished on this exam but none are identified. There are multiple gallstones within the gallbladder. Note is made of moderate biliary ductal dilatation. There are multiple stones within the common bile duct. Varices are noted. There is evidence for volume overload with body wall edema. There is no evidence for a bowel obstruction. Note is made of a large subcutaneous left flank hematoma that measures 13.6 x 9.2 x 12.3 cm. No additional hematomas are present. No acute pelvic or hip fracture is noted. There are multiple old thoracic and lumbar spine compression fractures, unchanged from radiographs of July 21, 2020. IMPRESSION: 1. Large acute left flank subcutaneous hematoma that measures 13.6 x 9.2 x 12.3 cm. No additional acute traumatic findings within the abdomen or pelvis. 2. Cirrhosis with manifestations of portal hypertension including varices formation. 3. Choledocholithiasis with moderate biliary ductal dilatation. Cholelithiasis. 4. Small amount of gas adjacent to the bladder wall, some of which is likely vascular. The etiology for this finding is unclear. No significant bladder wall thickening. Minimal adjacent infiltration. Although not highly suggestive of emphysematous cystitis, findings could be correlated with urinalysis. ACT 112: Negative or not required by law. Electronically signed by: Champ Baig M.D. 11/14/2020 9:01 AM Dictated: 11/14/20 0844Transcribed: 11/14/20 0845 XR pelvis 1-2V routine CLINICAL HISTORY: Pelvic pain status post trauma COMPARISON: Left hip x-rays dated 12/05/2018 DISCUSSION: No acute fractures or dislocations are visualized. There is a soft tissue density within the left abdominal wall region. Given history of trauma this could represent a hematoma. IMPRESSION: No fractures or dislocations identified. ACT 112: Negative or not required by law. Electronically signed by: Bairon Lacey M.D. 11/14/2020 8:45 AM Dictated: 11/14/20 0843Transcribed: 11/14/[address] head/brain wo con CLINICAL HISTORY: Head trauma. Patient on Coumadin. COMPARISON STUDY: 03/18/2009 TECHNIQUE: Axial CT of the brain is performed from the vertex to the skull base. IV contrast was not administered for this examination. A dose lowering technique was utilized adhering to the principles of ALARA. CT DOSE: FINDINGS: No intra or extra-axial mass lesions are visualized. There is no CT evidence of acute cortical infarction. There is no evidence of midline shift. There is no acute hemorrhage. No calvarial fractures are visualized. There are moderate white matter hypodensities likely on a small vessel basis. There is no evidence of pathologic ventricular dilatation. There are trace mastoid effusions. IMPRESSION: No acute intracranial findings ACT 112: Negative or not required by law. Electronically signed by: Bairon Lacey M.D. 11/14/2020 8:26 AM Dictated: 11/14/20 0816Transcribed: 11/14/20 0817 XR chest 1V portable CLINICAL HISTORY: Pain status post trauma COMPARISON STUDY: 12/13/2019 FINDINGS: The heart is enlarged. There are bilateral pleural effusions with associated bibasilar atelectasis/consolidation. There is no pneumothorax. Mild pulmonary vascular congestion is suspected.[ IMPRESSION: Cardiomegaly bilateral pleural effusions and associated bibasilar atelectasis/consolidation. Suspected mild pulmonary vascular congestion. ACT 112: Negative or not required by law. Electronically signed by: Bairon Lacey M.D. 11/14/2020 8:46 AM Dictated: 11/14/20 0845Transcribed: 11/14/2045 CT OF THE CERVICAL SPINE CLINICAL HISTORY: Neck pain status post trauma COMPARISON STUDY: No previous studies for comparison. CT DOSE: TECHNIQUE: CT scan of the cervical spine was performed from the skull base to the thoracic inlet. Images are reviewed in the axial, sagittal, and coronal planes. IV contrast was not administered for this examination. A dose lowering technique was utilized adhering to the principles of ALARA. FINDINGS: There are moderate bilateral pleural effusions The prevertebral soft tissues are normal. No acute fractures or traumatic subluxations are visualized. There are multilevel degenerative changes. Minor anterolisthesis of C3 on C4, retrolisthesis of C4 on C5, and anterolisthesis of C6 on C7 is felt to be degenerative. A small left mastoid effusion IMPRESSION: No evidence of acute fracture or traumatic subluxation. ACT 112: Negative or not required by law. Electronically signed by: Bairon Lacey M.D. 11/14/2020 8:33 AM Dictated: 11/14/20 0827Transcribed: 11/14/20828 ECG Data Indication: + syncope Rate (beats per minute): 87 Rhythm: + atrial fibrillation ECG Intervals/blocks: + Left bundle branch block Additional Comments: sgarbosa negative. QRS 162 Qtc 539 MDM Narrative 0655: The patient was evaluated in room A2. A complete history and physical exam was performed Cardiac monitoring: An order was placed for continuous cardiac monitoring. The monitor shows a rate of 90 with atiral fibrilation rhythm EMR reviewed. Patient was discharged from the hospital in July 2020 after becoming hypoxic and due to Covid. Patient has a history of severe aortic stenosis and CKD. EMR states that the patient is DNR/DNI as of July 2020. 1015: Vital signs stable. Labs show baseline creatinine of 1.9. Hemoglobin is 7.3. Imaging does show hematoma but no acute intra-abdominal traumatic injury. Other trauma scans are negative. Rectal exam was performed with Marifer SANDERSON female actuarial intern at bedside which was positive. Patient is on Protonix drip and will plan on admitting to the [facility] service. 1049: [facility] Dr[facility] Sexton is ordered the patient be transferred 1 unit of packed red blood cells and wants the patient receive vitamin K IV. [facility] team would like me to contact general surgery as they are afraid about the patient's subcutaneous hematoma. I explained to them that there is no traumatic intra-abdominal injury and there is most likely nothing that needs to be from a surgical standpoint about the hematoma. I also explained to her that the most likely reason for the patient's anemia is the patient's Hemoccult positive stools. [facility] is still adamant that they would like me to contact general surgery and if general surgery feels comfortable keeping the patient here they will be admitting the patient. They state if general surgery does not want to keep the patient here they would like the patient transferred for trauma evaluation. I spoke with Linda Pires PA-C who works with Dr. Ceballos general renetta and both she and I agree that there is no acute surgical intervention that needs to be done for a hematoma. She states she will evaluate the patient and then contact Dr. Sexton Impression & Plan GIB (gastrointestinal bleeding), Hematoma of flank Discharge Plan Visit Data Chief Complaint: Flank Pain Stated Complaint: FALL/FLANK PAIN ED Provider: Layo Villanueva Discharge Problem: GIB (gastrointestinal bleeding), Hematoma of flank Patient Disposition: Admitted As Inpatient Discharge Instructions Interventions: ED Discharge Assessment Last Done: 11/14/20 12:43 Discharge Problem: GIB (gastrointestinal bleeding) Qualifiers: GI bleed type/associated pathology: melena Qualified Code(s): K92.1 - Melena
[2020-11-14 08:11] LABS: RBC Morphology Unremarkable
--- NOTE | 2020-11-14 08:28 | CT Scan Report ---
CT head/brain wo con CLINICAL HISTORY: Head trauma. Patient on Coumadin. COMPARISON STUDY: 03/18/2009 TECHNIQUE: Axial CT of the brain is performed from the vertex to the skull base. IV contrast was not administered for this examination. A dose lowering technique was utilized adhering to the principles of ALARA. CT DOSE: FINDINGS: No intra or extra-axial mass lesions are visualized. There is no CT evidence of acute cortical infarc tion. There is no evidence of midline shift. There is no acute hemorrhage. No calvarial fractures ar e visualized. There are moderate white matter hypodensities likely on a small vessel basis. There is no evidence of pathologic ventricular dilatation. There are trace mastoid effusions. IMPRESSION: No acute intracranial findings ACT 112: Negative or not required by law. Electronically signed by: Bairon Lacey M.D. 11/14/2020 8:26 AM
--- NOTE | 2020-11-14 08:28 | CT Scan Report ---
CT chest diagnostic wo con CLINICAL HISTORY: Chest pain status post trauma COMPARISON STUDY: No previous studies for comparison. CT DOSE: 3401.69 mGy.cm TECHNIQUE: CT of the thorax was performed from the thoracic inlet to the lung bases. Images are revi ewed in the axial, sagittal, and coronal planes. IV contrast was not administered for this examinatio n. A dose lowering technique was utilized adhering to the principles of ALARA. FINDINGS: Thyroid: The thyroid appears atrophic Thoracic aorta: The thoracic aorta is normal in course and caliber, noting standard 3 vessel arch boni kan. Heart: The heart is enlarged with coronary calcifications. There is a small pericardial effusion Lungs and pleural spaces: There are ypgbz-ud-okiscofh bilateral pleural effusions. There is basilar a telectasis. There is no pneumothorax. There is a 3 mm right upper lobe pulmonary nodule. Mediastinum: There is no evidence of pathologic mediastinal lymphadenopathy. Alisia: There is no evidence of pathologic hilar adenopathy given the limitations of a noncontrast stud y. Axilla: There is no evidence of pathologic axillary lymphadenopathy. Upper abdomen: The liver has a cirrhotic morphology. There is a partially visualized large hematoma within the subcutaneous soft tissues of the left flank. Skeletal structures: There is an L1 compression fracture which appears chronic. There is a T9 carolyn mercedes fracture which appears acute/subacute. IMPRESSION: 1. No evidence of acute intrathoracic injury given the limitations of a noncontrast study 2. Cardiomegaly, coronary artery calcifications, and small pericardial effusion 3. Iwpbo-il-ernmraqv bilateral pleural effusions with bilateral compressive atelectatic change 4. Cirrhotic liver morphology 5. Partially visualized large subcutaneous left flank hematoma ACT 112: Negative or not required by law. Electronically signed by: Bairon Lacey M.D. 11/14/2020 8:27 AM
--- NOTE | 2020-11-14 08:34 | CT Scan Report ---
CT OF THE CERVICAL SPINE CLINICAL HISTORY: Neck pain status post trauma COMPARISON STUDY: No previous studies for comparison. CT DOSE: TECHNIQUE: CT scan of the cervical spine was performed from the skull base to the thoracic inlet. Ioana ges are reviewed in the axial, sagittal, and coronal planes. IV contrast was not administered for thi s examination. A dose lowering technique was utilized adhering to the principles of ALARA. FINDINGS: There are moderate bilateral pleural effusions The prevertebral soft tissues are normal. No acute fractures or traumatic subluxations are visualize d. There are multilevel degenerative changes. Minor anterolisthesis of C3 on C4, retrolisthesis of C4 on C5, and anterolisthesis of C6 on C7 is felt to be degenerative. A small left mastoid effusion IMPRESSION: No evidence of acute fracture or traumatic subluxation. ACT 112: Negative or not required by law. Electronically signed by: Bairon Lacey M.D. 11/14/2020 8:33 AM
--- NOTE | 2020-11-14 08:46 | XRay Report ---
XR pelvis 1-2V routine CLINICAL HISTORY: Pelvic pain status post trauma COMPARISON: Left hip x-rays dated 12/05/2018 DISCUSSION: No acute fractures or dislocations are visualized. There is a soft tissue density within the left abdominal wall region. Given history of trauma this could represent a hematoma. IMPRESSION: No fractures or dislocations identified. ACT 112: Negative or not required by law. Electronically signed by: Bairon Lacey M.D. 11/14/2020 8:45 AM
--- NOTE | 2020-11-14 08:47 | XRay Report ---
XR chest 1V portable CLINICAL HISTORY: Pain status post trauma COMPARISON STUDY: 12/13/2019 FINDINGS: The heart is enlarged. There are bilateral pleural effusions with associated bibasilar atel ectasis/consolidation. There is no pneumothorax. Mild pulmonary vascular congestion is suspected.[ IMPRESSION: Cardiomegaly bilateral pleural effusions and associated bibasilar atelectasis/consolidati on. Suspected mild pulmonary vascular congestion. ACT 112: Negative or not required by law. Electronically signed by: Bairon Lacey M.D. 11/14/2020 8:46 AM
--- NOTE | 2020-11-14 09:02 | CT Scan Report ---
CT OF THE ABDOMEN AND PELVIS WITHOUT CONTRAST CLINICAL HISTORY: Fall. On Coumadin. COMPARISON STUDY: CT of the abdomen and pelvis September 04, 2011. TECHNIQUE: Axial images of the abdomen and pelvis were obtained without IV contrast. Images were revi ewed in the axial, sagittal, and coronal planes. Automated exposure control was utilized for the khushboo dy. A dose lowering technique was utilized adhering to the principles of ALARA. FINDINGS: Please note that the chest CT will be reported separately. Bilateral pleural effusions, car diomegaly and a pericardial effusion are better depicted on that exam. No pneumatosis, free air or po rtal venous gas is present. Note is made of multiple locules of gas adjacent to the right aspect of t he bladder. Minimal infiltration adjacent to the bladder is noted. There may be trace intraluminal ga s. Trace gas within the bladder wall cannot be excluded. This several locules of gas may be intravasc ular location. Solid abdominal viscera are suboptimally assessed on this unenhanced exam but there is no evidence for traumatic injury to the liver, spleen, adrenal glands, kidneys or pancreas. The live r is cirrhotic. Sensitivity for detection of hepatic lesions is diminished on this exam but none are identified. There are multiple gallstones within the gallbladder. Note is made of moderate biliary du ctal dilatation. There are multiple stones within the common bile duct. Varices are noted. There is e vidence for volume overload with body wall edema. There is no evidence for a bowel obstruction. Note is made of a large subcutaneous left flank hematoma that measures 13.6 x 9.2 x 12.3 cm. No additional hematomas are present. No acute pelvic or hip fracture is noted. There are multiple old thoracic and lumbar spine compression fractures, unchanged from radiographs of July 21, 2020. IMPRESSION: 1. Large acute left flank subcutaneous hematoma that measures 13.6 x 9.2 x 12.3 cm. No additional acu te traumatic findings within the abdomen or pelvis. 2. Cirrhosis with manifestations of portal hypertension including varices formation. 3. Choledocholithiasis with moderate biliary ductal dilatation. Cholelithiasis. 4. Small amount of gas adjacent to the bladder wall, some of which is likely vascular. The etiology for this finding is unclear. No significant bladder wall thickening. Minimal adjacent infiltration. A lthough not highly suggestive of emphysematous cystitis, findings could be correlated with urinalysis . ACT 112: Negative or not required by law. Electronically signed by: Champ Baig M.D. 11/14/2020 9:01 AM
[2020-11-14] MEDS ORDERED: PANTOprazole 80 MG in DEXTROSE 5% 100 ML IV ONE (09:40)
[2020-11-14] MEDS ORDERED: PANTOprazole 40 MG in DEXTROSE 5% 100 ML IV SCH (09:45)
[2020-11-14 10:14] LABS: Appearance Urine Cloudy (Clear); Bacteria Urine Automated 4+ (Negative); Bilirubin Urine Negative (Negative); Blood Urine 2+ (Negative); Color Urine Dark Yellow; Glucose Urine UA Negative (Negative); Ketones Urine Negative (Negative); Leukocyte Esterase Urine 2+ (Negative); Nitrite Urine Negative (Negative); Protein Urine 1+ (Negative); Specific Gravity Urine 1.018 (1.000-1.030); Urobilinogen Urine Negative (Negative); pH Urine 5.5 (4.5-7.5)
[2020-11-14] MEDS ORDERED: SODIUM CHLORIDE 0.9% 250 ML IV PRN ×3 (10:16→19:03)
[2020-11-14 10:23] LABS: RBC Urine Automated 0-4 /hpf (0-4)
[2020-11-14 10:24] LABS: Epithelial Cell Urine Auto 0-5 /lpf (0-5); WBC Urine Automated >30 /hpf (0-5)
[2020-11-14] MEDS ORDERED: SODIUM CHLORIDE 0.9% 500 ML IV ONE (10:24)
[2020-11-14] MEDS ORDERED: PHYTONADIONE 10 MG in SODIUM CHLORIDE 0.9% 50 ML IV ONE (10:30)
[2020-11-14] MEDS ORDERED: MoRPHine SULFATE 2 MG/ML CARP IV STA (11:12)
[2020-11-14] MEDS ORDERED: POLYETHYLENE (MIRALAX) 17 GM PACK PO PRN (11:13)
[2020-11-14] MEDS ORDERED: NITROGLYCERIN SL 0.4 MG/TAB TAB SL PRN (11:13)
[2020-11-14] MEDS ORDERED: ACETAMINOPHEN 325 MG TAB PO PRN (11:13)
[2020-11-14] MEDS ORDERED: ONDANSETRON INJ 2 MG/ML 2 ML VIAL IV PRN (11:13)
--- NOTE | 2020-11-14 11:20 | History & Physical Report ---
Date of Service November 14, 2020 Assessment & Plan (1) Fall: (2) Supratherapeutic INR: (3) Acute blood loss anemia: This is an 85yo F resident from [facility] with a PMH of PAF anticoagulated on warfarin, HTN, cirrhosis, HLD, severe aortic stenosis, grade 2 diastolic dysfunction, CKD stage III, LBBB, hypothyroidism, history of breast cancer, pernicious and iron deficient anemia and other medical problems listed below who presents after falls overnight. Two unwitnessed falls overnight at personal halfway, on coumadin INR supratherapeutic at 4.9 In setting of large acute left flank subcutaneous hematoma and heme + stool on rectal exam No acute traumatic findings on head CT, cervical spine CT, chest CT or pelvis XR Acute blood loss anemia with hgb 7.3 (baseline ~9) Holding coumadin Giving 10mg IV vitamin K Consented for blood, type & cross, giving 2u prbcs with IV Lasix in between Repeat H&H @ 1400 Fall precautions (4) Subcutaneous hematoma: CT abd/pelvis with large acute left flank subcutaneous hematoma that measures 13.6 x 9.2 x 12.3 cm in setting of supratherapeutic INR Seen by surgery, no surgical intervention necessary at this point Reverse coagulopathy Monitor closely for s/sx of infection, monitor H/H closely (5) GI bleed: Heme + stool, CT abd/pelvis with cirrhosis with manifestations of portal hypertension including varices formation Patient denies GI bleed or melena but not a reliable historian Started on protonix bolus and drip in ED - continue IV protonix BID Routine GI consult (6) PAF (paroxysmal atrial fibrillation): Continue amiodarone Holding coumadin in setting of acute bleeding Patient not a good candidate for Coumadin in future due to fall risk, severe bleeding complication Keep K > 4, Mg > 2 to prevent arrhythmia (7) Acute kidney injury superimposed on chronic kidney disease: Cr 1.93 (baseline ~1) in setting of acute blood loss anemia Receiving prbcs, expect improvement but requiring IV Lasix while receiving blood product in setting of tenuous volume status Consider nephro consult if renal function continues to worsen Monitor BMP (8) Aortic stenosis: (9) Diastolic heart failure: Diastolic heart failure in setting of mod-severe aortic stenosis TTE from Jul 2020 with EF 55% with septal wall motion abnormality, moderate to severe Chest CT with [id number] bilateral pleural effusions with bilateral compressive atelectatic change Difficult to manage volume status in setting of acute blood loss anemia requiring transfusion High risk for further decompensated of CHF, will consider cardiology consult at that time - giving IV Lasix in between units of prbcs Monitoring volume status closely, cohen in place, low Na diet (10) UTI (urinary tract infection): UA consistent with infection, urine culture pending Started on Rocephin (h/o anaphylaxis with PCN and concerned about crossreactivity with Rocephin but confirmed that patient has received in the past without issue) Lactic acid normal, procal pending (11) HTN (hypertension): Hypotensive in setting of acute blood loss anemia. Receiving blood transfusion, conservative IV fluid replacement given history of severe (12) Hypothyroid: Continue levothyroxine DVT Ppx: supratherapeutic INR on coumadin - holding for now Code status: FULL per discussion of Dr. Sexton, who is also calling to further clarify with family. Patient does not want prolonged ventilation. PCP: Vicentenorris Kalyan Dispo: Admitted to PCU. Discharge planning order placed. Patient seen in collaboration with Dr. Sexton. Please see addendum. (13) H/O malignant neoplasm of breast: History of Present Illness Chief Complaint: fall, flank pain Primary Care Provider: [facility] This is an 85yo F resident from [facility] with a PMH of PAF anticoagulated on warfarin, HTN, cirrhosis, HLD, severe aortic stenosis, grade 2 diastolic dysfunction, CKD stage III, LBBB, hypothyroidism, history of breast cancer, pernicious and iron deficient anemia and other medical problems listed below who presents after falls overnight. Had an unwitnessed fall while using the bathroom but is unsure when it happened. Per discussion with [facility] staff, there were falls at 0300 and 0540. Found on the floor in her room at 0300 and was helped back into bed. Later that morning, patient had fall in bathroom that was unwitnessed and was calling out for help until assisted by staff. Continued to have pain in left side and was brought into ED for further evaluation. Endorsing discomfort in side. Feeling fatigued but denies confusion. No fever, chills, lightheadedness, headache, chest pain, SOB, nausea, vomiting, abdominal pain, dysuria, diarrhea or constipation. Has received Covid vaccine. Allergies Allergy/AdvReac Type Severity Reaction Status Date / Time Penicillins Allergy Severe ANAPHYAXIS Verified 11/14/20 12:45 magnesium AdvReac Unknown DIARRHEA Verified 11/14/20 06:43 Home Medications Medication Instructions Recorded Confirmed Type acetaminophen [Tylenol Extra 500 mg PO Q6H PRN MDD 3 GRAMS/24 12/06/18 11/14/20 History Strength] HOURS amiodarone 100 mg PO QAM 12/06/18 11/14/20 History atorvastatin 20 mg PO QAM 12/06/18 11/14/20 History cholecalciferol (vitamin D3) 2,000 unit PO QAM 12/06/18 11/14/20 History [Vitamin D3] tamoxifen 20 mg PO QAM 12/06/18 11/14/20 History diclofenac sodium 4 g TOPICAL QID PRN 02/16/20 11/14/20 History albuterol sulfate [Ventolin HFA] 2 puff INHALATION QID PRN 08/06/20 11/14/20 History docusate sodium 100 mg PO BID 08/06/20 11/14/20 History famotidine [Pepcid] 20 mg PO QAM 08/06/20 11/14/20 History gabapentin 100 mg PO HS 08/06/20 11/14/20 History levothyroxine 137 mcg PO QAM 08/06/20 11/14/20 History melatonin 3 mg PO HS 08/06/20 11/14/20 History nystatin 1 applic TOPICAL BID 08/06/20 11/14/20 History pantoprazole 40 mg PO DAILYBB 08/06/20 11/14/20 History furosemide 20 mg PO QAM #10 tab 08/16/20 11/14/20 Rx polyethylene glycol 3350 [Miralax] 17 g PO DAILY PRN 11/14/20 11/14/20 History warfarin 1.5 mg PO QPM 11/14/20 11/14/20 History Past Med/Surg History Medical History Aortic stenosis CKD (chronic kidney disease), stage III H/O malignant neoplasm of breast History of thyroid cancer 1970s s/p thyroidectomy HLD (hyperlipidemia) HTN (hypertension) Hypothyroid Neuropathy Osteoporosis PAF (paroxysmal atrial fibrillation) Surgical History History of ankle surgery History of appendectomy History of thyroid surgery History of thyroidectomy History of tubal ligation S/P tonsillectomy Family History Daughter Breast cancer Brother Cancer stomach and liver Father Myocardial infarction, Onset Age: 53 Social History Smoking Status: Never smoker Hx Alcohol Use: No Hx Substance Use: No Preferred Language: Kinyarwanda Communication Ability: Effective Building Maintenance Technician Required: No Beliefs That Will Affect Care: None marital status: / Current Living Situation: Rehab Current Living Situation Comment: [facility] Feels Safe at Home: Yes Assistive Devices: None Review of Systems Review of Systems: At least ten systems reviewed and negative except as noted in the HPI. Physical Exam Physical Exam: General Appearance: WD/WN, vitals as above, NAD, sitting up in bed, pleasant, conversing easily Head: normocephalic, atraumatic Eyes: normal inspection, PERRL, conjunctivae normal, anicteric sclerae ENT: external ear and nose normal, oropharynx normal Neck: normal visual inspection, trachea midline, no thyromegaly Respiratory: normal respiratory effort, bibasilar rales, no wheeze, rales, rhonchi. No accessory muscle use Cardiovascular: regular rate, rhythm, systolic murmur, normal peripheral pulses, 1-2+ BLE edema. Vessels: no JVD Chest: normal inspection of chest Abdomen/GI: + Large hematoma of L flank and ribs that is TTP, no open wounds Extremities/Musculoskeletal: no cyanosis or clubbing, extremities motor strength 5/5 Neurologic: PERRL, EOMI, accommodation nl, no face palsy, no dysarthria, CN's II-XI intact bilaterally and moves all extremities Psychiatric: A+Ox3, + poor insight regarding falls, euthymic affect Skin: no rashes, normal color, warm/dry Results & Data Results & Data ([facility]) Vital Signs (Past 12 Hours) Vital Signs Temp Pulse Resp BP Pulse Ox 11/14/20 11:10 36.5 C 82 22 107/53 L 95 03/18/21 10:30 84 18 95/52 L 100 11/14/20 10:00 84 16 100/61 100 11/14/20 09:30 84 20 99/58 L 99 11/14/20 09:00 79 20 99/50 L 100 11/14/20 08:30 84 16 104/65 100 11/14/20 08:17 81 24 102/59 L 99 11/14/20 07:20 96 11/14/20 07:18 92 11/14/20 07:06 0 L 22 104/48 L 87 L 11/14/20 06:51 36.6 C 90 22 105/56 L 94 Laboratory Results Short CBC 11/14/20 Range/Units 07:15 WBC 6.51 (4.8-10.8) K/uL Hgb 7.3 L (12.0-16.0) g/dL Hct 22.6 L (37-47) % Plt Count 205 (130-400) K/uL BMP 11/14/20 07:15 Sodium 137 Potassium 4.4 Chloride 102 Carbon Dioxide 32 BUN 23 H Creatinine 1.93 H Glucose 87 Calcium 9.0 Cardiac Enzymes 11/14/20 11/14/20 Range/Units 07:15 07:15 Total Creatine Kinase 175 (26-192) U/L Troponin I < 0.015 (0-0.045) ng/ml Urine 11/14/20 Range/Units 09:50 Urine Color Dark Yellow Urine Appearance Cloudy A (Clear) Urine pH 5.5 (4.5-7.5) Ur Specific [place] 1.018 (1.000-1.030) Urine Protein 1+ H (Negative) Urine Glucose (UA) Negative (Negative) Diagnostic Findings Head CT: IMPRESSION: No acute intracranial findings Cervical spine CT: IMPRESSION: No evidence of acute fracture or traumatic subluxation. CXR: IMPRESSION: Cardiomegaly bilateral pleural effusions and associated bibasilar atelectasis/consolidation. Suspected mild pulmonary vascular congestion Chest CT: IMPRESSION: 1. No evidence of acute intrathoracic injury given the limitations of a noncontrast study 2. Cardiomegaly, coronary artery calcifications, and small pericardial effusion 3. [id number]-iocydqga bilateral pleural effusions with bilateral compressive atelectatic change 4. Cirrhotic liver morphology 5. Partially visualized large subcutaneous left flank hematoma Ct abd/pelvis: IMPRESSION: 1. Large acute left flank subcutaneous hematoma that measures 13.6 x 9.2 x 12.3 cm. No additional acute traumatic findings within the abdomen or pelvis. 2. Cirrhosis with manifestations of portal hypertension including varices formation. 3. Choledocholithiasis with moderate biliary ductal dilatation. Cholelithiasis. 4. Small amount of gas adjacent to the bladder wall, some of which is likely vascular. The etiology for this finding is unclear. No significant bladder wall thickening. Minimal adjacent infiltration. Although not highly suggestive of emphysematous cystitis, findings could be correlated with urinalysis. Pelvis XR: IMPRESSION: No fractures or dislocations identified. Code Status & VTE Plan VTE Prophylaxis Plan VTE Prophylaxis will be ordered: Yes Supervising Physician Co-Signing Physician Notes Date of Service: November 14, 2020 Attending addendum : pt seen and examined , care co-ordinated with Crystal Chase 85 yo F with complex past medical hx of PAF on Coumadin , severe aortic stenosis , CKD stage 3 , presented after sustaining a fall at the personal halfway yesterday afternoon ? ( pt is a very poor historian ) in ER Hb 7.2/hypotensive SBP in 90's /CT abdomen pelvis shows large subcutaneous hematoma on left upper abdomen . Physical Exam : General:pt appears to be pale , complains of pain on left side with minimum movement , alert awake oriented x3 HEENT: PERRLA, EOMI, Heart: Regular S1-S2, no carotid bruit, no JVD, + 2 lower ext edema Lungs:+ rales at base Abdomen: soft , large ecchymosis on left upper abdomen , tender raised area of hematoma noted , Extremity:chronic venous stasis change on bilateral lower ext with possible lymphedema , + pitting edema Neuro: No focal neurological deficit normal speech, Psych: Alert awake oriented x3, normal affect A/P: Fall /large left abdomen subcutaneous hematoma in setting of supratherapeutic INR : IV vit K 10 mg given to reverse INR , repeat lab in 2 hrs , repeat vit K till INR normalizes /surgery eval appreciated , continue conservative approach with correction of anemia , reversal of coagulopathy , if pt develops fever , elevated white count /continued drop in hb/size on hematoma getting larger in repeat CT scan -may need emergent procedure to evacuate the hematoma or IR guided procedure to thrombose the bleeding vessel -at present pt remains stable enough to be admitted to PCU with close monitoring of hemodynamics Acute blood loss anemia : due to above , 2 units of PRBC ordered -transfused in ER , follow serial H&H hx of paroxysmal afib on Coumadin ; rate controlled, on amiodarone , continued , vit K to reverse Coumadin induced coagulopathy , pt will not be a candidate for Coumadin in future due to fall risk , severe bleeding complication acute renal failure on ckd stage 3 : possibly due to volume loss ( acute blood loss anemia ) /transient hypotension -avoid contrast studies/NSAID , lasix continued for severe /pt is getting PRBC tx , monitor BMP , consider nephrology consult if cr continues to worsen possible UTI : U A positive /Ct abdomen shows possible gas surrounding bladder possible -cystitis ?prior hx of UTI with Proteus , urine culture ordered , empiric abx severe valvular heart disease ( aortic stenosis ) with diastolic heart failure : ECHO on 08/18 EF 55% with septal wall motion abnormality , moderate to severe , high risk for cardiac decompensation with volume resuscitation for acute blood loss ( received 500 mg NSS bolus , followed by 2 units of PRBC ) , Lasix 40 mg IV in between blood unit /cont daily regimen of Lasix 20 mg daily , Cohen catheter , monitor vol status closely concern for possible GI bleed ( anemia /heme positive stool ) : stool heme positive per ER attending , pt denies of any dark stool ( poor historian ) possible GI bleed in setting of coagulopathy ? INR reversed , GI eval requested , diet ordered as there is no indication for emergent GI procedure now bilateral pleural effusion -possible decompensated CHF -repeat ECHO, cont Lasix prolong Qtc -avoid meds causing worsening of Qtc -Zofran D./stephanie , can utilize IV Phenergan as needed , cont amiodarone for Afib , daily EKG , monitor labs , keep K > 4, Mg > 2 to prevent arrhythmia Full code : discussed with patient ; has a living will which represented DNR, but under current circumstances, but agreeable for resuscitation if she needs surgery , or clinical status declines /if there is a reasonable chance for recovery , does not want prolong ventilation , CODE STATUS : Remains Full code pt;s Son will be updated over phone please refer to further documentation by Crystal HORNE for discussion of other medical issues , Ila Sexton MD
--- NOTE | 2020-11-14 12:21 | Surgery Consultation ---
Date of Consultation November 14, 2020 Assessment & Plan (1) Fall: 85 year-old female on Coumadin for atrial fibrillation who is s/p fall at home yesterday presented to emergency department and found to have acute blood loss anemia with hemoglobin of 7.3, Hemoccult positive stools, and large left flank hematoma on CT scan measuring 13 x 9 x 12 cm. Hemodynamically stable. Moderate pain in the left flank/back/ and upper left abdomen secondary to hematoma. Plan: No surgical intervention recommended. Conservative measures recommended: Pain management, compression with binder if patient can tolerate, blood transfusion, discontinue anticoagulation, and monitor H&H. If there is concern of hematoma increasing in size or active bleed, would need transfer to tertiary center for IR embolization. Discussed with Dr. Sexton with hospitalist service (2) Subcutaneous hematoma: s/p fall (3) Supratherapeutic INR: (4) Acute blood loss anemia: Dr. Ceballos was present during my examination and agrees with above. Supervising Physician Co-Signing Physician Notes I reviewed chart and labs. Pt with h/o dysplastic Ortiz's, prior PUD, cirrhosis, on ac with supratherapeutic INR, now admit with fall. Imaging shows a 13 cm x 12 cm left flank hematoma, also intra-abdominal varices. We are consulted for anemia and g pos stools without gross evidence GIB. Her hgb is 7 with baseline 8-9. Her hgb drop is almost certainly caused by the very large hematoma. She has expressed a wish for conservative care, but if there is plan to resume coumadin, would plan EGD to screen for varices and triage bleeding risk. No need IV PPi. History of Present Illness Reason for Consultation: Large Hematoma Requesting Physician: Dr. Sexton Attending Physician: Dr. Sexton History of Present Illness Gisselle is a pleasant 85 year-old female on Coumadin for atrial fibrillation who presented to emergency department s/p a fall yesterday onto her left side. She had a ct Scan of abdomen and pelvis which showed large left flank hematoma measuring 13 x 12 x 9 cm. Her hemoglobin was 7.3 and her INR was supratherapeutic at 4.9. Our services consulted for large hematoma. Gisselle was evaluated in the ED. Gisselle states she is having moderate pain on her left side but pain medication has helped since receiving it. She states she wo uld not want aggressive surgery and she is DNR/DNI. Allergies Allergy/AdvReac Type Severity Reaction Status Date / Time Penicillins Allergy Severe ANAPHYAXIS Verified 11/14/20 12:45 magnesium AdvReac Unknown DIARRHEA Verified 11/14/20 06:43 Home Medications Medication Instructions Recorded Confirmed Type acetaminophen [Tylenol Extra 500 mg PO Q6H PRN MDD 3 GRAMS/24 12/06/18 11/14/20 History Strength] HOURS amiodarone 100 mg PO QAM 12/06/18 11/14/20 History atorvastatin 20 mg PO QAM 12/06/18 11/14/20 History cholecalciferol (vitamin D3) 2,000 unit PO QAM 12/06/18 11/14/20 History [Vitamin D3] tamoxifen 20 mg PO QAM 12/06/18 11/14/20 History diclofenac sodium 4 g TOPICAL QID PRN 02/16/20 11/14/20 History albuterol sulfate [Ventolin HFA] 2 puff INHALATION QID PRN 08/06/20 11/14/20 History docusate sodium 100 mg PO BID 08/06/20 11/14/20 History famotidine [Pepcid] 20 mg PO QAM 08/06/20 11/14/20 History gabapentin 100 mg PO HS 08/06/20 11/14/20 History levothyroxine 137 mcg PO QAM 08/06/20 11/14/20 History melatonin 3 mg PO HS 08/06/20 11/14/20 History nystatin 1 applic TOPICAL BID 08/06/20 11/14/20 History pantoprazole 40 mg PO DAILYBB 08/06/20 11/14/20 History furosemide 20 mg PO QAM #10 tab 08/16/20 11/14/20 Rx polyethylene glycol 3350 [Miralax] 17 g PO DAILY PRN 11/14/20 11/14/20 History warfarin 1.5 mg PO QPM 11/14/20 11/14/20 History Patient History Medical History Aortic stenosis CKD (chronic kidney disease), stage III H/O malignant neoplasm of breast History of thyroid cancer 1970s s/p thyroidectomy HLD (hyperlipidemia) HTN (hypertension) Hypothyroid Neuropathy Osteoporosis PAF (paroxysmal atrial fibrillation) Surgical History History of ankle surgery History of appendectomy History of thyroid surgery History of thyroidectomy History of tubal ligation S/P tonsillectomy Family History Daughter Breast cancer Brother Cancer stomach and liver Father Myocardial infarction, Onset Age: 53 Social History Smoking Status: Never smoker Hx Alcohol Use: No Hx Substance Use: No Preferred Language: Welsh Communication Ability: Effective Hairspring I Inspector Required: No Beliefs That Will Affect Care: None marital status: / Current Living Situation: Rehab Current Living Situation Comment: Lives along at home but was rehab prior to today's admit Other Information That Helps Us Care for You: No Feels Safe at Home: Yes Safety Concerns: Feels Safe At This Time Assistive Devices: Hearing Aid - Bilateral, Oxygen - at Night and Walker Review of Systems Review of Systems: All systems reviewed & are unremarkable except as noted in HPI & below Physical Exam Constitutional: well developed, well nourished, + obese and cooperative; no acute distress Respiratory: normal respiratory effort; no respiratory distress and no labored breathing Gastrointestinal (Abdomen): Inspection/Auscultation: abdomen normal to inspection; abdomen not distended Percussion/Palpation: + abdomen tender (left upper abdomen and left flank), + guarding and abdomen soft; abdomen not rigid Skin: no rashes, warm and dry + ecchymosis (there is moderate ecchymosis of the left upper abdomen and left flank ) There is some swelling at site of hematoma however no signs of infection Psychiatric: Orientation: alert and oriented x 3 Results & Data ([facility]) Vital Signs (Past 12 Hours) Vital Signs Temp Pulse Resp BP Pulse Ox 11/14/20 12:13 36.7 C 82 22 100/51 L 100 11/14/20 11:43 36.6 C 86 22 97/52 L 100 11/14/20 11:28 36.7 C 80 20 96/61 L 99 11/14/20 11:10 36.5 C 82 22 107/53 L 95 11/14/20 10:30 84 18 95/52 L 100 11/14/20 10:00 84 16 100/61 100 11/14/20 09:30 84 20 99/58 L 99 11/14/20 09:00 79 20 99/50 L 100 11/14/20 08:30 84 16 104/65 100 11/14/20 08:17 81 24 102/59 L 99 11/14/20 07:20 96 11/14/20 07:18 92 11/14/20 07:06 0 L 22 104/48 L 87 L 11/14/20 06:51 36.6 C 90 22 105/56 L 94 Laboratory Results 11/14/20 11/14/20 11/14/20 Range/Units 12:34 12:34 12:34 WBC (4.8-10.8) K/uL RBC (4.2-5.4) M/uL Hgb (12.0-16.0) g/dL Hct (37-47) % MCV (80-100) fL MCH (25-34) pg MCHC (32-36) g/dL RDW Std Deviation (36.4-46.3) fL RDW Coeff of Frieda (11.5-14.5) % Plt Count (130-400) K/uL MPV (7.4-10.4) fL Immature Gran % (Auto) % Neut % (Auto) % Lymph % (Auto) % [place] % (Auto) % Eos % (Auto) % Baso % (Auto) % Neut # (Auto) (1.4-6.5) K/uL Lymph # (Auto) (1.2-3.4) K/uL [place] # (Auto) (0.11-0.59) K/uL Eos # (Auto) (0-0.5) K/uL Baso # (Auto) (0-0.2) K/uL Immature Gran # (Auto) (0.00-0.02) K/uL RBC Morphology PT (9.0-12.0) Seconds INR (0.9-1.1) APTT (21.0-31.0) Seconds PTT Ratio Sodium 137 (136-145) mmol/L Potassium 4.5 (3.5-5.1) mmol/L Chloride 103 (98-107) mmol/L Carbon Dioxide 31 (21-32) mmol/L Anion Gap 3.0 (3-11) BUN 21 H (7-18) mg/dl Creatinine 1.76 H (0.6-1.2) mg/dl Est Cr Clr Drug Dosing 22.9 ml/min Est GFR ( Amer) 29.8 Est GFR (Non-Af Amer) 25.7 BUN/Creatinine Ratio 11.8 (10-20) Glucose 98 (70-99) mg/dl Lactate 1.5 (0.4-2.0) mmol/L Calcium 8.7 (8.5-10.1) mg/dl Total Creatine Kinase (26-192) U/L Troponin I (0-0.045) ng/ml Procalcitonin Pending Urine Color Urine Appearance (Clear) Urine pH (4.5-7.5) Ur Specific [place] (1.000-1.030) Urine Protein (Negative) Urine Glucose (UA) (Negative) Urine Ketones (Negative) Urine Blood (Negative) Urine Nitrite (Negative) Urine Bilirubin (Negative) Urine Urobilinogen (Negative) Ur Leukocyte Esterase (Negative) Urine WBC (Auto) (0-5) /hpf Urine RBC (Auto) (0-4) /hpf U Hyaline Cast (Auto) (0-5) /lpf U Epithel Cells (Auto) (0-5) /lpf Urine Bacteria (Auto) (Negative) Urine Yeast COVID-19 Eval Order SARS-CoV-2, RNA, NAAT (NEGATIVE) Blood Type Antibody Screen Crossmatch 11/14/20 11/14/20 11/14/20 Range/Units 10:40 10:40 09:50 WBC (4.8-10.8) K/uL RBC (4.2-5.4) M/uL Hgb (12.0-16.0) g/dL Hct (37-47) % MCV (80-100) fL MCH (25-34) pg MCHC (32-36) g/dL RDW Std Deviation (36.4-46.3) fL RDW Coeff of Frieda (11.5-14.5) % Plt Count (130-400) K/uL MPV (7.4-10.4) fL Immature Gran % (Auto) % Neut % (Auto) % Lymph % (Auto) % [place] % (Auto) % Eos % (Auto) % Baso % (Auto) % Neut # (Auto) (1.4-6.5) K/uL Lymph # (Auto) (1.2-3.4) K/uL [place] # (Auto) (0.11-0.59) K/uL Eos # (Auto) (0-0.5) K/uL Baso # (Auto) (0-0.2) K/uL Immature Gran # (Auto) (0.00-0.02) K/uL RBC Morphology PT (9.0-12.0) Seconds INR (0.9-1.1) APTT (21.0-31.0) Seconds PTT Ratio Sodium (136-145) mmol/L Potassium (3.5-5.1) mmol/L Chloride (98-107) mmol/L Carbon Dioxide (21-32) mmol/L Anion Gap (3-11) BUN (7-18) mg/dl Creatinine (0.6-1.2) mg/dl Est Cr Clr Drug Dosing ml/min Est GFR ( Amer) Est GFR (Non-Af Amer) BUN/Creatinine Ratio (10-20) Glucose (70-99) mg/dl Lactate (0.4-2.0) mmol/L Calcium (8.5-10.1) mg/dl Total Creatine Kinase (26-192) U/L Troponin I (0-0.045) ng/ml Procalcitonin Urine Color Dark Yellow Urine Appearance Cloudy A (Clear) Urine pH 5.5 (4.5-7.5) Ur Specific [place] 1.018 (1.000-1.030) Urine Protein 1+ H (Negative) Urine Glucose (UA) Negative (Negative) Urine Ketones Negative (Negative) Urine Blood 2+ H (Negative) Urine Nitrite Negative (Negative) Urine Bilirubin Negative (Negative) Urine Urobilinogen Negative (Negative) Ur Leukocyte Esterase 2+ H (Negative) Urine WBC (Auto) >30 H (0-5) /hpf Urine RBC (Auto) 0-4 (0-4) /hpf U Hyaline Cast (Auto) 1-5 (0-5) /lpf U Epithel Cells (Auto) 0-5 (0-5) /lpf Urine Bacteria (Auto) 4+ H (Negative) Urine Yeast Not Reportable COVID-19 Eval Order Covid19 IDNow atMTXC SARS-CoV-2, RNA, NAAT NEGATIVE (NEGATIVE) Blood Type Antibody Screen Crossmatch 11/14/20 11/14/20 11/14/20 Range/Units 08:26 07:15 07:15 WBC (4.8-10.8) K/uL RBC (4.2-5.4) M/uL Hgb (12.0-16.0) g/dL Hct (37-47) % MCV (80-100) fL MCH (25-34) pg MCHC (32-36) g/dL RDW Std Deviation (36.4-46.3) fL RDW Coeff of Frieda (11.5-14.5) % Plt Count (130-400) K/uL MPV (7.4-10.4) fL Immature Gran % (Auto) % Neut % (Auto) % Lymph % (Auto) % [place] % (Auto) % Eos % (Auto) % Baso % (Auto) % Neut # (Auto) (1.4-6.5) K/uL Lymph # (Auto) (1.2-3.4) K/uL [place] # (Auto) (0.11-0.59) K/uL Eos # (Auto) (0-0.5) K/uL Baso # (Auto) (0-0.2) K/uL Immature Gran # (Auto) (0.00-0.02) K/uL RBC Morphology PT (9.0-12.0) Seconds INR (0.9-1.1) APTT (21.0-31.0) Seconds PTT Ratio Sodium 137 (136-145) mmol/L Potassium 4.4 (3.5-5.1) mmol/L Chloride 102 (98-107) mmol/L Carbon Dioxide 32 (21-32) mmol/L Anion Gap 3.0 (3-11) BUN 23 H (7-18) mg/dl Creatinine 1.93 H (0.6-1.2) mg/dl Est Cr Clr Drug Dosing 20.9 ml/min Est GFR ( Amer) 26.7 Est GFR (Non-Af Amer) 23.0 BUN/Creatinine Ratio 11.7 (10-20) Glucose 87 (70-99) mg/dl Lactate (0.4-2.0) mmol/L Calcium 9.0 (8.5-10.1) mg/dl Total Creatine Kinase 175 (26-192) U/L Troponin I < 0.015 (0-0.045) ng/ml Procalcitonin Urine Color Urine Appearance (Clear) Urine pH (4.5-7.5) Ur Specific [place] (1.000-1.030) Urine Protein (Negative) Urine Glucose (UA) (Negative) Urine Ketones (Negative) Urine Blood (Negative) Urine Nitrite (Negative) Urine Bilirubin (Negative) Urine Urobilinogen (Negative) Ur Leukocyte Esterase (Negative) Urine WBC (Auto) (0-5) /hpf Urine RBC (Auto) (0-4) /hpf U Hyaline Cast (Auto) (0-5) /lpf U Epithel Cells (Auto) (0-5) /lpf Urine Bacteria (Auto) (Negative) Urine Yeast COVID-19 Eval Order SARS-CoV-2, RNA, NAAT (NEGATIVE) Blood Type A Positive Antibody Screen NEGATIVE Crossmatch See Detail 11/14/20 11/14/20 Range/Units 07:15 07:15 WBC 6.51 (4.8-10.8) K/uL RBC 2.22 L (4.2-5.4) M/uL Hgb 7.3 L (12.0-16.0) g/dL Hct 22.6 L (37-47) % MCV 101.8 H (80-100) fL MCH 32.9 (25-34) pg MCHC 32.3 (32-36) g/dL RDW Std Deviation 53.8 H (36.4-46.3) fL RDW Coeff of Frieda 14.4 (11.5-14.5) % Plt Count 205 (130-400) K/uL MPV 10.1 (7.4-10.4) fL Immature Gran % (Auto) 0.2 % Neut % (Auto) 59.8 % Lymph % (Auto) 18.7 % [place] % (Auto) 18.1 % Eos % (Auto) 2.6 % Baso % (Auto) 0.6 % Neut # (Auto) 3.89 (1.4-6.5) K/uL Lymph # (Auto) 1.22 (1.2-3.4) K/uL [place] # (Auto) 1.18 H (0.11-0.59) K/uL Eos # (Auto) 0.17 (0-0.5) K/uL Baso # (Auto) 0.04 (0-0.2) K/uL Immature Gran # (Auto) 0.01 (0.00-0.02) K/uL RBC Morphology Unremarkable PT 43.5 H (9.0-12.0) Seconds INR 4.9 H (0.9-1.1) APTT 38.3 H (21.0-31.0) Seconds PTT Ratio 1.5 Sodium (136-145) mmol/L Potassium (3.5-5.1) mmol/L Chloride (98-107) mmol/L Carbon Dioxide (21-32) mmol/L Anion Gap (3-11) BUN (7-18) mg/dl Creatinine (0.6-1.2) mg/dl Est Cr Clr Drug Dosing ml/min Est GFR ( Amer) Est GFR (Non-Af Amer) BUN/Creatinine Ratio (10-20) Glucose (70-99) mg/dl Lactate (0.4-2.0) mmol/L Calcium (8.5-10.1) mg/dl Total Creatine Kinase (26-192) U/L Troponin I (0-0.045) ng/ml Procalcitonin Urine Color Urine Appearance (Clear) Urine pH (4.5-7.5) Ur Specific [place] (1.000-1.030) Urine Protein (Negative) Urine Glucose (UA) (Negative) Urine Ketones (Negative) Urine Blood (Negative) Urine Nitrite (Negative) Urine Bilirubin (Negative) Urine Urobilinogen (Negative) Ur Leukocyte Esterase (Negative) Urine WBC (Auto) (0-5) /hpf Urine RBC (Auto) (0-4) /hpf U Hyaline Cast (Auto) (0-5) /lpf U Epithel Cells (Auto) (0-5) /lpf Urine Bacteria (Auto) (Negative) Urine Yeast COVID-19 Eval Order SARS-CoV-2, RNA, NAAT (NEGATIVE) Blood Type Antibody Screen Crossmatch Diagnostic Findings CT OF THE ABDOMEN AND PELVIS WITHOUT CONTRAST CLINICAL HISTORY: Fall. On Coumadin. COMPARISON STUDY: CT of the abdomen and pelvis September 04, 2011. TECHNIQUE: Axial images of the abdomen and pelvis were obtained without IV contrast. Images were reviewed in the axial, sagittal, and coronal planes. Automated exposure control was utilized for the study. A dose lowering technique was utilized adhering to the principles of ALARA. FINDINGS: Please note that the chest CT will be reported separately. Bilateral pleural effusions, cardiomegaly and a pericardial effusion are better depicted on that exam. No pneumatosis, free air or portal venous gas is present. Note is made of multiple locules of gas adjacent to the right aspect of the bladder. Minimal infiltration adjacent to the bladder is noted. There may be trace intraluminal gas. Trace gas within the bladder wall cannot be excluded. This several locules of gas may be intravascular location. Solid abdominal viscera are suboptimally assessed on this unenhanced exam but there is no evidence for traumatic injury to the liver, spleen, adrenal glands, kidneys or pancreas. The liver is cirrhotic. Sensitivity for detection of hepatic lesions is diminished on this exam but none are identified. There are multiple gallstones within the gallbladder. Note is made of moderate biliary ductal dilatation. There are multiple stones within the common bile duct. Varices are noted. There is evidence for volume overload with body wall edema. There is no evidence for a bowel obstruction. Note is made of a large subcutaneous left flank hematoma that measures 13.6 x 9.2 x 12.3 cm. No additional hematomas are present. No acute pelvic or hip fracture is noted. There are multiple old thoracic and lumbar spine compression fractures, unchanged from radiographs of July 21, 2020. IMPRESSION: 1. Large acute left flank subcutaneous hematoma that measures 13.6 x 9.2 x 12.3 cm. No additional acute traumatic findings within the abdomen or pelvis. 2. Cirrhosis with manifestations of portal hypertension including varices formation. 3. Choledocholithiasis with moderate biliary ductal dilatation. Cholelithiasis. 4. Small amount of gas adjacent to the bladder wall, some of which is likely vascular. The etiology for this finding is unclear. No significant bladder wall thickening. Minimal adjacent infiltration. Although not highly suggestive of emphysematous cystitis, findings could be correlated with urinalysis.
--- NOTE | 2020-11-14 12:25 | Communication Note ---
Date of Service: November 14, 2020 Attending addendum : pt seen and examined , care co-ordinated with Crystal Chase 85 yo F with complex past medical hx of PAF on Coumadin , severe aortic stenosis , CKD stage 3 , presented after sustaining a fall at the personal halfway yesterday afternoon ? ( pt is a very poor historian ) in ER Hb 7.2/hypotensive SBP in 90's /CT abdomen pelvis shows large subcutaneous hematoma on left upper abdomen . Physical Exam : General:pt appears to be pale , complains of pain on left side with minimum movement , alert awake oriented x3 HEENT: PERRLA, EOMI, Heart: Regular S1-S2, no carotid bruit, no JVD, + 2 lower ext edema Lungs:+ rales at base Abdomen: soft , large ecchymosis on left upper abdomen , tender raised area of hematoma noted , Extremity:chronic venous stasis change on bilateral lower ext with possible lymphedema , + pitting edema Neuro: No focal neurological deficit normal speech, Psych: Alert awake oriented x3, normal affect A/P: * Fall /large left abdomen subcutaneous hematoma in setting of supratherapeutic INR : IV vit K 10 mg given to reverse INR , repeat lab in 2 hrs , repeat vit K till INR normalizes /surgery eval appreciated , continue conservative approach with correction of anemia , reversal of coagulopathy , if pt develops fever , elevated white count /continued drop in hb/size on hematoma getting larger in repeat CT scan -may need emergent procedure to evacuate the hematoma or IR guided procedure to thrombose the bleeding vessel -at present pt remains stable enough to be admitted to PCU with close monitoring of hemodynamics * Acute blood loss anemia : due to above , 2 units of PRBC ordered -transfused in ER , follow serial H&H * hx of paroxysmal afib on Coumadin ; rate controlled, on amiodarone , continued , vit K to reverse Coumadin induced coagulopathy , pt will not be a candidate for Coumadin in future due to fall risk , severe bleeding complication * acute renal failure on ckd stage 3 : possibly due to volume loss ( acute blood loss anemia ) /transient hypotension -avoid contrast studies/NSAID , lasix continued for severe /pt is getting PRBC tx , monitor BMP , consider nephrology consult if cr continues to worsen * possible UTI : U A positive /Ct abdomen shows possible gas surrounding bladder possible -cystitis ?prior hx of UTI with Proteus , urine culture ordered , empiric abx * severe valvular heart disease ( aortic stenosis ) with diastolic heart failure : ECHO on 08/18 EF 55% with septal wall motion abnormality , moderate to severe , high risk for cardiac decompensation with volume resuscitation for acute blood loss ( received 500 mg NSS bolus , followed by 2 units of PRBC ) , Lasix 40 mg IV in between blood unit /cont daily regimen of Lasix 20 mg daily , Heart catheter , monitor vol status closely * concern for possible GI bleed ( anemia /heme positive stool ) : stool heme positive per ER attending , pt denies of any dark stool ( poor historian ) possible GI bleed in setting of coagulopathy ? INR reversed , GI eval requ ested , diet ordered as there is no indication for emergent GI procedure now * bilateral pleural effusion -possible decompensated CHF -repeat ECHO, cont Lasix * prolong Qtc -avoid meds causing worsening of Qtc -Zofran D./stephanie , can utilize IV Phenergan as needed , cont amiodarone for Afib , daily EKG , monitor labs , keep K > 4, Mg > 2 to prevent arrhythmia * Full code : discussed with patient ; has a living will which represented DNR, but under current circumstances, but agreeable for resuscitation if she needs surgery , or clinical status declines /if there is a reasonable chance for recovery , does not want prolong ventilation , CODE STATUS : Remains Full code * pt;s Son will be updated over phone please refer to further documentation by Crystal HORNE for discussion of other medical issues , Ila Sexton MD
[2020-11-14 13:00] LABS: BUN Creatinine Ratio 11.8 (10-20); Calcium 8.7 mg/dl (8.5-10.1); Creatinine Clr Calc Pharmacy 22.9 ml/min; Est GFR (African American) 29.8; Est GFR (Non-African American) 25.7; Potassium 4.5 mmol/L (3.5-5.1)
[2020-11-14] MEDS ORDERED: FUROSEMIDE 40 MG/4 ML VIAL IV SCH (13:00)
[2020-11-14] MEDS ORDERED: cefTRIAXone SODIUM 2,000 MG in DEXTROSE 5% 50 ML IV SCH ×2 (13:00→15:00)
[2020-11-14] MEDS ORDERED: cefTRIAXone SODIUM 1,000 MG in DEXTROSE 5% 50 ML IV SCH (13:15)
[2020-11-14] MEDS ORDERED: oxyCODONE/ACETAMINOPHEN 5mg/325mg TAB PO PRN (14:11)
[2020-11-14] MEDS ORDERED: ACETAMINOPHEN HOME PACK 500 MG TABLET PO PRN (14:11)
[2020-11-14] MEDS ORDERED: ALBUTEROL HFA 8 GM INHALER INH PRN (14:11)
[2020-11-14] MEDS ORDERED: MoRPHine SULFATE 2 MG/ML CARP IV PRN (14:11)
--- NOTE | 2020-11-14 14:31 | Gastrointestinal Consultation ---
Date of Consultation November 14, 2020 Assessment & Plan (1) Anemia: Ms. Britt is an 85 yr old female with anemia in the setting of severe aortic stenosis, supratherapeutic INR and mechanical fall with hematoma. Because no gross GI bleeding and anemia likely secondary to hematoma and supratherapeutic INR, would defer EGD during hospitalization - unless begins with gross GI bleeding and further drop in Hb/Hct. - or unless pt not able to arrange OP transportation. Appreciate primary hospitalist's management of correction of supratherapeutic INR, blood/fluid resuscitation. With pt's hx of falling and hx of cirrhosis (now apparently with varices) would question benefit of chronic anticoagulation vs. risks of bleeding - going forward - will defer to primary team. Present on Admission?: Yes (2) Occult blood positive stool: as above Present on Admission?: Yes (3) Cirrhosis of liver: She seems to have dropped off from regular GI visits for cirrhosis. Now varices on imaging (not present on EGD in 2014). Will arrange OP GI f/u with Akosua Landeros who has followed her in the past. Present on Admission?: Yes Supervising Physician Co-Signing Physician Notes I reviewed chart and labs. Pt with h/o dysplastic Ortiz's, prior PUD, cirrhosis, on ac with supratherapeutic INR, now admit with fall. Imaging shows a 13 cm x 12 cm left flank hematoma, also intra-abdominal varices. We are consulted for anemia and g pos stools without gross evidence GIB. Her hgb is 7 with baseline 8-9. Her hgb drop is almost certainly caused by the very large hematoma. She has expressed a wish for conservative care, but if there is plan to resume coumadin, would plan EGD to screen for varices and triage bleeding risk. No need IV PPi. History of Present Illness Reason for Consultation: anemia /heme positive stool Requesting Physician: Darshan Attending Physician: Ila Sexton MD History of Present Illness Ms. Gisselle Britt is an 85 yr old female pt of Dr. Nuno with a hx of severe aortic stenosis, CKD-3, idiopathic neuropathy, Diastolic heart failure, osteoporosis, TIA, ETOH/JUAREZ cirrhosis (followed by [facility] Landeros, most recently in 2016), Ortiz's esophagus (most recent EGD in 2014 w/o varices), A-fib on Coumadin. She had a fall in Jul 2020 and COVID in August. She has been in rehab, then rehospitalization, then rehab and now [facility]. She was transferred here from [place]. She has not been in her own home and has been minimally ambulatory since July. She presented to the ED today for a mechanical fall that occurred during toileting. On arrival, Hb is 7.3, down from 10 in July and 9.1 on November 07. INR is supratherapeutic at 4.9. BUN is 20, Cr 1.76. CT with a 13 cm left subcutaneous hematoma. Pt denies any gross GI bleeding but admits that she has not been looking at her BMs. She has not had a change in bowel habits and denies any diarrhea, constipation or frequent BMs. No nausea/vomiting, loss of appetite or abd pain. Stool is occult positive. She is maintained on Famotidine at home and a Protonix drip was initiated here today. She was hypotensive on arrival with systolic <100. She is seen while resting in bed in the PCU. She is awake, alert, oriented. Due to general deconditioning, she needs assistance to roll from side to side in the bed. When asked if she would be willing to undergo EGD, she responded, "yes, if necessary - but I am 85." She is aware of her hx of cirrhosis and unsure why she has not been followed for this recently. Most recent EGD [place] [address] Doll endoscopically normal, with intestinal metaplasia at the GE junction, no dysplasia. Allergies Allergy/AdvReac Type Severity Reaction Status Date / Time Penicillins Allergy Severe ANAPHYAXIS Verified 11/14/20 12:45 magnesium AdvReac Unknown DIARRHEA Verified 11/14/20 06:43 Home Medications Medication Instructions Recorded Confirmed Type acetaminophen [Tylenol Extra 500 mg PO Q6H PRN MDD 3 GRAMS/24 12/06/18 11/14/20 History Strength] HOURS amiodarone 100 mg PO QAM 12/06/18 11/14/20 History atorvastatin 20 mg PO QAM 12/06/18 11/14/20 History cholecalciferol (vitamin D3) 2,000 unit PO QAM 12/06/18 11/14/20 History [Vitamin D3] tamoxifen 20 mg PO QAM 12/06/18 11/14/20 History diclofenac sodium 4 g TOPICAL QID PRN 02/16/20 11/14/20 History albuterol sulfate [Ventolin HFA] 2 puff INHALATION QID PRN 08/06/20 11/14/20 History docusate sodium 100 mg PO BID 08/06/20 11/14/20 History famotidine [Pepcid] 20 mg PO QAM 08/06/20 11/14/20 History gabapentin 100 mg PO HS 08/06/20 11/14/20 History levothyroxine 137 mcg PO QAM 08/06/20 11/14/20 History melatonin 3 mg PO HS 08/06/20 11/14/20 History nystatin 1 applic TOPICAL BID 08/06/20 11/14/20 History pantoprazole 40 mg PO DAILYBB 08/06/20 11/14/20 History furosemide 20 mg PO QAM #10 tab 08/16/20 11/14/20 Rx polyethylene glycol 3350 [Miralax] 17 g PO DAILY PRN 11/14/20 11/14/20 History warfarin 1.5 mg PO QPM 11/14/20 11/14/20 History Patient History Medical History Aortic stenosis CKD (chronic kidney disease), stage III H/O malignant neoplasm of breast History of thyroid cancer 1970s s/p thyroidectomy HLD (hyperlipidemia) HTN (hypertension) Hypothyroid Neuropathy Osteoporosis PAF (paroxysmal atrial fibrillation) Surgical History History of ankle surgery History of appendectomy History of thyroid surgery History of thyroidectomy History of tubal ligation S/P tonsillectomy Family History Daughter Breast cancer Brother Cancer stomach and liver Father Myocardial infarction, Onset Age: 53 Social History Smoking Status: Never smoker Hx Alcohol Use: No Hx Substance Use: No Preferred Language: Serbian Communication Ability: Effective Questioned Documents Examiner Required: No Beliefs That Will Affect Care: None marital status: / Current Living Situation: Rehab Current Living Situation Comment: Lives along at home but was rehab prior to today's admit Other Information That Helps Us Care for You: No Feels Safe at Home: Yes Safety Concerns: Feels Safe At This Time Assistive Devices: Oxygen - at Night and Walker Review of Systems Constitutional: + weakness (chronic, generalized); no fever, no chills and no sweats Eyes: no dry eyes, no eye pain, no itchy eyes and no problem reported Ear, Nose, Mouth, Throat: no ear pain, no tinnitus, no hoarseness and no pain with swallowing Respiratory: no cough, no chest congestion and no dyspnea Cardiovascular: + palpitations (with chronic A-fib) and + edema (chronic bilat lower leg, no recent worsening); no chest pain and no syncope Gastrointestinal: no abdominal pain, no early satiety, no nausea, no vomiting, no change in bowel habits, no constipation and no melena Integumentary: large area of ecchymosis on the left flank Neurologic: + generalized weakness; no tremor(s), no seizure-like activity, no headache(s) and no confusion Psychiatric: no depression, no hopelessness and no change in appetite reports "good foods," at [place] Hematologic / Lymphatic: + easy bleeding and + easy bruising (on coumadin) Allergy / Immunological: no cough, no dyspnea and no rash Physical Exam Constitutional: + ill appearing (chronically deconditioned), + obese and cooperative; no altered mental status and not diaphoretic Eyes: PERRL, conjunctivae normal, anicteric sclerae ENMT: external ear and nose normal, oropharynx normal Neck: trachea midline, no thyromegaly Respiratory: normal respiratory effort, lungs clear to auscultation on O2 by NC Cardiovascular: Rate/Rhythm: regular rate and regular rhythm Vessels: no JVD Extremities: + edema (1+ bilat lower leg/ankle edema) 3-4/6 systolic murmur consistent with Aortic Stenosis Gastrointestinal (Abdomen): normal bowel sounds, soft, nontender, no hepatosplenomegaly Skin: + ecchymosis (multiple small areas; large area of ecchymosis/tenderness on left flank ) Neurologic: PERRL, EOMI, accommodation nl, no face palsy, no dysarthria Psychiatric: A+Ox3, euthymic affect Orientation: cooperative Hearing de ficit - but able to provide a detailed history Lymphatic: no cervical or axillary lymphadenopathy Results & Data ([facility]) Vital Signs (Past 12 Hours) Vital Signs Temp Pulse Resp BP Pulse Ox 11/14/20 13:13 36.3 C L 89 20 90/49 L 98 11/14/20 12:48 84 22 113/50 L 99 11/14/20 12:13 36.7 C 82 22 100/51 L 100 11/14/20 11:43 36.6 C 86 22 97/52 L 100 11/14/20 11:28 36.7 C 80 20 96/61 L 99 11/14/20 11:10 36.5 C 82 22 107/53 L 95 11/14/20 10:30 84 18 95/52 L 100 11/14/20 10:00 84 16 100/61 100 11/14/20 09:30 84 20 99/58 L 99 11/14/20 09:00 79 20 99/50 L 100 11/14/20 08:30 84 16 104/65 100 11/14/20 08:17 81 24 102/59 L 99 11/14/20 07:20 96 11/14/20 07:18 92 11/14/20 07:06 0 L 22 104/48 L 87 L 11/14/20 06:51 36.6 C 90 22 105/56 L 94 Laboratory Results WBC 6.5, Hb 7.3, Hct 22.5, Plts 205, INR 4.9, Na 137, K 4.5, BUN 21, Cr 1.76, glucose 98. Diagnostic Findings Non contrast CT abd/pelvis 11/14/20: 1. Large acute left flank subcutaneous hematoma that measures 13.6 x 9.2 x 12.3 cm. No additional acute traumatic findings within the abdomen or pelvis. 2. Cirrhosis with manifestations of portal hypertension including varices formation. 3. Choledocholithiasis with moderate biliary ductal dilatation. Cholelithiasis. 4. Small amount of gas adjacent to the bladder wall, some of which is likely vascular. The etiology for this finding is unclear. No significant bladder wall thickening. Minimal adjacent infiltration. Although not highly suggestive of emphysematous cystitis, findings could be correlated with urinalysis. Medications Administered Protonix drip (1) Anemia Anemia type: unspecified type Qualified Code(s): D64.9 - Anemia, unspecified
[2020-11-14 14:53] LABS: INR 2.9 (0.9-1.1); Prothrombin Time 27.2 Seconds (9.0-12.0)
[2020-11-14] MEDS: cefTRIAXone SODIUM 2,000 MG in DEXTROSE 5% 50 ML IV SCH (15:31)
[2020-11-14] MEDS ORDERED: PHYTONADIONE 5 MG TAB PO ONE ×2 (17:00→19:15)
--- NOTE | 2020-11-14 17:24 | Communication Note ---
Date of Service: November 14, 2020 CT abdomen pelvis done earlier today: Showed moderate dilatation of biliary duct with evidence of choledocholithiasis. Patient input from gastroenterology, Scheduled for EGD and ERCP tomorrow. Given extra dose of vitamin K to reverse INR, continue to follow H&H overnight Ila Sexton MD
[2020-11-14 18:16] LABS: Hematocrit (blood only) 21.8 % (37-47); Hemoglobin 7.2 g/dL (12.0-16.0)
[2020-11-14 18:23] LABS: INR 2.5 (0.9-1.1); Prothrombin Time 23.5 Seconds (9.0-12.0)
[2020-11-14 18:32] LABS: Bilirubin Direct 0.5 mg/dl (0-0.2); Calcium 8.3 mg/dl (8.5-10.1); Creatinine Clr Calc Pharmacy 21.1 ml/min; Est GFR (Non-African American) 23.3; Potassium 4.6 mmol/L (3.5-5.1)
[2020-11-14 18:35] LABS: Bilirubin,Total 1.2 mg/dl (0.2-1); Total Protein 5.1 gm/dl (6.4-8.2)
[2020-11-14] MEDS ORDERED: PANTOprazole 40 MG in SYRINGE 0 ML IV SCH (21:00)
[2020-11-14] MEDS ORDERED: GABAPENTIN 100 MG CAP PO SCH (21:00)
[2020-11-14] MEDS ORDERED: MELATONIN 3 MG TAB PO SCH (21:00)
[2020-11-14] MEDS: DOCUSATE SODIUM 100 MG CAP PO SCH (22:01)
[2020-11-14] MEDS: NYSTATIN POWDER 15GM BTL EXT SCH (22:02)
[2020-11-15 01:58] LABS: Hematocrit (blood only) 24.6 % (37-47); Hemoglobin 8.3 g/dL (12.0-16.0); Mean Corpuscular Hemoglobin 31.2 pg (25-34); Mean Corpuscular Hgb Conc 33.7 g/dL (32-36); Mean Corpuscular Volume 92.5 fL (80-100); Platelet Count 151 K/uL (130-400); RDW Coefficient of Variation 17.1 % (11.5-14.5); RDW Standard Deviation 57.6 fL (36.4-46.3); Red Blood Count 2.66 M/uL (4.2-5.4); White Blood Count 10.42 K/uL (4.8-10.8)
[2020-11-15 01:59] LABS: Hematocrit (blood only) 24.7 % (37-47); Hemoglobin 8.4 g/dL (12.0-16.0)
[2020-11-15 02:07] LABS: INR 1.7 (0.9-1.1); Prothrombin Time 16.7 Seconds (9.0-12.0)
[2020-11-15 02:16] LABS: Albumin Level 1.8 gm/dl (3.4-5.0); BUN Creatinine Ratio 11.7 (10-20); Bilirubin Direct 0.7 mg/dl (0-0.2); Calcium 7.7 mg/dl (8.5-10.1); Creatinine Clr Calc Pharmacy 22.5 ml/min; Est GFR (African American) 29.2; Est GFR (Non-African American) 25.2; Potassium 4.5 mmol/L (3.5-5.1)
[2020-11-15 02:19] LABS: Bilirubin,Total 1.5 mg/dl (0.2-1); Total Protein 4.7 gm/dl (6.4-8.2)
[2020-11-15] MEDS ORDERED: SODIUM CHLORIDE 0.9% 500 ML IV SCH (05:30)
--- NOTE | 2020-11-15 05:54 | Electrocardiogram Report ---
Test Reason : Blood Pressure : / mmHG Vent. Rate : 087 BPM Atrial Rate : 084 BPM P-R Int : 000 ms QRS Dur : 162 ms QT Int : 448 ms P-R-T Axes : 000 -01 183 degrees QTc Int : 539 ms Poor data quality, interpretation may be adversely affected Atrial fibrillation Left bundle branch block Abnormal ECG When compared with ECG of 06-AUG-2020 07:35, No significant change Confirmed by Jovanni Ayala ([id number]) on 11/15/2020 5:53:46 AM Referred By: [facility] Confirmed By:Jovanni Ayala
[2020-11-15] MEDS ORDERED: PANTOprazole 40 MG TAB PO SCH ×2 (06:30)
[2020-11-15] MEDS ORDERED: LEVOTHYROXINE SODIUM 137 MCG TABLET PO SCH (06:30)
[2020-11-15 07:05] LABS: Hemoglobin 7.8 g/dL (12.0-16.0)
[2020-11-15] MEDS ORDERED: SODIUM CHLORIDE 0.9% 250 ML IV PRN (07:19)
--- NOTE | 2020-11-15 07:31 | Communication Note ---
Date of Service: November 15, 2020 overnight events reviewed : was hypotensive SBP in 80's received 250 ml NSS bolus , hb was 8.3 after 3 units of PRBC transfusion AM lab shows drop in H&H 7.8 , remains hypotensive BP 93/56 ordered for 1 unit of PRBC transfusion ( #4 ) acute blood loss anemia : due to large hematoma after fall vs rule out GI bleed follow H&H scheduled for EGD , ERCP by GI today to assess esophageal varices , GI bleed , choledocholithiasis INR 1.7 , received multiple dose of Vit K , ordered for repeat INR check pre procedure EGD/ERCP may need FFP if INR above goal , pt will not be a future candidate for anticoagulation , complete reversal of INR ~1 is appropriate . will update GI team Ila Sexton MD
[2020-11-15 07:59] LABS: INR 1.5 (0.9-1.1); Prothrombin Time 15.1 Seconds (9.0-12.0)
[2020-11-15] MEDS ORDERED: PHYTONADIONE 5 MG TAB PO STA (08:07)
[2020-11-15 08:16] LABS: Calcium 8.3 mg/dl (8.5-10.1); Creatinine Clr Calc Pharmacy 22.5 ml/min; Est GFR (African American) 29.2; Est GFR (Non-African American) 25.2; Potassium 4.2 mmol/L (3.5-5.1)
[2020-11-15] MEDS: DOCUSATE SODIUM 100 MG CAP PO SCH (08:19)
[2020-11-15] MEDS: NYSTATIN POWDER 15GM BTL EXT SCH (08:20)
--- NOTE | 2020-11-15 08:57 | Gastroenterology Progress Note ---
Date of Service November 15, 2020 Assessment & Plan (1) Anemia: Ms. Britt is an 85 yr old female with anemia in the setting of severe aortic stenosis, supratherapeutic INR and mechanical fall with hematoma. EGD today by Dr. Garcia. (2) Occult blood positive stool: as above (3) Cirrhosis of liver: She seems to have dropped off from regular GI visits for cirrhosis. Now varices on imaging (not present on EGD in 2014). EGD today with ERCP for choledocholithiasis. WIll arrange OP GI f/u for cirrhosis. (4) Choledocholithiasis: ERCP today by Dr. Fitzpatrick. INR is 1.5 - will give an addition 10U of Vit K stat to prevent bleeding from ERCP. Present on Admission?: Yes Admission and Anticipated Discharge Date Admission Date: November 14, 2020 Supervising Physician Co-Signing Physician Notes I performed a history and physical examination of the patient today, including specifically on physical exam - soft abdomen. I have discussed the patient's management with the advanced practitioner. Please refer to the nurse practitioner's note for the documented findings and plan of care. EGD/ERCP today Subjective 85 female transferred to [facility] on 10/17 from [facility] for a mechanical fall. A-fib on warfarin, held, reversing - INR this morning INR. Giving another 10mg Vit K ths morning. FFP available but holding. Anemia and occult (+) stool on arrival. GI consulted for anemia. CT with choledocholithiasis Plan is for EGD, ERCP today by Dr. Fitzpatrick. Review of Systems Constitutional: + weakness (chronic, generalized); no fever, no chills and no sweats Cardiovascular: + palpitations (with chronic A-fib) and + edema (chronic bilat lower leg, no recent worsening); no chest pain and no syncope Integumentary: large area of ecchymosis on the left flank Neurologic: + generalized weakness; no tremor(s), no seizure-like activity, no headache(s) and no confusion Psychiatric: reports "good foods," at [place] Hematologic / Lymphatic: + easy bleeding and + easy bruising (on coumadin) Physical Exam Constitutional: + ill appearing (chronically deconditioned), + obese and cooperative; no altered mental status and not diaphoretic Eyes: PERRL, conjunctivae normal, anicteric sclerae ENMT: external ear and nose normal, oropharynx normal Neck: trachea midline, no thyromegaly Respiratory: normal respiratory effort, lungs clear to auscultation Cardiovascular: Rate/Rhythm: regular rate and regular rhythm Vessels: no JVD Extremities: + edema (1+ bilat lower leg/ankle edema) Gastrointestinal (Abdomen): normal bowel sounds, soft, nontender, no hepatosplenomegaly Skin: + ecchymosis (multiple small areas; large area of ecchymosis/tenderness on left flank ) Neurologic: PERRL, EOMI, accommodation nl, no face palsy, no dysarthria Psychiatric: A+Ox3, euthymic affect Orientation: cooperative Lymphatic: no cervical or axillary lymphadenopathy Results & Data ([facility]) Vital Signs (Past 12 Hours) Vital Signs Temp Pulse Pulse Resp BP BP Pulse Ox 11/15/20 07:04 36.5 C 99 H 19 93/56 L 96 11/15/20 04:34 36.9 C 104 H 20 88/53 L 96 11/15/20 00:26 37.2 C 103 H 18 85/50 L 98 11/14/20 23:59 103 H 11/14/20 23:49 101 H 20 86/50 L 11/14/20 22:49 37.1 C 97 H 20 80/44 L 99 11/14/20 22:48 37.0 C 100 H 16 80/44 L 99 11/14/20 22:19 37.1 C 98 H 20 95/58 L 98 11/14/20 22:04 37.2 C 96 H 20 83/44 L 97 11/14/20 21:46 37.2 C 104 H 20 83/44 L 97 Laboratory Results Hb 7.9 (post 3 unit transfusion) Hct 23, Plats 151, Na 139, K 4.2, BUN 22, Cr 1.79 T Bili 1.5, D Bili 0.7, AST 17, ALT 11, Alk Phos 63. Diagnostic Findings Non contrast CT abd/pelvis 11/14: 1. Large acute left flank subcutaneous hematoma that measures 13.6 x 9.2 x 12.3 cm. No additional acute traumatic findings within the abdomen or pelvis. 2. Cirrhosis with manifestations of portal hypertension including varices forma tion. 3. Choledocholithiasis with moderate biliary ductal dilatation. Cholelithiasis. 4. Small amount of gas adjacent to the bladder wall, some of which is likely vascular. The etiology for this finding is unclear. No significant bladder wall thickening. Minimal adjacent infiltration. Although not highly suggestive of emphysematous cystitis, findings could be correlated with urinalysis. CT chest : 1. No evidence of acute intrathoracic injury given the limitations of a noncontrast study 2. Cardiomegaly, coronary artery calcifications, and small pericardial effusion 3. [id number] bilateral pleural effusions with bilateral compressive atelectatic change 4. Cirrhotic liver morphology 5. Partially visualized large subcutaneous left flank hematoma (1) Anemia Anemia type: unspecified type Qualified Code(s): D64.9 - Anemia, unspecified
[2020-11-15] MEDS ORDERED: TAMOXIFEN CITRATE 10 MG TABLET PO SCH (09:00)
[2020-11-15] MEDS ORDERED: AMIODARONE 200 MG TAB PO SCH (09:00)
[2020-11-15] MEDS ORDERED: FUROSEMIDE 20 MG TAB PO SCH (09:00)
[2020-11-15] MEDS ORDERED: CHOLECALCIFEROL 1,000 UNITS 25 MCG TAB PO SCH (09:00)
[2020-11-15] MEDS ORDERED: FAMOTIDINE 20 MG TAB PO SCH (09:00)
[2020-11-15] MEDS ORDERED: ATORVASTATIN 20 MG TAB PO SCH (09:00)
--- NOTE | 2020-11-15 10:07 | Surgery Progress Note ---
Date of Service F/U left flank hematoma, the hematoma is stable, no increase size, no fever. H/H 7.8 after transfusion RBC, November 15, 2020 Assessment & Plan (1) Fall: 85 year-old female on Coumadin for atrial fibrillation who is s/p fall at home yesterday presented to emergency department and found to have acute blood loss anemia with hemoglobin of 7.3, Hemoccult positive stools, and large left flank hematoma on CT scan measuring 13 x 9 x 12 cm. Hemodynamically stable. Moderate pain in the left flank/back/ and upper left abdomen secondary to hematoma. Plan: No surgical intervention recommended. Conservative measures recommended: Pain management, compression with binder if patient can tolerate, blood transfusion, discontinue anticoagulation, and monitor H&H. If there is concern of hematoma increasing in size or active bleed, would need transfer to tertiary center for IR embolization. Discussed with Dr. Sexton with hospitalist service 11/15/2020 10:10AM F/U left flank hematoma, stable, not increase size, conservative treatment, will F/U die maker electronic surgeon cover weekend, Thanks, (2) Subcutaneous hematoma: s/p fall (3) Supratherapeutic INR: (4) Acute blood loss anemia: Dr. Ceballos was present during my examination and agrees with above. Admission and Anticipated Discharge Date Admission Date: November 14, 2020 Supervising Physician Co-Signing Physician Notes I reviewed chart and labs. Pt with h/o dysplastic Ortiz's, prior PUD, cirrhosis, on ac with supratherapeutic INR, now admit with fall. Imaging shows a 13 cm x 12 cm left flank hematoma, also intra-abdominal varices. We are consulted for anemia and g pos stools without gross evidence GIB. Her hgb is 7 with baseline 8-9. Her hgb drop is almost certainly caused by the very large hematoma. She has expressed a wish for conservative care, but if there is plan to resume coumadin, would plan EGD to screen for varices and triage bleeding risk. No need IV PPi. Subjective 85 female transferred to [facility] on 10/17 from [facility] for a mechanical fall. A-fib on warfarin, held, reversing - INR this morning INR. Giving another 10mg Vit K ths morning. FFP available but holding. Anemia and occult (+) stool on arrival. GI consulted for anemia. CT with choledocholithiasis Plan is for EGD, ERCP today by Dr. Fitzpatrick. Physical Exam Constitutional: WD/WN, vitals as above well developed and well nourished Eyes: PERRL, conjunctivae normal, anicteric sclerae ENMT: external ear and nose normal, oropharynx normal Neck: trachea midline, no thyromegaly Respiratory: normal respiratory effort, lungs clear to auscultation normal respiratory effort Cardiovascular: Heart Sounds: normal S1 and normal S2 Gastrointestinal (Abdomen): normal bowel sounds, soft, nontender, no hepatosplenomegaly Skin: no rashes, warm and dry Neurologic: awake Psychiatric: Orientation: alert and oriented x 3 Results & Data ([facility]) Vital Signs (Past 12 Hours) Vital Signs Temp Pulse Pulse Resp BP BP Pulse Ox 11/15/20 09:32 36.7 C 99 H 17 96/59 L 100 11/15/20 09:17 36.6 C 98 H 17 94/53 L 11/15/20 09:14 36.6 C 97 H 18 92/53 L 11/15/20 08:59 36.4 C L 101 H 16 94/59 L 93 11/15/20 07:04 36.5 C 99 H 19 93/56 L 96 11/15/20 04:34 36.9 C 104 H 20 88/53 L 96 11/15/20 00:26 37.2 C 103 H 18 85/50 L 98 11/14/20 23:59 103 H 11/14/20 23:49 101 H 20 86/50 L 11/14/20 22:49 37.1 C 97 H 20 80/44 L 99 11/14/20 22:48 37.0 C 100 H 16 80/44 L 99 11/14/20 22:19 37.1 C 98 H 20 95/58 L 98 Laboratory Results Abnormal lab results 11/14/20 11/14/20 11/14/20 Range/Units 08:26 09:50 12:34 RBC (4.2-5.4) M/uL Hgb (12.0-16.0) g/dL Hct (37-47) % RDW Std Deviation (36.4-46.3) fL RDW Coeff of Frieda (11.5-14.5) % PT (9.0-12.0) Seconds INR (0.9-1.1) Carbon Dioxide (21-32) mmol/L Anion Gap (3-11) BUN 21 H (7-18) mg/dl Creatinine 1.76 H (0.6-1.2) mg/dl Glucose (70-99) mg/dl Calcium (8.5-10.1) mg/dl Total Bilirubin (0.2-1) mg/dl Direct Bilirubin (0-0.2) mg/dl ALT (12-78) U/L Total Protein (6.4-8.2) gm/dl Albumin (3.4-5.0) gm/dl Urine Appearance Cloudy A (Clear) Urine Protein 1+ H (Negative) Urine Blood 2+ H (Negative) Ur Leukocyte Esterase 2+ H (Negative) Urine WBC (Auto) >30 H (0-5) /hpf Urine Bacteria (Auto) 4+ H (Negative) Crossmatch See Detail 11/14/20 11/14/20 11/14/20 Range/Units 14:25 17:58 17:58 RBC (4.2-5.4) M/uL Hgb 7.2 L (12.0-16.0) g/dL Hct 21.8 L (37-47) % RDW Std Deviation (36.4-46.3) fL RDW Coeff of Frieda (11.5-14.5) % PT 27.2 H 23.5 H (9.0-12.0) Seconds INR 2.9 H 2.5 H (0.9-1.1) Carbon Dioxide (21-32) mmol/L Anion Gap (3-11) BUN (7-18) mg/dl Creatinine (0.6-1.2) mg/dl Glucose (70-99) mg/dl Calcium (8.5-10.1) mg/dl Total Bilirubin (0.2-1) mg/dl Direct Bilirubin (0-0.2) mg/dl ALT (12-78) U/L Total Protein (6.4-8.2) gm/dl Albumin (3.4-5.0) gm/dl Urine Appearance (Clear) Urine Protein (Negative) Urine Blood (Negative) Ur Leukocyte Esterase (Negative) Urine WBC (Auto) (0-5) /hpf Urine Bacteria (Auto) (Negative) Crossmatch 11/14/20 11/15/20 11/15/20 Range/Units 17:58 01:35 01:35 RBC 2.66 L (4.2-5.4) M/uL Hgb 8.4 L 8.3 L (12.0-16.0) g/dL Hct 24.7 L 24.6 L (37-47) % RDW Std Deviation 57.6 H (36.4-46.3) fL RDW Coeff of Frieda 17.1 H (11.5-14.5) % PT (9.0-12.0) Seconds INR (0.9-1.1) Carbon Dioxide (21-32) mmol/L Anion Gap (3-11) BUN 21 H (7-18) mg/dl Creatinine 1.91 H (0.6-1.2) mg/dl Glucose 129 H (70-99) mg/dl Calcium 8.3 L (8.5-10.1) mg/dl Total Bilirubin 1.2 H (0.2-1) mg/dl Direct Bilirubin 0.5 H (0-0.2) mg/dl ALT (12-78) U/L Total Protein 5.1 L (6.4-8.2) gm/dl Albumin 2.0 L (3.4-5.0) gm/dl Urine Appearance (Clear) Urine Protein (Negative) Urine Blood (Negative) Ur Leukocyte Esterase (Negative) Urine WBC (Auto) (0-5) /hpf Urine Bacteria (Auto) (Negative) Crossmatch 11/15/20 11/15/20 11/15/20 Range/Units 01:35 01:35 06:47 RBC (4.2-5.4) M/uL Hgb 7.8 L (12.0-16.0) g/dL Hct 23.0 L (37-47) % RDW Std Deviation (36.4-46.3) fL RDW Coeff of Frieda (11.5-14.5) % PT 16.7 H (9.0-12.0) Seconds INR 1.7 H (0.9-1.1) Carbon Dioxide 34 H (21-32) mmol/L Anion Gap 1.0 L (3-11) BUN 21 H (7-18) mg/dl Creatinine 1.79 H (0.6-1.2) mg/dl Glucose 103 H (70-99) mg/dl Calcium 7.7 L (8.5-10.1) mg/dl Total Bilirubin 1.5 H (0.2-1) mg/dl Direct Bilirubin 0.7 H (0-0.2) mg/dl ALT 11 L (12-78) U/L Total Protein 4.7 L (6.4-8.2) gm/dl Albumin 1.8 L (3.4-5.0) gm/dl Urine Appearance (Clear) Urine Protein (Negative) Urine Blood (Negative) Ur Leukocyte Esterase (Negative) Urine WBC (Auto) (0-5) /hpf Urine Bacteria (Auto) (Negative) Crossmatch 11/15/20 11/15/20 Range/Units 07:31 07:31 RBC (4.2-5.4) M/uL Hgb (12.0-16.0) g/dL Hct (37-47) % RDW Std Deviation (36.4-46.3) fL RDW Coeff of Frieda (11.5-14.5) % PT 15.1 H (9.0-12.0) Seconds INR 1.5 H (0.9-1.1) Carbon Dioxide (21-32) mmol/L Anion Gap (3-11) BUN 22 H (7-18) mg/dl Creatinine 1.79 H (0.6-1.2) mg/dl Glucose (70-99) mg/dl Calcium 8.3 L (8.5-10.1) mg/dl Total Bilirubin (0.2-1) mg/dl Direct Bilirubin (0-0.2) mg/dl ALT (12-78) U/L Total Protein (6.4-8.2) gm/dl Albumin (3.4-5.0) gm/dl Urine Appearance (Clear) Urine Protein (Negative) Urine Blood (Negative) Ur Leukocyte Esterase (Negative) Urine WBC (Auto) (0-5) /hpf Urine Bacteria (Auto) (Negative) Crossmatch
--- NOTE | 2020-11-15 10:12 | Consultation Report ---
DATE OF CONSULTATION: 11/15/2020 REASON FOR CONSULT: Acute renal failure. HISTORY OF PRESENT ILLNESS: The patient is an 85-year-old female who is a resident of shelter, who presented to the hospital after a fall. She had an unwitnessed fall while using the bathroom, but the patient could not give me details of the event. She started having pain in the left flank, and was brought to the Emergency Department for further evaluation. She was found to have supratherapeutic INR as well as a large hematoma in the left flank measuring 14 cm. She was seen by surgery for that and felt no surgical intervention needed. She was also found to have possible GI bleed. She has received 3 units of blood transfusion last night and she is getting another one unit now. She is supposed to go to endoscopy as well as ERCP later today. Creatinine was elevated at 1.93, up from her baseline of 1, but this morning it is slightly better and is down to 1.79. She has made about 600 mL of urine since being admitted. Her blood pressure is running low with the most recent reading of around 90 systolic. She is a poor historian and was really struggling to tell basic question answers. PAST MEDICAL AND SURGICAL HISTORY: Includes chronic kidney disease stage III with baseline creatinine around 1.0-1.2, history of breast cancer, history of thyroid cancer, status post thyroidectomy in the 1970s, hyperlipidemia, hypertension, hypothyroidism, paroxysmal atrial fibrillation on Coumadin, osteoporosis, severe aortic stenosis. SURGICAL HISTORY: Ankle surgery, appendicectomy, thyroid surgery, tubal ligation, tonsillectomy. FAMILY HISTORY: Negative for renal disease or dialysis. SOCIAL HISTORY: No smoking, no alcohol. She is a . She is currently at the rehab place. REVIEW OF SYSTEMS: Could not really get a meaningful review of system from the patient, so history was constructed mainly from the chart. PHYSICAL EXAMINATION: GENERAL: Elderly white female who appears to be fairly comfortable at resting position. She is awake, alert, not really oriented. VITAL SIGNS: Blood pressure 96/59, pulse rate 99, temperature 36.7, 100% on 2 liter nasal cannula. HEENT: Mucous membrane moist. NECK: Supple. No jugular venous distention. CHEST: Bilateral clear to auscultation, but very poor inspiratory effort limiting the quality of the exam. CARDIOVASCULAR: S1 and S2 irregular. Systolic murmur heard. ABDOMEN: Obese. Tenderness in the left side. EXTREMITIES: Shows trace to 1+ edema. NEUROLOGIC: She is awake and alert and pleasant, but not able to answer questions. LABORATORY TESTS: Most recent hemoglobin is 7.8, platelet count 151. Sodium 139, potassium 4.2, BUN is 22 and creatinine is 1.79. At the time of admission yesterday, she had a creatinine of 1.93, her baseline is around 1-1.2. Chest x-ray, CT scan and abdominal pelvis CT scan was also done. Kidneys were unremarkable. Liver was cirrhotic in appearance with moderate biliary ductal dilatation and multiple bile duct stones. There was also evidence of volume overload with body wall edema and a very large hematoma in the left flank. Chest x-ray showed cardiomegaly with bilateral pleural effusion with pulmonary vascular congestion. ASSESSMENT AND PLAN: An 85-year-old female with severe aortic stenosis and preexisting chronic kidney disease III, atrial fibrillation and cirrhosis, now admitted with fall and a large hematoma as well as GI bleed and resultant severe anemia requiring blood transfusion. She has acute renal failure in the setting of major hemodynamic instability. Acute renal failure, this is secondary to major hemodynamic instability in the form of large hematoma as well as gastrointestinal bleed in a very susceptible elderly person. Fortunately, she is making urine and has made about 600 mL of urine in less than 24-hour time. Her creatinine this morning is also slightly better than yesterday, which is an encouraging sign. She has fluid overload, so we do have to be very careful giving too much fluid. She has already got 4 units of blood. If her blood pressure allows meaning if the systolic blood pressure is more than 90, I would consider giving Lasix to avoid decompensated heart failure. She is susceptible to heart failure given her aortic stenosis, chronic kidney disease as well as acute renal failure and significant transfusion of blood products. No further workup is needed for the acute renal failure as the diagnosis is obvious. No evidence of obstructive uropathy. RECOMMENDATIONS: 1. Please avoid giving too much IV fluid. 2. Consider giving IV Lasix as long as blood pressure allows meaning more than 90 systolic. She is at high risk of going into significant pulmonary edema. 3. Daily labs. 4. Input output charting with indwelling Heart catheter.
--- NOTE | 2020-11-15 12:06 | Anesthesiology Consultation ---
Date of Service November 15, 2020 Assessment & Plan Chart Review Chart Review: Acceptable Risk for Surgery and Patient NOT seen in Pre Admission Testing Consults Requested none ASA ASA4 Proposed Anesthesia Anesthesia Type: General History Surgery Operation Date: 11/15/20 14:15 Proposed Procedures p Endoscopic Retrograde Cholangiopancreatogram - Gilda Fitzpatrick MD s Esophagogastroduodenoscopy - Gilda Fitzpatrick MD Height/Weight Height: 5 ft 1 in Weight: 86 kg Allergies Allergy/AdvReac Type Severity Reaction Status Date / Time Penicillins Allergy Severe ANAPHYAXIS Verified 11/14/20 12:45 magnesium AdvReac Unknown DIARRHEA Verified 11/14/20 06:43 Medications Home Medications Medication Instructions Recorded Confirmed Last Taken acetaminophen [Tylenol Extra 500 mg PO Q6H PRN MDD 3 /12/06/18 11/14/20 07/21/20 08:30 Strength] HOURS 1000 mg amiodarone 100 mg PO QAM 12/06/18 11/14/20 11/13/20 atorvastatin 20 mg PO QAM 12/06/18 11/14/20 11/13/20 cholecalciferol (vitamin D3) 2,000 unit PO QAM 12/06/18 11/14/20 11/13/20 [Vitamin D3] tamoxifen 20 mg PO QAM 12/06/18 11/14/20 11/13/20 diclofenac sodium 4 g TOPICAL QID PRN 02/16/20 11/14/20 07/21/20 albuterol sulfate [Ventolin HFA] 2 puff INHALATION QID PRN 08/06/20 11/14/20 docusate sodium 100 mg PO BID 08/06/20 11/14/20 11/13/20 famotidine [Pepcid] 20 mg PO QAM 08/06/20 11/14/20 11/13/20 gabapentin 100 mg PO HS 08/06/20 11/14/20 11/13/20 levothyroxine 137 mcg PO QAM 08/06/20 11/14/20 11/13/20 melatonin 3 mg PO HS 08/06/20 11/14/20 11/13/20 nystatin 1 applic TOPICAL BID 08/06/20 11/14/20 11/13/20 pantoprazole 40 mg PO DAILYBB 1211/14/20 11/13/20 furosemide 20 mg PO QAM #10 tab 08/16/20 11/14/20 11/13/20 polyethylene glycol 3350 [Miralax] 17 g PO DAILY PRN 11/14/20 11/14/20 Unknown warfarin 1.5 mg PO QPM 11/14/20 11/14/20 11/13/20 Active Medications Generic Name Dose Route Start Last Admin Trade Name Frekeyur PRN Reason Stop Dose Admin Amiodarone HCl 100 mg 11/15/20 09:00 11/15/20 08:19 Amiodarone 200 Mg Tab PO 12/15/20 08:59 100 mg QAM ADRIEN Administration Atorvastatin Calcium 20 mg 11/15/20 09:00 11/15/20 08:20 Atorvastatin 20 Mg Tab PO 12/15/20 08:59 20 mg QAM ADRIEN Administration Docusate Sodium 100 mg 11/14/20 21:00 11/15/20 08:19 Docusate Sodium 100 Mg Cap PO 12/14/20 20:59 100 mg BID ADRIEN Administration Furosemide 20 mg 11/15/20 09:00 11/15/20 08:46 Furosemide 20 Mg Tab PO 12/15/20 08:59 Not Given QAM ADRIEN Gabapentin 100 mg 11/14/20 21:00 11/14/20 22:01 Gabapentin 100 Mg Cap PO 12/14/20 20:59 100 mg HS ADRIEN Administration Ceftriaxone Sodium 2,000 mg/ 70 mls @ 100 mls/hr 11/14/20 15:15 11/14/20 16:16 Dextrose IV 11/19/20 14:59 Infused DAILY@1500 ADRIEN Infusion Protocol Levothyroxine Sodium 137 mcg 11/15/20 06:30 11/15/20 08:18 Levothyroxine Sodium 137 Mcg Tablet PO 12/15/20 06:29 137 mcg DAILYBB ADRIEN Administration Melatonin 3 mg 11/14/20 21:00 11/14/20 22:01 Melatonin 3 Mg Tab PO 12/14/20 20:59 3 mg HS ADRIEN Administration Nystatin 1 appln 11/14/20 21:00 11/15/20 08:20 Nystatin Powder 15gm Btl EXT 12/14/20 20:59 1 appln BID ADRIEN Administration Tamoxifen Citrate 20 mg 11/15/20 09:00 11/15/20 08:21 Tamoxifen Citrate 10 Mg Tablet PO 12/15/20 08:59 20 mg QAM ADRIEN Administration Vitamin D 2,000 units 11/15/20 09:00 11/15/20 08:22 Cholecalciferol 1,000 Units 25 Mcg Tab PO 12/15/20 08:59 2,000 units QAM ADRIEN Administration Past Medical History Medical History Aortic stenosis CKD (chronic kidney disease), stage III H/O malignant neoplasm of breast History of thyroid cancer 1970s s/p thyroidectomy HLD (hyperlipidemia) HTN (hypertension) Hypothyroid Neuropathy Osteoporosis PAF (paroxysmal atrial fibrillation) Exercise / Class Metabolic Activity III < 4 Walking/Shop/Light housework Past Family History Family History Daughter Breast cancer Brother Cancer stomach and liver Father Myocardial infarction, Onset Age: 53 Past Surgical History Surgical History History of ankle surgery History of appendectomy History of thyroid surgery History of thyroidectomy History of tubal ligation S/P tonsillectomy Past Anesthesia History No Hx of Anesthesia Complications and No Family Hx of Anesthesia Complications History of PONV No Hx of PONV and No Hx of Motion Sickness Social History Smoking Status: Never smoker Hx Alcohol Use: No Alcohol type: wine alcohol intake frequency: 0-2 drinks per day Hx Substance Use: No Physical Exam Vital Signs Last Vital Signs Temp 36.7 C 11/15/20 11:02 Pulse 94 H 11/15/20 11:02 Resp 18 11/15/20 11:02 BP 97/58 L 11/15/20 11:02 Pulse Ox 95 11/15/20 11:02 Testing Laboratory Results 11/15/20 06:47 11/15/20 07:31 PT 15.1 Seconds (9.0-12.0) H 11/15/20 07:31 INR 1.5 (0.9-1.1) H 11/15/20 07:31 APTT 38.3 Seconds (21.0-31.0) H 11/14/20 07:15 Urine Color Dark Yellow 11/14/20 09:50 Urine Appearance Cloudy (Clear) A 11/14/20 09:50 Urine pH 5.5 (4.5-7.5) 11/14/20 09:50 Ur Specific [place] 1.018 (1.000-1.030) 11/14/20 09:50 Urine Protein 1+ (Negative) H 11/14/20 09:50 Urine Glucose (UA) Negative (Negative) 11/14/20 09:50 Urine Ketones Negative (Negative) 11/14/20 09:50 Urine Nitrite Negative (Negative) 11/14/20 09:50 Ur Leukocyte Esterase 2+ (Negative) H 11/14/20 09:50 Urine WBC (Auto) >30 /hpf (0-5) H 11/14/20 09:50 Urine RBC (Auto) 0-4 /hpf (0-4) 11/14/20 09:50 U Hyaline Cast (Auto) 1-5 /lpf (0-5) 11/14/20 09:50 U Epithel Cells (Auto) 0-5 /lpf (0-5) 11/14/20 09:50 Urine Bacteria (Auto) 4+ (Negative) H 11/14/20 09:50 Blood Type A Positive 11/14/20 08:26 Antibody Screen NEGATIVE 11/14/20 08:26 11/14/20 09:50 Urine Culture - Preliminary Urine,Clean Catch Gram negative bacilli Electrocardiogram Date: 11/15/20 Findings: + AFIB @ (at 102) and + LBBB Chest X-Ray Date: 11/14/20 Findings: + cardiomegaly, + pulmonary vascular congestion (mild) and + pleural effusion (B/L) Echocardiogram Date: 11/14/20 EF: 60% LV Function: normal Other Findings: + atrial enlargement (RA- moderately dilated;LA-severely dilated) Valvular Disease: + (severe; AV area- 0.72 cm2) TR-moderate; RV systolic [id number]
[2020-11-15] MEDS ORDERED: FUROSEMIDE 40 MG in SYRINGE 0 ML IV ONE (12:45)
[2020-11-15 13:08] LABS: Hematocrit (blood only) 27.8 % (37-47); Hemoglobin 9.4 g/dL (12.0-16.0)
[2020-11-15] MEDS ORDERED: SUCCINYLCHOLINE CHLORIDE 20 MG/ML 10 ML VIAL IV ONE (13:26)
[2020-11-15] MEDS ORDERED: fentaNYL citrate 100 MCG/2 ML VIAL ONE (13:26)
[2020-11-15] MEDS ORDERED: PROPOFOL IV EMULSION 10 MG/ML 20 ML VIAL IV ONE (13:26)
--- NOTE | 2020-11-15 13:34 | History & Physical Bridge Note ---
Date of Service November 15, 2020 History & Physical Bridge Note I have examined the patient, reviewed the History & Physical and in the interval since the performance of the History & Physical I have noted the following changes of clinical significance: no changes noted
--- NOTE | 2020-11-15 14:04 | XRay Report ---
SINGLE VIEW CHEST CLINICAL HISTORY: Congestive heart failure. FINDINGS: 2 AP, portable, upright chest radiographs are compared to study dated 11/14/2020. Partial d egraded The heart is markedly enlarged noting atherosclerotic calcification of the thoracic aorta. Th ere is pulmonary vascular congestion and interstitial edema. There are layering pleural effusions wit h bibasilar consolidation. No pneumothorax is seen. The skeletal structures are osteopenic. The bony thorax is grossly intact. IMPRESSION: 1. Cardiomegaly with evidence of congestive failure and interstitial edema. This is unchanged to mode stly worsened as compared to yesterday. 2. Layering pleural effusions with bibasilar consolidation. ACT 112: Negative or not required by law. Electronically signed by: Herve Kramer M.D. 11/15/2020 2:03 PM
--- NOTE | 2020-11-15 14:24 | Gastroenterology Progress Note ---
Date of Service November 15, 2020 Assessment & Plan Admission and Anticipated Discharge Date Admission Date: November 14, 2020 Subjective from Anesthesia cancelled the case, please transfer to a tertiary care center today given concern for GI bleeding. Please recall GI if needed. Results & Data ([facility]) Vital Signs (Past 12 Hours) Vital Signs Temp Pulse Pulse Pulse Resp BP BP 11/15/20 13:32 36.7 C 105 H 20 112/61 11/15/20 12:11 36.6 C 96 H 17 98/62 L 11/15/20 12:02 36.6 C 96 H 17 99/61 L 11/15/20 11:02 36.7 C 94 H 18 97/58 L 11/15/20 10:02 37.3 C 98 H 17 91/59 L 11/15/20 09:32 36.7 C 99 H 17 96/59 L 11/15/20 09:17 36.6 C 98 H 17 94/53 L 11/15/20 09:14 36.6 C 97 H 18 92/53 L 11/15/20 08:59 36.4 C L 101 H 16 94/59 L 11/15/20 08:00 99 H 11/15/20 07:04 36.5 C 99 H 19 93/56 L 11/15/20 04:34 36.9 C 104 H 20 88/53 L Pulse Ox 11/15/20 13:32 97 11/15/20 12:11 11/15/20 12:02 100 11/15/20 11:02 95 11/15/20 10:02 100 11/15/20 09:32 100 11/15/20 09:17 11/15/20 09:14 11/15/20 08:59 93 11/15/20 08:00 11/15/20 07:04 96 11/15/20 04:34 96
--- NOTE | 2020-11-15 14:28 | Communication Note ---
Date of Service: November 15, 2020 Pt is scheduled for ERCP/EGD under anesthesia. Pt has severe (LUIS 0.72 cm2).Pt is in symptomatic CHF. PT is tachycardic on exam at 106 at this time. Pt has labored breathing; Pt has B/L rales and crackles. CXR was just repeated and shows PT in worsening failure. The risk of Gen. Anesthesia in this setting is too high in this setting. With further optimization of this patient's clinical condition, I feel that she may be ready for the procedure.
[2020-11-15] MEDS: cefTRIAXone SODIUM 2,000 MG in DEXTROSE 5% 50 ML IV SCH (15:21)
[2020-11-15] MEDS ORDERED: FUROSEMIDE 20 MG in SYRINGE 0 ML IV ONE (16:00)
--- NOTE | 2020-11-15 16:01 | Hospitalist Progress Note ---
Date of Service November 15, 2020 Assessment & Plan (1) Fall: (2) Supratherapeutic INR: (3) Acute blood loss anemia: This is an 85yo F resident from [facility] with a PMH of PAF anticoagulated on warfarin, HTN, cirrhosis, HLD, severe aortic stenosis, grade 2 diastolic dysfunction, CKD stage III, LBBB, hypothyroidism, history of breast cancer, pernicious and iron deficient anemia and other medical problems listed below who presents after falls overnight. INR was 4.9, CT abdomen pelvis showed large left upper abdomen In setting of large acute left flank subcutaneous hematoma and heme + stool on rectal exam Patient required 4 units of blood transfusion and last 12 hours, With ongoing hemodynamic instability /SBP in 80low 90s Very difficult to do volume resuscitation as patient has severe aortic stenosis Given IV Lasix, creatinine continues to worsen, acute renal failure and CKD stage III CT abdomen pelvis also showed choledocholithiasis After discussion with gastroenterology, EGD and ERCP could not be done as patient found to be a poor candidate for anesthesia with evidence of acute CHF Patient is transferred to tertiary care center [facility] (4) Subcutaneous hematoma: CT abd/pelvis with large acute left flank subcutaneous hematoma that measures 13.6 x 9.2 x 12.3 cm in setting of supratherapeutic INR Seen by surgery, no surgical intervention necessary at this point Coagulopathy reversed (5) GI bleed: Heme + stool, CT abd/pelvis with cirrhosis with manifestations of portal hypertension including varices formation Patient denies GI bleed or melena but not a reliable historian Patient input from GI, patient will benefit with EGD and ERCP (choledocholithiasis Transfer to higher level of care as very high risk for anesthesia given severe valvular heart disease, decompensated CHF (6) PAF (paroxysmal atrial fibrillation): Continue amiodarone Given multiple dose of vitamin K to reverse coagulopathy Patient not a good candidate for Coumadin in future due to fall risk, severe bleeding complication (7) Acute kidney injury superimposed on chronic kidney disease: Creatinine continues to worsen due to acute blood loss anemia, hypotension Also given intermittent dose of IV Lasix for volume overload Nephrology consulted (8) Aortic stenosis: Echo shows severe calcified aortic valve with moderate to severe aortic stenosis Monitor volume status very closely Risk for any procedure or anesthesia (9) Diastolic heart failure: Acute on chronic diastolic heart failure in setting of mod-severe aortic stenosis Chest CT with [id number] bilateral pleural effusions with bilateral compressive atelectatic change Difficult to manage volume status in setting of acute blood loss anemia requiring transfusion High risk for further decompensated of CHF, /flash pulmonary edema, patient is transferred to [facility] (10) UTI (urinary tract infection): UA consistent with infection, urine culture pending Started on Rocephin (h/o anaphylaxis with PCN and concerned about crossreactivity with Rocephin but confirmed that patient has received in the past without issue) Lactic acid normal, but if procalcitonin (11) HTN (hypertension): Hypotensive in setting of acute blood loss anemia. Receiving blood transfusion, conservative IV fluid replacement given history of severe (12) Hypothyroid: Continue levothyroxine Code status: FULL code PCP: Bhargavi Biggs Dispo: Patient is transferred to [facility] (13) H/O malignant neoplasm of breast: Admission and Anticipated Discharge Date Admission Date: November 14, 2020 Subjective Follow-up visit for acute blood loss anemia, supratherapeutic INR and/choledocholithiasis/large hematoma status post fall, acute renal failure with CKD stage III Patient was scheduled for EGD/ERCP today, procedure was canceled as per anesthesia patient was found to be too high risk: Pulmonary congestion/decompensated CHF volume overload secondary to large amount of blood transfusion, with underlying severe valvular heart disease, aortic stenosis. Patient needs to be optimized prior to do any endoscopic procedure. Discussed with gastroenterology, Given additional complexity, ongoing blood loss anemia, volume overload secondary to blood transfusion, Need for possible EGD to rule out GI bleed, ERCP for choledocholithiasis patient will be better served at a tertiary center Spoke with [facility] in [place], patient is accepted to be transferred under hospitalist service And of care discussed with patient and patient's son in agreement with the transfer Review of Systems Review of Systems: All systems reviewed & are unremarkable except as noted in Subjective Physical Exam Physical Exam: Physical exam: General: Very pale and diaphoretic feels very tired and fatigued alert awake oriented x3 HEENT: PERRLA, EOMI, Heart: Regular S1-S2, no carotid bruit, no JVD, no lower extremity edema Lungs: Clear to auscultate, no wheeze or rales Abdomen: Soft nontender, no organomegaly Extremity: No cyanosis, no deformity, normal strength 5 out of 5 with upper and lower Neuro: No focal neurological deficit normal speech, normal visual field, Motor strength : normal both upper and lower extremity, sensation intact Psych: Alert awake oriented x3, normal affect Results & Data Results & Data ([facility]) Vital Signs (Past 12 Hours) Vital Signs Temp Pulse Pulse Pulse Resp BP BP 11/15/20 15:19 36.5 C 101 H 18 94/59 L 11/15/20 13:32 36.7 C 105 H 20 112/61 11/15/20 12:11 36.6 C 96 H 17 98/62 L 11/15/20 12:02 36.6 C 96 H 17 99/61 L 11/15/20 11:02 36.7 C 94 H 18 97/58 L 11/15/20 10:02 37.3 C 98 H 17 91/59 L 11/15/20 09:32 36.7 C 99 H 17 96/59 L 11/15/20 09:17 36.6 C 98 H 17 94/53 L 11/15/20 09:14 36.6 C 97 H 18 92/53 L 11/15/20 08:59 36.4 C L 101 H 16 94/59 L 11/15/20 08:00 99 H 11/15/20 07:04 36.5 C 99 H 19 93/56 L 11/15/20 04:34 36.9 C 104 H 20 88/53 L Pulse Ox 11/15/20 15:19 96 11/15/20 13:32 97 11/15/20 12:11 11/15/20 12:02 100 11/15/20 11:02 95 11/15/20 10:02 100 11/15/20 09:32 100 11/15/20 09:17 11/15/20 09:14 11/15/20 08:59 93 11/15/20 08:00 11/15/20 07:04 96 11/15/20 04:34 96
--- NOTE | 2020-11-15 19:15 | Discharge Summary ---
Date of Service November 15, 2020 Admission HPI Per Admitting Provider This is an 85yo F resident from [facility] with a PMH of PAF anticoagulated on warfarin, HTN, cirrhosis, HLD, severe aortic stenosis, grade 2 diastolic dysfunction, CKD stage III, LBBB, hypothyroidism, history of breast cancer, pernicious and iron deficient anemia and other medical problems listed below who presents after falls overnight. Had an unwitnessed fall while using the bathroom but is unsure when it happened. Per discussion with [facility] staff, there were falls at 0300 and 0540. Found on the floor in her room at 0300 and was helped back into bed. Later that morning, patient had fall in bathroom that was unwitnessed and was calling out for help until assisted by staff. Continued to have pain in left side and was brought into ED for further evaluation. Endorsing discomfort in side. Feeling fatigued but denies confusion. No fever, chills, lightheadedness, headache, chest pain, SOB, nausea, vomiting, abdominal pain, dysuria, diarrhea or constipation. Has received Covid vaccine. Principal Diagnosis Fall * acute blood loss anemia * large Hematoma * choledocholithiasis * Esophageal varices * severe aortic stenosis * acute CHF with diastolic heart failure with severe valvular heart disease * Acute renal failure with CKD stage 3 Discharge Exam Constitutional WD/WN, vitals as above well developed, well nourished, + ill appearing (chronically deconditioned), + obese and cooperative; no acute distress, no altered mental status and not diaphoretic Eyes PERRL, conjunctivae normal, anicteric sclerae ENMT external ear and nose normal, oropharynx normal Mouth: + dentition abnormality, + edentulous and + poor dentition Mallampati Class: II Neck trachea midline, no thyromegaly normal visual inspection and trachea midline; neck extension not limited Respiratory normal respiratory effort, lungs clear to auscultation normal respiratory effort and + uses accessory muscles; no respiratory distress and no labored breathing Auscultation: + crackles and + rales Cardiovascular Rate/Rhythm: regular rate, regular rhythm and + tachycardic Heart Sounds: normal S1 and normal S2; no murmur Vessels: no JVD and no carotid bruit Extremities: + edema (1+ bilat lower leg/ankle edema) Gastrointestinal (Abdomen) normal bowel sounds, soft, nontender, no hepatosplenomegaly Inspection/Auscultation: abdomen normal to inspection; abdomen not distended Percussion/Palpation: + abdomen tender (left upper abdomen and left flank), + guarding and abdomen soft; abdomen not rigid Musculoskeletal Spine: normal cervical ROM Extremities: extremities normal to inspection (LE edema) Skin no rashes, warm and dry + ecchymosis (multiple small areas; large area of ecchymosis/tenderness on left flank ) Neurologic PERRL, EOMI, accommodation nl, no face palsy, no dysarthria moves all extremities and awake Motor/Sensory: no sensory deficit Psychiatric A+Ox3, euthymic affect Orientation: alert, oriented x 3 and cooperative Lymphatic no cervical or axillary lymphadenopathy Discharge Data Allergies Allergy/AdvReac Type Severity Reaction Status Date / Time Penicillins Allergy Severe ANAPHYAXIS Verified 11/15/20 13:32 magnesium AdvReac Unknown DIARRHEA Verified 11/15/20 13:32 Consultations 11/14/20 10:23 ED Decision to Admit Stat 11/14/20 11:13 Consult General Surgery Routine 11/14/20 11:16 Consult Case Management - Discharge Planning Routine 11/14/20 14:11 Consult Gastroenterology Routine 11/14/20 19:04 Consult Nephrology Routine Procedures Performed Operation Date: 11/15/20 14:15 <No data on this case meets the specified criteria> Ordered Studies 11/14/20 06:57 CT cervical spine wo con Stat CT head/brain wo con Stat 11/14/20 07:06 CT abd pelvis wo con Stat 11/14/20 07:44 CT chest diagnostic wo con Stat Hospital Course (1) Fall: (2) Supratherapeutic INR: (3) Acute blood loss anemia: This is an 85yo F resident from [facility] with a PMH of PAF anticoagulated on warfarin, HTN, cirrhosis, HLD, severe aortic stenosis, grade 2 diastolic dysfunction, CKD stage III, LBBB, hypothyroidism, history of breast cancer, pernicious and iron deficient anemia and other medical problems listed below who presents after falls overnight. INR was 4.9, CT abdomen pelvis showed large left upper abdomen In setting of large acute left flank subcutaneous hematoma and heme + stool on rectal exam Patient required 4 units of blood transfusion and last 12 hours, With ongoing hemodynamic instability /SBP in 80low 90s Very difficult to do volume resuscitation as patient has severe aortic stenosis Given IV Lasix, creatinine continues to worsen, acute renal failure and CKD stage III CT abdomen pelvis also showed choledocholithiasis After discussion with gastroenterology, EGD and ERCP could not be done as patient found to be a poor candidate for ane sthesia with evidence of acute CHF Patient is transferred to tertiary care center [facility] (4) Subcutaneous hematoma: CT abd/pelvis with large acute left flank subcutaneous hematoma that measures 13.6 x 9.2 x 12.3 cm in setting of supratherapeutic INR Seen by surgery, no surgical intervention necessary at this point Coagulopathy reversed (5) GI bleed: Heme + stool, CT abd/pelvis with cirrhosis with manifestations of portal hypertension including varices formation Patient denies GI bleed or melena but not a reliable historian Patient input from GI, patient will benefit with EGD and ERCP (choledocholithiasis Transfer to higher level of care as very high risk for anesthesia given severe valvular heart disease, decompensated CHF (6) PAF (paroxysmal atrial fibrillation): Continue amiodarone Given multiple dose of vitamin K to reverse coagulopathy Patient not a good candidate for Coumadin in future due to fall risk, severe bleeding complication (7) Acute kidney injury superimposed on chronic kidney disease: Creatinine continues to worsen due to acute blood loss anemia, hypotension Also given intermittent dose of IV Lasix for volume overload Nephrology consulted (8) Aortic stenosis: Echo shows severe calcified aortic valve with moderate to severe aortic stenosis Monitor volume status very closely Risk for any procedure or anesthesia (9) Diastolic heart failure: Acute on chronic diastolic heart failure in setting of mod-severe aortic stenosis Chest CT with [id number] bilateral pleural effusions with bilateral compressive atelectatic change Difficult to manage volume status in setting of acute blood loss anemia requiring transfusion High risk for further decompensated of CHF, /flash pulmonary edema, patient is transferred to [facility] (10) UTI (urinary tract infection): UA consistent with infection, urine culture pending Started on Rocephin (h/o anaphylaxis with PCN and concerned about crossreactivity with Rocephin but confirmed that patient has received in the past without issue) Lactic acid normal, but if procalcitonin (11) HTN (hypertension): Hypotensive in setting of acute blood loss anemia. Receiving blood transfusion, conservative IV fluid replacement given history of severe (12) Hypothyroid: Continue levothyroxine Code status: FULL code PCP: Bhargavi Levin Dispo: Patient is transferred to [facility] (13) H/O malignant neoplasm of breast: Total Time Total Time Spent Total Time Spent (In Minutes): 45 mins Total Time Includes: Examination of the Patient, Discharge Planning, Medication Reconciliation and Communication With Other Providers Discharge Plan Discharge Items Patient Disposition: Transfer Acute Care Hospital Reason For Visit: LARGE HEMATOMA, FALL, ACUTE BLOOD LOSS ANEMIA Discharge Diagnosis: * Fall * acute blood loss anemia * large Hematoma * choledocholithiasis * Esophageal varices * severe aortic stenosis * acute CHF with diastolic heart failure with severe valvular heart disease * Acute renal failure with CKD stage 3 Activity: As commented below Activity Comment: as tolerated Non-emergency contact: Primary Care Provider Call non-emergency contact if: you have any medication questions Follow-up/Referrals: [facility] [Primary Care Provider] - Diet: Heart Healthy Addtl Attending Provider Instructions: Patient is transferred to [facility] in [place] Accepting Physician : Dr Kim Padilla ( Hospitalist /Internal Medicine ) reason for transfer : multiple complex medical issues , need multidisciplinary care at tertiary center Pending Studies at Discharge: No Stand-Alone Forms: My [employer] Skilled Items Patient informed of condition?: Yes DNR: No Discharge Level of Care: Other Communicable Disease: No Discharge Prognosis: Stable Lines: Peripheral IV Urinary Catheter: Yes Medications and DC Order Prescriptions: New oxycodone-acetaminophen [Percocet] 5-325 mg Tablet 2 tab PO Q4H PRNQty: 0 RF: 0 Continued diclofenac sodium 1 % gel 4 g TOPICAL QID PRN (Reason: Pain) RF: 0 atorvastatin 20 mg tablet 20 mg PO QAM RF: 0 amiodarone 200 mg tablet 100 mg PO QAM RF: 0 acetaminophen [Tylenol Extra Strength] 500 mg Tablet 500 mg PO Q6H MDD 3 GRAMS/24 HOURS PRN (Reason: Pain) RF: 0 tamoxifen 20 mg tablet 20 mg PO QAM RF: 0 cholecalciferol (vitamin D3) [Vitamin D3] 2,000 unit Tablet 2,000 unit PO QAM RF: 0 levothyroxine 137 mcg Tablet 137 mcg PO QAM RF: 0 melatonin 3 mg Tablet 3 mg PO HS RF: 0 famotidine [Pepcid] 20 mg Tablet 20 mg PO QAM RF: 0 docusate sodium 100 mg Capsule 100 mg PO BID RF: 0 gabapentin 100 mg Capsule 100 mg PO HS RF: 0 nystatin 100,000 unit/gram Powder 1 applic TOPICAL BID RF: 0 albuterol sulfate [Ventolin HFA] 90 mcg/actuation Hfa Aerosol Inhaler 2 puff INHALATION QID PRN (Reason: Wheezing) RF: 0 polyethylene glycol 3350 [Miralax] 17 gram/dose Powder 17 g PO DAILY PRN (Reason: Constipation) RF: 0 Changed pantoprazole 40 mg Tablet,Delayed Release (Dr/Ec) 40 mg PO BID Qty: 0 RF: 0 furosemide 20 mg Tablet 40 mg PO QAM Qty: 10 RF: 0 Discontinued warfarin 3 mg Tablet 1.5 mg PO QPM RF: 0 Discharge Orders: Discharge Order (Routine); Ordered 11/15/20 Ordered By: Ila Sexton Admission Data Admit Date/Time: 11/14/20 11:13 Attending Provider: Ila Sexton Admit Provider: Ila Sexton [facility] Other Providers: Ila Sexton ; Jeff Noonan ; Nuvia Cox ; Felisa Alexis ; Kenneth Danielle ; Judson Foss ; Mellisa Turpin ; Carolyn Pires ; Addison Bowman Jr ; Ann Ceballos ; Andrews Stark ; Joann Sarmiento ; Deborah Pedroza ; Carolyn Zhao ; Costa Pickett ; Yoana Gaxiola ; Víctor Donald ; Elizabeth Alexis ; Harshad Davenport ; Ranjeet Wiseman ; Kg Piper ; Rosalie Dorman ; Danyell Mcnulty ; Akosua Landeros ; Joann Sweet ; Gilda Fitzpatrick ; Ashley Avalos ; Manuel Barrientos ; Payton Bro ; Gabrielle Long ; Johanna Montez ; Abelino Camarillo Other Interventions: Discharge Summary Assessment (RN) Last Done: 11/15/20 18:40
--- NOTE | 2020-11-16 06:44 | Electrocardiogram Report ---
Test Reason : Blood Pressure : / mmHG Vent. Rate : 102 BPM Atrial Rate : 050 BPM P-R Int : 000 ms QRS Dur : 162 ms QT Int : 416 ms P-R-T Axes : 000 006 182 degrees QTc Int : 542 ms Atrial fibrillation with rapid ventricular response Left bundle branch block Abnormal ECG When compared with ECG of 14-NOV-2020 07:04, No significant change Confirmed by Jovanni Ayala ([id number] on 11/16/2020 6:44:39 AM Referred By: [facility] Confirmed By:Jovanni Ayala
== END 2020-11-15 19:30 | disposition short-term general hospital (02) | DRG 604 ==
LOC: ED 06:38 → 2S 11:13